=== PATIENT | female | born 1980 | race Caucasian/White ===

== ENCOUNTER 2022-11-13 20:34 | Emergency (ER) | payer MEDICARE, SELFPAY ==
[2022-11-13 20:43] VITALS: BP 110/79; PULSE 92; RESP 16; TEMP 36.8; O2SAT 96; BMI 44.8
--- NOTE | 2022-11-13 21:02 | ED.EAR1 ---
HPI - Ear Problem General Chief complaint: Ear Stated complaint: earache Time Seen by Provider: 11/13/22 20:54 Source: patient Mode of arrival: walk-in Limitations: no limitations History of Present Illness HPI Narrative: patient is a 42-year-old female presents to the emergency department for a five day history of decreased hearing to the right ear. She states she has been using [id number] drops and trying to flush her without improvement. She has no pain. No significant upper respiratory symptoms. She has no other focal medical complaints. There has been no drainage or bleeding from the right ear. Related Data Home Medications Medication Instructions Recorded Confirmed acyclovir 400 mg tablet 400 mg PO Q12H 11/13/22 11/13/22 bupropion HCl 150 mg tablet,12 hr 150 mg PO Q12H 11/13/22 11/13/22 sustained-release cabergoline 0.5 mg tablet 1 mg PO DAILY 11/13/22 11/13/22 esomeprazole magnesium 40 mg 40 mg PO Q24H 11/13/22 11/13/22 capsule,delayed release levothyroxine 50 mcg tablet 50 mcg PO DAILY 11/13/22 11/13/22 Allergies Allergy/AdvReac Type Severity Reaction Status Date / Time No Known Drug Allergies Allergy Verified 11/13/22 20:47 Review of Systems ROS Constitutional Denies: fever or chills Ears, nose, mouth, and throat Reports: change in hearing; Denies: throat pain, neck pain or nasal congestion Cardiovascular Denies: chest pain Respiratory Denies: cough Gastrointestinal Denies: nausea or vomiting Musculoskeletal Denies: back pain Integumentary/Breast Denies: rash Allergic/Immunologic Denies: hives PFSH PFS Social History Smoking status: Current some day smoker Exam Narrative Exam Narrative: Gen.: Awake, alert, in no distress Head: Normocephalic, atraumatic ENT: Moist mucous membranes; left tympanic membrane is clear, bulging and right tympanic membrane is obscured by light brown wax with no drainage in the canal Respiratory: No respiratory distress Extremities: Moves extremities equally Psych: Normal mood and affect Neuro: No focal neuro deficit Skin: Warm, dry, intact Constitutional Vital Signs, click to edit/add: Last Vital Signs Temp 98.2 F 11/13/22 20:43 Pulse 92 H 11/13/22 20:43 Resp 16 11/13/22 20:43 BP 110/79 11/13/22 20:43 Pulse Ox 96 11/13/22 20:43 O2 Del Method Room Air 11/13/22 20:43 Course Vital Signs Vital signs: Vital Signs Temperature 98.2 F 11/13/22 20:43 Pulse Rate 92 H 11/13/22 20:43 Respiratory Rate 16 11/13/22 20:43 Blood Pressure 110/79 11/13/22 20:43 Pulse Oximetry 96 11/13/22 20:43 Oxygen Delivery Method Room Air 11/13/22 20:43 Temperature 98.2 F 11/13/22 20:43 Pulse Rate 92 H 11/13/22 20:43 Respiratory Rate 16 11/13/22 20:43 Blood Pressure 110/79 11/13/22 20:43 Pulse Oximetry 96 11/13/22 20:43 Oxygen Delivery Method Room Air 11/13/22 20:43 Medical Decision Making MDM Narrative Medical decision making narrative: nursing staff flush the patient's right ear with a significant amount of wax removed, the tympanic membrane is clear at time of discharge. Ciprodex drops given for home to prevent otitis externa due to flushing. Follow-up with PCP and return to the Emergency Room if symptoms change or worsen Medical Records Medical records reviewed: Yes I reviewed the patient's medical records Discharge Plan Discharge Chief Complaint: Ear Clinical Impression: Impacted cerumen of right ear Patient Disposition: Home, Self-Care Time of Disposition Decision: 21:21 Condition: Good Prescriptions / Home Meds: No Action acyclovir 400 mg tablet 400 mg PO Q12H bupropion HCl 150 mg tablet sustained-release 12 hr 150 mg PO Q12H cabergoline 0.5 mg tablet 1 mg PO DAILY esomeprazole magnesium 40 mg capsule,delayed release(DR/EC) 40 mg PO Q24H levothyroxine 50 mcg tablet 50 mcg PO DAILY Additional Instructions: Use 2 drops of Ciprodex in the right ear, 3 times a day for 5 days Stand Alone Forms: Portal Instructions Referrals: Physician,Non-Staff, MD [Primary Care Provider] - 1 week Discharge Date/Time: 11/13/22 21:32
[2022-11-13] MEDS: CIPROFLOXACIN HCL/DEXAMETH 0.3%/0.1% OTIC SUSP 150 DROP/7.5 ML BOTTLE OT (21:17)
== END 2022-11-13 21:32 | disposition home or self-care (01) ==
PROVIDERS: Emergency Provider Internal Medicine
DX: H61.21 Impacted cerumen, right ear (principal); Z79.899 Other long term (current) drug therapy; Z79.890 Hormone replacement therapy; F17.210 Nicotine dependence, cigarettes, uncomplicated
CPT/HCPCS: 69209; 99281

== ENCOUNTER 2024-05-17 13:55 | Emergency (ER) | payer OTHER, MEDICAID, SELFPAY ==
[2024-05-17 13:58] VITALS: BP 118/80; PULSE 99; TEMP 36.6; O2SAT 97; BMI 45.7
[2024-05-17 14:13] LABS: Bilirubin Urine NEGATIVE (NEGATIVE); Blood Urine TRACE-I (NEGATIVE); Clarity Urine CLEAR (CLEAR); Color Urine LT. YELLOW (YELLOW); Glucose Urine UA NEGATIVE (NEGATIVE); Ketones Urine NEGATIVE (NEGATIVE); Leukocyte Esterase Urine TRACE (NEGATIVE); Nitrite Urine NEGATIVE (NEGATIVE); Protein Urine NEGATIVE (NEG/TRACE); Specific Gravity Urine 1.015 (1.005-1.025); Urobilinogen Urine 0.2 EU/dL (0.2-1.0)
[2024-05-17 14:16] LABS: HCG Qualitative Urine* NEGATIVE (NEGATIVE); Internal Control Within Normal Limits
[2024-05-17 14:17] LABS: Urine Microscopic Indicated YES
[2024-05-17 14:23] LABS: Bacteria Urine MODERATE #/HPF (NONE SEEN); Cast Seen? NONE SEEN #/LPF (NONE SEEN); Crystals Seen? None Seen #/HPF (None Seen); Mucus Urine SMALL (NONE SEEN); Squamous Epithelial Cell Urine FEW #/LPF (NONE/RARE); Urine Culture Indicated YES-FRMC; WBC Urine 0-2 #/HPF (NONE SEEN)
[2024-05-17] MEDS: ONDANSETRON 4 MG RAPDIS TABLET SL (14:58)
--- NOTE | 2024-05-17 16:02 | ED_ITS ---
HPI - Abdominal Pain General Chief Complaint: Abdominal Pain Stated Complaint: NAUSEA BACK PAIN Time Seen by Provider: 05/17/24 14:05 Source: patient Mode of arrival: walk-in Limitations: no limitations History of Present Illness HPI narrative: The patient is a 43-year-old female who was just drinking last night woke up this morning with nausea and vomiting, although she mentioned that she had this nausea and vomiting before she was drinking and she did not drink that much, the patient is giving me history was she drinking the Pepsi, the patient apparently refused any blood workup she mentioned that she would just follow-up with her primary care as outpatient she is just here because she think she have a UTI Somehow the patient thought that she had passed gallstone through her stool and she was thinking maybe this is UTI Related Data Home Medications ?Medication ?Instructions ?Recorded ?Confirmed acyclovir 400 mg tablet 400 mg PO Q12H 11/13/22 11/13/22 bupropion HCl 150 mg tablet,12 hr 150 mg PO Q12H 11/13/22 11/13/22 sustained-release cabergoline 0.5 mg tablet 1 mg PO DAILY 11/13/22 11/13/22 esomeprazole magnesium 40 mg 40 mg PO Q24H 11/13/22 11/13/22 capsule,delayed release levothyroxine 50 mcg tablet 50 mcg PO DAILY 11/13/22 11/13/22 Previous Rx's ?Medication ?Instructions ?Recorded ondansetron 4 mg disintegrating 4 mg PO Q8H PRN nausea and 05/17/24 tablet vomiting 24 hours #3 tabs Allergies Allergy/AdvReac Type Severity Reaction Status Date / Time No Known Drug Allergies Allergy Verified 05/17/24 14:02 Review of Systems ROS Status of ROS 10 or more systems reviewed and unremark able except as noted in history and below PFSH PFSH Social History Smoking status: Current some day smoker Little interest or pleasure in doing things: not at all Feeling down, depressed, or hopeless: not at all Exam Narrative Exam Narrative: Nurses notes and vital signs reviewed and patient is not hypoxic. General: Well-appearing and in no apparent distress. Skin: Warm, dry, no pallor noted. Respiratory: No accessory muscle use or respiratory distress. Back: No midline thoracic or lumbar vertebral tenderness. No CVA tenderness Musculoskeletal: normal ROM, no calf or popliteal tenderness, no lower extremity edema/swelling GI: Abdomen is soft, non-distended. Normal bowel sounds. No masses appreciated. No tenderness to palpation. No rebound, guarding, or rigidity noted. Neurological: A&O x4. No cranial nerve dysfunction observed. No truncal ataxia. Moves all extremities. Sensation intact. Psychiatric: Cooperative and interactive. . Constitutional Vital Signs, click to edit/add: Last Vital Signs Temp 97.9 F 05/17/24 13:58 Pulse 99 H 05/17/24 13:58 Resp 20 05/17/24 13:58 BP 118/80 05/17/24 13:58 Pulse Ox 97 05/17/24 13:58 Course Vital Signs Vital signs: Vital Signs Temperature 97.9 F 05/17/24 13:58 Pulse Rate 99 H 05/17/24 13:58 Respiratory Rate 20 05/17/24 13:58 Blood Pressure 118/80 05/17/24 13:58 Pulse Oximetry 97 05/17/24 13:58 Temperature 97.9 F 05/17/24 13:58 Pulse Rate 99 H 05/17/24 13:58 Respiratory Rate 20 05/17/24 13:58 Blood Pressure 118/80 05/17/24 13:58 Pulse Oximetry 97 05/17/24 13:58 MDM - Abdominal Pain MDM Narrative Medical decision making narrative: The patient urinalysis showed that she did not have UTI and test is negative I did explain to the patient that her epigastric discomfort that associated with nausea and vomiting could be from the vomiting and I explained to her that this could be secondary to drinking alcohol or any acidic drinks that she is having right now, but I did offer her some blood workup but she did not want any workup done here she was just here primary care as outpatient Patient provided with Zofran in the ER The patient is to follow up with primary care physician in next 2-3 days or to return to the emergency department should any of the signs or symptoms worsen or new symptoms develop. The patient agrees with the following Diagnosis and Treatment plan and the patient will be discharged home. Lab Data Labs: Lab Results 05/17/24 Range/Units 14:08 Urine Color Lt. yellow (YELLOW) Urine Clarity Clear (CLEAR) Urine pH 6.0 (5.0-9.0) Ur Specific [place] 1.015 (1.005-1.025) Urine Protein Negative (NEG/TRACE) mg/dL Urine Glucose (UA) Negative (NEGATIVE) mg/dL Urine Ketones Negative (NEGATIVE) mg/dL Urine Occult Blood Trace-i (NEGATIVE) Urine Nitrite Negative (NEGATIVE) Urine Bilirubin Negative (NEGATIVE) Urine Urobilinogen 0.2 (0.2-1.0) EU/dL Ur Leukocyte Esterase Trace A (NEGATIVE) Urine RBC 2-5 A (0-2) #/HPF Urine WBC 0-2 A (NONE SEEN) #/HPF Ur Squamous Epith Cells Few A (NONE/RARE) #/LPF Urine Crystals None seen (None Seen) #/HPF Urine Bacteria Moderate A (NONE SEEN) #/HPF Urine Casts None seen (NONE SEEN) #/LPF Urine Mucus Small A (NONE SEEN) Ur Culture Indicated? [facility] [place] Urine HCG, Qual Negative (NEGATIVE) Discharge Plan Discharge Chief Complaint: Abdominal Pain Clinical Impression: Nausea Patient Disposition: Home, Self-Care Time of Disposition Decision: 14:54 Condition: Good Prescriptions / Home Meds: New ondansetron 4 mg tablet,disintegrating 4 mg PO Q8H PRN (Reason: nausea and vomiting) 1 Days Qty: 3 0RF No Action acyclovir 400 mg tablet 400 mg PO Q12H bupropion HCl 150 mg tablet sustained-release 12 hr 150 mg PO Q12H cabergoline 0.5 mg tablet 1 mg PO DAILY esomeprazole magnesium 40 mg capsule,delayed release(DR/EC) 40 mg PO Q24H levothyroxine 50 mcg tablet 50 mcg PO DAILY Print Language: Hungarian Instructions: Acute Nausea and Vomiting (DC) Referrals: Physician,Non-Staff, MD [Primary Care Provider] - 1 week Discharge Date/Time: 05/17/24 15:01
== END 2024-05-17 15:01 | disposition home or self-care (01) ==
PROVIDERS: Emergency Provider Emergency Medicine
DX: R11.0 Nausea (principal); F17.200 Nicotine dependence, unspecified, uncomplicated; R82.998 Other abnormal findings in urine
CPT/HCPCS: 81001; 84703; 87086; 87150; 87186; 99283; Q0162

== ENCOUNTER 2024-07-26 12:59 | Emergency (ER) | payer OTHER, MEDICAID, SELFPAY ==
--- OUTSIDE RECORDS SUMMARY | 2012-10-02 12:00 | XMS_ITS | Continuity of Care Document ---
Author Organization [facility] Address [address] [place] [address] Phone Care Team Providers Care Corporate Job Titles Name Role Phone Deidre Jones Unavailable Unavailable Allergies, Adverse Reactions, Alerts Substance Reaction Status Criticality No Known allergies Medications Medication Instructions Dosage Effective Dates (start - stop) Status Comments Ortho-Cyclen (28) 0.25 mg-35 mcg Tab take 1 tablet by oral route every day - Active acyclovir 200 mg Cap take 1 capsule (200 MG) by oral route every 4 hours 5 times per day 200 MG - Active Flagyl 500 mg Tab take 1 tablet (500MG ) by oral route every 8 hours - Active Zyprexa 5 mg Tab take 1 tablet (5MG) by oral route every day - Active Procedures Procedure Date OFFICE/OUTPATIENT VISIT, EST OFFICE/OUTPATIENT VISIT, EST URINE TEST Orthocyclen Clotrimazole 1% URINE TEST SMEAR, WET MOUNT, SALINE/INK OFFICE/OUTPATIENT VISIT, EST SMEAR, WET MOUNT, SALINE/INK URINE TEST PREV VISIT, EST, AGE 18-39 URINE TEST PREV VISIT, NEW, AGE 18-39 SPECIMEN HANDLING (GC/CHLAMYDIA) July SMEAR, WET MOUNT, SALINE/INK ROUTINE VENIPUNCTURE URINE TEST HIV-1 RPR (Dx) W/TITER & FTA OFFICE/OUTPATIENT VISIT, EST O[facility] SPECIMEN HANDLING (GC/CHLAMYDIA) Jan SMEAR, WET MOUNT, SALINE/INK HIV-1 URINE TEST [facility] METRONIDAZOL 500 MG (14 TABLETS) Jan OFFICE/OUTPATIENT VISIT, EST ROUTINE VENIPUNCTURE METRONIDAZOL 500 MG (14 TABLETS) 2010 RPR (Dx) W/TITER & FTA HIV-1 URINE TEST PER PM REEVAL EST PAT 65+ YR METRONIDAZOL 500 MG (14 TABLETS) 2009 TERAZOL 3 CREAM 20 GM W/RICARDA .8% 010 No Charge OFFICE/OUTPATIENT VISIT, EST SPECIMEN HANDLING OFFICE/OUTPATIENT VISIT, EST URINALYSIS, NONAUTO W/SCOPE SMEAR, WET MOUNT, SALINE/INK SPECIMEN HANDLING METRONIDAZOL 500 MG (14 TABLETS) 2008 URINE TEST OFFICE/OUTPATIENT VISIT, EST URINALYSIS, NONAUTO W/SCOPE THIN PREP PAP W/REFLEX TO ASCUS 009 NITROFURANTON 100 MG ($1.00 PER TABLET) SPECIMEN HANDLING URINE TEST OFFICE/OUTPATIENT VISIT, EST OFFICE/OUTPATIENT VISIT, EST OFFICE/OUTPATIENT VISIT, EST ACYCLOVIR PREV VISIT, NEW, AGE 18-39 URINALYSIS, NONAUTO W/SCOPE URINE TEST SPECIMEN HANDLING Condoms THIN PREP PAP W/REFLEX TO ASCUS 009 Advance Directives Directive Yes / No Effective Date File Name Resuscitation Not Answered N/A N/A Life Support Not Answered N/A N/A Intubation Not Answered N/A N/A Antibiotics Not Answered N/A N/A IV Fluid Support Not Answered N/A N/A Tube Feed Not Answered N/A N/A Other Directive N/A N/A WARNING:The information contained in this section is historical and is provided for information only and does not constitute a legal document or any assurance that the information is still accurate. Please verify the information with the brewer of the legal document before using it for clinical purposes. Encounters Encounter Description Practice Location Reason(s) For Visit Diagnoses Date Provider Providers Copied on Encounter OFFICE/OUTPA TIENT VISIT, [facility], [address] [place] [address], [id number] , tel: [phone] [facility] missed periods (chief complaint) Absence of menstruationGenera l counseling on prescription of oral contraceptivesCand idiasis of vulva and vaginaGenital herpes, unspecified 3 Robert Jiang. [address] [place] [address], [id number], [place]. [phone] OFFICE/OUTPA TIENT VISIT, [facility], [address] [place] [address], [id number] , [place] tel: [phone] [facility] (chief complaint) Vaginitis 3 Robert Jiang. [address] [place] [address], [id number], [place]. tel:[phone] PREV VISIT, EST, AGE 18-39 [facility], [address] [place] [address], [id number] , [place] tel: [phone] [facility] No Information 2 Robert Deidre. [address] [place] [address], [id number], [place]. [phone] PREV VISIT, NEW, AGE 18-39 [facility], [address] [place] [address], [id number] , [place] tel: [phone] [facility] STI female (chief complaint) Screening examination for venereal disease 2 Shamika Hernandez. [address], [place], [id number], [place]. tel:[phone] OFFICE/OUTPA TIENT VISIT, [facility], [address], [place], [id number] , [place] tel: [phone] [facility] STI female (chief complaint) VaginitisScreening examination for venereal disease 1 Shamika Hernandez. [address], [place], [id number], [place]. [phone] OFFICE/OUTPA TIENT VISIT, [facility], [address], [place], [id number] , [place] tel: [phone] [facility] No Information 1 Shamika Hernandez. [address], [place], [id number], [place]. tel:[phone] PER PM REEVAL EST PAT 65+ YR [facility], [address], [place], [id number] , [place] tel: [phone] [facility] No Information 9-201 0 Simran Horton. [address], [place], [id number]. tel:[phone] [facility], [address], [place], [id number] , [place] tel: [phone] [facility] No Information 4200 9 Shamika Hernandez. [address], [place], [id number], [place]. tel:[phone] OFFICE/OUTPA TIENT VISIT, [facility], [address], [place], [id number] , [place] tel: [phone] [facility] No Information 7200 9 Isaac Sen. [address], [place], [id number]. tel:[phone] OFFICE/OUTPA TIENT VISIT, [facility], [address], [place], [id number] , [place] tel: [phone] [facility] No Information 9 [facility]. [address] [facility] [place], [place], [id number]. tel:[phone] OFFICE/OUTPA TIENT VISIT, [facility], [address], [place], [id number] , [place] tel: [phone] [facility] No Information 9 [facility]. [address], [place], [id number]. tel:[phone] OFFICE/OUTPA TIENT VISIT, [facility], [address], [place], [id number] , [place] tel: [phone] [facility] No Information 9 Shamika Hernandez. [address], [place], [id number], [place]. tel:[phone] OFFICE/OUTPA TIENT VISIT, [facility], [address], [place], [id number] , [place] tel: [phone] [facility] No Information 9 No Information OFFICE/OUTPA TIENT VISIT, [facility], [address], [place], [id number] , [place] tel: [phone] [facility] No Information 9 [facility]. [address], [place], [id number]. tel:[phone] PREV VISIT, NEW, AGE 18-39 [facility], [address], [place], [id number] , [place] tel: [phone] [facility] No Information 9 No Information Family History Family Member Type Diagnosis Age At Onset Problem (finding) Family history of Menta l illness Payers Payer name Insurance type Covered democrat ID Authordebora marin(s) No Information Social History Type Description Quantity Date Captured Comments Alcohol Use Details 2 drinks monthly 3 Caffeine Use Details soda Tobacco Use Status Smoking Status No Information Sex Female Sexual Orientation Straight or heterosexual Vital Signs Date / Time: Height Weight BMI Pulse Rate Blood Pressure Temperature Respiratory Rate Body Surface Area Head Circumference Head Circ. Percentile Wt./Salvador. Percentile BMI percentile Pulse Ox Inhaled Ox 4:17 PM 62.00 in 204.00 lbs 37.3 1 kg/m eter (2) 118/78 mm[Hg] Chief Complaint And Reason For Visit From encounter dated '10/02/2012 16:00'. missed periods (chief complaint) Reason For Referral Reason For Referral No Information Plan Of Treatment Date Type Action Status Goal TD Vaccine. Due on 13 due Goal PAP. Due on due Goal H&P. Due on due Goal CHARGE ENTRY CLERK exam. Due on due Goal Tobacco cessation counseling completed Goal Tobacco cessation counseling completed History Of Present Illness Encounter Date Complaint History Of Prese nt Illness No Information Functional Status Date Functional Assessmen t No Information Instructions Date Instruction Additional Infor mation No Information Assessments Type Assessment Date No Information Patient Care Teams Name Effective Dates (start - stop) Status Members No Information
--- OUTSIDE RECORDS SUMMARY | 2024-07-21 11:45 | XMS_ITS | Encounter Summary ---
Author Organization [facility] Address [facility] [place] [address] Care Team Providers Care Hopper Feeder Name Role Phone Johnny Reardon DO Primary Care Provider Marie Mancuso PA-C Unavailable [phone] Gail Escudero MD Unavailable [phone] Source Comments In the event this information is protected by the Federal Confidentiality of Alcohol and Drug AbusePatient Records regulations: The Federal rules restrict any use of the information to criminally investigate or prosecute any alcohol or drug abuse patient.[facility] Reason for Visit * Reason Comments New Patient Pre-Op Visit Encounter Details Date Type Department Care Team (Late st Contact Info) Description 07/21/2024 11:45 AM EDT Office Visit Otolaryngology [address] [facility] [address] [address] Koko Gorman MD [address] [place] [address] Prolactinoma (HCC) (Primary Dx); Pituitary tumor Social History Tobacco Use Types Packs/Day Years Used Date Smoking Tobacco: Some Days Cigarettes Smokeless Tobacco: Never Tobacco Cessation:Ready to Q uit: Not Asked; Counseling Given: Not Answered Comments:A few cigs every few days Alcohol Use Standard Drinks/Week Comments Yes 0 (1 standard drink = 0.6 oz pur e alcohol) occasional/rare Social Connection and Isolation Panel [NHANES] A nswer Date Recorded In a typical week, how many times do you talk on the phone with family, friends, or neighbors? Once a week 06/07/2022 How often do you get together with friends or re latives? Never 06/07/2022 How often do you attend denominational or scientology serv ices? Never 06/07/2022 Do you belong to any clubs o r organizations such as denominational groups, unions, fraternal or athletic groups, or school groups? No 06/07/2022 How often do you attend meet ings of the clubs or organizations you belong to? Never 06/07/2022 Are you , , di vorced, , never , or living with a partner? Never 06/07/2022 AUDIT-C Answer Date Recorded Q1: How often do you have a drink containing alcohol? Never 06/07/2022 Q2: How many drinks containi ng alcohol do you have on a typical day when you are drinking? Patient does not drink Q3: How often do you have si x or more drinks on one occasion? Never 06/07/2022 Overall Financial Resource Strain (CARDIA) Answe r Date Recorded How hard is it for you to pa y for the very basics like food, housing, medical care, and heating? Very hard 06/07/2022 PHQ-2 Answer Date Recorded PHQ-2 score 3 03/10/2024 [facility] - Occupational Stress Questionnaire Answer Date Recorded Do you feel stress - tense, restless, nervous, or anxious, or unable to sleep at night because your mind is troubled all the time - these days? Very much 06/07/2022 Exercise Vital Sign Answer Date Recorde d On average, how many days pe r week do you engage in moderate to strenuous exercise (like a brisk walk)? 4 days 06/07/2022 On average, how many minutes do you engage in exercise at this level? 60 min 06/07/2022 Hunger Vital Sign Answer Date Recorded Within the past 12 months, y ou worried that your food would run out before you got the money to buy more. Sometimes true Within the past 12 months, t he food you bought just didn't last and you didn't have money to get more. Sometimes true 08/2022 PRAPARE - Transportation Answer Date Re corded In the past 12 months, has l ack of transportation kept you from medical appointments or from getting medications? Yes 08/2022 In the past 12 months, has l ack of transportation kept you from meetings, work, or from getting things needed for daily living? Yes 06/07/2022 Housing Stability Vital Sign Answer Raz e Recorded In the last 12 months, was t here a time when you were not able to pay the mortgage or rent on time? Yes 06/07/2022 In the last 12 months, how many places have you lived? 1 06/07/2022 In the last 12 months, was t here a time when you did not have a steady place to sleep or slept in a alf (including now)? No 06/07/2022 Area Deprivation Index Answer Date Kana rded National Score (1-100), lower number is lower ri sk 79 07/26/2022 State Score (1-10), lower number is lower risk 7 07/26/2022 Data from: https://www.neighborhoodatlas.medicine.[facility].edu/. Last address used for calculation [address] [place] [address] 07/26/2022 Comments No Sex and Gender Information Value Date Recorded Sex Assigned at Female 09/09/2019 3:52 PM EDT Legal Sex Female 8:28 AM EST Gender Identity Female 09/09/2019 3:52 PM EDT Sexual Orientation Straight 09/09/2019 3: 52 PM EDT documented as of this encounter Progress Notes * Koko Gorman MD - 07/21/2024 11:28 AM EDT Images from the original note were not included. SECTION OF RHINOLOGY, SINUS AND SKULL BASE SURGERY Head and Neck [place], [facility] MINIMALLY INVASIVE CRANIAL BASE & PITUITARY SURGERY PROGRAM [facility] CONSULTATION NOTE This patient is a new patient. Consultation requested by Chito Sellers for an opinion regarding a sellar mass. My final recommendations will be communicated back to the requesting physician by way of shared Medical record or letter to requesting physician via US mail. 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 PLAN: 1) Nasal Endoscopy today - LEFT DNS. 2) Recommended procedure: Endoscopic transphenoidal resection of pituitary mass with possible septoplasty, possible septectomy, possible naso-septal flap for reconstruction, possible abdominal fat graft, possible fascia jose david harvest, and possible lumbar drain placement. Chito Sellers previously obtained written informed consent form this patient. Today, I also obtained informed consent for the recommended procedure, and personnaly discussed the risks, benefits, alternatives, expectations, and personnel with the patient and answered questions. HPI: Danii Ernst is a 44 year old female on disability seen with mother referred by Chito Sellers for consideration of a combined endoscopic approach to pituitary tumor resection. The neurosurgery team has recommended surgery for this patient. The patient denies any sinus issues or infections. No prior sinus surgery. Some AR type symptoms. She has a hx of anxiety, depression, PTSD, schizoaffective disorder, hypothyroidism, recent;y diagnosed with prolactinoma (having PARRISH and galactorrhea). Following with endocrinology and has tried cabergoline. Dr Sellers Assessment: In summary, Ms. Ernst is a 43 yo F w/ hx of anxiety, depression, PTSD, schizoaffective disorder, hypothyroidism, presents to neurosurgery for evaluation of prolactinoma. She has been on cabergoline initially with partial response both clinically and biochemically but has required increasing doses and is now on high-dose cabergoline of 2 tablets daily and has valvular abnormalities on her echo. Because of this she is seeing us for consideration of surgical resection. We discussed the endoscopic endonasal approach in detail. The surgery would be done through an endoscopic transnasal approach in conjunction with one of my ENT partners. The procedure would be done under general anesthesia. We would use neuronavigation in order to guide us intraoperatively and will obtain a specialized MRI andCT scan prior to the procedure if it is not already available. The risks and benefits of this proced ure were discussed in detail which include but are not limited to bleeding, infection/meningitis, cerebrospinal fluid leak, nasal stuffiness and/or crusting, sensations that air does not pass throughthe nose, pituitary gland dysfunction including need for permanent hormone replacement, diabetes ins ipidus, chronic headache, incomplete tumor resection, vision loss, limitation of eye movements, paralysis, vascular injury, stroke, medical complications, and . In addition, it was explained that this may be one of several procedures required in managing this problem. Plan: ---surgery scheduling ---can stop cabergoline PAST MEDICAL HISTORY: PAST MEDICAL HISTORY Diagnosis Date Bacterial vaginosis Fibroid Herpes simplex virus (HSV) infection HPV (human papilloma virus) infection LEE 2002 Pituitary mass (HCC) benign prolactin secreting pituitary adenoma Thyroid disease Urogenital trichomoniasis PAST SURGICAL HISTORY: PAST SURGICAL HISTORY Procedure Laterality Date CERVIX UTERI CONIZA LP ELCTRO EXCI 2002 CYSTO.PANENDO 10/09/2022 History reviewed. No pertinent family history. Social History Tobacco Use Smoking status: Every Day Current packs/day: 0.50 Types: Cigarettes Smokeless tobacco: Never Vaping Use Vaping status: Never Used Substance Use Topics Alcohol use: Yes Comment: occasional/rare Drug use: Never MEDICATIONS: Current Outpatient Medications Medication Sig MULTIVITAMIN ORAL Take 1 tablet by mouth once daily. diphenhydramine HCl (BENADRYL ALLERGY ORAL) Take by mouth as needed. acetaminophen (TYLENOL) 325 mg tablet Take 650 mg by mouth every 6 hours as needed. esomeprazole (NEXIUM) 40 mg capsule Take 1 capsule by mouth once daily. acyclovir (ZOVIRAX) 400 mg tablet TAKE 1 TABLET EVERY 12 HOURS. LAST REFILL UNTIL OFFICE VISIT buPROPion SR (WELLBUTRIN SR) 150 mg 12 hr tablet Take 1 tablet by mouth daily at bedtime. (Patient not taking: Reported on 07/21/2024) cabergoline (DOSTINEX) 0.5 mg tablet TAKE 2 TABLETS SIX DAYS OF THE WEEK AND 1 TABLET ONE DAY OF THE WEEK. (Patient not taking: Reported on 07/21/2024) levothyroxine (SYNTHROID) 50 mcg tablet take 1 tablet every day (Patient not taking: Reported on 07/21/2024) No current facility-administered medications for this visit. ALLERGIES: ALLERGIES No Known Allergies ROS: ?? Constitutional: Denies having night sweats, constant fatigue, loss of appetite, or recent substantial weight loss. ?? Eyes: The patient denies having blurred vision or double vision. ?? Respiratory: Denies symptoms of shortness of breath, noisy breathing, hoarseness, or a chronic cough. ?? GI: Denies symptoms of heartburn, acid regurgitation, or the known presence of a hiatal hernia. 14 point review of systems was otherwise normal. REVIEW OF RADIOLOGICAL FILMS AND RECORDS: Previous operative, pathology, and radiological reports were reviewed and filed in the permanent chart. PHYSICAL EXAM: Constitutional: ?? General appearance: well developed, well nourished, without obvious deformities ?? Communication: the patient speaks with a normal voice without hoarseness Head and Face: ?? Overall appearance: no obvious scars, lesions or masses ?? Parotid and submandibular glands: no masses or tenderness ?? Facial strength: normal and equal bilaterally . No tenderness to palpation Eyes: PERRLA EOMI Ears, Nose, Mouth, Throat: ?? External ears and nose: normal in appearance, without scars, lesions, or masses ?? Ears: both left and right external auditory canals and tympanic membranes are normal ?? Nasal exam: the mucosa is pink, the septum is midline, and the visible turbinates are normal on anterior rhinoscopy ?? Oral cavity and oropharynx: The lips, the oral mucosa, hard and soft palates, tongue, tonsil area, and posterior pharyngeal mucosa are without lesions ?? Neck: the neck appears symmetric without scars, and on palpation is without masses or lymphadenopathy Respiratory: . Normal respirations on inspection Neurological . Normal mental status . Normal orientation . Cranial Nerves 3-12 intact PROCEDURE NOTE: Procedure: Nasal endoscopy Indication: Pituitary Lesion Findings: After topical decongestion with afrin spary, rigid endoscopy was performed using a 0degree endoscope. The septum was deviated to the LEFT. Inferior turbinates were hypertrophic bilaterally.Both MT were in good position and the middle meatii were clear. No mucus, pus or polyps were seen. WICKER WORKER was clear. There were no complications and the patient tolerated the procedure well. Koko Gorman MD Recommended Procedure: Endoscopic transphenoidal resection of pituitary mass with possible septoplasty, possible septectomy, possible nasal septal flap for reconstruction, possible abdominal fat graft, possible fascia jose david harvest, and possible lumbar drain placement. The role of surgery was discussed. All risks, benefits, alternatives, personnel and consent were discussed at length with the patient. Risks including, but not limited to: general anesthesia (including heart attack, stroke, vegetative state, and ), orbital or optic nerve injury (including temporary or permanent double vision or blindness), intracranial penetration (with brain injury, meningitis, CSF leak, or injury to the internal carotid artery causing massive hemmorhage stroke or ),septal perforation, persistent deviation of the septum, scarring in the nose, bleeding, infection, issues with nasal drainage, blockage or crusting, persistence or worsening of current symptoms, persistent or new onset disturbance of smell, and the possible need for revision or further surgery/treatment were discussed. Patient was made aware that in addition to the endoscopic approach an alotomy or cut at the side of the nostril (leaving a permanent scar) may be necessary, and that fat may be harvested from the abdomen leaving a permanent scar there as well. All of the the patient's questions were answered and the patient voiced an excellent understanding of our discussion. The patient was interested in proceeding with surgery, which will be arranged at the patient's earliest convenience. MD Koko Vilchis MD, FACS, [facility] Section Head Rhinology, Sinus and Skull Base Surgery This visit lasted more than 40 min and over 50% of the time was spent counselling the patient. Findings of recent CT scan, the role of surgery, future management options and expected disease course were discussed. The patient's questions were answered. Koko Gorman MD * Karla Franco MA - 07/21/2024 11:27 AM EDT Tobacco Use: Types: Cigarettes Was smoking cessation packet given? Patient Declined Was a referral initiated?Patient declined. documented in this encounter Plan of Treatment Upcoming Encounters Date Type Department Care Team (Latest Contact Info) Description 08/05/2024 1:00 PM EDT Office Visit Otolaryngology [address] [place] [address] Rojelio Courtney MD [address] [place] [address] post op 09/09/2024 11:20 AM EDT [facility] [address] [place] [address] Chito Sellers MD [address] [place] [address] Post-Op Scheduling Request 09/16/2024 2:30 PM EDT [facility] Endocrinology [address] [place] [address] Gail Escudero MD [address] [place], [place] [id number] Post-Op Scheduling Request documented as of this encounter Visit Diagnoses Diagnosis Prolactinoma (HCC)- Primary Benign neoplasm of pituitary gland and craniopharyngeal duct (pouch) Pituitary tumor Neoplasm of unspecified nature of endocrine glands and other parts of nervous system documented in this encounter Care Teams Hopper Feeder Relationship Specialty Start Date End Date Johnny Reardon DO [address] [place] [address] PCP - General Internal Medicine 07/27/22 Marie Mancuso PA-C [address] [place] [address] Slitter Scorer Internal Medicine 02/09/24 Gail Escudero MD [address] [place], [place] [id number] NI Referring Team Endocrinology 05/12/24 documented as of this encounter
--- OUTSIDE RECORDS SUMMARY | 2024-07-21 13:00 | XMS_ITS | Encounter Summary ---
Author Organization [facility] Address [address] [place] [id number] Care Team Providers Care Process Design Engineer Name Role Phone Johnny Reardon DO Primary Care Provider Marie Mancuso PA-C Unavailable [phone] aGil Escudero MD Unavailable [phone] Source Comments In the event this information is protected by the Federal Confidentiality of Alcohol and Drug AbusePatient Records regulations: The Federal rules restrict any use of the information to criminally investigate or prosecute any alcohol or drug abuse patient.[facility] Encounter Details Date Type Department Care Team (Late st Contact Info) Description 07/21/2024 1:00 PM EDT Nurse Visit [facility] [address] [place] [address] [place] [address] [place] [address] Pituitary adenoma (HCC) (Primary Dx) Social History Tobacco Use Types Packs/Day Years Used Date Smoking Tobacco: Some Days Cigarettes Smokeless Tobacco: Never Comments:A few cigs every fe w days Alcohol Use Standard Drinks/Week Comments Yes [...] Never 06/07/2022 How often do you attend anglican or methodist serv ices? Never 06/07/2022 Do you belong to any clubs o r organizations such as anglican groups, unions, fraternal or athletic groups, or [...] Answer Date Recorded PHQ-2 score 3 03/10/2024 [facility] - [...] place to sleep or slept in a snf (including now)? No 06/07/2022 Area Deprivation Index Answer Date Kana rded National Score (1-100), lower number is lower ri sk 79 07/26/2022 State Score (1-10), lower number is lower risk 7 07/26/2022 Data from: https://www.neighborhoodatlas.medicine.[facility].edu/. Last address used for calculation [address] [place] [address] 07/26/2022 Comments No Sex and Gender Information Value Date Recorded Sex Assigned at Female 09/09/2019 3:52 PM EDT Legal Sex Female 8:28 AM EST Gender Identity Female 09/09/2019 3:52 PM EDT Sexual Orientation Straight 09/09/2019 3: 52 PM EDT documented as of this encounter Progress Notes * Dominique De La O, RN - 07/21/2024 2:40 PM EDT DISCIPLINE: NURSING DIAGNOSIS Prolactinoma PROCEDURE/SURGERY:Endoscopic Endonasal Resection with Dr. Sellers and Dr. Gorman on 07/22/24 PATIENT READINESS TO LEARN MOTIVATION TO LEARN: Eager *SUPPORT High *COGNITIVE ABILITYAlert and oriented *INFLUENCING FACTORS* None *PHYSICAL LIMITATIONS* None *LEARNING PREFERENCES* : PT. LEARNS BEST BY: Individual Instruction INSTRUCTIONS PROVIDED TO: Patient and Mother CONTENT The following supplemental materials were given in written form to the patient in a folder at a previous visit and reviewed with the patient at this visit : - Your Surgical Guide Booklet -[facility] Teaching sheet for Deep Vein Thrombosis (DVT) -FAQ's about Surgical Site Infections -Medication Stoppage (Medications/Vitamins/OTC) prior to surgery -Patient information: Reducing surgical site infections -Dr. Sellers - Postoperative instructions [id number] Genetic and Molecular Analysis of Tumors of the Central Nervous System and their Coverings. A copy of the consent form was given to patient on 07/21/24. Discussed with patient all risks, benefits, and alternatives with good understanding. Questions concerning enrollment were answered. Patient has read the informed consent. Patient states understanding and has agreed to participate on 07/21/24 at ~1300. Informed consent obtained and copy given to the patient. *PATIENT EVALUATION* Verbalizes Understanding *FOLLOW UP PLAN* COMPLETE No Need for Follow Up Dominique De La O Pager [phone] documented in this encounter Plan of Treatment Upcoming Encounters Date Type Department Care Team (Latest Contact Info) Description 08/05/2024 1:00 PM EDT Office Visit Otolaryngology [address] [address] Rojelio Courtney MD [address] [place] [address] post op 09/09/2024 11:20 AM EDT [facility] [address] [place] [address] Chito Sellers MD [address] [place] [address] Post-Op Scheduling Request 09/16/2024 2:30 PM EDT [facility] Endocrinology [address] [place] [address] Gail Escudero MD [address] [place] [address] Post-Op Scheduling Request documented as of this encounter Visit Diagnoses Diagnosis Pituitary adenoma (HCC)- Primary Benign neoplasm of pituitary gland and craniopharyngeal duct (pouch) documented in this encounter Care Teams Process Design Engineer Relationship Specialty Start Date End Date Johnny Reardon DO [address] [place] [id number] PCP - General Internal Medicine 07/27/22 Marie Mancuso PA-C [address] [place], [place] [phone] House Officer Internal Medicine 02/09/24 Gail Escudero MD [address] [place] [address] NI Referring Team Endocrinology 05/12/24 documented as of this encounter
--- OUTSIDE RECORDS SUMMARY | 2024-07-21 14:20 | XMS_ITS | Encounter Summary ---
Author Organization [facility] Address [address] [place], [place] [id number] Care Team Providers Care Process Control Supervisor Name Role Phone Johnny Reardon DO Primary Care Provider Marie Mancuso PA-C Unavailable [phone] Gail Escudero MD Unavailable [phone] Source Comments In the event this information is protected by the Federal Confidentiality of Alcohol and Drug AbusePatient Records regulations: The Federal rules restrict any use of the information to criminally investigate or prosecute any alcohol or drug abuse patient.[facility] Reason for Referral * Outpatient Procedure (Routine) - Closed Specialty Diagnoses / Procedures Referred By Contac t Referred To [facility] Diagnoses Pre-op evaluation Procedures ECG COMPLETE ECG ROUTINE ECG W/LEAST 12 LDS W/I&R Seema Rojo PA-C [address] [address] Phone: tel: fax: [facility] [address] [place] [address] Referral ID Status Reason Start Date Expiration Date V isits Requested Visits Authorized [id number] Closed Auto-Generate d Referral 07/21/2024 07/21/2025 1 1 Encounter Details Date Type Department Care Team (Late st Contact Info) Description 07/21/2024 2:20 PM EDT PAT Pre Anesthesia [address] [place] [id number] 6, [facility] [address] [place] [id number] Pre-op evaluation (Primary Dx); Hypothyroidism (acquired); Class 3 severe obesity due to excess calories with serious comorbidity and body mass index (BMI) of 45.0 to 49.9 in adult; Paranoid schizophrenia, chronic condition with acute exacerbation (HCC) Social History Tobacco Use Types Packs/Day Years [...] Never 06/07/2022 How often do you attend roman catholic or catholic serv ices? Never 06/07/2022 Do you belong to any clubs o r organizations such as roman catholic groups, unions, fraternal or athletic groups, or [...] you are drinking? Patient does not drink 04/06/202 3 Q3: How often do you have si x or more drinks on one occasion? Never 06/07/2022 Overall Financial Resource Strain (CARDIA) Answe r Date Recorded How hard is it for you to pa y for the very basics like food, housing, medical care, and heating? Very hard 06/07/2022 PHQ-2 Answer Date Recorded PHQ-2 score 3 03/10/2024 [facility] - Occupational Stress [...] place to sleep or slept in a intermediate (including now)? No 06/07/2022 Area Deprivation Index Answer Date Kana rded National Score (1-100), lower number is lower ri sk 79 07/26/2022 State Score (1-10), lower number is lower risk 7 07/26/2022 Data from: https://www.neighborhoodatlas.[facility]/. Last address used for calculation [address]ancarl[address] 07/26/2022 Comments No Sex and Gender Information Value Date Recorded Sex Assigned at Female 09/09/2019 3:52 PM EDT Legal Sex Female 8:28 AM EST Gender Identity Female 09/09/2019 3:52 PM EDT Sexual Orientation Straight 09/09/2019 3: 52 PM EDT documented as of this encounter Last Filed Vital Signs Vital Sign Reading Time Taken Comments Blood Pressure 114/68 07/21/2024 2:01 PM EDT Pulse 88 07/21/2024 2:01 PM EDT Temperature 36.2 C (97.1 F) 07/21/2024 2:01 PM EDT Respiratory Rate - - Oxygen Saturation 96% 07/21/2024 2:01 PM EDT Inhaled Oxygen Concentration - - Weight 117.6 kg (259 lb 4.2 oz) 07/21/2024 2:01 PM EDT Height 157.5 cm (5' 2 ) 07/21/2024 2:01 PM EDT Body Mass Index 47.42 07/21/2024 2:01 PM EDT documented in this encounter Patient Instructions * Patient Instructions* Seema Rojo PA-C - 07/21/2024 2:32 PM EDT Images from the original note were not included. [facility] PATIENT PREOPERATIVE INSTRUCTIONS Chito Sellers MD has scheduled you for your procedure at this surgery center: [facility] [place] [facility] Scheduling Office: [phone] --[address] [place] [address]. Please read below carefully for your personalized instructions. Dietary Restrictions: - No solid food after midnight. - You may have 12 ounces of clear liquids (water, clear juices such as apple juice or gatorade, carbonated beverages, clear tea, black coffee, jello) until 2 hours before scheduled arrival at facility. Medications: Unless instructed differently below, stay on all of your medications until your surgery. If you start any new medications after today's visit, please contact your surgeon. Pre-Surgery Med Instructions Medication Instructions MULTIVITAMIN ORAL Do not take the day of surgery diphenhydramine HCl (BENADRYL ALLERGY ORAL) Do not take the day of surgery esomeprazole (NEXIUM) 40 mg capsule If you normally take this medication in the morning, take the morning of surgery. acyclovir (ZOVIRAX) 400 mg tablet If you normally take this medication in the morning, take the morning of surgery. If you start any new medications after today's visit, please contact the surgeon's office. If you are currently using a iegn-qmm-revi injectable or oral medication for diabetes or weight loss such as Dulaglutide (Trulicity), Exenatide (Byetta, Bydureon), Liraglutide (Victoza, Saxenda), Semaglutide (Ozempic, Wegovy, Rybelsus), or Tirzepatide (Mounjaro), the medicine should be stopped at least 7 days before surgery. These medicines can cause food to remain in your stomach for a very longtime and increase the risks from surgery and anesthesia. Not stopping the medication for a long enough time may result in your surgery being rescheduled. Blood Thinning Medications: - Stop NSAIDS (Ibuprofen, Advil, Aleve, Motrin, Celebrex, Mobic, etc.) 7 days before surgery, as directed by your surgeon. - Stop Aspirin 7 days before surgery, as directed by your surgeon. - Stop ALL herbal and dietary supplements 7 days before surgery. - You may take Tylenol (Acetaminophen) or any of your pain medications that do not contain aspirin or NSAIDS as needed. Important Reminders: - Candy, mints, and tobacco products are NOT permitted the morning of surgery. - Hearing aids, dentures and glasses may be worn the morning of surgery. - NO jewelry, body piercings, makeup, hairpins or contacts are to be worn the day of surgery. If you develop symptoms such as a fever, cold, or flu, or have other changes to your health within TWO DAYS of scheduled surgery or the morning of surgery, please contact the surgery center above. Personal Belongings: -Please have photo ID and insurance cards. -If you do not have a copy of advance directives on file with us, please bring a copy with you on the day of surgery. - Leave ALL valuables and money at home or with family members. - Please bring high-quality footwear, such as sneakers, to the hospital for ambulating post-surgery. Arrival Time for Surgery: Please be aware that emergency situations arise, which may delay or change your surgical time. If this happens, we will notify you as soon as possible and regret any inconvenience. If you already have an Advance Directive, please fax a copy to [phone] or email to for it to be added to your chart. If you do not have an Advance Directive, you can find the appropriate form and more information at [email or web address]. We recommend that youcomplete the Advance Directive form found on the website and bring it with you the day of your surgery. It can be witnessed and scanned into your chart that day. Seema Rojo PA-C documented in this encounter H&P Notes * Seema Rojo PA-C - 07/21/2024 2:20 PM EDT Images from the original note were not included. [facility] HISTORY AND PHYSICAL EXAMINATION SERVICE DATE: 07/21/2024 SERVICE TIME: 2:33 PM PRIMARY CARE PHYSICIAN: Johnny Reardon, Assessment Patient has the following medical conditions which may affect keegan-operative course: Hypothyroidism (acquired) Not currently taking Synthroid Class 3 severe obesity due to excess calories with serious comorbidity and body mass index (BMI) of45.0 to 49.9 in adult (HCC) Body mass index is 47.42 kg/m??. Paranoid schizophrenia, chronic condition with acute exacerbation (HCC) Managed with Wellbutrin ANESTHESIA FINDINGS: Intubation History: No abnormal airway history Significant Anesthesia Considerations: small veins, usually use a butterfly with labs potential difficult IV/vein access Airway History: No abnormal airway history Cast Activity Status Index: METS: Walk indoors, such as around the house (1.75 METs) Do light work around the house, such as dusting or washing dishes (2.70 METs) Take care of self; that is eating, dressing, bathing, using the toilet (2.75 METs) Walk a block or two on level ground (2.75 METs) Do moderate work around the house, such as vacuuming, sweeping floors, or carrying in groceries (3.50 METs) Do yardwork, such as raking leaves, weeding, or pushing a power mower (4.50 METs) Climb a flight of stairs or walk up a hill (5.50 METs) DASI Score: 23.45 Patient denies any chest pain or undue shortness of breath with the above physical activity. STOP-Bang Score: BMI greater than 35 kg/m^2 Denies snoring loudly Denies feeling tired, fatigued, or sleepy during the daytime Has not been observed to stop breathing or choking/gasping during sleep Denies having high blood pressure Patient 50 years old or younger Does not have a large neck Non-male patient STOP-Bang Score: 1 I - PHYSICAL EVALUATION AIRWAY Patient intubated: No. Tracheostomy tube not present TM distance: >3 FB. Neck ROM: full ROM without neurological symptoms. Mouth opening: adequate. Short neck: no. Thick neck: no Microretrognathia/Micronagthia/Recessed Chin: No DENTAL Dental findings: teeth intact. Additional comments: +braces +missing molars . II - ANESTHESIA PLAN Beta Louie Monitoring Plan Post Procedure Analgesic Plan Prepared for surgery: Pt optimally prepared for surgery, pending day of surgery review of labs and EKG. Patient was evaluated in [facility] the day before surgery. CONSULTS: Patient does not require consults for optimization at this time. The Following Tests/Procedures Have Been Initiated: Orders Placed This Encounter ECG (FUTURE) Standing Status: Future Number of Occurrences: 1 Expiration Date: 07/21/2025 , Labs per surgical service Planned Anesthetic: Per anesthesia choice REASON FOR VISIT: Danii Ernst is a 44 year old female who is scheduled for Pending - NEUROENDOSCOPY INTRACRANIAL W/ EXCISION OF PITUITARY TUMOR TRANS-NASAL APPROACH STEREOTACTIC COMPUTER-ASSISTED NAVIGATIONAL PROCEDURE CRANIAL Pending - NEUROENDOSCOPY INTRACRANIAL W/ EXCISION OF PITUITARY TUMOR TRANS-NASAL APPROACH Pending - FASCIA ADAN SHEET GRAFT VIA INCISION & AREA EXPOSURE - (Possible) at the request of Dr. Chito Sellers for consultation. My final recommendation will be communicated back to the requesting physician by way of shared medical record or letter. Subjective CHIEF COMPLAINT: Pre-op exam HPI: Danii Ernst is a 44 year old female who presents to [facility] for the above procedure. Patient reports history of Pituitary adenoma. Denies any CP, SOB, fever, chills, n/v/d, or dizziness. Recommended above procedure and elects to proceed. Patient is scheduled for procedure on 07/22/2024 at [facility]. REVIEW OF SYSTEMS: General: No weight loss, malaise or fevers. Neurological: No history of TIA's, stroke, SCHOOL LIBRARIAN tumor, impaired sensorium, hemiplegia, paraplegia orquadraplegia. No neurological symptoms or problems. Respiratory: Positive for: tobacco use. Negative for: asthma, current cough, orthopnea, pneumonia within 6 weeks, URI < 2 weeks and obstructive sleep apnea. Cardiovascular: No history of HTN requiring medication, no history of angina, CHF, ND, cardiac surgery or stents. Denies rest pain, gangrene or revascularization/amputation for PVD. No history of cardiovascular symptoms or problems. GI: No history of GI symptoms or problems. No history of esophageal varices, recent ascites, or ETOH greater than 2 drinks per day. : No history of dysuria, frequency or incontinence, stones or chronic kidney disease. No difficulty urinating, nocturia > 1 time per night or hematuria. Endocrine: See HPI. Hematology: No history of bleeding or clotting disorder. Patient is not taking anti-coagulation or platelet medications. No history of hematological symptoms or problems. Oncology: No history of CA metastasis, chemo within 30 days, or radiotherapy within 90 days. No history of oncological symptoms or problems. Psych: +paranoid schizophrenia Musculoskeletal: Negative for joint pain or swelling, back pain or muscle pain. Skin: Negative for lesions, rash and itching. 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 Thyroid disease Urogenital trichomoniasis PAST SURGICAL HISTORY Procedure Laterality Date CERVIX UTERI CONIZA LP ELCTRO EXCI 2003 CYSTO.PANENDO 10/09/2022 FAMILY HISTORY Problem Relation Age of Onset Anesthesia Problems No Family History SOCIAL HISTORY: Social History Tobacco Use Smoking status: Some Days Types: Cigarettes Smokeless tobacco: Never Tobacco comments: A few cigs every few days Vaping Use Vaping status: Never Used Substance Use Topics Alcohol use: Yes Comment: occasional/rare Drug use: Never Prior to Admission medications as of 07/21/24 1537 Medication Sig Last Dose Taking MULTIVITAMIN ORAL Take 1 tablet by mouth once daily. Yes diphenhydramine HCl (BENADRYL ALLERGY ORAL) Take by mouth as needed. Yes esomeprazole (NEXIUM) 40 mg capsule Take 1 capsule by mouth once daily. Yes acyclovir (ZOVIRAX) 400 mg tablet TAKE 1 TABLET EVERY 12 HOURS. LAST REFILL UNTIL OFFICE VISIT Yes acetaminophen (TYLENOL) 325 mg tablet Take 650 mg by mouth every 6 hours as needed. buPROPion SR (WELLBUTRIN SR) 150 mg 12 hr tablet Take 1 tablet by mouth daily at bedtime. Patient not taking: Reported on 07/21/2024 cabergoline (DOSTINEX) 0.5 mg tablet TAKE 2 TABLETS SIX DAYS OF THE WEEK AND 1 TABLET ONE DAY OF THE WEEK. Patient not taking: Reported on 07/21/2024 levothyroxine (SYNTHROID) 50 mcg tablet take 1 tablet every day Patient not taking: Reported on 07/21/2024 No medication comments found. ALLERGIES No Known Allergies Covid Immunization Dates Current Care Gaps Covid-19 Vaccine ( season) Never done No completion, postpone, frequency change, or communication history exists for this topic. Objective PAIN ASSESSMENT: VITALS: BP 114/68 Pulse 88 Temp (Src) 97.1 (Temporal) Ht 5' 2 (1.58m) Wt 259 lb 4.2 oz (117.6kg) SpO2 96% LMP 07/17/2024 BMI 47.41 kg/(m^2). PHYSICAL EXAM: General: alert and oriented, healthy appearance and morbidly obese. Pertinent negatives noted - notdistressed. Skin: normal color, no rash or lesions. HEENT: EOM intact and pupils equal round. Cardiovascular: regular rate and rhythm, normal S1 and S2, no rub, murmurs, or gallop. Respiratory: normal breath sounds, no wheezes or crackles. No chest wall deformity or tenderness. Abdomen: bowel sounds present. Extremities: no deformity, no edema or tenderness, no joint swelling or clubbing. Neurological: normal cognition and motor skills. Diagnostic tests reviewed for today's visit: Lab Value Units Date High Low HB No results within date range. HCT No results within date range. WBC No results within date range. PLT No results within date range. NA No results within date range. K No results within date range. GLUC No results within date range. BUN No results within date range. CREAT No results within date range. PTSEC No results within date range. INR No results within date range. APTT No results within date range. ALT No results within date range. AST No results within date range. TBILI No results within date range. TSH 1.840 mIU/L 04/01/2024 4.200 0.270 Lab Value Units Date High Low HCGQT No results within date range. UHCG No results within date range. HCG, BODY* No results within date range. Lab Value Units Date High Low ABORHD No results within date range. ABSCREEN No results within date range. No results found for: HBA1C Recent Results (from the past 8760 hours) ECG COMPLETE Collection Time: 07/21/24 3:08 PM Result Value Ventricular Rate 83 Atrial Rate 83 P-R Interval 162 QRS Duration 88 QT Interval 368 QTC Calculation (Bazett) 432 Calculated P Thorofare 63 Calculated R Thorofare 54 Calculated T Thorofare 19 Impression NORMAL SINUS RHYTHM NORMAL ECG Recent Results (from the past 38588 hours) ECHO Collection Time: 03/11/23 2:41 PM Impression CONCLUSIONS: - Technically difficult exam due to body habitus. - Exam indication: Baseline and serial evaluation in a patient undergoing therapy with cardiotoxic agents - The left ventricle is normal in size. Left ventricular systolic function is normal. EF = 56 ?? 5% (2D biplane) Normal left ventricular diastolic function. -Global Strain -20.0% - The right ventricle is dilated. Right ventricular systolic function is normal. - No significant valvular abnormalities. - The patient has not had a prior [facility] echocardiographic exam for comparison. * * * Final * * * Spirometry Data No data to display Instructions Given to Patient: Instructions located in the after visit summary. Patient given verbal and written preop instructions and voices comprehension and compliance. SIGNATURE: Seema Rojo PA-C PATIENT NAME: Danii Ernst DATE: 07/21/2024 TIME: 2:33 PM documented in this encounter Plan of Treatment Upcoming Encounters Date Type Department Care Team (Latest Contact Info) Description 08/05/2024 1:00 PM EDT Office Visit Otolaryngology [address] [place] [address] Rojelio Courtney MD [address] [place] [address] post op 09/09/2024 11:[address] [facility] [address] [place] [address] Chito Sellers MD [address] [place] [address] Post-Op Scheduling Request 09/16/2024 2:30 PM EDT [facility] Endocrinology [address] [place] [address] Gail Escudero MD [address] [place] [address] Post-Op Scheduling Request Pending Results Name Type Priority Associated Diagnoses Date /Time ECG COMPLETE ECG Routine Pre-op evaluation 07/21/2024 3:08 PM EDT documented as of this encounter Visit Diagnoses Diagnosis Pre-op evaluation- Primary Preoperative examination, unspecified Hypothyroidism (acquired) Unspecified hypothyroidism Class 3 severe obesity due to excess calories with serious comorbidity and body mass index (BMI) of 45.0 to 49.9 in adult Paranoid schizophrenia, chronic condition with acute exacerbation (HCC) Paranoid schizophrenia, chronic condition with acute exacerbation * Assessment & Plan Note - Seema Rojo PA-C - 07/21/2024 3:29 PM EDT Associated Problem(s): Paranoid schizophrenia, chronic condition with acute exacerbation (HCC) Managed with Wellbutrin * Assessment & Plan Note - Seema Rojo PA-C - 07/21/2024 3:29 PM EDT Associated Problem(s): Class 3 severe obesity due to excess calories with serious comorbidity and body mass index (BMI) of 45.0 to 49.9 in adult Body mass index is 47.42 kg/m??. * Assessment & Plan Note - Seema Rojo PA-C - 07/21/2024 3:29 PM EDT Associated Problem(s): Hypothyroidism (acquired) Not currently taking Synthroid documented in this encounter Care Teams Process Control Supervisor Relationship Specialty Start Date End Date Johnny Reardon DO [address] [place] [address] PCP - General Internal Medicine 07/27/22 Marie Mancuso PA-C [address] [place] [address] Program Management Specialist Internal Medicine 02/09/24 Gail Escudero MD [address] [place] [address] NI Referring Team Endocrinology 05/12/24 documented as of this encounter
--- OUTSIDE RECORDS SUMMARY | 2024-07-21 15:10 | XMS_ITS | Encounter Summary ---
Author Organization [facility] Address [address] [place], [place] [id number] Care Team Providers Care Bar Roller Name Role Phone Johnny Reardon DO Primary Care Provider Marie Mancuso PA-C Unavailable [phone] Gail Escudero MD Unavailable [phone] Source Comments In the event this information is protected by the Federal Confidentiality of Alcohol and Drug AbusePatient Records regulations: The Federal rules restrict any use of the information to criminally investigate or prosecute any alcohol or drug abuse patient.[facility] Reason for Visit * Outpatient Procedure (Routine) - Closed Specialty Diagnoses / Procedures Referred By Contac t Referred To [facility] Diagnoses Pre-op evaluation Procedures ECG COMPLETE ECG ROUTINE ECG W/LEAST 12 LDS W/I&R Seema Rojo PA-C [address] [address] Phone: tel: fax: [facility] [place] [address] [place] [address] Referral ID Status Reason Start Date Expiration Date V isits Requested Visits Authorized [id number] Closed Auto-Generate d Referral 07/21/2024 07/21/2025 1 1 Encounter Details Date Type Department Care Team (Ellyn vargas Contact Info) Description 07/21/2024 3:10 PM EDT Procedure Cardiology [address] [address] Social History Tobacco Use Types Packs/Day Years [...] Never 06/07/2022 How often do you attend gnosticism or rastafari serv ices? Never 06/07/2022 Do you belong to any clubs o r organizations such as gnosticism groups, unions, fraternal or athletic groups, or [...] Answer Date Recorded PHQ-2 score 3 03/10/2024 [facility] - Occupational Stress Questionnaire Answer Date Recorded [...] place to sleep or slept in a fci (including now)? No 06/07/2022 Area Deprivation Index Answer Date Kana rded National Score (1-100), lower number is lower ri sk 79 07/26/2022 State Score (1-10), lower number is lower risk 7 07/26/2022 Data from: https://www.neighborhoodatlas.medicine.[facility].edu/. Last address used for calculation [address] [place], [place] [address] 07/26/2022 Comments No Sex and Gender Information Value Date Recorded Sex Assigned at Female 09/09/2019 3:52 PM EDT Legal Sex Female 8:28 AM EST Gender Identity Female 09/09/2019 3:52 PM EDT Sexual Orientation Straight 09/09/2019 3: 52 PM EDT documented as of this encounter Plan of Treatment Upcoming Encounters Date Type Department Care Team (Latest Contact Info) Description 08/05/2024 1:00 PM EDT Office Visit Otolaryngology [address] [place] [address] Rojelio Courtney MD [address] [place] [address] post op 09/09/2024 11:20 AM EDT [facility] [place] [id number] [place] [address] Chito Sellers MD [address] [place] [address] Post-Op Scheduling Request 09/16/2024 2:30 PM EDT [facility] Endocrinology [address] [place] [address] Gail Escudero MD [address] [place] [address] Post-Op Scheduling Request Pending Results Name Type Priority Associated Diagnoses Date /Time ECG COMPLETE ECG Routine Pre-op evaluation 07/21/2024 3:08 PM EDT documented as of this encounter Procedures Procedure Name Priority Date/Time Associated Diagnosis Comments ECG COMPLETE Routine 07/21/2024 3:08 PM EDT Pre-op evaluation documented in this encounter Visit Diagnoses Diagnosis Pre-op evaluation Preoperative examination, unspecified documented in this encounter Care Teams Bar Roller Relationship Specialty Start Date End Date Johnny Reardon DO [address] [place] [id number] PCP - General Internal Medicine 07/27/22 Marie Mancuso PA-C [address] [place] [address] Wagon Winder Internal Medicine 02/09/24 Gail Escudero MD [address] [place] [address] NI Referring Team Endocrinology 05/12/24 documented as of this encounter
--- OUTSIDE RECORDS SUMMARY | 2024-07-21 16:00 | XMS_ITS | Encounter Summary ---
Author Organization [facility] Address [facility] [place] [address] Care Team Providers Care Photoengraving Helper Name Role Phone Johnny Reardon DO Primary Care Provider Marie Mancuso PA-C Unavailable [phone] Gail Escudero MD Unavailable [phone] Source Comments In the event this information is protected by the Federal Confidentiality of Alcohol and Drug AbusePatient Records regulations: The Federal rules restrict any use of the information to criminally investigate or prosecute any alcohol or drug abuse patient.[facility] Reason for Visit * Diagnostic Procedure Only (Routine) - Closed Specialty Diagnoses / Procedures Referred By Contac t Referred To Contact Radiology / RADIO CT SCAN MAIN QB1 Diagnoses Benign neoplasm of pituitary gland PRE-OP CLEARANCE CT Procedures CT MAXILLOFACIAL W/O CONTRAST MATERIAL CT WO SINUS STEREO 400 Chito Sellers MD [address] [place] [address] Phone: tel: fax: Radiology [address] [address] Phone: tel: Referral ID Status Reason Start Date Expiration Date Visits Re quested Visits Authorized [id number] Closed 06/25/2024 07/25/2024 1 1 Encounter Details Date Type Department Care Team (Latest Contact Info) Description 07/21/2024 4:00 PM EDT - 07/21/2024 5:07 PM EDT Hospital Encounter Radiology [address] [id number] Pituitary adenoma (HCC) [D35.2] Discharge Disposition: Home Social History Tobacco Use Types Packs/Day Years [...] How often do you attend gnosticism or latter day serv ices? Never 06/07/2022 Do you belong [...] Answer Date Recorded PHQ-2 score 3 03/10/2024 [facility] [place] [facility] Occupat [facility] - Occupational Stress [...] place to sleep or slept in a custodial (including now)? No 06/07/2022 Area Deprivation Index Answer Date Kana rded National Score (1-100), lower number is lower ri sk 79 07/26/2022 State Score (1-10), lower number is lower risk 7 07/26/2022 Data from: https://www.neighborhoodatlas.medicine.[facility].edu/. Last address used for calculation [address] [place] [address] 07/26/2022 Comments No Sex and Gender Information Value Date Recorded Sex Assigned at Female 09/09/2019 3:52 PM EDT Legal Sex Female 8:28 AM EST Gender Identity Female 09/09/2019 3:52 PM EDT Sexual Orientation Straight 09/09/2019 3: 52 PM EDT documented as of this encounter Medications at Time of Discharge ibuprofen (MOTRIN) 600 mg tablet Take 1 tablet by mouth every 6 hours as needed for pain (take with food). 20 tablet 07/23/2024 3:48 PM EDT 07/23/2024 senna-docusate (SENNA-S) 8.6-50 mg per tablet 1 tablet by ORAL/FEEDING TUBE route two times a day. 60 tablet 07/23/2024 sodium chloride 0.65 % nasal spray Use 2 sprays in each nostril five times a day. 176 mL 1 07/23/2024 MULTIVITAMIN ORAL Take 1 tablet by mouth once daily. diphenhydramine HCl (BENADRYL ALLERGY ORAL) Take by mouth as needed. acetaminophen (TYLENOL) 325 mg tablet Take 650 mg by mouth every 6 hours as needed. buPROPion SR (WELLBUTRIN SR) 150 mg 12 hr tablet Take 1 tablet by mouth daily at bedtime. 90 tablet 04/28/2024 esomeprazole (NEXIUM) 40 mg capsule Take 1 capsule by mouth once daily. 90 capsule 1 01/20/2024 levothyroxine (SYNTHROID) 50 mcg tabletIndications:Hypot hyroidism (acquired) take 1 tablet every day 90 tablet 3 12/12/2023 acyclovir (ZOVIRAX) 400 mg tablet TAKE 1 TABLET EVERY 12 HOURS. LAST REFILL UNTIL OFFICE VISIT 60 tablet 11 07/18/2023 cabergoline (DOSTINEX) 0.5 mg tabletIndications:Pitui tary microadenoma with hyperprolactinemia (HCC),Pituitary macroadenoma with extrasellar extension (HCC),Hyperprolactinemi a (HCC) TAKE 2 TABLETS SIX DAYS OF THE WEEK AND 1 TABLET ONE DAY OF THE WEEK. 128 tablet 10 12/23/2023 07/24/19 25 documented as of this encounter Progress Notes * Verito Valiente Tech - 07/21/2024 4:00 PM EDT Radiology Service Progress Note PATIENT NAME: Danii Ernst DATE OF SERVICE: July 21, 2024 TIME: 5:01 PM PATIENT IDENTITY VERIFICATION COMPLETED USING TWO (2) IDENTIFIERS: Name and Date of confirmedby patient verbally and Name and Date of confirmed by identification band. FALL SCREENING: Has the patient had 2 falls in the last year or 1 fall with injury or currently using an Ambulatory Assistive Device (Walker, Cane, Wheelchair, Crutches, etc.)? No PATIENT GENDER DATA: Assigned female at . status: : No status:NO. PATIENT RELEVANT IMPLANT DATA REVIEWED: Yes PATIENT PRESENTS WITH AN IMPLANTABLE OR ATTACHED SKID ROAD MAN: No RADIOLOGY DEPARTMENT: CT; Exam(s) Completed: Sinus PERIPHERAL IV DATA: Not applicable SIGNED BY: Miladys Duke July 21, 2024 5:01 PM documented in this encounter Plan of Treatment Upcoming Encounters Date Type Department Care Team (Latest Contact Info) Description 08/05/2024 1:00 PM EDT Office Visit Otolaryngology [address] [phone] Rojelio Courtney MD [address] [id number] post op 09/09/2024 11:20 AM EDT [facility] [address] [place] [address] Chito Sellers MD [address] [id number] Post-Op Scheduling Request 09/16/2024 2:30 PM EDT [facility] Endocrinology [address] [place] [address] Gail Escudero MD [address] [place] [address] Post-Op Scheduling Request documented as of this encounter Procedures Procedure Name Priority Date/Time Associated Diagnosis Comments CT SINUS STEREO WO IVCON Routine 07/21/2024 5:04 PM EDT Pituitary adenoma (HCC) documented in this encounter Results * CT SINUS STEREO WO IVCON (07/21/2024 5:04 PM EDT) Anatomical Region Laterality Modality Head Computed Tomogra phy 07/21/2024 5:04 PM EDT Impressions 07/21/2024 7:58 PM EDT IMPRESSION: No significant inflammatory sinus disease at this time. Erosive changes along the dorsum sellae and medial aspect of the distal left carotid canal from known pituitary adenoma as described. Senior Director Finance: PSCB Transcribe Date/Time: Jul 21 2024 7:46P Dictated by : ANTHONY MUSA MD This examination was interpreted and the report reviewed and electronically signed by: ANTHONY MUSA MD on Jul 21 2024 7:56PM EST Narrative 07/21/2024 7:58 PM EDT * * *Final Report* * * DATE OF EXAM: Jul 21 2024 5:04PM [facility] [place] - CT SINUS STEREO WO IVCON / PROCEDURE REASON: Pituitary adenoma (HCC) * * * * Physician Interpretation * * * * EXAMINATION: CT SINUS STEREO WO IVCON CLINICAL HISTORY: Pituitary adenoma. TECHNIQUE: Spiral high resolution axial unenhanced CT images were obtained through the paranasal sinuses with sagittal, coronal reconstructions. MQ: CTSI_1 CT Radiation dose: Integrated Dose-Length Product (DLP) for this visit = 133 mGy*cm. CT Dose Reduction Employed: No dose reduction techniques were required COMPARISON: MRI pituitary 03/06/2023 RESULT: Post-Surgical Findings: None Sinus Chambers: Sinuses are clear. LEFT Reading Juliano Score: 0 RIGHT Max [place] Score: 0 TOTAL Reading [place] Score: 0 Nasal Cavities: Visualized nasal cavities are patent. Developmental Anomalies: Small bilateral junior bullosae Other: The history is of the left dorsum sella, posterior wall of the left sphenoid sinus, and medial aspect of the adjacent bony left carotid canal secondary to known pituitary adenoma. The visualized mastoid air cells and middle ear cavities are clear. The soft tissues of the face and orbits are within normal limits within the limitations of the study. Localizer images: No significant findings. Procedure Note Provider, [facility] [place] - 07/21/2024 * * *Final Report* * * DATE OF EXAM: Jul 21 2024 5:04PM [facility] [place]75 - CT SINUS STEREO WO IVCON / PROCEDURE REASON: Pituitary adenoma (HCC) * * * * Physician Interpretation * * * * EXAMINATION: CT SINUS STEREO WO IVCON CLINICAL HISTORY: Pituitary adenoma. TECHNIQUE: Spiral high resolution axial unenhanced CT images were obtained through the paranasal sinuses with sagittal, coronal reconstructions. MQ: CTSI_1 CT Radiation dose: Integrated Dose-Length Product (DLP) for this visit = 133 mGy*cm. CT Dose Reduction Employed: No dose reduction techniques were required COMPARISON: MRI pituitary 03/06/2023 RESULT: Post-Surgical Findings: None Sinus Chambers: Sinuses are clear. LEFT Max [place] Score: 0 RIGHT Max [place] Score: 0 TOTAL Max [place] Score: 0 Nasal Cavities: Visualized nasal cavities are patent. Developmental Anomalies: Small bilateral junior bullosae Other: The history is of the left dorsum sella, posterior wall of the left sphenoid sinus, and medial aspect of the adjacent bony left carotid canal secondary to known pituitary adenoma. The visualized mastoid air cells and middle ear cavities are clear. The soft tissues of the face and orbits are within normal limits within the limitations of the study. Localizer images: No significant findings. IMPRESSION IMPRESSION: No significant inflammatory sinus disease at this time. Erosive changes along the dorsum sellae and medial aspect of the distal left carotid canal from known pituitary adenoma as described. Senior Director Finance: SASHA Transcribe Date/Time: Jul 21 2024 7:46P Dictated by : ANTHONY MUSA MD This examination was interpreted and the report reviewed and electronically signed by: ANTHONY MUSA MD on Jul 21 2024 7:56PM EST Chito Sellers MD CT-[facility] Final Result documented in this encounter Visit Diagnoses Diagnosis Pituitary adenoma (HCC) Benign neoplasm of pituitary gland and craniopharyngeal duct (pouch) documented in this encounter Care Teams Photoengraving Helper Relationship Specialty Start Date End Date Johnny Reardon DO [address] [place] [address] PCP - General Internal Medicine 07/27/22 Marie Mancuso PA-C [address] [place] [address] Air Compressor Mechanic Internal Medicine 02/09/24 Gail Escudero MD [address] [place] [address] NI Referring Team Endocrinology 05/12/24 documented as of this encounter
--- OUTSIDE RECORDS SUMMARY | 2024-07-21 17:08 | XMS_ITS | Encounter Summary ---
Author Organization [facility] Address [facility] [place] [address] Care Team Providers Care Heavy Machinery Operator Name Role Phone Johnny Reardon DO Primary Care Provider Marie Mancuso PA-C Unavailable [phone] Gail Escudero MD Unavailable [phone] Source Comments In the event this information is protected by the Federal Confidentiality of Alcohol and Drug AbusePatient Records regulations: The Federal rules restrict any use of the information to criminally investigate or prosecute any alcohol or drug abuse patient.[facility] Reason for Visit * Reason Comments Radiology MRI * MRI/CT (Routine) - Closed Specialty Diagnoses / Procedures Referred By Contac t Referred To Contact MR IMAGING Diagnoses Pituitary adenoma (HCC) Procedures MRI SKULL BASE WO/W IVCON MRI BRAIN BRAIN STEM W/O W/CONTRAST MATERIAL Chito Sellers MD [address] [place] [address] Phone: tel: fax: [place] [phone] Referral ID Status Reason Start Date Expiration Date V isits Requested Visits Authorized [id number] Closed Auto-Generat ed Referral Patient Cleared - Admin/Chairm an/Director advise to proceed or did not respond 07/17/2024 08/16/2024 1 1 Encounter Details Date Type Department Care Team (Latest Contact Info) Description 07/21/2024 5:08 PM EDT - 07/21/2024 11:59 PM EDT Hospital Encounter MRI Q [address] [id number] Pituitary adenoma (HCC) [D35.2] Discharge Disposition: Home [...] Never 06/07/2022 How often do you attend mormonism or adventist serv ices? Never 06/07/2022 Do you belong to any clubs o r organizations such as mormonism groups, unions, fraternal or athletic groups, or [...] Answer Date Recorded PHQ-2 score 3 03/10/2024 [facility] [place] of Occupat ional Health - Occupational Stress [...] is lower risk 7 07/26/2022 Data from: https://www.neighborhoodatlas.medicine.[facility].edu/. Last address used for calculation [address] [place] [address] 07/26/2022 Comments No Sex and Gender Information [...] as of this encounter Progress Notes * Heaven Julio RN - 07/21/2024 5:10 PM EDT Radiology Service Progress Note DATE OF SERVICE: July 21, 2024 TIME: 5:39 PM PATIENT WEIGHT: 250 LBS PATIENT IDENTITY VERIFICATION COMPLETED USING TWO (2) STANDARD IDENTIFIERS: Name and Date of confirmed by patient verbally and Name and Date of confirmed by identification band. FALL SCREENING: Has the patient had 2 falls in the last year or 1 fall with injury or currently using an Ambulatory Assistive Device (Walker, Cane, Wheelchair, Crutches, etc.)? No PATIENT GENDER DATA: Assigned female at . status: : No status:NO. ALLERGIES: Reviewed and unchanged CONTRAST ALLERGY: No EXAM: MRI - CONTRAST TYPE: GROUP II IV SITE: Ambulatory: A peripheral IV was started in the Left hand with a Angio cath: 22 gauge. IV SITE APPEARANCE: Clean,Dry and Intact SIGNATURE: Heaven Julio RN PATIENT NAME: Danii Ernst DATE: July 21, 2024 TIME: 5:39 PM * José Luis Razo Tech - 07/21/2024 5:10 PM EDT Radiology Service Progress Note PATIENT NAME: Danii Ernst DATE OF SERVICE: July 21, 2024 TIME: 6:19 PM PATIENT IDENTITY VERIFICATION COMPLETED USING TWO [...] PATIENT PRESENTS WITH AN IMPLANTABLE OR ATTACHED CONTAINER WASHER MACHINE: No RADIOLOGY DEPARTMENT: MR; Exam(s) Completed: Head: Bowser. Lavender Administered: No PERIPHERAL IV DATA: Site assessment: Clean,Dry and Intact, Site disposition Discontinued SIGNED BY: José Luis NEGRON MR July 21, 2024 6:19 PM documented in this encounter Plan of Treatment Upcoming Encounters Date Type Department Care Team (Latest Contact Info) Description 08/05/2024 1:00 PM EDT Office Visit Otolaryngology [address] [address] Maren Courtney MD [address] [place] [address] post op 09/09/2024 11:20 AM EDT [facility] [address] [id number] Chito Sellers MD [address] [phone] Post-Op Scheduling Request 09/16/2024 2:30 PM EDT [facility] Endocrinology [address] [place] [address] Gail Escudero MD [address] [phone] Post-Op Scheduling Request documented as of this encounter Procedures Procedure Name Priority Date/Time Associated Diagnosis Comments MRI SKULL BASE WO/W IVCON Routine 07/21/2024 6:31 PM EDT Pituitary adenoma (HCC) documented in this encounter Results * MRI SKULL BASE WO/W IVCON (07/21/2024 6:31 PM EDT) Anatomical Region Laterality Modality Skull Magnetic Resonan ce 07/21/2024 6:31 PM EDT Impressions 07/22/2024 8:15 AM EDT IMPRESSION: Preoperative examination. Stable likely adenoma protruding into the left sphenoid sinus. Watcher Lookout Tower: PSCB Transcribe Date/Time: Jul 22 2024 8:07A Dictated by : MAREN BASHIR MD This examination was interpreted and the report reviewed and electronically signed by: MAREN BASHIR MD on Jul 22 2024 8:13AM EST Narrative 07/22/2024 8:15 AM EDT * * *Final Report* * * DATE OF EXAM: Jul 21 2024 6:31PM [facility] [id number] - MRI SKULL BASE WO/W IVCON / PROCEDURE REASON: Pituitary adenoma (HCC) * * * * Physician Interpretation * * * * EXAMINATION: MRI SKULL BASE WO/W IVCON HISTORY: Pituitary adenoma - Prep localization - Pituitary/sellar mass, post resection, monitor TECHNIQUE: MRI skull base protocol without and with contrast. M: [id number] MR Contrast: Elucirem Contrast Dose: 10 cc Route of Administration: IV COMPARISON: MRI pituitary 03/06/2023 RESULT: Again seen is somewhat ill-defined relatively hypoenhancing focus along the inferior margin of the adenohypophysis on the left protruding slightly into the overlying dominant left sphenoid sinus, suspect similar in overall size since MRI 03/06/2023, measuring approximately 11 x 7 x 9 mm (CC, AP, transverse). Approximation/abutment of the traversing left carotid siphon which appears patent. The infundibulum is normal in caliber and midline in position. The overlying suprasellar region, optic apparatus, hypothalamus and adjacent cavernous sinuses and Meckel's caves are unremarkable. Age-appropriate unremarkable remaining brain without evidence of abnormal enhancement in the imaged portions. No evidence of abnormal marrow replacement in the skull base. Unremarkable extracranial structures. Procedure Note Provider, [facility] [place] - 07/22/2024 * * *Final Report* * * DATE OF EXAM: Jul 21 2024 6:31PM [facility] [id number] - MRI SKULL BASE WO/W IVCON / PROCEDURE REASON: Pituitary adenoma (HCC) * * * * Physician Interpretation * * * * EXAMINATION: MRI SKULL BASE WO/W IVCON HISTORY: Pituitary adenoma - Prep localization - Pituitary/sellar mass, post resection, monitor TECHNIQUE: MRI skull base protocol without and with contrast. M: [id number] MR Contrast: Elucirem Contrast Dose: 10 cc Route of Administration: IV COMPARISON: MRI pituitary 03/06/2023 RESULT: Again seen is somewhat ill-defined relatively hypoenhancing focus along the inferior margin of the adenohypophysis on the left protruding slightly into the overlying dominant left sphenoid sinus, suspect similar in overall size since MRI 03/06/2023, measuring approximately 11 x 7 x 9 mm (CC, AP, transverse). Approximation/abutment of the traversing left carotid siphon which appears patent. The infundibulum is normal in caliber and midline in position. The overlying suprasellar region, optic apparatus, hypothalamus and adjacent cavernous sinuses and Meckel's caves are unremarkable. Age-appropriate unremarkable remaining brain without evidence of abnormal enhancement in the imaged portions. No evidence of abnormal marrow replacement in the skull base. Unremarkable extracranial structures. IMPRESSION IMPRESSION: Preoperative examination. Stable likely adenoma protruding into the left sphenoid sinus. Watcher Lookout Tower: PSCB Transcribe Date/Time: Jul 22 2024 8:07A Dictated by : MAREN BASHIR MD This examination was interpreted and the report reviewed and electronically signed by: MAREN BASHIR MD on Jul 22 2024 8:13AM EST us Chito Sellers MD MRI-PAMA Final Result documented in this encounter Visit Diagnoses Diagnosis Pituitary adenoma (HCC) Benign neoplasm of pituitary gland and craniopharyngeal duct (pouch) documented in this encounter Care Teams Heavy Machinery Operator Relationship Specialty Start Date End Date Johnny Reardon DO [address] [place] [address] PCP - General Internal Medicine 07/27/22 Marie Mancuso PA-C [address] [place] [address] Worsted Winder Internal Medicine 02/09/24 Gail Escudero MD [address] [place] [address] NI Referring Team Endocrinology 05/12/24 documented as of this encounter
--- OUTSIDE RECORDS SUMMARY | 2024-07-22 11:14 | XMS_ITS | Encounter Summary ---
Author Organization [facility] Address [address] [place] [id number] Care Team Providers Care Mainspring Former Name Role Phone Johnny Reardon DO Primary Care Provider Marie Mancuso PA-C Unavailable [phone] Gail Escudero MD Unavailable [phone] Source Comments In the event this information is protected by the Federal Confidentiality of Alcohol and Drug AbusePatient Records regulations: The Federal rules restrict any use of the information to criminally investigate or prosecute any alcohol or drug abuse patient.[facility] Reason for Visit * Auth/Cert (Routine) Specialty Diagnoses / Procedures Referred By Contac t Referred To Contact ADMITTING Diagnoses Pituitary adenoma (HCC) Pituitary adenoma (HCC) [D35.2] Procedures NUNDSC ICRA EXC PITUITRY VEE TRNSNSL/SPHENOID STRTCTC CPTR ASSTD PX CRANIAL INTRADURAL NUNDSC ICRA EXC PITUITRY VEE TRNSNSL/SPHENOID FASCIA ADAN GRAFT INCISION & AREA EXPOSURE NEUROENDOSCOPY INTRACRANIAL W/ EXCISION OF PITUITARY TUMOR TRANS-NASAL APPROACH STEREOTACTIC COMPUTER-ASSISTED NAVIGATIONAL PROCEDURE CRANIAL NEUROENDOSCOPY INTRACRANIAL W/ EXCISION OF PITUITARY TUMOR TRANS-NASAL APPROACH FASCIA ADAN SHEET GRAFT VIA INCISION & AREA EXPOSURE Admitting [address] [place] [address] Referral ID Status Reason Start Date Expiration Date Visits Re quested Visits Authorized [id number] 1 1 Encounter Details Date Type Department Care Team (Latest Contact Info) Description 07/22/2024 11:14 AM EDT - 07/23/2024 4:06 PM EDT Hospital Encounter HOSP MAIN [id number] [id number] Chito Sellers MD [address] [id number] Pituitary adenoma (HCC) [D35.2] Discharge Disposition: Home [...] Never 06/07/2022 How often do you attend christian or alevism serv ices? Never 06/07/2022 Do you belong to any clubs o r organizations such as christian groups, unions, fraternal or athletic groups, or [...] Answer Date Recorded PHQ-2 score 3 03/10/2024 [facility] Stress Questionnaire Answer Date [...] is lower risk 7 07/26/2022 Data from: https://www.neighborhoodatlas.medicine.[facility]/. Last address used for calculation [address] 07/26/2022 Comments No Sex and Gender Information Value Date Recorded Sex Assigned at Female 09/09/2019 3:52 PM EDT Legal Sex Female 8:28 AM EST Gender Identity Female 09/09/2019 3:52 PM EDT Sexual Orientation Straight 09/09/2019 3: 52 PM EDT documented as of this encounter Last Filed Vital Signs Vital Sign Reading Time Taken Comments Blood Pressure 101/65 07/23/2024 1:11 PM EDT Pulse 78 07/23/2024 1:11 PM EDT Temperature 36.5 C (97.7 F) 07/23/2024 1:11 PM EDT Respiratory Rate 18 07/23/2024 1:11 PM EDT Oxygen Saturation 95% 07/23/2024 1:11 PM EDT Inhaled Oxygen Concentration - - Weight - - Height - - Body Mass Index - - documented in this encounter Functional Status * Are you deaf or do you have serious difficulty hearing? Answer Date of Assessment Author No 07/23/2024 1:48 PM EDT Courtney Maradiaga RN * Are you blind or do you have serious difficulty seeing, even when wearing glasses? Answer Date of Assessment Author No 07/23/2024 1:48 PM EDT Courtney Maradiaga RN * Do you have serious difficulty walking or climbing stairs? Answer Date of Assessment Author No 07/23/2024 1:48 PM EDT Courtney Maradiaga RN * Do you have difficulty dressing or bathing? Answer Date of Assessment Author No 07/23/2024 1:48 PM EDT Courtney Maradiaga RN * Because of a physical, mental, or emotional condition, do you have difficulty doing errands alone such as visiting a doctor's office or shopping? Answer Date of Assessment Author No 07/23/2024 1:48 PM EDT Courtney Maradiaga RN documented as of this encounter Mental Status * Because of a physical, mental, or emotional condition, do you have serious difficulty concentrating, remembering, or making decisions? Answer Entry Date Author No 07/23/2024 1:48 PM EDT Courtney Maradiaga RN documented in this encounter Discharge Summaries * Keerthi Grider PA-C - 07/23/2024 1:37 PM EDT Images from the original note were not included. NEURO SURGERY SKULL BASE TSA DISCHARGE SUMMARY PATIENT NAME: Danii Ernst ADMISSION DATE: 07/22/2024 DISCHARGE DATE: 07/23/2024 ATTENDING PHYSICIAN: Chito Sellers MD Code Status: Not on file Highest Readmission Risk Score: 4 The 30 day readmissions risk score is derived from an internally validated risk model which evaluates patient level characteristics, utilization history, medication orders and lab results up until the day of discharge. Patients with a score of 39 or above are considered highest risk for readmission. Specific patient level drivers will be listed at the bottom of the summary. Discharged Against Medical Advice? No Attending Physician: Chito Sellers M.D., - Office PCP: Johnny Reardon, Treatment Team: Attending Provider: Chito Sellers MD Primary Service: Keerthi Grider PA-C Reason for Hospitalization: Prolactinoma Operative Indications: Ms. Ernst is a 43 yo F [...] seeing us for consideration of surgical resection. 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 Operations During Hospitalization: 07/22/2024: 1) Endoscopic endonasal approach for resection of prolactinoma 2) Use of neuronavigation for intradural procedure 3) Procedure requiring co-surgeons from ENT and Neurosurgery given ENT expertise with endoscopic endonasal approaches Procedures During Hospitalization: No procedures performed Hospital Course: The patient was electively admitted to the [facility]. After being optimized for surgery by the PAT teams, Danii Ernst was identified and brought into the Operating Roomby the anesthesia and nursing teams.The patient was treated with perioperative antibiotics per ENT.The patient underwent a endoscopic transphenoidal resection of pituitary tumor with Dr. Chito Sellers ,Dr. Koko Gorman done under General. There was no CSF leak noted with surgery. The patient tolerated the procedure and was taken to PACU, and then to the hospital surgical floor when PACU criteria was made. The patient was then transferred up to [address] [id number] hospital room for postoperative m anagement. There was no evidence of post-op CSF leak. There was no evidence of DI. Patient was fitted with fitted with sequential compression devices for DVT prophylaxis. The absorbable nares packingwas managed by ENT. Postoperatively, the prolactin was checked and downtrended (eboni values PRL 5.3) as desired. The patient reported that their vision was stable after surgery. The patient was discharged on POD # 1 in stable condition. Complete and comprehensive discharge instructions were provided to the patient as well as necessary prescriptions. The patient had no further questions and was advised to call with any questions, concerns, or problems. Patient's pain was well controlled with Oral Pain Medications. Based upon the appropriate milestones the patient met during the hospital course, patient was discharged to Rapid Recovery- discharged home. Patient was hemodynamically stable postoperatively. Relevant labs included: Pituitary Labs: ACTH (pg/mL) Date Value 04/01/2024 14.6 07/27/2022 15.1 05/18/2020 45.6 Cortisol (ug/dL) Date Value 07/23/2024 20.9 (H) 04/01/2024 7.3 07/27/2022 7.4 05/18/2020 12.5 (A) Insulin-like Growth Factor I (ng/mL) Date Value 04/01/2024 95 07/27/2022 122 05/18/2020 132 03/12/2016 149 Growth Hormone (ng/mL) Date Value 04/01/2024 <0.05 07/27/2022 <0.05 Sodium (mmol/L) Date Value 07/23/2024 141 07/22/2024 139 07/21/2024 137 09/18/2023 134 (L) 07/27/2022 137 12/29/2019 139 03/12/2016 143 2009 139 Pending results: Pathology Results (surgical pathology) Patient had no signs/symptoms of DVT, so no ultrasound was done during hospital course. ENT was consulted during hospital course for operative assistance Emergency Contact While in the Hospital: Extended Emergency Contact Information Primary Emergency Contact: Cony Ernst Mobile Relation: Sister Secondary Emergency Contact: Ayana Rawls Mobile Relation: Mother ALLERGIES: ALLERGIES No Known Allergies HOME MEDICATIONS: Medication List START taking these medications ibuprofen 600 mg tablet Commonly known as: MOTRIN Take 1 tablet by mouth every 6 hours as needed for pain (take with food). senna-docusate 8.6-50 mg per tablet Commonly known as: SENNA-S 1 tablet by ORAL/FEEDING TUBE route two times a day. sodium chloride 0.65 % nasal spray Use 2 sprays in each nostril five times a day. CONTINUE taking these medications acyclovir 400 mg tablet Commonly known as: ZOVIRAX TAKE 1 TABLET EVERY 12 HOURS. LAST REFILL UNTIL OFFICE VISIT BENADRYL ALLERGY ORAL esomeprazole 40 mg capsule Commonly known as: NexIUM Take 1 capsule by mouth once daily. MULTIVITAMIN ORAL TylenoL 325 mg tablet Generic drug: acetaminophen STOP taking these medications cabergoline 0.5 mg tablet Commonly known as: DOSTINEX ASK your doctor about these medications buPROPion SR 150 mg 12 hr tablet Commonly known as: WELLBUTRIN SR Take 1 tablet by mouth daily at bedtime. levothyroxine 50 mcg tablet Commonly known as: SYNTHROID take 1 tablet every day Where to Get Your Medications These medications were sent to [facility] [address] [place] [id number] Hours: Saturday-Saturday, 8am-6pm ibuprofen 600 mg tablet senna-docusate 8.6-50 mg per tablet sodium chloride 0.65 % nasal spray Discharge Objective Exam: 07/23/24 0044 07/23/24 0441 07/23/24 0901 07/23/24 1311 BP: 118/65 114/72 133/78 101/65 Pulse: 89 104 113 78 Resp: 16 16 18 18 Temp: 37 ??C (98.6 ??F) 36.9 ??C (98.4 ??F) 36.8 ??C (98.2 ??F) 36.5 ??C (97.7 ??F) TempSrc: Oral Oral Oral Oral SpO2: 93% 91% 92% 95% GENERAL: A & O x 3, sleeping but awakens easily. Speech is Normal, full, fluent. Appears statedage, well built, in no apparent distress. PSYCHIATRIC: Mood and affect: Appropriate. SKIN: Inspection: No evidence of eythema, warmth No evidence of surgical incisions. RESPIRATORY: unlabored breathing ABDOMEN: Soft and Non-tender NEUROLOGY: Motor: UE BICEPS TRICEPS DELTS [employer] HI R 5/5 5/5 5/5 5/5 5/5 L 5/5 5/5 5/5 5/5 5/5 LE Hip Flex Knee Flex Knee Extend Plantarflex Dorsiflex EHL R 5/5 5/5 5/5 5/5 5/5 5/5 L 5/5 5/5 5/5 5/5 5/5 5/5 Sensory: intact.Gait: not assessed. There was no drift bilaterally on pronator drift testing. CRANIAL NERVES: Pupils: OD Right: 3 mm Reactive OS Left: 3 mm Reactive II Visual june: are full to confrontation III, IV, EOM full V Facial sensation normal VII Normal strength VIII Normal bilaterally IX, X Normal, midline palatal rise XI Symmetric shrug, and head rotation XII Tongue midline, mobile Patient Condition at Discharge: Improved Discharge Disposition: Home with Self Care Receiving Provider: NA Information Provided to the Patient: Patient given copy of Discharge Instructions Follow-Up: Future Appointments Date Time Provider Department Center 08/05/2024 1:00 PM Rojelio Courtney MD [facility] Main - A Bld 09/09/2024 11:20 AM Chito Sellers MD [facility] Main -CA Bld 09/16/2024 2:30 PM Gail Escudero MD [facility] Call or during normal business hours for your follow up appointments. For urgent concerns after hours and on weekends please call [phone] (locally) or (toll free) and ask for the Neurosurgery Resident online producer for Chito Kate MD Follow up with Dr. Sellers as scheduled. Call to schedule this appointment if no one has called within one week of discharge. SIGNATURE: Keerthi Grider PA-C DATE: July 23, 2024 TIME: 1:37 PM CC: Johnny Reardon [facility] [place] [address] Cosigned by Chito Sellers MD at 07/23/2024 2:22 PM EDT Associated attestation - Chito Sellers MD - 07/23/2024 2:22 PM EDT Chito Sellers MD Staff, Skull Base & Cerebrovascular Surgery Department of Neurological Surgery [facility] documented in this encounter Discharge Instructions * Discharge Instr - Other Orders* Keerthi Grider PA-C - 07/23/2024 1:31 PM EDT Images from the original note were not included. [facility] [address] [address] or [phone] [facility] C O N F I D E N T I A L I N F O R M A T I O N Danii Ernst [id number] The following is a brief overview of your hospitalization. Some of the information contained on this summary may be confidential. This information should be kept in your records and should be shared with your regular doctor. Admission Date: 07/22/2024 Discharge Date: 07/23/2024 Where I Will be Going after Discharge: Home PRINCIPAL DIAGNOSIS (reason after study for this admission): Prolactinoma Other Diagnosis: Patient Active Hospital Problem List: Patient Active Hospital Problem List: Pituitary macroadenoma with extrasellar extension (HCC) Date Noted: 03/12/2016 Hyperprolactinemia (HCC) Date Noted: 01/01/2020 Class 3 severe obesity due to excess calories with serious comorbidity and body mass index (BMI) of45.0 to 49.9 in adult Date Noted: 07/26/2022 Paranoid schizophrenia, chronic condition with acute exacerbation (HCC) Date Noted: 07/27/2022 Physicians: [facility] Doctor: Chito Sellers M.D., - Office My Primary Care Provider: Johnny Reardon DO [phone] Other Medical Team Members: Koko Gorman M.D.- Office Procedures performed while hospitalized: No procedures performed Operations performed while hospitalized: 07/22/2024: 1) Endoscopic endonasal approach for resection of prolactinoma 2) Use of neuronavigation for intradural procedure 3) Procedure requiring co-surgeons from ENT and Neurosurgery given ENT expertise with endoscopic endonasal approaches Recent Labs 07/23/24 0503 07/22/24 1927 07/21/24 1538 WBC -- -- 7.91 HB -- -- 13.1 HCT -- -- 38.5 PLT -- -- 404* NA 141 139 137 K 3.7 3.6* 3.9 CHLOR 108* 107 103 CO2 21* 21* 24 BUN 8 8 7 CREAT 0.85 0.73 0.78 GLUC 153* 125* 97 CA 8.3* 7.4* 9.0 Pending results: Pathology Results (surgical pathology) Pain Control: Adequate management. Diet: Resume pre-hospital diet Sodium after surgery: Sodium is a mineral that is present in your body and has a variety of functions including keeping body fluids in balance. Sodium can be too high or too low after pituitary surgery because of hormone imbalances. Signs of abnormal sodium can include: - severe headache - nausea/vomiting - weakness/muscle cramps - lethargy/tiredness -confusion and irritability - seizures in very severe cases It is important that you notify your developer prover upholstering if you develop any of the above symptoms, new excessive thirst, or changes in your urination (significant increase or decreased in amount). Regarding Fluid intake after surgery. If you are thirsty, drink to satisfy your thirst. If you are not thirsty, but your mouth is dry (and it likely will be dry since your nose will be swollen and you will typically breathe through your mouth), then use gum, mints, or hard candy or similar item(s), to make saliva to moisten your mouth. Mouth dryness is not thirst. Do not drink unless thirsty, it is important to recognize the difference between a dry mouth and being very thirsty. If you are not discharged on desmopressin (DDAVP) medication, between postoperative days 5-10 (07/27-08/01), pleaselimit your fluid intake to 1.5 liters (3 [facility] cups) to avoid low sodium. Drinking cold water or iced water may help you stick to the 1.5 L of fluid per day recommendation. Please contact your developer pro[employer] upholstering if you have questions. Heart failure present during admission: No Acute [place] Present at or During Admission? No Immunization History: There is no immunization history on file for this patient. Activity: -No heavy lifting greater than 8-10 pounds. -No vigorous activity. -Do not try to do too much too early. Use your common sense. Again, walking is the best activity, and we encourage you to walk. -No driving or operating heavy machinery while taking narcotic (pain) medications. This is for yourown safety, and the safety of others. If you drive while taking pain medicine, you can be charged with driving under the influence or DUI. If you are charged with DUI while taking pain medicine, the [facility], and its providers are not to blame. When can I resume driving? You may resume driving when you are feeling well after surgery and are no longer taking narcotic pain medications. You may be a passenger in a car. If you take long drives (more than 1 hour) during the first 4 weeks, stop every hour and walk around for 5 to 10 minutes. You may climb steps. Be careful when you are coming down the stairs because you may be off-balance.You may need to rest part of the way if you become tired. Try to arrange your activities so that you do not have to climb up and down stairs several times during the day, especially when you first arrive home. Walk every day. The first few times you walk, take someone with you for safety. Gradually increase your distance. Focus on increasing your distance or the amount of time you walk, but don???t focus on speed. Things to avoid after surgery: --NO bending, blowing your nose, lifting or pushing heavy objects greater than 10 pounds. If you must sneeze, please open your mouth and sneeze gently into forearm for 6 to 8 weeks after surgery (gently sniff rather than blow). Avoid coughing. --No drinking from straws for 6 to 8 weeks after surgery. --No bending over (for example: to tie your shoes or greens picker dropped items) for 6 to 8 weeks after surgery. --No bearing down for 6 to 8 weeks after surgery (for example: when having a bowel movement).If youare having difficulty having a bowel movement or are constipated, please call our office. -NO flying until cleared by ENT - Do not place anything in nose and you should not have any transnasal procedure done without direct visualization (i.e. Feeding tubes or breathing tubes). The ENT surgeon will reassess your ability to resume normal activities at your follow up visit and give clearance as appropriate, both for the items listed above, and return to work, without restrictions. Symptoms or health problems to watch for after I leave the hospital: - Vomiting (Please remember not to swallow the blood or nasal secretions, as this can make you nauseous and may lead to vomiting). - Clear drainage dripping from your nose like a leaky faucet (note that this may happen and is normal up to 30 minutes following saline sprays) - Salty or metallic taste (note that you may experience a salty taste which is normal up to 30 minutes following saline sprays) - Have a fever greater than 101 degrees Fahrenheit, or 38 degrees Centigrade. - Have new or unfamiliar pain, weakness, or numbness in the arms or legs. - Sleeping more than just napping during the day, confusion, slurred speech, change in vision from your usual. - Headache that is not relieved with medication with any nausea or vomiting. - New or increased swelling of the legs and feet. - Shortness of breath or dizziness at rest - Signs of activity intolerance that last longer than 20 minutes or that return on a regular basis,including chest discomfort, excessive shortness of breath, dizziness or irregular heartbeats. Low cortisol levels: The most common symptoms include: irritability lightheadedness or dizziness when standing up nausea vomiting worsening fatigue (extreme tiredness) Drainage You can expect to have bloody nasal drainage after nasal or sinus surgery. To catch this drainage and to help avoid continuous nose wiping, we usually put a gauze ???mustache?? dressing under the nose and tape it to the cheeks for as long as the drainage continues. BLEEDING: Some blood in the nasal drainage after surgery is to be expected. This may be dark red orbrown. If the nose is bleeding freely or you think the amount is too much, call the office immediately. Avoid nose blowing and try to sneeze with you mouth open if needed. Sleeping with your head elevated will also help prevent bleeding and reduce congestion. If you have a nosebleed, you can try spr aying oxymetazoline spray (Afrin??) in the nose. Care of the Nose Follow the nasal care instructions from your ENT provider: use nasal saline spray 2-3 squirts in each nostril 4-5 x daily, once approved by ENT. How can I prevent constipation? Eat a well-balanced diet with plenty of fiber. Good sources of fiber are fruits, vegetables, legumes, and whole-grain breads and cereals. Fiber and water help the colon pass stool. Most of the fiber in fruits is found in the skins, such as in apples. Fruits with seeds you can eat, like strawberries, have the most fiber. Bran is a great source of fiber: eat bran cereal or add bran cereal to other foods, like soup and yogurt. Drink eight 8-ounce glasses of water a day. (Note: Milk can cause constipation in some people.) Liquids that contain caffeine, such as coffee and soft drinks, have a dehydrating effect and may need to be avoided until your bowel habits return to normal. Exercise regularly. Move your bowels when you feel the urge. How is constipation treated? Drink two to four extra glasses of water a day. Try warm liquids, especially in the morning. Add fruits and vegetables to your diet. Eat prunes and/or bran cereal. Add supplemental fiber to your diet (there are several types, such as Metamucil, Citrucel, and Benefiber). If needed, use a very mild stool softener or laxative (such as Colace [docusate], Miralax, or Milk of Magnesia). Dulcolax suppositories, and enemas may be used following the package directions. Do not use laxatives for more than two weeks without calling your health care provider, as laxative overuse can aggravate your symptoms. When should I call my health care provider? Call your health care provider if: Constipation is a new problem for you. You have blood in your stool. You are losing weight unintentionally. You have severe pain with bowel movements. Your constipation has lasted more than 7 days. Follow-Up: Call or during normal business hours for your follow up appointments. For urgent concerns after hours and on weekends please call [phone] (locally) or (toll free) and ask for the Neurosurgery Resident online producer for Chito Kate MD For concerns about nasal packing or issues with nasal drainage please call Dr. Gorman (ENT surgeon) office. Follow up with Chito Kate MD as scheduled: Future Appointments Date Time Provider Department Center 08/05/2024 1:00 PM Rojelio Courtney MD [facility] Main - A Bld 09/09/2024 11:20 AM Chito Sellers MD [facility] Main -CA Bld 09/16/2024 2:30 PM Gail Escudero MD [facility] Main -CA Bld Other Follow-Up Appointments: None Additional Instructions: We Recommend: You may wish to sleep with head of bed elevated for a week or in a recliner so secretions are easier to handle. You may wish to use a humidifier at home. Avoid people who are ill. Smoking Cessation Education Provided: As per hospital protocol -If you are having an emergency, call 911 or present to the [facility] Emergency Department (or the closest emergency department to you). I have received a copy of the above instructions and understand them. I have received my personal belongings and/or valuables slip. SIGNED: Patient/Significant Other SIGNED: Registered Nurse Electronically SIGNED by Licensed Practitioner: Keerthi Grider PA-C We value your opinion! If you receive a customer satisfaction survey about your hospital stay, please complete and return. We will use this information to improve our services. Please remember to discard old medication lists and to update your records with all healthcare providers and retail pharmacies. Final list of take home medications: Your medical reconciliation is as noted below. However do not start any aspirin, plavix, or NSAID medications unless noted below. Take tylenol or physician ordered pain medications for pain. GENERAL INFORMATION ABOUT TAKING MEDICATIONS: -Take all medications as directed. -Do not skip a dose of medication. If you forget to take your medication, do so as soon as you remember, but do not take a double dose. -Do not take any zpzk-zjz-rzqrfsu medications or herbal therapies without consulting your health care provider, or pharmacist. -Have a routine for taking your medication: take at the same time each day. -Use a pill box to help you remember to take your medication. -Keep an updated copy of your medication list with you at all times. Please remember to discard old medication lists and to update your records with all of your healthcare providers and retail pharmacies. documented in this encounter Medications at Time of Discharge [...] capsule 1 01/20/2024 levothyroxine (SYNTHROID) 50 mcg tabletIndications :Hypothyroidism (acquired) take 1 tablet every day 90 tablet 3 12/12/2023 acyclovir (ZOVIRAX) 400 mg tablet TAKE 1 TABLET EVERY 12 HOURS. LAST REFILL UNTIL OFFICE VISIT 60 tablet 11 07/18/2023 documented as of this encounter Progress Notes * Chito Sellers MD - 07/23/2024 2:04 PM EDT NEUROSURGERY Intact, looks and feels well. PRL dropped to 5. AMC fine. DC home today with routine fluid restriction protocol. Chito Sellers MD Staff, Skull Base & Cerebrovascular Surgery Department of Neurological Surgery [facility] * Keerthi Grider PA-C - 07/23/2024 9:40 AM EDT SERVICE DATE: 07/23/2024 SERVICE TIME: 7:40 AM NEUROSURGERY SKULL BASE INPATIENT PROGRESS NOTE [place] NSGY [place] [phone] for questions/concerns about this patient from 3PM [id number] and on weekends. 07/22/2024 1 Day Post-Op: 1) Endoscopic endonasal approach for resection of prolactinoma 2) Use of neuronavigation for intradural procedure 3) Procedure requiring co-surgeons from ENT and Neurosurgery given ENT expertise with endoscopic endonasal approaches INTERVAL HPI: is a 44 year old female who reports mild tolerable headaches, reports she normally drinks soda- encouraged caffeine trial. She denies nausea, reports she is hungry for breakfast this AM- atea turkey sandwich without issues overnight. She reports some throat irritation/mucus, denies watery nasal/postnasal drainage, denies change in vision. Patient reports dry mouth, no significant excessthrist/urination. We discussed hormone lab results (PRL 5.3, AMC 20.9) and plans for home when paincontrolled and mobilizing more if UOP WNL. She is in agreement and is neurologically stable with nonew deficits. Overnight events noted were none. Objective PHYSICAL EXAM: GENERAL: A & O x 3, sleeping but awakens easily. Speech is Normal, full, fluent. Appears statedage, well built, in no apparent distress. PSYCHIATRIC: Mood and affect: Appropriate. SKIN: Inspection: No evidence of eythema, warmth No evidence of surgical incisions. RESPIRATORY: unlabored breathing ABDOMEN: Soft and Non-tender NEUROLOGY: Motor: UE BICEPS TRICEPS DELTS [employer] HI R 5/5 5/5 5/5 5/5 5/5 L 5/5 5/5 5/5 5/5 5/5 LE Hip Flex Knee Flex Knee Extend Plantarflex Dorsiflex EHL R 5/5 5/5 5/5 5/5 5/5 5/5 L 5/5 5/5 5/5 5/5 5/5 5/5 Sensory: intact.Gait: not assessed. There was no drift bilaterally on pronator drift testing. CRANIAL NERVES: Pupils: OD Right: 3 mm Reactive OS Left: 3 mm Reactive II Visual june: are full to confrontation III, IV, EOM full V Facial sensation normal VII Normal strength VIII Normal bilaterally IX, X Normal, midline palatal rise XI Symmetric shrug, and head rotation XII Tongue midline, mobile Vitals: 07/22/24 2107 07/23/24 0044 07/23/24 0441 07/23/24 0901 BP: 106/55 118/65 114/72 133/78 Pulse: 80 89 104 113 Resp: 16 16 16 18 Temp: 37.4 ??C (99.3 ??F) 37 ??C (98.6 ??F) 36.9 ??C (98.4 ??F) 36.8 ??C (98.2 ??F) TempSrc: Oral Oral Oral Oral SpO2: 95% 93% 91% 92% Intake & Output Intake/Output Summary (Last 24 hours) at 07/23/2024 0919 Last data filed at 07/23/2024 0504 Gross per 24 hour Intake 2723.01 ml Output 3060 ml Net -336.99 ml Drains: Lines, Drains, and Airways Line Duration Peripheral 07/22/24 1448 Right Forearm 16 Gauge <1 day Peripheral 07/23/24 0504 [facility] Right Forearm 22 Gauge <1 day Drain Duration External Collection Device 07/22/249 <1 day LABS: Na: Recent Labs 07/23/24 0503 07/22/24 1927 07/21/24 1538 NA 141 139 137 Pituitary Labs: ACTH (pg/mL) Date Value 04/01/2024 14.6 07/27/2022 15.1 05/18/2020 45.6 Cortisol (ug/dL) Date Value 07/23/2024 20.9 (H) 04/01/2024 7.3 07/27/2022 7.4 05/18/2020 12.5 (A) Insulin-like Growth Factor I (ng/mL) Date Value 04/01/2024 95 07/27/2022 122 05/18/2020 132 03/12/2016 149 Growth Hormone (ng/mL) Date Value 04/01/2024 <0.05 07/27/2022 <0.05 1. Out of bed and ambulating: Yes Needs PT or OT Evaluation: No 2. Central line present? No 3. Continued need for urinary catheter? Not Applicable 4. Nutrition: PO- Yes. 5. Restraints No. 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 - Present Yes Current Assessment & Plan Treated with EEA for resection Appreciate ENT recs and assistance: TSA precautions, ocean spray MRI skull base outpatient [facility] [place] 20.9 DI watch: strict I&O, Na PRN UOP Mobilize, OOB for meals Pain control: tylenol, transition toradol to PO ibuprofen (no IV access) Paranoid schizophrenia, chronic condition with acute exacerbation (HCC) 07/27/2022 - Present Yes Current Assessment & Plan Follows with psych and PCP On wellbutrin Hyperprolactinemia (HCC) 01/01/2020 - Present Yes Current Assessment & Plan PRL 5.3 postop Follow up with Dr. Gabbi Trent as scheduled Class 3 severe obesity due to excess calories with serious comorbidity and body mass index (BMI) of45.0 to 49.9 in adult 07/26/2022 - Present Yes Current Assessment & Plan [facility] weight education Paranoid schizophrenia, chronic condition with acute exacerbation (HCC)- (present on admission) Follows with psych and PCP On wellbutrin Class 3 severe obesity due to excess calories with serious comorbidity and body mass index (BMI) of45.0 to 49.9 in adult- (present on admission) [facility] weight education Hyperprolactinemia (HCC)- (present on admission) PRL 5.3 postop Follow up with Dr. Gabbi Trent as scheduled Pituitary macroadenoma with extrasellar extension (HCC)- (present on admission) Treated with EEA for resection Appreciate ENT recs and assistance: TSA precautions, ocean spray MRI skull base outpatient [facility] – [place] 20.9 DI watch: strict I&O, Na PRN UOP Mobilize, OOB for meals Pain control: tylenol, transition toradol to PO ibuprofen (no IV access) Morbid Obesity Class 3 Medication and Non-Pharmacologic VTE Prophylaxis/Anticoagulants Anticoagulant & Antiplatelet Medications (From admission, onward) Start Dose Route Frequency Last Action Ordered Stop 07/22/242199 heparin 5,000 Units injection (Surgical Risk Categories) 5,000 Units SUBCUTANEOUS EVERY 8 HOURS Given, 07/24 52307/22/242108 -- 07/22/242114 pneumatic compression sleeve(s) (vt,wv) 07/22/242114 activity - mobilize patient (vt,wv) VTE Prophylaxis: VTE prophylaxis appropriate Plan of care discussed with: Provider, RN, Patient SIGNATURE: Keerthi Grider PA-C PATIENT NAME: Danii Ernst DATE: July 23, 2024 TIME: 9:40 AM documented in this encounter Consult Notes * Earnest Richard MD - 07/23/2024 7:10 AM EDT Images from the original note were not included. Otolaryngology - Head and Neck Surgery Rhinology and Skull Base Surgery Inpatient Progress Note S: No acute events overnight. No salty or metallic taste No clear rhinorrhea O: BP 114/72 Pulse 104 Temp 36.9 ??C (98.4 ??F) (Oral) Resp 16 LMP 08/20/2023 (Exact Date) SpO2 91% Intake/Output Summary (Last 24 hours) at 07/23/2024 0710 Last data filed at 07/23/2024 0504 Gross per 24 hour Intake 2723.01 ml Output 3060 ml Net -336.99 ml Labs: @DTWLABS@ Physical Exam: General: No acute distress Neuro: following commands, AAOxPPTE,CN I-XII grossly intact Cardiopulm: Well perfused Nose: No rhinorrhea, no bloody drainage ASSESSMENT/PLAN Danii Ernst is a 44 year old female who is POD 1 from: Endoscopic endonasal transsellar approach for resection of sellar mass. Repair of dural defect using DuraMatrix Onlay Conform. Bilateral inferior turbinate out-fracture. Surgical image navigation for intradural procedure. Procedure requiring co-surgeons from rhinology and skull base neurosurgery teams. - F/u labs - F/u POD1 MRI - [place] spray to start POD 1 - CSF Leak precautions: - Avoid any and all objects in the nose which cause negative pressure - No suctioning, corpaks, NG tubes, or any other objects in nose - No nasal cannula; please use humidified face tent if needed - No positive airway pressure (e.g. CPAP, BiPAP, bag mask ventilation) - No blowing nose; sneeze with mouth open if needed - No straws - Dispo: Per NSGY Plan of care discussed with: Provider, RN, Patient. Earnest Richard MD Otolaryngology Head and Neck Surgery, PGY-3 Service Pager [phone] - please page after 5pm and on weekends documented in this encounter OR Notes * Operative Report - Chito Sellers MD - 07/22/2024 2:28 PM EDT OPERATIVE/PROCEDURE REPORT NEUROSURGERY LOG ID: [id number] Surgery/Procedure Date: 07/22/2024 Incision/Procedure Start Time: 3:23 PM Incision Close/Procedure End Time: 6:58 PM Surgeon(s)/Proceduralist(s) and Surg Rn(s): Surgeons and Role: Panel 1: * Chito Sellers MD - Primary * Kraig Jennings MD - Resident - Assisting * Logan Meyer MD - Resident - Assisting Panel 2: * Koko Gorman MD - Primary * Rojelio Courtney MD - Fellow Procedure(s): 1) Endoscopic endonasal expanded trans-sellar and transclival approach to skull base tumor, posterior cranial fossa 2) Resection of skull base tumor, posterior cranial fossa 3) Use of neuronavigation for intradural procedure 4) Procedure requiring co-surgeons from ENT and Neurosurgery given ENT expertise with endoscopic endonasal approaches Preoperative Diagnosis: Skull base tumor, posterior cranial fossa Postoperative Diagnosis: same as pre-op Operative Indications: Ms. Ernst is a 43 yo F [...] seeing us for consideration of surgical resection. Anesthesia: General Findings: 1) Tumor had invaded and eroded through sellar floor dura and bone, invading bone of upper clivus, but prepontine clival dura and dura behind left paraclival ICA appeared normal. Gross total resection - no cavernous sinus invasion - confirmed with 0 and 30 degree scopes.Clival dura coagulated generously. 2) Normal gland identified displaced superiorly 3) No CSF leak 4) Complete repair with duramatrix onlay conform and adherus Procedure Details: The patient was brought to the operating area, and an operative huddle (including the patient and team members from neurosurgery, anesthesiology, and nursing) was performed to confirm the patient's identity and procedure to be performed. The patient was then induced with general anesthesia and intubated. The appropriate lines were placed by the anesthesiology team. The patient was identified in the operative area and a preoperative huddle was performed to confirmthe patient's identity, proposed procedure, and site of surgery. The patient was then placed under general endotracheal anesthesia by anesthesia team. Lines were then placed as appropriate by the anesthesia team and a mejia catheter was inserted. All the dependent portions of the patient were padded and double checked to minimize injury. The stereotactic neuronavigation system was then applied and registered for this intradural procedure, and accuracy was confirmed using external anatomical landmarks and previous imaging in the PACS system. The navigation was used periodically throughout the case for confirmation of anatomical landmarks for this intradural procedure. IV antibiotics were administered. The patient was then prepped and draped in standard fashion for endoscopic skull base surgery. A timeout was then performed in accordance with [facility] operative protocols. An endoscopic transnasal, transsphenoidal approach and posterior septectomy were performed by the ENT team which they will dictate separately. The endoscope was used for the entire surgical procedure. After adequate exposure of the sphenoid sinus had been obtained by the ENT surgeons, localization was confirmed with the stereotactic system. The sphenoid sinus was opened out further to expose the sellar floor as well as the bone overlying the cavernous sinuses bilaterally, the inferior aspect ofthe planum sphenoidale, and superior aspect of the clivus. The central portion of the sella, as localized using navigation was drilled down to the level of the dura. Caudal to the sella, there was visible tumor involvement of the bone, with purple tinged andsoft appearance. Bony opening was widened using a kerrison rongeur. Bone above the cavernous sinus was removed using Kerrison punch and the ICA was localized using intraoperative microdoppler. We further skeletonized the left paraclival ICA given there was tumor tucked behind it. The upper clivus was drilled and bone removed with kerrison rongeurs. Dura was then incised in an linear fashion with retractable sickle blade, which was extended with the [employer] as anterior dura was resected. Using a combination of ringed curettes, suction, pituitary, and microforceps, the tumor was slowly and carefully removed from the sella. Tumor was sent for permanent pathology. All visible tumor was removed and the cavity was visualized using 0- and 30-degree endoscopes to be free of tumor from medial wall of cavernous sinus to medial wall, indicative of gross total resection of all visible tumor. NoCSF leak was visible. The cavity was copiously irrigated and Floseal was utilized to attain excellent hemostasis. Repair of the skull base defect then ensued. A Duragen matrix onlay conform graft was placed as an epidural inlay. Adherus sealant was used to seal the defect. No further graft or flap were utilized.The preceding portion was performed jointly by the ENT and neurosurgery teams. Final closure was performed by the ENT team, as dictated in their note. At the end of the case, all counts were correct. The patient was gently emerged from anesthesia andextubated. The patient was then transferred to the recovery room in stable condition. This pituitary operation required surgeons of different specialties (neurosurgery and rhinology) inorder to optimize sinonasal, neurological, and endocrinological outcomes. A Sign Out was performed and included in this was that all counts were correct at the end of the case. PARTICIPATION IN SURGERY/PROCEDURE: Dr. Sellers performed the critical portion of the procedure with assistance from Dr. Jennings and Dr. Meyer. The ENT team was responsible for endoscopic endonasal access and final closure. Estimated Blood Loss: 50 mLs Specimens: ID Type Source Tests Collected by Time Destination A : sellar mass Tissue Soft Tissue, Mass, Resection SURGICAL PATHOLOGY Chito Sellers MD 07/22/2024 5:55 PM Implantable Devices: Implant Name Type Inv. Item Serial No. Circle Saw Operator Lot No. LRB No. Used Action PATCH DURAMATRIX-ONLAY PLUS COLLAGEN 1X1IN DURAL REGENERATION MEMBRANE - [id number] Patch PATCH DURAMATRIX-ONLAY PLUS COLLAGEN 1X1IN DURAL REGENERATION MEMBRANE CARMENZA NEUR [id number] N/A 1 Implanted Drains: None Complications: None SIGNATURE: Kraig Jennings MD PATIENT NAME: Danii Ernst DATE: July 22, 2024 TIME: 7:01 PM PAGER/CONTACT #: [id number] * Operative Report - Koko Gorman MD - 07/22/2024 2:28 PM EDT OPERATIVE REPORT LOG ID: [id number] Patient Name: Danii Ernst Patient Incision/Procedure Start Time: 3:23 PM Incision Close/Procedure End Time: 6:58 PM Date of Surgery: 07/22/2024 Surgeon(s)/Proceduralist(s) and Surg Rn(s): Surgeons and Role: Panel 1: * Chito Sellers MD - Primary * Kraig Jennings MD - Resident - Assisting * Logan Meyer MD - Resident - Assisting Panel 2: * Koko Gorman MD - Primary * Rojelio Courtney MD - Fellow Anesthesia: General endotracheal. ? Procedure(s): Endoscopic endonasal transsellar approach for resection of sellar mass. Repair of dural defect using DuraMatrix Onlay Conform. Bilateral inferior turbinate out-fracture. Surgical image navigation for intradural procedure. Procedure requiring co-surgeons from rhinology and skull base neurosurgery teams. Note: This procedure required co-surgeons from two different specialties (rhinology and neurosurgery) in order to optimize sinonasal, neurologic, and endocrinologic outcomes. Preoperative Diagnosis: Sellar mass consistent with prolactinoma. Postoperative Diagnoses: Same as preoperative diagnosis. Operative Indications: Danii Ernst is a 44 year old female who was found to have a sellar mass suspicious for prolactinoma. An endoscopic endonasal approach for resection of the mass was planned with the rhinology and skull base neurosurgical teams. The risks, benefits, and alternatives of the above procedures were discussed and the patient agreed to proceed. Operative Findings: Gross total resection of mass. Normal pituitary gland left intact. No CSF leak detected; dural defect repaired with DuraMatrix Onlay Conform. Estimated Blood Loss: 25 mL. Description of Procedure: The patient was brought to the operating room. A preoperative huddle was performed with the patientand all surgical and operating room staff, confirming the patient's identity and the proposed procedure. General endotracheal anesthesia was then induced. Afrin was sprayed into the bilateral nasal cavities and image navigation was set up using the [employer] system. Image navigation was used throughout the case. The patient was then prepped and draped in the standard fashion for endonasal endoscopic skull base surgery. The bilateral nasal cavities were examined with a 0 degree endoscope. The inferior turbinates were out-fractured, and the middle turbinates were lateralized with a Cut Off elevator. The bilateral middle turbinates, sphenoid faces, and septum were then injected with 1% lidocaine with 1:100,000 epinephr ine followed by placement of Afrin-soaked pledgets into each sphenoethmoidal recess for decongestion. The right superior turbinate was then identified, and a microdebrider was used to judiciously remove the inferior aspect of the superior turbinate as well as posterior ethmoid cells lateral to the superior turbinate. The right sphenoid ostium was identified and cannulated to dilate the ostium. Bilateral rescue pedicles were then designed, starting on the right. Using needle tip monopolar electrocautery, a horizontal superior cut was made starting at the level of the sphenoid os and carriedabout 1 cm anteriorly, and then from this point the superior incision was carried further anteriorly and superiorly at a 45 degree angle. Mucoperiosteum containing the posterior septal artery pediclewas then elevated off of the face of the sphenoid and toward the choana using a Grand elevator andpushed inferiorly for protection. A posterior septectomy was performed by removing septal bone and mucosa superior to the rescue pedicle on the right, thus creating the appropriate incisions for a res cue pedicle on the left; the mucoperiosteum and vascular pedicle were elevated off of the sphenoid face and toward the choana on this side as well. Attention was then turned to creating wide sphenoidotomies for our approach. Having performed the posterior septectomy, bilateral wide sphenoidotomies were performed using Kerrison rongeurs. With both posterior septal artery pedicles protected, an endoscopic drill was then used to lower the sphenoid face down to the floor of the sphenoid and remove the intersinus septum of the sphenoid. Remainingbone of the bilateral sphenoid faces was then removed laterally and superiorly until we could clearly visualize the bilateral optic nerves, internal carotid arteries, opticocarotid recesses, and clival recess, as well as the tuberculum and planum. Mucosa was stripped from the sphenoid sinus in preparation for our eventual repair. At this point the rhinology team assisted our neurosurgical colleagues as they drilled away the bone of the sella and proceeded to resect the tumor. Please see their operative report for details on this portion of the procedure. The cavity was thoroughly irrigated and inspected which revealed gross total resectionof tumor. There was no CSF leak noted after the resection. We then proceeded with repair of the skull base defect. This was performed by placement of DuraMatrix Onlay Conform in an epidural fashion followed byapplication of Adherus dural sealant. Good hemostasis was noted. A piece of NasoPore was placed into each middle meatus for skull base protection and to promote medialization of the middle turbinates. The nasopharynx was suctioned, as well as the stomach using an orogastric tube. This concluded the surgical procedure. Having tolerated the procedure well, the patient was awoken and extubated by the anesthesia team, and transported to the recovery area in stable condition. Specimens: ID Type Source Tests Collected by Time Destination A : sellar mass Tissue Soft Tissue, Mass, Resection SURGICAL PATHOLOGY Chito Sellers MD 07/22/2024 5:55 PM Drains: None Complications: None Attestation: Koko Gorman MD was present during the entirety of the case and completed the procedure with resident/fellow assistance. Rojelio Courtney MD dictating operative report for Koko Gorman MD I, Koko Gorman, was the primary surgeon for the above-mentioned procedures. No qualified resident or other doctor's assistant was available, so a second surgeon (as listed above) was required to safely and adequately perform the above-mentioned procedures. The second surgeon assisted in the following ways:retraction, suctioning, drilling using the four-handed surgery approach. documented in this encounter Miscellaneous Notes * Plan of Care - Gail House - 07/23/2024 3:44 PM EDT Images from the original note were not included. PHARMACY BEDSIDE DELIVERY SERVICE Patient Name: Danii Ernst The marked outpatient medications were Filled at: [facility] and delivered to the patient's bedside to patient Medication List START taking these medications ibuprofen 600 mg tablet Commonly known as: MOTRIN Take 1 tablet by mouth every 6 hours as needed for pain (take with food). MEDICATION: DELIVERED senna-docusate 8.6-50 mg per tablet Commonly known as: SENNA-S 1 tablet by ORAL/FEEDING TUBE route two times a day. MEDICATION: DELIVERED sodium chloride 0.65 % nasal spray Use 2 sprays in each nostril five times a day. MEDICATION: DELIVERED CONTINUE taking these medications acyclovir 400 mg tablet Commonly known as: ZOVIRAX TAKE 1 TABLET EVERY 12 HOURS. LAST REFILL UNTIL OFFICE VISIT BENADRYL ALLERGY ORAL esomeprazole 40 mg capsule Commonly known as: NexIUM Take 1 capsule by mouth once daily. MULTIVITAMIN ORAL TylenoL 325 mg tablet Generic drug: acetaminophen You might also be taking other medications not listed above. If you have questions about any of your other medications, talk to the person who prescribed them or your Primary Care Provider. STOP taking these medications cabergoline 0.5 mg tablet Commonly known as: DOSTINEX ASK your doctor about these medications buPROPion SR 150 mg 12 hr tablet Commonly known as: WELLBUTRIN SR Take 1 tablet by mouth daily at bedtime. levothyroxine 50 mcg tablet Commonly known as: SYNTHROID take 1 tablet every day Gail House PAGER: July 23, 2024 3:44 PM * Plan of Care - Gail House - 07/23/2024 12:35 PM EDT Insurance investigation completed Patient has active prescription insurance: Yes - Patient's insurance is in- network with [facility] Insurance loaded into [place]: Yes Test claim was completed to verify insurance is active: Successful Any questions, please reach out to your medication preparation center coordinator. * Subjective & Objective - Keerthi Grider PA-C - 07/23/2024 9:19 AM EDT NEUROSURGERY SKULL BASE INPATIENT PROGRESS NOTE Please [place] [phone] for questions/concerns about this patient from 3PM [email or web address] and on weekends. 07/22/2024 1 Day Post-Op: 1) Endoscopic endonasal approach for resection of prolactinoma 2) Use of neuronavigation for intradural procedure 3) Procedure requiring co-surgeons from ENT and Neurosurgery given ENT expertise with endoscopic endonasal approaches INTERVAL HPI: is a 44 year old female who reports mild tolerable headaches, reports she normally drinks soda- encouraged caffeine trial. She denies nausea, reports she is hungry for breakfast this AM- atea turkey sandwich without issues overnight. She reports some throat irritation/mucus, denies watery nasal/postnasal drainage, denies change in vision. Patient reports dry mouth, no significant excessthrist/urination. We discussed hormone lab results (PRL 5.3, AMC 20.9) and plans for home when paincontrolled and mobilizing more if UOP WNL. She is in agreement and is neurologically stable with nonew deficits. Overnight events noted were none. Objective PHYSICAL EXAM: GENERAL: A & O x 3, sleeping but awakens easily. Speech is Normal, full, fluent. Appears statedage, well built, in no apparent distress. PSYCHIATRIC: Mood and affect: Appropriate. SKIN: Inspection: No evidence of eythema, warmth No evidence of surgical incisions. RESPIRATORY: unlabored breathing ABDOMEN: Soft and Non-tender NEUROLOGY: Motor: UE BICEPS TRICEPS DELTS [employer] Warden HI R 5/5 5/5 5/5 5/5 5/5 L 5/5 5/5 5/5 5/5 5/5 LE Hip Flex Knee Flex Knee Extend Plantarflex Dorsiflex EHL R 5/ 5/5 5/5 5/5 5/5 5/5 L 5/5 5/5 5/5 5/5 5/5 5/5 Sensory: intact.Gait: not assessed. There was no drift bilaterally on pronator drift testing. CRANIAL NERVES: Pupils: OD Right: 3 mm Reactive OS Left: 3 mm Reactive II Visual june: are full to confrontation III, IV, EOM full V Facial sensation normal VII Normal strength VIII Normal bilaterally IX, X Normal, midline palatal rise XI Symmetric shrug, and head rotation XII Tongue midline, mobile Vitals: 07/22/24 2107 07/23/24 0044 07/23/24 0441 07/23/24 0901 BP: 106/55 118/65 114/72 133/78 Pulse: 80 89 104 113 Resp: 16 16 16 18 Temp: 37.4 ??C (99.3 ??F) 37 ??C (98.6 ??F) 36.9 ??C (98.4 ??F) 36.8 ??C (98.2 ??F) TempSrc: Oral Oral Oral Oral SpO2: 95% 93% 91% 92% Intake & Output Intake/Output Summary (Last 24 hours) at 07/23/2024 0919 Last data filed at 07/23/2024 0504 Gross per 24 hour Intake 2723.01 ml Output 3060 ml Net -336.99 ml Drains: Lines, Drains, and Airways Line Duration Peripheral 07/22/24 1448 Right Forearm 16 Gauge <1 day Peripheral 07/23/24 0504 [facility] Right Forearm 22 Gauge <1 day Drain Duration External Collection Device 07/22/242038 <1 day LABS: Na: Recent Labs 07/23/24 0503 07/22/24 1927 07/21/24 1538 NA 141 139 137 Pituitary Labs: ACTH (pg/mL) Date Value 04/01/2024 14.6 07/27/2022 15.1 05/18/2020 45.6 Cortisol (ug/dL) Date Value 07/23/2024 20.9 (H) 04/01/2024 7.3 07/27/2022 7.4 05/18/2020 12.5 (A) Insulin-like Growth Factor I (ng/mL) Date Value 04/01/2024 95 07/27/2022 122 05/18/2020 132 03/12/2016 149 Growth Hormone (ng/mL) Date Value 04/01/2024 <0.05 07/27/2022 <0.05 1. Out of bed and ambulating: Yes Needs PT or OT Evaluation: No 2. Central line present? No 3. Continued need for urinary catheter? Not Applicable 4. Nutrition: PO- Yes. 5. Restraints No. 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 07/22/2024: EEA for prolactinoma rsxn -PACU -pain control -MRI w/wo skull base protocol POD 1 -CSF leak watch -Endonasal precautions (no straws, nose blowing, nasal canual/positive pressure ventilation) -ADAT -DI watch (strict I/Os - mejia in place, PRN sodiums for elevated urine outputs - 250 cc/hr x 2 hours, or > 300 cc/hr x 1 hour) -cortisol + prolactin in AM -BMP in PACU -SCDs, SQH POD 0 PM -appreciate ENT recs Kraig Jennings MD PGY-4, Neurological Surgery Pager: [phone] Neurosurgery online producer: [phone] 7:10 PM 07/22/24 Please page [phone] on weekends and after 6pm documented in this encounter Plan of Treatment Upcoming Encounters Date Type Department Care Team (Latest Contact Info) Description 08/05/2024 1:00 PM EDT Office Visit Otolaryngology [address] [address] Rojelio Courtney MD [address] [place] [address] post op 09/09/2024 11:20 AM EDT [facility] [address] [place] [id number] Chito Sellers MD [address] [place] [address] Post-Op Scheduling Request 09/16/2024 2:30 PM EDT [facility] Endocrinology [id number] [place] [phone] Gail Escudero MD [address] [place] [address] Post-Op Scheduling Request documented as of this encounter Procedures Procedure Name Priority Date/Time Associated Diagnosis Comments PROLACTIN BLD Routine 07/23/2024 5:03 AM EDT CORTISOL BLD Routine 07/23/2024 5:03 AM EDT BASIC METABOLIC PANEL Routine 07/23/2024 5:03 AM EDT XR SHOULDER LIMITED 2V AP/TRUE AP LEFT STAT 07/22/2024 8:17 PM EDT BASIC METABOLIC PANEL STAT 07/22/2024 7:27 PM EDT GASA + ALL + MG STAT 07/22/2024 6:41 PM EDT SURGICAL PATHOLOGY Routine 07/22/2024 5: 55 PM EDT Pituitary adenoma (HCC) ARTERIAL BLOOD GASES STAT 07/22/2024 4:33 PM EDT GASA + ALL + MG STAT 07/22/2024 3:33 PM EDT FASCIA ADAN GRAFT INCISION & AREA EXPOSURE 07/22/2024 2:13 PM EDT Pituitary adenoma (HCC) NUNDSC ICRA EXC PITUITRY VEE TRNSNSL/SPHENOID 07/22/2024 2:13 PM EDT Pituitary adenoma (HCC) STRTCTC CPTR ASSTD PX CRANIAL INTRADURAL 07/22/2024 2:13 PM EDT Pituitary adenoma (HCC) NUNDSC ICRA EXC PITUITRY VEE TRNSNSL/SPHENOID 07/22/2024 2:13 PM EDT Pituitary adenoma (HCC) documented in this encounter Results * (ABNORMAL) BASIC METABOLIC PANEL (07/23/2024 5:03 AM EDT) [facility] Glucose 153(H) 74 - 99 mg/dL 07/23/2024 6:35 AM EDT [facility] Comment: The [place] Diabetes Association (ADA) provides guidance for cutoff values for fasting glucose and random glucose. The ADA defines fasting as no caloric intake for at least 8 hours. Fasting plasma glucose results between 100 to 125 mg/dL indicate increased risk for diabetes (prediabetes). Fasting plasma glucose results greater than or equal to 126 mg/dL meet the criteria for diagnosis of diabetes. In the absence of unequivocal hyperglycemia, results should be confirmed by repeat testing. In a patient with classic symptoms of hyperglycemia or hyperglycemic crisis, random plasma glucose results greater than or equal to 200 mg/dL meet the criteria for diagnosis of diabetes. Reference: Standards of Medical Care in Diabetes 2016, [place] Diabetes Association. Diabetes Care. 2016.39(Suppl 1). BUN 8 7 - 21 mg/dL 07/23/2024 6:35 AM EDT [facility] Creatinine 0.85 0.58 - 0.96 mg/dL 07/23/2024 6:35 AM EDT [facility] Sodium 141 136 - 144 mmol/L 07/23/2024 6:35 AM EDT [facility] Potassium 3.7 3.7 - 5.1 mmol/L 07/23/2024 6:35 AM EDT [facility] Chloride 108(H) 98 - 107 mmol/L 07/23/2024 6:35 AM EDT [facility] CO2 21(L) 22 - 30 mmol/L 07/23/2024 6:35 AM EDT [facility] Anion Gap 12 8 - 15 mmol/L 07/23/2024 6:35 AM EDT [facility] Calcium, Total 8.3(L) 8.5 - 10.2 mg/dL 07/23/2024 6:35 AM EDT [facility] Estimated Glomerular Filtration Rate 88 >=60 mL/min/1.7 3m 07/23/2024 6:35 AM EDT [facility] Comment:Estimated Glomerular Filtration Rate (eGFR) is calculated using the 2020 CKD-EPI creatinine equation. This equation utilizes serum creatinine, sex, and age as parameters. The creatinine assay has traceable calibration to isotope dilution- mass spectrometry. Refer to KDIGO guidelines for clinical interpretation. In patients with unstable renal function, e.g. those with acute kidney injury, the eGFR may not accurately reflect actual GFR. Blood BLOOD SPECIMEN / Unknown Venipuncture / Unknown 07/23/2024 5:03 AM EDT 07/23/2024 5:13 AM EDT us Chito Sellers MD LABORATORY Final Result [facility] [address] [place] [address], * PROLACTIN (07/23/2024 5:03 AM EDT) Prolactin 5.3 4.4 - 33.8 ng/mL 07/23/2024 6:49 AM EDT [facility] Comment:Prolactin test is pe rformed using the [employer] Electrochemiluminescence Immunoassay method. Results obtained with different methods or kits cannot be used interchangeably. Blood BLOOD SPECIMEN / Unknown Venipuncture / Unknown 07/23/2024 5:03 AM EDT 07/23/2024 5:13 AM EDT us Chito Sellers MD LABORATORY Final Result Performing Organization Address [facility] Co de Phone Number [facility] [address] [place] [id number], * (ABNORMAL) CORTISOL, SERUM (07/23/2024 5:03 AM EDT) Cortisol 20.9(H) 4.8 - 19.5 ug/dL 07/23/2024 6:49 AM EDT [facility] Comment: Provided reference range is from 6-10 AM sample collection time. Cortisol Reference Range: 6-10 AM = 4.8-19.5 ug/dL, 4-8 PM = 2.5-11.9 ug/dL Blood BLOOD SPECIMEN / Unknown Venipuncture / Unknown 07/23/2024 5:03 AM EDT 07/23/2024 5:13 AM EDT us Chito Sellers MD LABORATORY Final Result Performing Organization Address [facility] Co de Phone Number [facility] [address] [place] [address], * XR SHOULDER LIMITED 2V AP/TRUE AP LEFT (07/22/2024 8:17 PM EDT) Anatomical Region Laterality Modality Shoulder Radiographic Guera ging 07/22/2024 8:17 PM EDT Impressions 07/22/2024 8:33 PM EDT IMPRESSION: No acute fracture or dislocation. Subscription Agent: PSCB Transcribe Date/Time: Jul 22 2024 8:19P Dictated by : LAMBERTO ELLIOTT MD This examination was interpreted and the report reviewed and electronically signed by: LAMBERTO ELLIOTT MD on Jul 22 2024 8:31PM EST Narrative 07/22/2024 8:33 PM EDT * * *Final Report* * * DATE OF EXAM: Jul 22 2024 8:17PM [id number] - XR SHOULDER 2V AP/TRUE AP LT / PROCEDURE REASON: Other * * * * Physician Interpretation * * * * HISTORY: Other . TECHNIQUE: XR SHOULDER 2V AP/TRUE AP LT Laterality: Number of different views (projections): COMPARISON: None available. RESULT: Suboptimal study due to positioning. There is no acute fracture or dislocation. Acromioclavicular and glenohumeral joints are unremarkable. Acromiohumeral interval is preserved. Diffuse soft tissue swelling. No evidence of acute process in the included chest. No other significant abnormality. Procedure Note Provider, [facility] [place] - 07/22/2024 * * *Final Report* * * DATE OF EXAM: Jul 22 2024 8:17PM ESX [id number] - XR SHOULDER 2V AP/TRUE AP LT / PROCEDURE REASON: Other * * * * Physician Interpretation * * * * HISTORY: Other . TECHNIQUE: XR SHOULDER 2V AP/TRUE AP LT Laterality: Number of different views (projections): COMPARISON: None available. RESULT: Suboptimal study due to positioning. There is no acute fracture or dislocation. Acromioclavicular and glenohumeral joints are unremarkable. Acromiohumeral interval is preserved. Diffuse soft tissue swelling. No evidence of acute process in the included chest. No other significant abnormality. IMPRESSION IMPRESSION: No acute fracture or dislocation. Subscription Agent: PSCB Transcribe Date/Time: Jul 22 2024 8:19P Dictated by : LAMBERTO ELLIOTT MD This examination was interpreted and the report reviewed and electronically signed by: LAMBERTO ELLIOTT MD on Jul 22 2024 8:31PM EST Chito CASE-PAMA Final Result * (ABNORMAL) BASIC METABOLIC PANEL (07/22/2024 7:27 PM EDT) Glucose 125(H) 74 - 99 mg/dL 07/22/2024 7:49 PM [facility] Comment: The [place] Diabetes Association (ADA) provides guidance for cutoff values for fasting glucose and random glucose. The ADA defines fasting as no caloric intake for at least 8 hours. Fasting plasma glucose results between 100 to 125 mg/dL indicate increased risk for diabetes (prediabetes). Fasting plasma glucose results greater than or equal to 126 mg/dL meet the criteria for diagnosis of diabetes. In the absence of unequivocal hyperglycemia, results should be confirmed by repeat testing. In a patient with classic symptoms of hyperglycemia or hyperglycemic crisis, random plasma glucose results greater than or equal to 200 mg/dL meet the criteria for diagnosis of diabetes. Reference: Standards of Medical Care in Diabetes 2016, [place] Diabetes [employer]. Diabetes Care. 2016.39(Suppl 1). BUN 8 7 - 21 mg/dL 07/22/2024 7:49 PM [facility] Creatinine 0.73 0.58 - 0.96 mg/dL 07/22/2024 7:49 PM [facility] Sodium 139 136 - 144 mmol/L 07/22/2024 7:49 PM [facility] Potassium 3.6(L) 3.7 - 5.1 mmol/L 07/22/2024 7:49 PM [facility] Chloride 107 98 - 107 mmol/L 07/22/2024 7:49 PM [facility] CO2 21(L) 22 - 30 mmol/L 07/22/2024 7:49 PM [facility] Anion Gap 11 8 - 15 mmol/L 07/22/2024 7:49 PM [facility] Calcium, Total 7.4(L) 8.5 - 10.2 mg/dL 07/22/2024 7:49 PM [facility] Estimated Glomerular Filtration Rate 105 >=60 mL/min/1.7 3m 07/22/2024 7:49 PM [facility] Comment:Estimated Glomerular Filtration Rate (eGFR) is calculated using the 2020 CKD-EPI creatinine equation. This equation utilizes serum creatinine, sex, and age as parameters. The creatinine assay has traceable calibration to isotope dilution- mass spectrometry. Refer to KDIGO guidelines for clinical interpretation. In patients with unstable renal function, e.g. those with acute kidney injury, the eGFR may not accurately reflect actual GFR. Blood BLOOD SPECIMEN / Unknown Arterial Line / Unknown 07/22/2024 7:27 PM EDT 07/22/2024 7:30 PM EDT us Chito Sellers MD LABORATORY Final Result [facility] [address] [address], * (ABNORMAL) ARTERIAL BLOOD GASES WITH IONIZED MAGNESIUM (07/22/2024 6:41 PM EDT) pH, Arterial 7.35 7.35 - 7.45 07/22/2024 6:52 PM EDT [facility] pH, Temp Corrected, Arterial 7.35 7.35 - 7.45 07/22/2024 6:52 PM EDT [facility] pCO2, Arterial 43 36 - 46 mm Hg 07/22/2024 6:52 PM EDT [facility] pCO2, Temp Corrected, Arterial 43 36 - 46 mmHg 07/22/2024 6:52 PM EDT [facility] pO2, Arterial 191(H) 85 - 95 mm Hg 07/22/2024 6:52 PM EDT [facility] pO2, Temp Corrected, Arterial 191(H) 85 - 95 mmHg 07/22/2024 6:52 PM EDT [facility] Bicarbonate, Arterial 23 22 - 26 mmol/L 07/22/2024 6:52 PM EDT [facility] O2 Saturation, Arterial 99(H) 95 - 98 % 07/22/2024 6:52 PM EDT [facility] Base Deficit, Arterial -2 -2 - 0 mmol/L 07/22/2024 6:52 PM EDT [facility] Oxyhemoglobin, Arterial 97 95 - 98 % 07/22/2024 6:52 PM EDT [facility] Carboxyhemoglo bin, Arterial 1.8 0.0 - 2.0 % 07/22/2024 6:52 PM EDT [facility] Comment:Carboxyhemoglobin Re ference Range for Smokers: 2.0-8.0% Methemoglobin, Arterial 0.9 0.0 - 1.5 % 07/22/2024 6:52 PM EDT [facility] Sodium, Whole Blood 139 136 - 144 mmol/L 07/22/2024 6:52 PM EDT [facility] Potassium, Whole Blood 3.7 3.5 - 5.0 mmol/L 07/22/2024 6:52 PM EDT [facility] Calcium Ionized, Whole Blood 1.05(L) 1.08 - 1.30 mmol/L 07/22/2024 6:52 PM EDT [facility] Calcium Ionized, pH corrected 1.02(L) 1.08 - 1.30 mmol/L 07/22/2024 6:52 PM EDT [facility] Glucose, Whole Blood 110(H) 60 - 105 mg/dL 07/22/2024 6:52 PM EDT [facility] Lactate 1.0 0.5 - 2.2 mmol/L 07/22/2024 6:52 PM EDT [facility] Ionized Magnesium 0.66(H) 0.45 - 0.60 mmol/L 07/22/2024 6:52 PM EDT [facility] Hemoglobin, Whole Blood 11.4(L) 11.5 - 15.5 g/dL 07/22/2024 6:52 PM EDT [facility] Hematocrit, Whole Blood 35.2(L) 36.0 - 46.0 % 07/22/2024 6:52 PM EDT [facility] Blood, Arterial BLOOD SPECIMEN / Unknown 07/22/2024 6:41 PM EDT 07/22/2024 6:47 PM EDT us Gabriela Petersen [employer].PORTER MARINA BLOOD GASES Fin al Result [facility] [address] [place] [address], * SURGICAL PATHOLOGY (07/22/2024 5:55 PM EDT) Case Report Surgical Pathology Report Case: [id number] Authorizing Provider: Chito Sellers MD Collected: 07/22/2024 05:55 PM Ordering Location: Admitting Received: 07/22/2024 06:09 PM Pathologist: Carlos Kennedy MD Specimen: Soft Tissue, Mass, Resection, sellar mass 07/24/2024 3:58 PM EDT [facility] FINAL DIAGNOSIS A. Sellar region, biopsy: - Pituitary neuroendocrine tumor (pituitary adenoma). RAP/bs 07/24/2024 07/24/2024 3:58 PM EDT [facility] at 1558 EDT Diagnosis Comment An addendum will be issued following immunostaining of the tumor with antibodies to pituitary hormones and Ki-67. 07/24/2024 3:58 PM EDT [facility] Gross Description A. Soft Tissue, Mass, Resection Received in formalin labeled sellar mass are multiple hodges-pink, irregularly-shaped soft tissue fragments aggregating to 1.2 x 0.3 x 0.3 cm. Entirely submitted in one cassette. HMZ 07/23/24 10:01 AM Gross examination performed at [facility], [address] [place] [address] 07/24/2024 3:58 PM EDT [facility] Clinical History Pre-op diagnosis: Pituitary adenoma (HCC) [D35.2] 07/24/2024 3:58 PM EDT [facility] Performing Lab Diagnostic interpretation performed at: [facility], [address] [place] [address], [place] [address] CLIA# [id number] [employer] Operator: Adrian Treadwell MD 07/24/2024 3:58 PM EDT [facility] Disclaimer Laboratory Developed Test (LDT) Disclaimer: Performance characteristics of immunohistochemica l, immunofluorescent, and chromogenic in-situ hybridization tests have been determined by the performing laboratory within [facility]'s [facility] Pathology and Laboratory Medicine Department ([facility], [facility], [facility], [facility], [facility], [facility], or [facility]) in a manner consistent with CLIA requirements. One or more of these tests may not have been cleared or approved by the FDA. [facility] is regulated under CLIA as qualified to perform high-complexity testing. These tests are used for clinical purposes. These should not be regarded as investigational or for research. Positive and negative controls stain appropriately. 07/24/2024 3:58 PM EDT [facility] Tissue RADICAL RESECTION OF SOFT TISSUE / Unknown 07/22/2024 5:55 PM EDT 07/22/2024 6:09 PM EDT Comment:Pre-op diagnosis: Pituitary adenoma (HCC) [D35.2] us Chito Sellers MD SURGICAL PATHOLOGY Final Res ult [facility] [address] [facility] [place] [address], * (ABNORMAL) ARTERIAL BLOOD GASES (07/22/2024 4:33 PM EDT) pH, Arterial 7.35 7.35 - 7.45 07/22/2024 4:51 PM EDT [facility] pH, Temp Corrected, Arterial 7.35 7.35 - 7.45 07/22/2024 4:51 PM EDT [facility] pCO2, Arterial 44 36 - 46 mm Hg 07/22/2024 4:51 PM EDT [facility] pCO2, Temp Corrected, Arterial 44 36 - 46 mmHg 07/22/2024 4:51 PM EDT [facility] pO2, Arterial 202(H) 85 - 95 mm Hg 07/22/2024 4:51 PM EDT [facility] pO2, Temp Corrected, Arterial 202(H) 85 - 95 mmHg 07/22/2024 4:51 PM EDT [facility] Bicarbonate, Arterial 24 22 - 26 mmol/L 07/22/2024 4:51 PM EDT [facility] O2 Saturation, Arterial 99(H) 95 - 98 % 07/22/2024 4:51 PM EDT [facility] Base Deficit, Arterial -1 -2 - 0 mmol/L 07/22/2024 4:51 PM EDT [facility] Oxyhemoglobin, Arterial 96 95 - 98 % 07/22/2024 4:51 PM EDT [facility] Carboxyhemoglo bin, Arterial 2.0 0.0 - 2.0 % 07/22/2024 4:51 PM EDT [facility] Comment:Carboxyhemoglobin Re ference Range for Smokers: 2.0-8.0% Methemoglobin, Arterial 1.1 0.0 - 1.5 % 07/22/2024 4:51 PM EDT [facility] Sodium, Whole Blood 139 136 - 144 mmol/L 07/22/2024 4:51 PM EDT [facility] Potassium, Whole Blood 3.4(L) 3.5 - 5.0 mmol/L 07/22/2024 4:51 PM EDT [facility] Calcium Ionized, Whole Blood 1.07(L) 1.08 - 1.30 mmol/L 07/22/2024 4:51 PM EDT [facility] Calcium Ionized, pH corrected 1.05(L) 1.08 - 1.30 mmol/L 07/22/2024 4:51 PM EDT [facility] Glucose, Whole Blood 119(H) 60 - 105 mg/dL 07/22/2024 4:51 PM EDT [facility] Lactate 1.1 0.5 - 2.2 mmol/L 07/22/2024 4:51 PM EDT [facility] Hemoglobin, Whole Blood 11.8 11.5 - 15.5 g/dL 07/22/2024 4:51 PM EDT [facility] Hematocrit, Whole Blood 36.3 36.0 - 46.0 % 07/22/2024 4:51 PM EDT [facility] Blood, Arterial BLOOD SPECIMEN / Unknown 07/22/2024 4:33 PM EDT 07/22/2024 4:44 PM EDT us Jesse Camejo MD BLOOD GASES Final Result [facility] [address] [facility] [address] [place] [address], * (ABNORMAL) ARTERIAL BLOOD GASES WITH IONIZED MAGNESIUM (07/22/2024 3:33 PM EDT) pH, Arterial 7.36 7.35 - 7.45 07/22/2024 3:44 PM EDT [facility] pH, Temp Corrected, Arterial 7.36 7.35 - 7.45 07/22/2024 3:44 PM EDT [facility] pCO2, Arterial 42 36 - 46 mm Hg 07/22/2024 3:44 PM EDT [facility] pCO2, Temp Corrected, Arterial 42 36 - 46 mmHg 07/22/2024 3:44 PM EDT [facility] pO2, Arterial 198(H) 85 - 95 mm Hg 07/22/2024 3:44 PM EDT [facility] pO2, Temp Corrected, Arterial 198(H) 85 - 95 mmHg 07/22/2024 3:44 PM EDT [facility] Bicarbonate, Arterial 23 22 - 26 mmol/L 07/22/2024 3:44 PM EDT [facility] O2 Saturation, Arterial 99(H) 95 - 98 % 07/22/2024 3:44 PM EDT [facility] Base Deficit, Arterial -2 -2 - 0 mmol/L 07/22/2024 3:44 PM EDT [facility] Oxyhemoglobin, Arterial 96 95 - 98 % 07/22/2024 3:44 PM EDT [facility] Carboxyhemoglo bin, Arterial 2.2(H) 0.0 - 2.0 % 07/22/2024 3:44 PM EDT [facility] Comment:Carboxyhemoglobin Re ference Range for Smokers: 2.0-8.0% Methemoglobin, Arterial 1.3 0.0 - 1.5 % 07/22/2024 3:44 PM EDT [facility] Sodium, Whole Blood 139 136 - 144 mmol/L 07/22/2024 3:44 PM EDT [facility] Potassium, Whole Blood 3.2(L) 3.5 - 5.0 mmol/L 07/22/2024 3:44 PM EDT [facility] Calcium Ionized, Whole Blood 1.10 1.08 - 1.30 mmol/L 07/22/2024 3:44 PM EDT [facility] Calcium Ionized, pH corrected 1.08 1.08 - 1.30 mmol/L 07/22/2024 3:44 PM EDT [facility] Glucose, Whole Blood 125(H) 60 - 105 mg/dL 07/22/2024 3:44 PM EDT [facility] Lactate 0.7 0.5 - 2.2 mmol/L 07/22/2024 3:44 PM EDT [facility] Ionized Magnesium 0.75(H) 0.45 - 0.60 mmol/L 07/22/2024 3:44 PM EDT [facility] Hemoglobin, Whole Blood 12.4 11.5 - 15.5 g/dL 07/22/2024 3:44 PM EDT [facility] Hematocrit, Whole Blood 38.3 36.0 - 46.0 % 07/22/2024 3:44 PM EDT [facility] Blood, Arterial BLOOD SPECIMEN / Unknown 07/22/2024 3:33 PM EDT 07/22/2024 3:40 PM EDT us Jesse Camejo MD BLOOD GASES Final Result Performing Organization Address City/State/[facility] Co de Phone Number [facility] [address] [place] [address], documented in this encounter Visit Diagnoses Diagnosis Pituitary adenoma (HCC) Benign neoplasm of pituitary gland and craniopharyngeal duct (pouch) Pituitary macroadenoma with extrasellar extension (HCC) Benign neoplasm of pituitary gland and craniopharyngeal duct (pouch) Hyperprolactinemia (HCC) Other and unspecified anterior pituitary hyperfunction Paranoid schizophrenia, chronic condition with acute exacerbation (HCC) Paranoid schizophrenia, chronic condition with acute exacerbation Class 3 severe obesity due to excess calories with serious comorbidity and body mass index (BMI) of 45.0 to 49.9 in adult * Assessment & Plan Note - Keerthi Grider PA-C - 07/23/2024 9:39 AM EDT Associated Problem(s): Class 3 severe obesity due to excess calories with serious comorbidity and body mass index (BMI) of 45.0 to 49.9 in adult [facility] weight education * Assessment & Plan Note - Keerthi Grider PA-C - 07/23/2024 9:39 AM EDT Associated Problem(s): Paranoid schizophrenia, chronic condition with acute exacerbation (HCC) Follows with psych and PCP On wellbutrin * Assessment & Plan Note - Keerthi Grider PA-C - 07/23/2024 9:37 AM EDT Associated Problem(s): Hyperprolactinemia (HCC) PRL 5.3 postop Follow up with Dr. Gabbi Tretn as scheduled * Assessment & Plan Note - Keerthi Grider PA-C - 07/23/2024 9:37 AM EDT Associated Problem(s): Pituitary macroadenoma with extrasellar extension (HCC) Treated with EEA for resection Appreciate ENT recs and assistance: TSA precautions, ocean spray MRI skull base outpatient [facility] [place] 20.9 DI watch: strict I&O, Na PRN UOP Mobilize, OOB for meals Pain control: tylenol, transition toradol to PO ibuprofen (no IV access) documented in this encounter Admitting Diagnoses Diagnosis Prolactinoma (HCC) Benign neoplasm of pituitary gland and craniopharyngeal duct (pouch) documented in this encounter Administered Medications Inactive Administered Medications - up to 3 most recent administrations Medication Order MAR Action Action Date Dose Rate Site acetaminophen 1,000 mg tab(s) (TYLENOL) 1,000 mg, ORAL/FEEDING TUBE, 3 TIMES DAILY, 15 doses, First dose on Sat07/22/24 at 2130, Last dose on Sat07/27/24 at 1300 Given 07/23/2024 8:51 AM EDT 1,000 mg Oral Given 07/22/2024 9:44 PM EDT 1,000 mg Or al acetaminophen 1,000 mg tab(s) (TYLENOL) 1,000 mg, ORAL/FEEDING TUBE, EVERY 6 HOURS, 16 doses, First dose (after last modification) on Sat07/23/24 at 1200, Last dose on Sat07/27/24 at 0600 Given 07/23/2024 1:00 PM EDT 1,000 mg Oral acyclovir 400 mg tab(s) (ZOVIRAX) 400 mg, ORAL, 2 TIMES DAILY, First dose on Sat07/22/24 at 2130, Until Discontinued, Antimicrobial indication: Empiric, Infectious source(s): Source unknown, Pharmacist may modify dose per [facility] dose optimization consult agreement: Yes Given 07/23/2024 8:51 AM EDT 400 mg Given 07/22/2024 9:45 PM EDT 400 mg ceFAZolin 2 g in dextrose (iso-osmotic) 50 mL (ANCEF,KEFZOL) 2 g, INTRAVENOUS, at 100 mL/hr, Administer over 30 Minutes, EVERY 8 HOURS, 2 doses, First dose on Sat07/23/24 at 0400, Last dose on Sat07/23/24 at 1400, HATHAWAY product = Refrigerate. B. Juarez DUPLEX product = Room Temp., Antimicrobial indication: Prophylaxis, Pharmacist may modify dose per [facility] dose optimization consult agreement: Yes New Bag/Syringe/Bot tle 07/23/2024 5:24 AM EDT 2 g 100 mL/hr fentaNYL 50 mcg/mL 25-50 mcg injection (SUBLIMAZE) 25-50 mcg, INTRAVENOUS, EVERY 10 MINUTES NEEDED, Starting on Sat07/22/24 at 1931, Until Sat07/22/24 at 2045, Mild Pain (1-3) - Parenteral, Moderate Pain (4-6) - Parenteral, Severe Pain (>/=7) - Parenteral, May repeat every 10 minutes (MAX: 250 mcg) If pain score remains greater than 4 after maximal dose achieved, contact PACU information services vice president/LIP/staff for reassessment. Give 25 mcg for mild pain (1-3) Give 50 mcg for moderate pain (4-6) and severe pain (>/=7), Recovery or Phase I (only) Given 07/22/2024 8:04 PM EDT 50 mcg heparin 5,000 Units injection 5,000 Units, SUBCUTANEOUS, EVERY 8 HOURS, First dose on Sat07/22/24 at 2200, Until Discontinued Given 07/23/2024 5:24 AM EDT 5,000 Units Arm, Right Given 07/22/2024 9:45 PM EDT 5,000 Units A rm, Right ibuprofen 600 mg tab(s) (MOTRIN) 600 mg, ORAL/FEEDING TUBE, EVERY 6 HOURS NEEDED, Starting on Vtia 07/23/24 at 0923, Until Vita 07/23/24 at 1806, Moderate Pain (4-6) - Enteral, Severe Pain (>/=7) - Enteral, If ordered PRN for pain, patient/guardian may elect to receive this medication for higher pain levels INSTEAD of the opioid, if preferred: Yes keTORolac 15 mg injection (Toradol) 15 mg, INTRAVENOUS, 3 TIMES DAILY, 6 doses, First dose on Sat07/22/24 at 2130, Last dose on Sat07/24/24 at 1300, Ketorolac (Toradol) is indicated for the short-term (up to 5 days) management of moderately severe acute pain. Continuation of ketorolac (Toradol) beyond 5 days increases the risk of developing serious adverse events. Please verify the duration of therapy for ketorolac (Toradol)., Pharmacist may modify dose per [facility] dose optimization consult agreement: Yes Given 07/23/2024 8:50 AM EDT 15 mg Given 07/22/2024 9:45 PM EDT 15 mg lactated ringers iv infusion 100 mL/hr, INTRAVENOUS, CONTINUOUS, Starting on Sat07/22/24 at 2000, Until Sat07/22/24 at 2045, Recovery or Phase I (only) Rate Verify 07/22/2024 7:25 PM EDT 100 mL/hr 100 mL/hr methocarbamol 500 mg tab(s) (ROBAXIN) 500 mg, ORAL/FEEDING TUBE, 3 TIMES DAILY NEEDED, Starting on Vita 07/23/24 at 0645, Until Vita /22/25 at 1806, Muscle Spasm - First Line - Enteral, If ordered PRN for pain, patient/guardian may elect to receive this medication for higher pain levels INSTEAD of the opioid, if preferred: Yes NaCl 0.9% iv flush bag 20 mL, INTRAVENOUS, NEEDED, Starting on Sat07/23/24 at 0852, Until Sat07/23/24 at 1806, See admin instructions, If no compatible primary is already running, infuse NaCl 0.9% as primary to flush tubing after non-chemotherapy, non-immunotherapy intermittent infusions. Administer at the same rate as intermittent infusion. Select the Flush Bag file on smart pump. pantoprazole DR 40 mg tab(s) (PROTONIX) 40 mg, ORAL, DAILY AT 6 AM, First dose on Vita 07/23/24 at 0600, Until Discontinued, Swallow whole; DO NOT crush or chew. Given 07/23/2024 5:24 AM EDT 40 mg senna-docusate 8.6-50 mg 1 tablet (SENNA-S) 1 tablet, ORAL/FEEDING TUBE, 2 TIMES DAILY, First dose on Sat07/22/24 at 2130, Until Discontinued Given 07/23/2024 8:50 AM EDT 1 tablet Oral Given 07/22/2024 9:45 PM EDT 1 tablet Or al sodium chloride 0.65 % 2 spray 2 spray, EACH NOSTRIL, 5 TIMES DAILY, First dose on Sat07/23/24 at 0900, Until Discontinued Given 07/23/2024 3:40 PM EDT 2 sprays Given 07/23/2024 1:00 PM EDT 2 sprays Given 07/23/2024 8:50 AM EDT 2 sprays documented in this encounter Active and Recently Administered Medications Times are shown in EDT. Scheduled Medication Order 07/21/2024 07/22/2024 07/23/2024 acetaminophen 1,000 mg tab(s) (TYLENOL) (CANCELED) 1,000 mg, ORAL/FEEDING TUBE, 3 TIMES DAILY, 15 doses, First dose on Sat07/22/24 at 2130, Last dose on Sat07/27/24 at 1300 2144 (Given - Provider: Berna Justin RN) 0851 (Given - Provider: Courtney Maradiaga RN) acetaminophen 1,000 mg tab(s) (TYLENOL) 1,000 mg, ORAL/FEEDING TUBE, EVERY 6 HOURS, 16 doses, First dose (after last modification) on Sat07/23/24 at 1200, Last dose on Sat07/27/24 at 0600 1300 (Given - Provid er: Courtney Maradiaga RN) acyclovir 400 mg tab(s) (ZOVIRAX) 400 mg, ORAL, 2 TIMES DAILY, First dose on Sat07/22/24 at 2130, Until Discontinued, Antimicrobial indication: Empiric, Infectious source(s): Source unknown, Pharmacist may modify dose per [facility] dose optimization consult agreement: Yes 2144 (Given - Provider: Berna Justin RN) 6550 (Given - Provider: Courtney Maradiaga RN) caffeine-sodium benzoate 500 mg in NaCl 0.9% 1,000 mL 500 mg, INTRAVENOUS, at 500-1,000 mL/hr, Administer over 1-2 Hours, ONCE, 1 dose, On Sat07/23/24 at 0900, ADMINISTER OVER 1 HOUR IF 1ST DOSE, OVER 2 HOURS IF REPEAT DOSE Administer with 0.2 micron filter. EXP: (24HR) 0900 (Not Given - Provider: Courtney Maradiaga RN - Reason: Patient Declined. LIP Notified - Comment: refusing another IV) ceFAZolin 2 g in dextrose (iso-osmotic) 50 mL (ANCEF,KEFZOL) (COMPLETED) 2 g, INTRAVENOUS, at 100 mL/hr, Administer over 30 Minutes, PRE-OP ONCE, 1 dose, On Sat07/22/24 at 1200, Neurosurgical Cases PRE-OP ANTIBIOTIC ADMINISTER ONLY IN SURGICAL AREA DO NOT ADMINSTER ON THE FLOOR HATHAWAY product = Refrigerate. B. Juarez DUPLEX product = Room Temp., Antimicrobial indication: Prophylaxis, Preprocedure 1201 (Sent with Patient - Provider: Erinn Dick, SOC[place])1448 (Given - Provider: Dimitry Morgan MD)1926 (Anesthesia Volume Adjustment - Provider: Tasha Moser APRN.PORTER MARINA) ceFAZolin 2 g in dextrose (iso-osmotic) 50 mL (ANCEF,KEFZOL) 2 g, INTRAVENOUS, at 100 mL/hr, Administer over 30 Minutes, EVERY 8 HOURS, 2 doses, First dose on Vita 07/23/24 at 0400, Last dose on Vita 07/23/24 at 1400, HATHAWAY product = Refrigerate. B. Juarez DUPLEX product = Room Temp., Antimicrobial indication: Prophylaxis, Pharmacist may modify dose per [facility] dose optimization consult agreement: Yes 523 (New Bag/Syringe/Bottle - Provider: Berna Justin RN)0554 (Infusion Complete - Provider: Berna Justin RN)1400 (Not Given - Provider: Courtney Maradiaga RN - Reason: Patient Declined. LIP Notified) heparin 5,000 Units injection 5,000 Units, SUBCUTANEOUS, EVERY 8 HOURS, First dose on Sat07/22/24 at 2200, Until Discontinued 2144 (Given - Provider: Berna Justin RN) 523 (Given - Provider: Berna Justin RN)1400 (Not Given - Provider: Courtney Maradiaga RN - Reason: Patient Declined. LIP Notified) keTORolac 15 mg injection (Toradol) (CANCELED) 15 mg, INTRAVENOUS, 3 TIMES DAILY, 6 doses, First dose on Sat07/22/24 at 2130, Last dose on Sat07/24/24 at 1300, Ketorolac (Toradol) is indicated for the short-term (up to 5 days) management of moderately severe acute pain. Continuation of ketorolac (Toradol) beyond 5 days increases the risk of developing serious adverse events. Please verify the duration of therapy for ketorolac (Toradol)., Pharmacist may modify dose per [facility] dose optimization consult agreement: Yes 2144 (Given - Provider: Berna Justin RN) 0850 (Given - Provider: Courtney Maradiaga, SOC[place]) magnesium sulfate iv piggyback in sterile water 2 g 50 mL 2 g, INTRAVENOUS, at 25-50 mL/hr, Administer over 1-2 Hours, ONCE, 1 dose, On Vita 07/23/24 at 0900, Magnesium sulfate iv bolus will be infused at a rate of 1 gram/hr The following nursing units may administer 2 g dose over 1 hour if necessary: ICUs/PACU/ED, Adult Hematology/Oncology, Labor and Delivery, Cardiac Stepdown, Headache Clinic If necessary, a magnesium sulfate bolus may be administered greater than 2 g/hr for the following indications: Adult and Pediatric Asthma Exacerbations, [place] Pointes, Pediatric BMT and Hematology/Oncology, Eclampsia or Preeclampsia 0900 (Not Given - Provider: Courtney Maradiaga RN - Reason: Patient Declined. LIP Notified) pantoprazole DR 40 mg tab(s) (PROTONIX) 40 mg, ORAL, DAILY AT 6 AM, First dose on Vita 07/23/24 at 0600, Until Discontinued, Swallow whole; DO NOT crush or chew. 0524 (Given - Provid er: Berna Justin RN) senna-docusate 8.6-50 mg 1 tablet (SENNA-S) 1 tablet, ORAL/FEEDING TUBE, 2 TIMES DAILY, First dose on Sat07/22/24 at 2130, Until Discontinued 2144 (Given - Provider: Berna Justin RN) 0850 (Given - Provider: Courtney Maradiaga RN) sodium chloride 0.65 % 2 spray 2 spray, EACH NOSTRIL, 5 TIMES DAILY, First dose on Sat07/23/24 at 0900, Until Discontinued 0850 (Given - Provid er: Courtney Maradiaga RN)1300 (Given - Provider: Courtney Maradiaga RN)1540 (Given - Provider: Courtney Maradiaga RN) Continuous Medication Order 07/21/2024 07/22/2024 07/23/2024 lactated ringers iv infusion (CANCELED) 100 mL/hr, INTRAVENOUS, CONTINUOUS, Starting on Sat07/22/24 at 2000, Until Sat07/22/24 at 2045, Recovery or Phase I (only) 1924 (Rate Verify - Provider : Betty Jones RN - Comment: running from OR)2045 (Infusion Complete - Provider: Berna Justin RN - Comment: [Order ends at this time. Document the following action when infusion is complete: Infusion Complete]) PRN Medication Order 07/21/2024 07/22/2024 07/23/2024 fentaNYL 50 mcg/mL 25-50 mcg injection (SUBLIMAZE) (CANCELED) 25-50 mcg, INTRAVENOUS, EVERY 10 MINUTES NEEDED, Starting on Sat07/22/24 at 1931, Until Sat07/22/24 at 2045, Mild Pain (1-3) - Parenteral, Moderate Pain (4-6) - Parenteral, Severe Pain (>/=7) - Parenteral, May repeat every 10 minutes (MAX: 250 mcg) If pain score remains greater than 4 after maximal dose achieved, contact PACU information services vice president/LIP/staff for reassessment. Give 25 mcg for mild pain (1-3) Give 50 mcg for moderate pain (4-6) and severe pain (>/=7), Recovery or Phase I (only) 2003 (Given - Provider: Betty Jones RN) ibuprofen 600 mg tab(s) (MOTRIN) 600 mg, ORAL/FEEDING TUBE, EVERY 6 HOURS NEEDED, Starting on Viat 07/23/24 at 0923, Until Vita 07/23/24 at 1806, Moderate Pain (4-6) - Enteral, Severe Pain (>/=7) - Enteral, If ordered PRN for pain, patient/guardian may elect to receive this medication for higher pain levels INSTEAD of the opioid, if preferred: Yes labetalol 5-10 mg injection syringe (NORMODYNE) 5-10 mg, INTRAVENOUS, EVERY 30 MINUTES NEEDED, Starting on Sat07/22/24 at 2109, Until Vita 07/23/24 at 1806, Give for blood pressure of:, see admin instructions, 5 mg every 30 min PRN SBP greater than 160 mmHg. Hold for HR less than 60 bpm 10 mg every 30 min PRN SBP greater than 180 mmHg. Hold for HR less than 60 bpm First line therapy unless HR < 60bpm. Protect From Light lidocaine 1%-EPINEPHrine 1:100,000 injection (CANCELED) X (OR/PROCEDURE) PRN, Starting on Sat07/22/24 at 1538, Until Sat07/22/24 at 1918, Intraprocedure 1538 (Given - Provider: Rojelio Courtney MD - Comment: nasal) methocarbamol 500 mg tab(s) (ROBAXIN) 500 mg, ORAL/FEEDING TUBE, 3 TIMES DAILY NEEDED, Starting on Vita 07/23/24 at 0645, Until Vita 07/23/24 at 1806, Muscle Spasm - First Line - Enteral, If ordered PRN for pain, patient/guardian may elect to receive this medication for higher pain levels INSTEAD of the opioid, if preferred: Yes NaCl 0.9% iv flush bag 20 mL, INTRAVENOUS, NEEDED, Starting on Vita 07/23/24 at 0852, Until Vita 07/23/24 at 1806, See admin instructions, If no compatible primary is already running, infuse NaCl 0.9% as primary to flush tubing after non-chemotherapy, non-immunotherapy intermittent infusions. Administer at the same rate as intermittent infusion. Select the Flush Bag file on smart pump. ondansetron (PF) 4 mg injection (ZOFRAN) 4 mg, INTRAVENOUS, EVERY 6 HOURS NEEDED, Starting on Sat07/22/24 at 2109, Until Vita 07/23/24 at 1806, Nausea/Vomiting - First Line - Parenteral, Give IV push over 2 minutes oxymetazoline 0.05 % (GENASAL) (CANCELED) X (OR/PROCEDURE) PRN, Starting on Sat07/22/24 at 1505, Until Sat07/22/24 at 1918, Intraprocedure 1505 (Given - Provider: Casa Sellers MD) prochlorperazine 10 mg injection (COMPAZINE) 10 mg, INTRAVENOUS, EVERY 6 HOURS NEEDED, Starting on Sat07/22/24 at 2109, Until Vita 07/23/24 at 1806, Nausea/Vomiting - Second Line - Parenteral, Protect From Light trimethobenzamide 200 mg injection (TIGAN) 200 mg, INTRAMUSCULAR, EVERY 6 HOURS NEEDED, Starting on Sat07/22/24 at 2109, Until Vita 07/23/24 at 1806, Nausea/Vomiting - Third Line - Parenteral documented in this encounter Care Teams [employer] Former Relationship Specialty Start Date End Date Johnny Reardon DO [address] [place] [address] PCP - General Internal Medicine 07/27/22 Marie Mancuso PA-C [address] [place] [address] Financial Systems Manager Internal Medicine 02/09/24 Gail Escudero MD [address] [place] [address] NI Referring Team Endocrinology 05/12/24 documented as of this encounter
--- OUTSIDE RECORDS SUMMARY | 2024-07-22 11:14 | XMS_ITS ---
Author Name [employer] Organization OHIP Care Team Providers Care Boat Deckhand Name Role Phone JOHNNY REARDON [facility] Unavaila JESSIE Flores Referring Unavailable SWATHI POSADA Attending Unavailable MELINDA LEÓN Attending Unavailable JOHNNY REARDON [facility] Unavaila ble JOHNNY REARDON [facility] Unavaila ble GAIL RODRIGUEZ Attending Unavailable JOHNNY REARDON [facility] Unavaila JOHNNY Spears Attending Unavaila JOHNNY Spears [facility] Unavaila ble JOHNNY REARDON Referring Unavaila ble JOHNNY REARDON [facility] Unavaila ble DARYN HOSKINS Attending Unavailable MELINDA LEÓN Referring Unavailable JOHNNY REARDON [facility] Unavaila ble KOKO GORMAN Attending Unavailable ROMELIA, MELINDA R Referring Unavailable JOHNNY REARDON [facility] Unavaila ble JOHNNY REARDON [facility] Unavaila ble KSHDANICA, MELINDA R Referring Unavailable JOHNNY REARDON [facility] Unavaila ble ROMELIA, MELINDA R Referring Unavailable JOHNNY REARDON [facility] Unavaila ble SEEMA DAI Referring Unavailable JOHNNY REARDON [facility] Unavaila ble KSHETTRY, MELINDA R Referring Unavailable ROMELIA, MELINDA R Referring Unavailable JOHNNY REARDON [facility] Unavaila ble TORIETTMAGGI, MELINDA R Referring Unavailable JOHNNY REARDON [facility] ARTURO Jurado Attending Unavailable JOHNNY REARDON [facility] JOHNNY Spears [facility] ble GAIL RODRIGUEZ Referring Unavailable TORIETTRY, MELINDA R Admitting Unavailable TREVORRY MELINDA R Attending Unavailable JOHNNY REARDON [facility] Un[facility] ble NON STAFF Admitting Unavailable NON STAFF Attending Unavailable PROBLEMS DATE TYPE CONDITION / CODE ATTENDING STATUS [facility] 07/23/2024 Active Class 3 severe o besity due to excess calories with serious comorbidity and body mass index (BMI) of 45.0 to 49.9 in adult / E66.813(ICD-10) NA Active [facility] 07/23/2024 Active Class 3 severe o besity due to excess calories with serious comorbidity and body mass index (BMI) of 45.0 to 49.9 in adult / Z68.42(ICD-10) NA Active [facility] 07/23/2024 Active Paranoid schizop hrenia, chronic condition with acute exacerbation (HCC) / F20.0(ICD-10) NA Active [facility] 07/21/2024 Active Pre-op evaluatio n / Z01.818(ICD-10) NA Active [facility] 07/21/2024 Active Pituitary adenom a (HCC) / D35.2(ICD-10) NA Active [facility] 07/21/2024 Active Prolactinoma (HC C) / D35.2(ICD-10) KOKO GORMAN Active [facility] 07/21/2024 Active Pituitary tumor / D49.7(ICD-10) KOKO GORMAN Active [facility] 01/01/2020 Active Hyperprolactinem ia (HCC) / E22.1(ICD-10) ROMELIA, MELINDA R Active [facility] 01/01/2020 Active 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) / D35.2(ICD-10) ROMELIA, MELINDA R Active [facility] 06/10/2024 Active Class 3 severe o besity due to excess calories without serious comorbidity with body mass index (BMI) of 45.0 to 49.9 in adult (HCC) / E66.813(ICD-10) MELINDA LEÓN Active [facility] 06/10/2024 Active Class 3 severe o besity due to excess calories without serious comorbidity with body mass index (BMI) of 45.0 to 49.9 in adult (HCC) / Z68.42(ICD-10) MELINDA LEÓN Active [facility] 06/10/2024 Active Class 3 severe o besity due to excess calories without serious comorbidity with body mass index (BMI) of 45.0 to 49.9 in adult (HCC) / E66.01(ICD-10) MELINDA LEÓN Active [facility] 03/12/2016 Active Hypothyroidism ( acquired) / E03.9(ICD-10) NA Active [facility] 09/18/2023 Active Wellness examina tion / Z00.00(ICD-10) NA Active [facility] 08/07/2023 Active Abnormal mammogr am / R92.8(ICD-10) NA Active [facility] PROCEDURES No Procedure Records Found RESULTS PLAN OF CARE Observed: 07/23/2024 3:44 PM Status: COMPLETED Source: [facility] ID: [id number] Author: CHUCK DINERO ? Service: Pharmacy Author Type: Cogeneration Technician Type: Plan of Care Filed: 07/23/2024 15:53 Note Text: PHARMACY BEDSIDE DELIVERY SERVICE Patient Name: Christy Ernst The marked outpatient medications were Filled at: [facility] and delivered to the patient's [...] as: SYNTHROID take 1 tablet every day Chuck Dinero PAGER: July 23, 2024 3:44 PM PROGRESS Observed: 07/23/2024 2:04 PM Status: COMPLETED Source: [facility] ID: [id number] Author: MELINDA LEÓN MD Service: Neurosurgery Author Type: Physician Type: Progress Notes Filed: 07/23/2024 14:05 Note Text: NEUROSURGERY Intact, looks and feels well. PRL dropped to 5. AMC fine. DC home today with routine fluid restriction protocol. Melinda León MD Staff, Skull Base AND Cerebrovascular Surgery Department of Neurological Surgery [facility] CNDS Observed: 07/23/2024 1:37 PM Status: COMPLETED Source: [facility] ID: [id number] Author: MELINDA LEÓN MD Service: Neurosurgery Author Type: Physician Biological Sciences Professor Type: Discharge Summary Filed: 07/23/2024 14:22 Note Text: Attestation signed by Melinda León MD at 07/23/2024 2:22 PM Melinda León MD Staff, Skull Base AND Cerebrovascular Surgery Department of Neurological Surgery [facility] NEURO SURGERY SKULL BASE TSA DISCHARGE SUMMARY PATIENT NAME: Christy Ernst ADMISSION DATE: 07/22/2024 DISCHARGE DATE: 07/23/2024 ATTENDING PHYSICIAN: Melinda León MD Code Status: Not on file Highest [...] Discharged Against Medical Advice? No Attending Physician: Melinda León M.D., - Office PCP: Johnny Reardon, Treatment Team: Attending Provider: Melinda León MD Primary Service: Keerthi Liu PA-C Reason for Hospitalization: Prolactinoma Operative Indications: [...] (BMI) of 45.0 to 49.9 in adult Yes Hyperprolactinemia (HCC) [...] The patient was electively admitted to the [facility]. After being optimized for surgery by the PAT teams, Christy Ernst was identified and brought into the Operating Room by the anesthesia and nursing teams.The patient was treated with perioperative antibiotics per ENT. The patient underwent a endoscopic transphenoidal resection of pituitary tumor with Dr. Melinda León ,Dr. Koko Gorman done under General. There was no CSF leak noted with surgery. The patient tolerated the procedure and was taken to PACU, and then to the hospital surgical floor when PACU criteria was made. The patient was then transferred up to [place] [address] hospital room for postoperative management. There was no evidence of post-op CSF leak. There was no evidence of DI. Patient was fitted with fitted with sequential compression devices for DVT prophylaxis. The absorbable nares packing was managed by ENT. Postoperatively, the prolactin was [...] Your Medications These medications were sent to [facility] [address] [place] [address] Hours: Saturday-Saturday, 8am-6pm ibuprofen 600 mg tablet senna-docusate 8.6-50 mg per tablet sodium chloride 0.65 % nasal spray Discharge Objective Exam: 07/23/24 0044 07/23/24 0441 07/23/24 0901 07/23/24 1311 BP: 118/65 114/72 133/78 101/65 Pulse: 89 104 113 78 Resp: 16 16 18 18 Temp: 37 ?C (98.6 ?F) 36.9 ?C (98.4 ?F) 36.8 ?C (98.2 ?F) 36.5 ?C (97.7 ?F) TempSrc: Oral Oral Oral Oral SpO2: 93% 91% 92% 95% GENERAL: A AND O x 3, sleeping but awakens easily. Speech is Normal, full, fluent. Appears stated age, well built, in no apparent distress. PSYCHIATRIC: Mood and affect: Appropriate. SKIN: Inspection: No evidence of eythema, warmth No evidence of surgical incisions. RESPIRATORY: unlabored breathing ABDOMEN: Soft and Non-tender NEUROLOGY: Motor: UE BICEPS TRICEPS DELTS Chargeback Specialist HI R 5/5 5/5 5/5 5/5 5/5 [...] Disposition: Home with Self Care Receiving Provider: DHRUV Information Provided to the Patient: Patient given copy of Discharge Instructions Follow-Up: Future Appointments Date Time Provider Department Center 08/05/2024 1:00 PM [facility] Main - A Bld 09/09/2024 11:20 AM Melinda León MD [facility] Main -CA Bld 09/16/2024 2:[address] [facility] Main -CA Bld Call or during normal business hours for your follow up appointments. For urgent concerns after hours and on weekends please call [phone] (locally) or (toll free) and ask for the Neurosurgery Resident best second jobs for Melinda Kate MD Follow up with Dr. León as scheduled. Call to schedule this appointment if no one has called within one week of discharge. SIGNATURE: Keerthi Liu PA-C DATE: July 23, 2024 TIME: 1:37 PM CC: Johnny Reardon [id number] [place] [address] PLAN OF CARE Observed: 07/23/2024 12:35 PM Status: COMPLETED Source: [facility] ID: [id number] Author: CHUCK DINERO ? Service: Pharmacy Author Type: Cogeneration Technician Type: Plan of Care Filed: 07/23/2024 12:35 Note Text: Insurance investigation completed Patient has active prescription insurance: Yes - Patient's insurance is in-network with [facility] Insurance loaded into [place]: Yes Test claim was completed to verify insurance is active: Successful Any questions, please reach out to your medication community services coordinator. PROGRESS Observed: 07/23/2024 9:40 AM Status: COMPLETED Source: [facility] ID: [id number] Author: KEERTHI LIU PA-C Service: Neurosurgery Author Type: Physician Biological Sciences Professor Type: Progress Notes Filed: 07/23/2024 09:40 Note Text: SERVICE DATE: 07/23/2024 SERVICE TIME: 7:40 AM NEUROSURGERY SKULL BASE INPATIENT PROGRESS NOTE Please contact NS best second jobs [place] [phone] for questions/concerns about this patient from 3PM through 6AM and on weekends. 07/22/2024 1 Day Post-Op: [...] she is hungry for breakfast this AM- ate a turkey sandwich without issues overnight. She reports some throat irritation/mucus, denies watery nasal/postnasal drainage, denies change in vision. Patient reports dry mouth, no significant excess thrist/urination. We discussed hormone lab results (PRL 5.3, AMC 20.9) and plans for home when pain controlled and mobilizing more if UOP WNL. She is in agreement and is neurologically stable with no new deficits. Overnight events noted were none. Objective PHYSICAL EXAM: GENERAL: A AND O x 3, sleeping but awakens easily. Speech is Normal, full, fluent. Appears stated age, well built, in no apparent distress. PSYCHIATRIC: Mood and affect: Appropriate. SKIN: Inspection: No evidence of eythema, warmth No evidence of surgical incisions. RESPIRATORY: unlabored breathing ABDOMEN: Soft and Non-tender NEUROLOGY: Motor: UE BICEPS TRICEPS DELTS Chargeback Specialist HI R 5/5 5/5 5/5 5/5 5/5 [...] Resp: 16 16 16 18 Temp: 37.4 ?C (99.3 ?F) 37 ?C (98.6 ?F) 36.9 ?C (98.4 ?F) 36.8 ?C (98.2 ?F) TempSrc: Oral Oral Oral Oral SpO2: 95% 93% 91% 92% Intake AND Output Intake/Output Summary (Last 24 hours) at 07/23/2024 0919 Last data filed at 07/23/2024 0504 Gross per 24 hour Intake 2723.01 ml Output 3060 ml Net -336.99 ml Drains: Lines, Drains, and Airways Line Duration Peripheral 07/22/24 1448 Right Forearm 16 Gauge <1 day Peripheral 07/23/24 0504 [facility] Right Forearm 22 Gauge <1 day [...] Yes. 5. Restraints No. 6. 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 - Present Yes Current Assessment AND Plan Treated with EEA for resection Appreciate ENT recs and assistance: TSA precautions, ocean spray MRI skull base outpatient [facility] 20.9 DI watch: strict IANDO, Na PRN UOP Mobilize, OOB for meals Pain control: tylenol, transition toradol to PO ibuprofen (no IV access) Paranoid schizophrenia, chronic condition with acute exacerbation (HCC) 07/27/2022 - Present Yes Current Assessment AND Plan Follows with psych and PCP On wellbutrin Hyperprolactinemia (HCC) 01/01/2020 - Present Yes Current Assessment AND Plan PRL 5.3 postop Follow up with Dr. Gabbi Trent as scheduled Class 3 severe obesity due to excess calories with serious comorbidity and body mass index (BMI) of 45.0 to 49.9 in adult 07/26/2022 - Present Yes Current Assessment AND Plan [facility] weight education Paranoid schizophrenia, chronic condition with acute exacerbation (HCC)- (present on admission) Follows with psych and PCP On wellbutrin Class 3 severe obesity due to excess calories with serious comorbidity and body mass index (BMI) of 45.0 to 49.9 in adult- (present on admission) [facility] weight education Hyperprolactinemia (HCC)- (present on admission) PRL 5.3 postop Follow up with Dr. Gabbi Trent as scheduled Pituitary macroadenoma with extrasellar extension (HCC)- (present on admission) Treated with EEA for resection Appreciate ENT recs and assistance: TSA precautions, ocean spray MRI skull base outpatient [facility] 20.9 DI watch: strict IANDO, Na PRN UOP Mobilize, OOB for meals Pain control: tylenol, transition toradol to PO ibuprofen (no IV access) Morbid Obesity Class 3 Medication and Non-Pharmacologic VTE Prophylaxis/Anticoagulants Anticoagulant AND Antiplatelet Medications (From admission, onward) Start Dose Route Frequency Last Action Ordered Stop 07/22/242199 heparin 5,000 Units injection (Surgical Risk Categories) 5,000 Units SUBCUTANEOUS EVERY 8 HOURS Given, 07/24 52307/22/242108 -- 07/22/242114 pneumatic compression sleeve(s) ([place]) 07/22/242114 activity - mobilize patient ([place]) VTE Prophylaxis: VTE prophylaxis appropriate Plan of care discussed with: Provider, RN, Patient SIGNATURE: Keerthi Liu PA-C PATIENT NAME: Christy Ernst DATE: July 23, 2024 TIME: 9:40 AM CONSULT PROG Observed: 07/23/2024 7:10 AM Status: COMPLETED Source: [facility] ID: [id number] Author: MARIAH RICHARD MD Service: Otolaryngology Author Type: Resident Type: Consult Progress Note Filed: 07/23/2024 07:11 Note Text: Otolaryngology - Head and Neck Surgery Rhinology and Skull Base Surgery Inpatient Progress Note S: No acute events overnight. No salty or metallic taste No clear rhinorrhea O: BP 114/72 Pulse 104 Temp 36.9 ?C (98.4 ?F) (Oral) Resp 16 LMP 08/20/2023 (Exact Date) SpO2 91% Intake/Output Summary (Last 24 hours) at 07/23/2024 0710 Last data filed at 07/23/2024 0504 Gross per 24 hour Intake 2723.01 ml Output 3060 ml Net -336.99 ml Labs: @DTWLABS@ Physical Exam: General: No acute distress Neuro: following commands, AAOxPPTE,CN I-XII grossly intact Cardiopulm: Well perfused Nose: No rhinorrhea, no bloody drainage ASSESSMENT/PLAN Christy Ernst is a 44 year old female who is POD 1 from: Endoscopic endonasal transsellar approach for resection of sellar mass. Repair of dural defect using DuraMatrix Onlay Conform. Bilateral inferior turbinate out-fracture. Surgical image navigation for intradural procedure. Procedure requiring co-surgeons from rhinology and skull base neurosurgery teams. - F/u labs - F/u POD1 MRI - [place] spray to start POD 1 - CSF [...] of care discussed with: Provider, RN, Patient. Mariah Richard MD Otolaryngology Head and Neck Surgery, PGY-3 Service Pager [phone] - please page after 5pm and on weekends BAS METAB 2000 PNL SERPL Collected: 5:03 AM Status: F Source: [facility] Order Comment: Specimen Type : BLOOD SPECIMEN Ordering Facility: [facility] Address: [address] [place] [address] TYPE CODE TESTS RESULT OUT OF RANGE REFERENCE UNITS LAB 2345-7(LOINC) Glucose SerPl-nc 153 High 74-99 mg/dL Result Comment: The [place] Diabetes Association (ADA) provides guidance for cutoff [...] Standards of Medical Care in Diabetes 2016, [place] Diabetes Association. Diabetes Care. 2016.39(Suppl 1). LAB 3094-0(LOINC) BUN SerPl-mCnc 8 7-21 mg/ dL LAB 2160-0(LOINC) Creat SerPl-mCnc 0.85 0.58-0.96 mg/dL LAB 2951-2(LOINC) Sodium SerPl-sCnc 141 136-144 mmol/L LAB 2823-3(LOINC) Potassium SerPl-sCnc 3.7 3.7-5.1 mmol/L LAB 2075-0(LOINC) Chloride SerPl-sCnc 108 High 98-107 mmol/L LAB 2028-9(LOINC) CO2 SerPl-sCnc 21 Low 22-30 mmo l/L LAB 48989-0(LOINC) Anion Gap SerPl-sCnc 12 8-15 mmol/L LAB 91151-0(LOINC) Calcium SerPl-mCnc 8.3 Low 8.5-10.2 mg/dL LAB 46285-7(LOINC) Creatinine + eGFR Pnl SerPlBld 88 >=60 mL/min/1 .73m??? Result Comment: Estimated Gl omerular Filtration Rate (eGFR) is calculated using the 2020 CKD-EPI creatinine equation. This equation utilizes serum creatinine, sex, and age as parameters. The creatinine assay has traceable calibration to isotope dilution-mass spectrometry. Refer to KDIGO guidelines for clinical interpretation. In patients with unstable renal function, e.g. those with acute kidney injury, the eGFR may not accurately reflect actual GFR. Performed By: #### 86520-4, 2842-3, 2143-6 #### [facility] CLIA [id number] [address] [place] [address] [place] PROLACTIN SERPL-MCNC Collected: 025 5:03 AM Status: F Source: [facility] Order Comment: Specimen Type : BLOOD SPECIMEN Ordering Facility: [facility] Address: [address] [place] [address] TYPE CODE TESTS RESULT OUT OF RANGE REFERENCE UNITS LAB 2842-3(LOINC) Prolactin SerPl-mCnc 5.3 4.4-33.8 ng/mL Result Comment: Prolactin te st is performed using the [employer] Electrochemiluminescence Immunoassay method. Results obtained with different methods or kits cannot be used interchangeably. Performed By: #### 27947-3, 2842-3, 6 #### [facility] CLIA [id number] [address] [place] [address] [place] CORTIS SERPL-MCNC Collected: 07/23/2024 5:03 AM Stat us: F Source: [facility] Order Comment: Specimen Type : BLOOD SPECIMEN Ordering Facility: [facility] Address: [address] [place] [address] TYPE CODE TESTS RESULT OUT OF RANGE REFERENCE UNITS LAB 2143-6(LOINC) Cortis SerPl-mCnc 20.9 High 4.8-19.5 ug/dL Result Comment: Provided ref erence range is from 6-10 AM sample collection time. Cortisol Reference Range: 6-10 AM = 4.8-19.5 ug/dL, 4-8 PM = 2.5-11.9 ug/dL Performed By: #### 23383-3, 2842-3, 6 #### [facility] CLIA [id number] [address] [place] [address] [place] XR SHOULDER 2V AP/TRUE AP LT Observed: 0 07/22/2024 8:17 PM Status: F Source: [facility] * * *Final Report* * * DATE [...] the included chest. No other significant abnormality. IMPRESSION: No acute fracture or dislocation. Railcar Brake Operator: PSCB Transcribe Date/Time: Jul 22 2024 8:19P Dictated by : LAMBERTO ELLIOTT MD This examination was interpreted and the report reviewed and electronically signed by: LAMBERTO ELLIOTT MD on Jul 22 2024 8:31PM EST [id number] POSTPROC EVAL Observed: 07/22/2024 7:41 PM Status: COMPLETED Source: [facility] ID: [id number] Author: ANNE-MARIE GRANT MD Service: ? Author Type: Anesthesiologist Type: Anesthesia Postprocedure Evaluation Filed: 07/22/2024 19:41 Note Text: POST ANESTHESIA EVALUATION NOTE : 1980 Procedure Summary Date: 07/22/24 Room / Location: [address] [facility] Anesthesia Start: 1429 Anesthesia Stop: 1925 Procedures: NEUROENDOSCOPY INTRACRANIAL W/ EXCISION OF PITUITARY TUMOR TRANS-NASAL APPROACH (Pending: Brain) STEREOTACTIC COMPUTER-ASSISTED NAVIGATIONAL PROCEDURE CRANIAL (Brain) NEUROENDOSCOPY INTRACRANIAL W/ EXCISION OF PITUITARY TUMOR TRANS-NASAL APPROACH (Pending: Brain) FASCIA JOSE DAVID SHEET GRAFT VIA INCISION AND AREA EXPOSURE (Pending: Brain) Diagnosis: Pituitary adenoma (HCC) (Pituitary adenoma (HCC) [D35.2]) Surgeons: Melinda León MD; Koko Gorman MD Responsible Provider: Anne-Marie Grant MD Anesthesia Type: general ASA Status: 3 Anesthesia Type: general Airway Type: ETT Last Vitals Vitals Value Taken Time BP 124/57 07/22/241930 Temp 36 ?C (96.8 ?F) 07/22/241924 Pulse 85 07/22/241939 Resp 21 07/22/241939 SpO2 93 % 05/21/25 1940 Vitals shown include unfiled device data. Post Anesthesia Patient Status Patient Evaluation: PACU. PACU/ICU Patient Condition: stable. Neurological Status: aware and responsive. Pulmonary Status: breathing comfortably on supplemental oxygen Airway Control: returned to baseline unsupported. Cardiovascular Status: stable. Pain Management: clinically adequate Postoperative Hydration: acceptable. Intraoperative Events: no significant anesthesia events Post Operative Nausea/Vomiting Status: no significant post operative nausea or vomiting Recommendation: continue current plan of care. Anesthesia Observations No Documentation SIGNATURE: Anne-Marie Grant MD PATIENT NAME: Christy Ernst DATE: July 22, 2024 TIME: 7:41 PM CSN: [id number] BAS METAB 1999 PNL SERPL Collected: 7:27 PM Status: F Source: [facility] Order Comment: Specimen Type : BLOOD SPECIMEN Ordering Facility: [facility] Address: [address] [place] [address] TYPE CODE TESTS RESULT OUT OF RANGE REFERENCE UNITS LAB 2345-7(LOINC) Glucose SerPl-mCnc 125 High 74-99 mg/dL Result Comment: The [place] Diabetes Association (ADA) provides guidance for cutoff [...] Standards of Medical Care in Diabetes 2016, [place] Diabetes Association. Diabetes Care. 2016.39(Suppl 1). LAB 3094-0(LOINC) BUN SerPl-mCnc 8 7-21 mg/ dL LAB 2160-0(LOINC) Creat SerPl-mCnc 0.73 0.58-0.96 mg/dL LAB 2951-2(LOINC) Sodium SerPl-sCnc 139 136-144 mmol/L LAB 2823-3(LOINC) Potassium SerPl-sCnc 3.6 Low 3.7-5.1 mmol/L LAB 2075-0(LOINC) Chloride SerPl-sCnc 107 98-107 mmol/L LAB 2028-9(LOINC) CO2 SerPl-sCnc 21 Low 22-30 mmo l/L LAB 05515-0(LOINC) Anion Gap SerPl-sCnc 11 8-15 mmol/L LAB 79739-8(LOINC) Calcium SerPl-mCnc 7.4 Low 8.5-10.2 mg/dL LAB 22572-3(LOINC) Creatinine + eGFR Pnl SerPlBld 105 >=60 mL/min/1 .73m??? Result Comment: Estimated Gl omerular Filtration Rate (eGFR) is calculated using the 2020 CKD-EPI creatinine equation. This equation utilizes serum creatinine, sex, and age as parameters. The creatinine assay has traceable calibration to isotope dilution-mass spectrometry. Refer to KDIGO guidelines for clinical interpretation. In patients with unstable renal function, e.g. those with acute kidney injury, the eGFR may not accurately reflect actual GFR. Performed By: #### 60996-8 # ### [facility] CLIA [id number] [address] [place] [address] PLAN OF CARE Observed: 07/22/2024 7:10 PM Status: COMPLETED Source: [facility] ID: [id number] Author: NGA BALLESTEROS MD Service: Neurosurgery Author Type: Resident Type: Plan of Care Filed: 07/22/2024 19:10 Note Text: Neurosurgery Postop Note Patient: Christy Ernst Interval HPI Postop check Objective Vitals 07/22/24 1151 BP: 121/61 Pulse: 79 Resp: 14 Temp: 36.5 ?C (97.7 ?F) TempSrc: Temporal SpO2: 94% Exam Waking up from anesthesia PERRL, EOMI FS, TM BUE 07/06 BLE 07/06 SILT globally Assessment/Plan 43 yo F w/ [...] SQH POD 0 PM -appreciate ENT recs Nga Ballesteros MD PGY-4, Neurological Surgery Pager: [phone] Neurosurgery best second jobs: 7:10 PM 07/22/24 Please page [phone] on weekends and after 6pm ARTERIAL BLOOD GASES WITH IO NIZED MAGNESIUM Collected: 07/22/2024 6:41 PM Status: F Source: [facility] Comment: Specimen Type : ARTERIAL BLOOD SPECIMEN Ordering Facility: [facility] Address: [address] [place] [address] TYPE CODE TESTS RESULT OUT OF RANGE REFERENCE UNITS LAB 40115-1(LOINC) pH Bld 7.35 7.35-7.45 LAB 87652-7(LOINC) pH temp adj Bld 7.35 7.35-7.45 LAB 65343-3(LOINC) pCO2 Bld 43 36-46 mm Hg LAB 88603-9(LOINC) pCO2 temp adj Bld 43 36-46 mmHg LAB 12084-0(LOINC) pO2 Bld 191 High 85-95 mm Hg LAB 14314-3(LOINC) pO2 temp adj Bld 191 High 85-95 mmHg LAB 1959-6(LOINC) HCO3 Bld-sCnc 23 22-26 mmol /L LAB 2708-6(LOINC) SaO2 % BldA 99 High 95-98 % LAB 1922-4(LOINC) Base deficit BldA-sCnc -2 -2-0 mmol/L LAB 2714-4(LOINC) OxyHgb MFr BldA 97 95-98 % LAB 2030-5(LOINC) COHgb MFr BldA 1.8 0.0-2.0 % Result Comment: Carboxyhemog lobin Reference Range for Smokers: 2.0-8.0% LAB 2614-6(LOINC) MetHgb MFr Bld 0.9 0.0-1.5 % LAB 2947-0(LOINC) Sodium Bld-sCnc 139 136-144 mmol/L LAB 6298-4(INC) Potassium Bld-sCnc 3.7 3.5-5.0 mmol/L LAB 14997-9([facility]) Ca-I Bld-mCnc 1.05 Low 1.08-1.30 m mol/L LAB 21739-8([facility]) Ca-I adj pH7.4 BldA-sCnc 1.02 Low 1.08-1.30 mmol/L LAB 2339-0([facility]) Glucose Bld-mCnc 110 High 60-105 mg/dL LAB 05846-6([facility]) Lactate Bld-sCnc 1.0 0.5-2.2 mmol/L LAB IONMAGBG IONIZED MAGNESIUM 0.66 High 0.45-0.60 mmol/L LAB 718-7([facility]) Hgb Bld-mCnc 11.4 Low 11.5-15.5 g/dL LAB 4544-3([facility]) Hct VFr Bld Auto 35.2 Low 36.0-46.0 % Performed By: #### ALLMG ### # [facility] CLIA [id number] [address] [place] [address] STATES OF [facility] TISS PATH BX REPORT Collected: 07/23/19 5:55 PM Status: F Source: [facility] Order Comment: Specimen Type : TISSUE SPECIMEN Ordering Facility: [facility] Address: [address] [place] [address] TYPE CODE TESTS RESULT OUT OF RANGE REFERENCE UNITS PATHOLOGY [id number] CASE REPORT Result Comment: Surgical Pat hology Report Case: [id number] Authorizing Provider: Melinda León MD Collected: 07/22/2024 05:55 PM Ordering Location: Admitting Received: 07/22/2024 06:09 PM Pathologist: Carlos Kennedy MD Specimen: Soft Tissue, Mass, Resection, sellar mass PATHOLOGY [id number] FINAL DIAGNOSIS Result Comment: ACasper Sellandrés romero, biopsy: - Pituitary neuroendocrine tumor (pituitary adenoma). RAP/bs 07/24/2024 at 1558 T PATHOLOGY [id number] DIAGNOSIS COMMENT An addendum will be issued following immunostaining of the tumor with antibodies to pituitary hormones and Ki-67. PATHOLOGY [id number] GROSS DESCRIPTION Result Comment: A. Soft Tiss ue, Mass, Resection Received in formalin labeled sellar mass are multiple hodges-pink, irregularly- shaped soft tissue fragments aggregating to 1.2 x 0.3 x 0.3 cm. Entirely submitted in one cassette. HMZ 07/23/24 10:01 AM Gross examination performed at [facility], [address] [place] [address] PATHOLOGY CDX2 CLINICAL HISTORY Result Comment: Pre-op diagn osis: Pituitary adenoma (HCC) [D35.2] PATHOLOGY [facility] FINAL PERFORMING LAB Result Comment: Diagnostic i nterpretation performed at: [facility], [address] [place] [address], [place] [address] CLIA# [id number] Polishing Machine Operator Helper: Adrian Treadwell MD PATHOLOGY [id number] AP DISCLAIMER Result Comment: Laboratory D eveloped Test (LDT) Disclaimer: Performance characteristics of immunohistochemical, immunofluorescent, and chromogenic in-situ hybridization tests have been determined by the performing laboratory within [facility]'s [facility] Pathology and Laboratory Medicine Department ([facility], [facility], [facility], [facility], [facility], [facility], or [facility]) in a manner consistent with CLIA requirements. One or more of these tests may not have been cleared or approved by the FDA. [facility] is regulated under CLIA as qualified to perform high-complexity testing. These tests are used for clinical purposes. These should not be regarded as investigational or for research. Positive and negative controls stain appropriately. Performed By: #### 21319-1 # ### [facility] CLIA [id number] [address] [place], [place] [address] [address] [place] ARTERIAL BLOOD GASES Collected: 025 4:33 PM Status: F Source: [facility] Order Comment: Specimen Type : ARTERIAL BLOOD SPECIMEN Ordering Facility: [facility] Address: [address] [place] [address] TYPE CODE TESTS RESULT OUT OF RANGE REFERENCE UNITS LAB 10245-9(LOINC) pH Bld 7.35 7.35-7.45 LAB 91679-5([facility]) pH temp adj Bld 7.35 7.35-7.45 LAB 85740-5([facility]) pCO2 Bld 44 36-46 mm Hg LAB 83483-2([facility]) pCO2 temp adj Bld 44 36-46 mmHg LAB 66873-3([facility]) pO2 Bld 202 High 85-95 mm Hg LAB 25568-3([facility]) pO2 temp adj Bld 202 High 85-95 mmHg LAB 1959-6([facility]) HCO3 Bld-sCnc 24 22-26 mmol /L LAB 2708-6([facility]) SaO2 % BldA 99 High 95-98 % LAB 1922-4([facility]) Base deficit BldA-sCnc -1 -2-0 mmol/L LAB 2714-4([facility]) OxyHgb MFr BldA 96 95-98 % LAB 2030-5([facility]) COHgb MFr BldA 2.0 0.0-2.0 % Result Comment: Carboxyhemog lobin Reference Range for Smokers: 2.0-8.0% LAB 2614-6([facility]) MetHgb MFr Bld 1.1 0.0-1.5 % LAB 2947-0([facility]) Sodium Bld-sCnc 139 136-144 mmol/L LAB 6298-4([facility]) Potassium Bld-sCnc 3.4 Low 3.5-5.0 mmol/L LAB 82535-1([facility]) Ca-I Bld-mCnc 1.07 Low 1.08-1.30 m mol/L LAB 16062-6([facility]) Ca-I adj pH7.4 BldA-sCnc 1.05 Low 1.08-1.30 mmol/L LAB 2339-0([facility]) Glucose Bld-mCnc 119 High 60-105 mg/dL LAB 57024-0([facility]) Lactate Bld-sCnc 1.1 0.5-2.2 mmol/L LAB 718-7([facility]) Hgb Bld-mCnc 11.8 11.5-15.5 g/dL LAB 4544-3([facility]) Hct VFr Bld Auto 36.3 36.0-46.0 % Performed By: #### ALLBG ### # [facility] CLIA [id number] [address] [place] [address] ANES PROCEDURE NOTE Observed: 07/22/2024 3:48 PM Status: COMPLETED Source: [facility] HNO ID: [id number] Author: JESSE CAMEJO MD Service: ? Author Type: Anesthesiologist Type: Anesthesia Procedure Notes Filed: 07/22/2024 17:20 Note Text: ANESTHESIOLOGY PROCEDURE NOTE A-Line General Information Procedure Start Time/Medication Administration: 07/22/2024 2:59 PM Procedure End Time: 07/22/2024 2:59 PM Patient location during procedure: OR Timeout Performed Pre-procedure: timeout performed Consent Obtained: Yes Indications: continuous blood pressure monitoring Staffing Anesthesiologist: Gale Li MD Resident: Kirit Morgan MD Performed by: resident Preparation Sterility Preparation: hand hygiene performed prior to procedure, sterile gloves, drapes, and procedure tray, surgical cap used, mask used, sterile drape used during line insertion, skin prep agent completely dried prior to procedure Site Prep: Chlorhexidine Procedure Details Catheter Type: arterial line Catheter Size: 20 G Catheter Length: 2 in Guidewire Used: Yes Guidewire Removed Intact: Yes Laterality: left Site: radial artery Ultrasound Guided: Yes Image in Chart: No Sites: potential access sites evaluated, selected vessel patent, concurrent real time ultrasound visualization of vascular needle entry Vessel: target vessel identified Line Secured: tape and occlusive biodressing Events Events: patient tolerated procedure well with no complications Comments For the arterial line placement procedure, I was physically present for the entire procedure.. Jesse Camejo MD SIGNATURE: Kirit Morgan MD PATIENT NAME: Christy Ernst DATE: July 22, 2024 TIME: 3:48 PM CSN: [id number] ANES PROCEDURE NOTE Observed: 07/22/2024 3:48 PM Status: COMPLETED Source: [facility] HNO ID: [id number] Author: KIRIT MORGAN MD Service: ? Author Type: Resident Type: Anesthesia Procedure Notes Filed: 07/22/2024 15:48 Note Text: ANESTHESIOLOGY PROCEDURE NOTE PIV General Information Procedure Start Time/Medication Administration: 07/22/2024 2:48 PM Procedure End Time: 07/22/2024 2:48 PM Patient Location: OR Staffing Anesthesiologist: Gale Li MD Resident: Kirit Morgan MD Performed by: anesthesiologist Preparation Sterility Preparation: hand hygiene performed prior to procedure, surgical cap used, mask used, skin prep agent completely dried prior to procedure Site Prep: alcohol Procedure Details Indication: need for IV access Needle Size/Type: 16 gauge angiocath Orientation: Right Location: Forearm Imaging Guidance Used: No SIGNATURE: Kirit Morgan MD PATIENT NAME: Christy Ernst DATE: July 22, 2024 TIME: 3:48 PM CSN: [id number] ANES PROCEDURE NOTE Observed: 07/22/2024 3:47 PM Status: COMPLETED Source: [facility] ID: [id number] Author: KIRIT MORGAN MD Service: ? Author Type: Resident Type: Anesthesia Procedure Notes Filed: 07/22/2024 15:48 Note Text: ANESTHESIOLOGY PROCEDURE NOTE Airway General Information Procedure Start Time/Medication Administration: 07/22/2024 2:45 PM Procedure End Time: 07/22/2024 2:46 PM Patient location during procedure: OR Timeout Performed Pre-procedure: timeout performed Consent Obtained: Yes Patient identity confirmed: arm band Staffing Anesthesiologist: Gale Li MD Resident: Kirit Morgan MD Performed by: resident and other anesthesia staff Indications and Patient Condition Indications for airway management: anesthesia Preoxygenated: yes anesthesia circuit Method: sleep Cricoid Pressure: No Manual In-Line Stabilization: No Difficult Mask: No Final Airway Details Final airway type: endotracheal airway Final Endotracheal Airway: ETT Cuffed: yes Successful intubation technique: video laryngoscopy Devices used: [employer] Endotracheal tube insertion site: oral Blade: Isidro Blade size: #3 ETT size (mm): 7.0 Measured from: lips Measurement (cm): 21 Placement verified by: capnometry Cormack-Lehane Classification: grade I - full view of glottis Number of attempts at approach: 1 Failed airway: no Unrecognized esophageal intubation: no Airway not difficult Comments Performed by fourth year med student under attending and resident supervision. Grade 1 view, no trauma to lips or oral structures SIGNATURE: Kirit Morgan MD PATIENT NAME: Christy Ernst DATE: July 22, 2024 TIME: 3:47 PM CSN: [id number] ARTERIAL BLOOD GASES WITH IO NIZED MAGNESIUM Collected: 07/22/2024 3:33 PM Status: F Source: [facility] Order Comment: Specimen Type : ARTERIAL BLOOD SPECIMEN Ordering Facility: [facility] Address: [address] [place] [address] TYPE CODE TESTS RESULT OUT OF RANGE REFERENCE UNITS LAB 29185-2(LOINC) pH Bld 7.36 7.35-7.45 LAB 96929-9(LOINC) pH temp adj Bld 7.36 7.35-7.45 LAB 70000-1(LOINC) pCO2 Bld 42 36-46 mm Hg LAB 82793-2(LOINC) pCO2 temp adj Bld 42 36-46 mmHg LAB 29422-6(LOINC) pO2 Bld 198 High 85-95 mm Hg LAB 67496-8(LOINC) pO2 temp adj Bld 198 High 85-95 mmHg LAB 1959-6(LOINC) HCO3 Bld-sCnc 23 22-26 mmol /L LAB 2708-6(LOINC) SaO2 % BldA 99 High 95-98 % LAB 1922-4(LOINC) Base deficit BldA-sCnc -2 -2-0 mmol/L LAB 2714-4(LOINC) OxyHgb MFr BldA 96 95-98 % LAB 2030-5(LOINC) COHgb MFr BldA 2.2 High 0.0-2.0 % Result Comment: Carboxyhemog lobin Reference Range for Smokers: 2.0-8.0% LAB 2614-6(LOINC) MetHgb MFr Bld 1.3 0.0-1.5 % LAB 2947-0(LOINC) Sodium Bld-sCnc 139 136-144 mmol/L LAB 6298-4(LOINC) Potassium Bld-sCnc 3.2 Low 3.5-5.0 mmol/L LAB 43125-5(LOINC) Ca-I Bld-mCnc 1.10 1.08-1.30 m mol/L LAB 73482-0(LOINC) Ca-I adj pH7.4 BldA-sCnc 1.08 1.08-1.30 mmol/L LAB 2339-0(LOINC) Glucose Bld-mCnc 125 High 60-105 mg/dL LAB 83182-6([facility]) Lactate Bld-sCnc 0.7 0.5-2.2 mmol/L LAB IONMAGBG IONIZED MAGNESIUM 0.75 High 0.45-0.60 mmol/L LAB 718-7(LOINC) Hgb Bld-mCnc 12.4 11.5-15.5 g/dL LAB 4544-3([facility]) Hct VFr Bld Auto 38.3 36.0-46.0 % Performed By: #### [facility] ### # [facility] CLIA [id number] [address] [place] [address] [place] OPERATIVE NO Observed: 07/22/2024 2:28 PM Status: COMPLETED Source: [facility] HNO ID: [id number] Author: MELINDA LEÓN MD Service: Neurosurgery Author Type: Physician Type: Operative Report Filed: 07/23/2024 14:32 Note Text: OPERATIVE/PROCEDURE REPORT NEUROSURGERY LOG ID: [id number] Surgery/Procedure Date: 07/22/2024 Incision/Procedure Start Time: 3:23 PM Incision Close/Procedure End Time: 6:58 PM Surgeon(s)/Proceduralist(s) and Biological Sciences Professor(s): Surgeons and Role: Panel 1: * Melinda León MD - Primary * Nga Ballesteros MD - Resident - Assisting * Logan Meyer MD - Resident - Assisting Panel 2: * Koko Gorman MD - Primary * Maren Courtney MD - Fellow Procedure(s): 1) Endoscopic [...] and a preoperative huddle was performed to confirm the patient's identity, proposed procedure, and site of [...] timeout was then performed in accordance with [facility] operative protocols. An endoscopic transnasal, transsphenoidal [...] the cavernous sinuses bilaterally, the inferior aspect of the planum sphenoidale, and superior aspect of the clivus. The central portion of the sella, as localized using navigation was drilled down to the level of the dura. Caudal to the sella, there was visible tumor involvement of the bone, with purple tinged and soft appearance. Bony opening was widened using a [...] gross total resection of all visible tumor. No CSF leak was visible. The cavity was copiously irrigated and Floseal was utilized to attain excellent hemostasis. Repair of the skull base defect then ensued. A Duragen matrix onlay conform graft was placed as an epidural inlay. Adherus sealant was used to seal the defect. No further graft or flap were utilized. The preceding portion was performed jointly by the ENT and neurosurgery teams. Final closure was performed by the ENT team, as dictated in their note. At the end of the case, all counts were correct. The patient was gently emerged from anesthesia and extubated. The patient was then transferred to the recovery room in stable condition. This pituitary operation required surgeons of different specialties (neurosurgery and rhinology) in order to optimize sinonasal, neurological, and endocrinological outcomes. A Sign Out was performed and included in this was that all counts were correct at the end of the case. PARTICIPATION IN SURGERY/PROCEDURE: Dr. León performed the critical portion of the procedure with assistance from Dr. Ballesteros and Dr. Meyer. The ENT team was responsible for endoscopic endonasal access and final closure. Estimated Blood Loss: 50 mLs Specimens: ID Type Source Tests Collected by Time Destination A : sellar mass Tissue Soft Tissue, Mass, Resection SURGICAL PATHOLOGY Melinda León MD 07/22/2024 5:55 PM Implantable Devices: Implant Name Type Inv. Item Serial No. Carpenters Lot No. LRB No. Used Action PATCH DURAMATRIX-ONLAY PLUS COLLAGEN 1X1IN DURAL REGENERATION MEMBRANE - [id number] Patch PATCH DURAMATRIX-ONLAY PLUS COLLAGEN 1X1IN DURAL REGENERATION MEMBRANE CARMENZA NEUR [id number] N/A 1 Implanted Drains: None Complications: None SIGNATURE: Nga Ballesteros MD PATIENT NAME: Christy Ersnt DATE: July 22, 2024 TIME: 7:01 PM PAGER/CONTACT #: [phone] OPERATIVE NO Observed: 07/22/2024 2:28 PM Status: COMPLETED Source: [facility] HNO ID: [id number] Author: KOKO GORMAN MD Service: Otolaryngology Author Type: Physician Type: Operative Report Filed: 07/23/2024 21:20 Note Text: OPERATIVE REPORT LOG ID: [id number] Patient Name: Christy Ernst Patient Incision/Procedure Start Time: 3:23 PM Incision Close/Procedure End Time: 6:58 PM Date of Surgery: 07/22/2024 Surgeon(s)/Proceduralist(s) and Biological Sciences Professor(s): Surgeons and Role: Panel 1: * Melinda León MD - Primary * Nga Ballesteros MD - Resident - Assisting * Logan Meyer MD - Resident - Assisting Panel 2: * Koko Gorman MD - Primary * Maren Courtney MD - Fellow Anesthesia: General endotracheal. [...] Diagnoses: Same as preoperative diagnosis. Operative Indications: Christy Ernst is a 44 year old female [...] A preoperative huddle was performed with the patient and all surgical and operating room staff, confirming the patient's identity and the proposed procedure. General endotracheal anesthesia was then induced. Afrin was sprayed into the bilateral nasal cavities and image navigation was set up using the Enmotus system. Image navigation was used throughout the case. The patient was then prepped and draped in the standard fashion for endonasal endoscopic skull base surgery. The bilateral nasal cavities were examined with a 0 degree endoscope. The inferior turbinates were out-fractured, and the middle turbinates were lateralized with a [place] elevator. The bilateral middle turbinates, sphenoid faces, and septum were then injected with 1% lidocaine with 1:100,000 epinephrine followed by placement of Afrin-soaked pledgets into [...] the level of the sphenoid os and carried about 1 cm anteriorly, and then from this point the superior incision was carried further anteriorly and superiorly at a 45 degree angle. Mucoperiosteum containing the posterior septal artery pedicle was then elevated off of the face of the sphenoid and toward the choana using a [place] elevator and pushed inferiorly for protection. A posterior septectomy was performed by removing septal bone and mucosa superior to the rescue pedicle on the right, thus creating the appropriate incisions for a rescue pedicle on the left; the mucoperiosteum and [...] remove the intersinus septum of the sphenoid. Remaining bone of the bilateral sphenoid faces was then [...] irrigated and inspected which revealed gross total resection of tumor. There was no CSF leak noted after the resection. We then proceeded with repair of the skull base defect. This was performed by placement of DuraMatrix Onlay Conform in an epidural fashion followed by application of Adherus dural sealant. Good hemostasis was [...] Tissue Soft Tissue, Mass, Resection SURGICAL PATHOLOGY Melinda León MD 07/22/2024 5:55 PM Drains: None Complications: None Attestation: Koko Gorman MD was present during the entirety of the case and completed the procedure with resident/fellow assistance. Maren Courtney MD dictating operative report for Koko Gorman MD I, Koko Gorman, was the primary surgeon for the above-mentioned procedures. No qualified resident or other social service assistant was available, so a second surgeon (as listed above) was required to safely and adequately perform the above-mentioned procedures. The second surgeon assisted in the following ways: retraction, suctioning, drilling using the four-handed surgery approach. ANES PRE-OP Observed: 07/22/2024 1:55 PM Status: COMPLETED Source: [facility] HNO ID: [id number] Author: GALE LI MD Service: ? Author Type: Anesthesiologist Type: Anesthesia Preprocedure Evaluation Filed: 07/22/2024 13:56 Note Text: ANESTHESIOLOGY DAY OF SURGERY NOTE : 1980 Procedure Information Date/Time: 07/22/24 1315 Procedures: NEUROENDOSCOPY INTRACRANIAL W/ EXCISION OF PITUITARY TUMOR TRANS-NASAL APPROACH (Pending: Brain) STEREOTACTIC COMPUTER-ASSISTED NAVIGATIONAL PROCEDURE CRANIAL (Brain) NEUROENDOSCOPY INTRACRANIAL W/ EXCISION OF PITUITARY TUMOR TRANS-NASAL APPROACH (Pending: Brain) FASCIA JOSE DAVID SHEET GRAFT VIA INCISION AND AREA EXPOSURE (Pending: Brain) Location: [facility] Surgeons: Melinda León MD; Koko Gorman MD Estimated body mass index is 47.42 kg/m? as calculated from the following: Height as of 07/21/24: 157.5 cm (5' 2 ). Weight as of 07/21/24: 117.6 kg (259 lb 4.2 oz). Most recent hematocrit and potassium results: Hematocrit 38.5 07/21/2024 Potassium 3.9 07/21/2024 CBC with diff: WBC 7.91 07/21/2024 RBC 4.31 07/21/2024 Hemoglobin 13.1 07/21/2024 Hematocrit 38.5 07/21/2024 MCV 89.3 07/21/2024 MCH 30.4 07/21/2024 MCHC 34.0 07/21/2024 RDW-CV 12.7 07/21/2024 Platelet Count 404 07/21/2024 MPV 9.2 07/21/2024 Neut% 68.8 07/21/2024 Lymph% 21.1 07/21/2024 Morrison% 6.7 07/21/2024 Eosin% 2.9 07/21/2024 Baso% 0.4 07/21/2024 Abs Neut (ANC) 5.44 07/21/2024 Abs Morrison 0.53 07/21/2024 Abs Eosin 0.23 07/21/2024 Abs Baso 0.03 07/21/2024 PAST MEDICAL HISTORY Diagnosis Date Bacterial vaginosis Fibroid Herpes simplex virus (HSV) infection HPV (human papilloma virus) infection LEEP 2002 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 Tracheostomy tube not present Mallampati: II. TM distance: >3 FB. Neck ROM: full ROM without neurological symptoms. Mouth opening: adequate. Short neck: no. Thick neck: no DENTAL Dental findings: teeth intact. Additional exam findings: no II - ANESTHESIA PLAN ASA Score: 3 Anesthetic Plan: general Airway type: ETT NPO Status: adequate Beta Louie Monitoring Plan Monitoring plan: Standard ASA. Post Procedure Analgesic Plan Postoperative analgesic plan: parenteral or oral opioids and multimodal analgesia. Informed Consent Anesthetic risks, benefits, alternatives, personnel and consent discussed: yes. Patient / Responsible Constitution Party agrees to proceed: yes Patient / Surrogate agrees to blood products: yes DNR status not reviewed with patient and/or family prior to surgery. Significant changes in the patient condition since the History and Physical, not otherwise documented in primary service progress note: no. Potential Anesthesia issues that may suggest increased risk of complications or contraindication to planned procedure: none. Vitals Value Taken Time BP 121/61 07/22/24 1151 Pulse 79 07/22/24 1151 Resp 14 07/22/24 1151 Temp 36.5 ?C (97.7 ?F) 07/22/24 1151 SpO2 94 % 07/22/24 1151 Facility-Administered Medications as of 07/22/2024 Medication Dose Route Frequency lidocaine (PF) 10 mg/mL (1 %) 1-2 mg injection (XYLOCAINE) 0.1-0.2 mL INTRADERMAL PRN Or lidocaine 1% 0.25 mL subcutaneous j-tip syringe (XYLOCAINE) 0.25 mL SUBCUTANEOUS PRN NaCl 0.9% iv flush bag 20 mL INTRAVENOUS PRN ceFAZolin 2 g in dextrose (iso-osmotic) 50 mL (ANCEF,KEFZOL) 2 g INTRAVENOUS Pre-Op Once Outpatient Medications as of 07/22/2024 Medication Sig esomeprazole (NEXIUM) 40 mg capsule Take 1 [...] day (Patient not taking: Reported on 07/21/2024) I have interviewed and examined the patient. I have reviewed the medical record and/or the pre-anesthesia evaluation, pertinent labs, and test results. This contains updated information obtained within 48 hours of Surgery/Procedure. SIGNATURE: GALE PHIPPS MD PATIENT NAME: Christy Ernst DATE: July 22, 2024 TIME: 1:55 PM CSN: [id number] MRI SKULL BASE WO/W IVCON Observed: 07/03 6:31 PM Status: F Source: [facility] * * *Final Report* * * DATE OF EXAM: Jul 21 2024 6:31PM [facility] 0319 - MRI SKULL BASE WO/W IVCON [...] in the skull base. Unremarkable extracranial structures. IMPRESSION: Preoperative examination. Stable likely adenoma protruding into the left sphenoid sinus. Railcar Brake Operator: PSCB Transcribe Date/Time: Jul 22 2024 8:07A Dictated by : MAREN BASHIR MD This examination was interpreted and the report reviewed and electronically signed by: MAREN BASHIR MD on Jul 22 2024 8:13AM EST [id number] Observed: 07/21/2024 5:10 PM Status: COMPLETED [facility]: [id number] Author: BEATRICE RAZO Tech Service: ? Author Type: Supervisor Corduroy Cutting Type: Progress Notes Filed: 07/21/2024 18:20 Note Text: Radiology Service Progress Note PATIENT NAME: Christy Ernst DATE OF SERVICE: July 21, 2024 TIME: 6:19 PM PATIENT IDENTITY VERIFICATION COMPLETED USING TWO (2) IDENTIFIERS: Name and Date of confirmed by patient verbally and Name and Date of confirmed by identification band. FALL SCREENING: Has the patient had 2 falls in the last year or 1 fall with injury or currently using an Ambulatory Assistive Device (Walker, Cane, Wheelchair, Crutches, etc.)? No PATIENT GENDER DATA: Assigned female at . status: : No status: NO. PATIENT RELEVANT IMPLANT DATA REVIEWED: Yes PATIENT PRESENTS WITH AN IMPLANTABLE OR ATTACHED DORR OPERATOR: No RADIOLOGY DEPARTMENT: MR; Exam(s) Completed: Head: Bowser. Lavender Administered: No PERIPHERAL IV DATA: Site assessment: Clean,Dry and Intact, Site disposition Discontinued SIGNED BY: Beatrice Razo RT MR July 21, 2024 6:19 PM PROGRESS Observed: 07/21/2024 5:10 PM Status: COMPLETED Source: [facility] HNO ID: [id number] Author: LAILA HUERTA RN Service: Nursing Author Type: Registered Nurse Type: Progress Notes Filed: 07/21/2024 17:51 Note Text: Radiology Service Progress Note DATE OF SERVICE: [...] Assigned female at . status: : No status: NO. ALLERGIES: Reviewed and unchanged CONTRAST ALLERGY: No EXAM: MRI - CONTRAST TYPE: GROUP II IV SITE: Ambulatory: A peripheral IV was started in the Left hand with a Angio cath: 22 gauge. IV SITE APPEARANCE: Clean,Dry and Intact SIGNATURE: Laila Huerta RN PATIENT NAME: Christy Ernst DATE: July 21, 2024 TIME: 5:[address] SINUS STEREO WO IVCON Observed: 07/21 5:04 PM Status: F Source: [facility] * * *Final Report* * * DATE OF EXAM: Jul 21 2024 5:04PM [facility] [place] - CT SINUS STEREO WO IVCON [...] Sinus Chambers: Sinuses are clear. LEFT Max Juliano Score: 0 RIGHT Bosworth Juliano Score: 0 TOTAL Max Pompeys Pillar Score: 0 Nasal Cavities: Visualized nasal cavities [...] the study. Localizer images: No significant findings. IMPRESSION: No significant inflammatory sinus disease at this time. Erosive changes along the dorsum sellae and medial aspect of the distal left carotid canal from known pituitary adenoma as described. Railcar Brake Operator: PSCB Transcribe Date/Time: Jul 21 2024 7:46P Dictated by : ANTHONY MUSA MD This examination was interpreted and the report reviewed and electronically signed by: ANTHONY MUSA MD on Jul 21 2024 7:56PM EST [id number] PROGRESS Observed: 07/21/2024 4:00 PM Status: COMPLETED Source: [facility] HNO ID: [id number] Author: RUSTY LINARES Tech Service: Radiology Author Type: Technologist Type: Progress Notes Filed: 07/21/2024 17:02 Note Text: Radiology Service Progress Note PATIENT NAME: Christy Ernst DATE OF SERVICE: July 21, 2024 TIME: 5:01 PM PATIENT IDENTITY VERIFICATION COMPLETED USING TWO (2) IDENTIFIERS: Name and Date of confirmed by patient verbally and Name and Date of confirmed by identification band. FALL SCREENING: Has the patient had 2 falls in the last year or 1 fall with injury or currently using an Ambulatory Assistive Device (Walker, Cane, Wheelchair, Crutches, etc.)? No PATIENT GENDER DATA: Assigned female at . status: : No status: NO. PATIENT RELEVANT IMPLANT DATA REVIEWED: Yes PATIENT PRESENTS WITH AN IMPLANTABLE OR ATTACHED DORR OPERATOR: No RADIOLOGY DEPARTMENT: CT; Exam(s) Completed: Sinus PERIPHERAL IV DATA: Not applicable SIGNED BY: Miladys Duke July 21, 2024 5:01 PM CONFIRM BLOOD TYPE Collected: 3:45 PM Status: F Source: [facility] Order Comment: Specimen Type : BLOOD SPECIMEN Ordering Facility: [facility] Address: [address] [place] [address] TYPE CODE TESTS RESULT OUT OF RANGE REFERENCE UNITS LAB [id number] ABO A LAB [id number] RH Positive Performed By: #### CONABO ## ## [facility] CLIA [id number] [facility] [place] [address] [place] BAS METAB 2000 PNL SERPL Collected: 3:38 PM Status: F Source: [facility] Order Comment: Specimen Type : BLOOD SPECIMEN Ordering Facility: [facility] Address: [address] [place] [address] TYPE CODE TESTS RESULT OUT OF RANGE REFERENCE UNITS LAB 2345-7(LOINC) Glucose SerPl-mCnc 97 74-99 mg/dL Result Comment: The [place] Diabetes Association (ADA) provides guidance for cutoff [...] Standards of Medical Care in Diabetes 2016, [place] [employer]. Diabetes Care. 2016.39(Suppl 1). LAB 3094-0(LOINC) BUN SerPl-mCnc 7 7-21 mg/ dL LAB 2160-0(LOINC) Creat SerPl-mCnc 0.78 0.58-0.96 mg/dL LAB 2951-2(LOINC) Sodium SerPl-sCnc 137 136-144 mmol/L LAB 2823-3(LOINC) Potassium SerPl-sCnc 3.9 3.7-5.1 mmol/L LAB 2075-0(LOINC) Chloride SerPl-sCnc 103 98-107 mmol/L LAB 2028-9(LOINC) CO2 SerPl-sCnc 24 22-30 mmo l/L LAB 22990-3(LOINC) Anion Gap SerPl-sCnc 10 8-15 mmol/L LAB 01684-2(LOINC) Calcium SerPl-mCnc 9.0 8.5-10.2 mg/dL LAB 17314-9(LOINC) Creatinine + eGFR Pnl SerPlBld 97 >=60 mL/min/1 .73m??? Result Comment: Estimated Gl omerular Filtration Rate (eGFR) is calculated using the 2020 CKD-EPI creatinine equation. This equation utilizes serum creatinine, sex, and age as parameters. The creatinine assay has traceable calibration to isotope dilution-mass spectrometry. Refer to KDIGO guidelines for clinical interpretation. In patients with unstable renal function, e.g. those with acute kidney injury, the eGFR may not accurately reflect actual GFR. Performed By: #### 58772-7 # ### [facility] CLIA [id number] [address] [place] [address] [place] STAPHYLOCOCCUS AUREUS AND MR SA SCREEN, PCR, NASAL Collected: 07/21/2024 3:38 PM Status: F Source: [facility] Order Comment: Specimen Type : SWAB Ordering Facility: [facility] Address: [address] [place] [address] TYPE CODE TESTS RESULT OUT OF RANGE REFERENCE UNITS LAB 78256-9([facility]) SA+MRSA Pnl Nose IGLESIA+probe Not Detected Not Detected Performed By: #### SAPCR ### # [facility] CLIA [id number] [address] [place] [address] [place] CBC W AUTO DIFF BLD Collected: 07/21/2024 3:[address] atus: F Source: [facility] Comment: Specimen Type : BLOOD SPECIMEN Ordering Facility: [facility] Address: [address] [place] [address] TYPE CODE TESTS RESULT OUT OF RANGE REFERENCE UNITS LAB 6690-2(LOINC) WBC # Bld Auto 7.91 3.70-11.00 k/uL LAB 789-8(LOINC) RBC # Bld Auto 4.31 3.90-5.20 m/ uL LAB 718-7(LOINC) Hgb Bld-mCnc 13.1 11.5-15.5 g/dL LAB 4544-3(LOINC) Hct VFr Bld Auto 38.5 36.0-46.0 % LAB 787-2(LOINC) MCV RBC Auto 89.3 80.0-100.0 fL LAB 785-6([facility]) MCH RBC Qn Auto 30.4 26.0-34.0 p g LAB 786-4([facility]) MCHC RBC Auto-mCnc 34.0 30.5-36.0 g/dL LAB 26949-4([facility]) RDW RBC-Rto 12.7 11.5-15.0 % LAB 777-3([facility]) Platelet # Bld Auto 404 High 150-400 k/uL LAB 90842-0([facility]) PMV Bld Auto 9.2 9.0-12.7 fL LAB 770-8([facility]) Neutrophils/leuk NFr Bld Auto 68.8 % LAB 751-8([facility]) Neutrophils # Bld Auto 5.44 1.45-7.50 k/uL LAB 736-9([facility]) Lymphocytes/leuk NFr Bld Auto 21.1 % LAB 731-0([facility]) Lymphocytes # Bld Auto 1.67 1.00-4.00 k/uL LAB 5905-5([facility]) Monocytes/leuk NFr Bld Auto 6.7 % LAB 742-7([facility]) Monocytes # Bld Auto 0.53 <0.87 k/uL LAB 713-8([facility]) Eosinophil/leuk NFr Bld Auto 2.9 % LAB 711-2([facility]) Eosinophil # Bld Auto 0.23 <0.46 k/uL LAB 706-2([facility]) Basophils/leuk NFr Bld Auto 0.4 % LAB 704-7([facility]) Basophils # Bld Auto 0.03 <0.11 k/uL LAB 90596-6([facility]) Imm Granulocytes/sunny k NFr Bld Auto 0.1 % LAB 80785-5([facility]) Imm Granulocytes # Bld Auto <0.03 <0.10 k/uL LAB 44508-2([facility]) nRBC/100 WBC Bld-Rto 0.0 /100 WBC LAB 771-6([facility]) nRBC # Bld Auto <0.01 <0.01 k/u L LAB 36992-3([facility]) Differential method Bld Auto Performed By: #### 94279-6 # ### [facility] CLIA [id number] [address] [place], [place] [address] TYPE AND SCREEN,30 DAY Collected: 07/21/2024 3:38 PM Status: F Source: [facility] Order Comment: Specimen Type : BLOOD SPECIMEN Ordering Facility: [facility] Address: [address] [place] [address] TYPE CODE TESTS RESULT OUT OF RANGE REFERENCE UNITS LAB [id number] ABO A LAB [id number] RH Positive LAB [id number] ANTIBODY SCREEN Negative Performed By: #### [email or web address] ## ## [facility] BLOOD B[facility] CLIA [id number] [address] [place] [address] PROGRESS Observed: 07/21/2024 2:40 PM Status: COMPLETED Source: [facility] HNO ID: [id number] Author: DOMINIQUE DE LA O RN Service: ? Author Type: Registered Nurse Type: Progress Notes Filed: 07/21/2024 14:43 Note Text: DISCIPLINE: NURSING DIAGNOSIS Prolactinoma PROCEDURE/SURGERY:Endoscopic Endonasal Resection with Dr. León and Dr. Gorman on 07/22/24 PATIENT READINESS [...] -Patient information: Reducing surgical site infections -Dr. León - Postoperative instructions IRB#[id number] Genetic and Molecular [...] Follow Up Dominique De La O Pager [phone] HISTORY PHYSICAL Observed: 07/21/2024 2:20 PM Status: COMPLETED Source: [facility] HNO ID: [id number] Author: SEEMA DAI PA-C Service: ? Author Type: Physician Biological Sciences Professor Type: H&P Filed: 07/21/2024 15:38 Note Text: [facility] HISTORY AND PHYSICAL EXAMINATION SERVICE DATE: 07/21/2024 SERVICE TIME: 2:33 PM PRIMARY CARE PHYSICIAN: Johnny Reardon, Assessment Patient has the following medical conditions which may affect keegan-operative course: Hypothyroidism (acquired) Not currently taking Synthroid Class 3 severe obesity due to excess calories with serious comorbidity and body mass index (BMI) of 45.0 to 49.9 in adult (HCC) Body mass index is 47.42 kg/m?. Paranoid schizophrenia, chronic condition with acute exacerbation [...] activity. STOP-Bang Score: BMI greater than 35 kg/m2 Denies snoring loudly Denies feeling tired, fatigued, [...] Anesthetic: Per anesthesia choice REASON FOR VISIT: Christy Ernst is a 44 year old female who is scheduled for Pending - NEUROENDOSCOPY INTRACRANIAL W/ EXCISION OF PITUITARY TUMOR TRANS-NASAL APPROACH STEREOTACTIC COMPUTER-ASSISTED NAVIGATIONAL PROCEDURE CRANIAL Pending - NEUROENDOSCOPY INTRACRANIAL W/ EXCISION OF PITUITARY TUMOR TRANS-NASAL APPROACH Pending - FASCIA JOSE DAVID SHEET GRAFT VIA INCISION AND AREA EXPOSURE - (Possible) at the request of Dr. Melinda León for consultation. My final recommendation will be communicated back to the requesting physician by way of shared medical record or letter. Subjective CHIEF COMPLAINT: Pre-op exam HPI: Christy Ernst is a 44 year old female who presents to [facility] for the above procedure. Patient reports history of Pituitary adenoma. Denies any CP, SOB, fever, chills, n/v/d, or dizziness. Recommended above procedure and elects to proceed. Patient is scheduled for procedure on 07/22/2024 at [facility]. REVIEW OF SYSTEMS: General: No weight loss, malaise or fevers. 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 No neurological symptoms or problems. Respiratory: Positive for: tobacco use. Negative for: asthma, current cough, orthopnea, pneumonia within 6 weeks, URI < 2 weeks and obstructive sleep apnea. Cardiovascular: No history of HTN requiring medication, no history of angina, CHF, IA, cardiac surgery or stents. Denies rest pain, [...] infection HPV (human papilloma virus) infection LEEP 2002 Pituitary mass (HCC) benign prolactin secreting [...] Prior to Admission medications as of 07/21/24 5367 Medication Sig Last Dose Taking MULTIVITAMIN ORAL [...] Immunization Dates Current Care Gaps Covid-19 Vaccine (2023- season) Never done No completion, postpone, frequency change, or communication history exists for this topic. Objective PAIN ASSESSMENT: VITALS: BP 114/68 Pulse 88 Temp (Src) 97.1 (Temporal) Ht 5' 2 (1.58m) Wt 259 lb 4.2 oz (117.6kg) SpO2 96% LMP 07/17/2024 BMI 47.41 kg/(m2). PHYSICAL EXAM: General: alert and oriented, healthy appearance and morbidly obese. Pertinent negatives noted - not distressed. Skin: normal color, no rash or lesions. [...] 368 QTC Calculation (Bazett) 432 Calculated P Beatty 63 Calculated R Beatty 54 Calculated T Beatty 19 Impression NORMAL SINUS RHYTHM NORMAL ECG Recent Results (from the past 20846 hours) ECHO Collection Time: 03/11/23 2:41 PM Impression CONCLUSIONS: - Technically difficult exam due to body habitus. - Exam indication: Baseline and serial evaluation in a patient undergoing therapy with cardiotoxic agents - The left ventricle is normal in size. Left ventricular systolic function is normal. EF = 56 ? 5% (2D biplane) Normal left ventricular diastolic [...] and voices comprehension and compliance. SIGNATURE: Seema Dai PA-C PATIENT NAME: Christy Ernst DATE: 07/21/2024 TIME: 2:33 PM CNNURSE Observed: 07/21/2024 1:00 PM Status: COMPLETED Source: [facility] Nurse Visit (NSCAMN) CHRISTY ERNST ([id number]) 1980 F Date Time Provider Department 07/21/24 1:00 PM [facility] your visit today, we recorded the following information about you: Dominique De La O, RN 07/21/2024 2:43 PM Signed DISCIPLINE: NURSING DIAGNOSIS Prolactinoma PROCEDURE/SURGERY:Endoscopic Endonasal Resection with Dr. León and Dr. Gorman on 07/22/24 PATIENT READINESS [...] -Patient information: Reducing surgical site infections -Dr. León - Postoperative instructions IRB#[id number] Genetic and Molecular [...] Follow Up Dominique De La O Pager [phone] Referring Provider: MELINDA LEÓN [[id number]] Allergies As of Date: 07/21/2024 (No Known Allergies) Date Reviewed: 07/21/2024 Reviewed by: Seema Dai PA-C - Fully Assessed Primary Visit Diagnosis:Pituitary adenoma (HCC) [D35.2] Prescriptions as of 07/21/2024 - MULTIVITAMIN ORAL Take 1 tablet by mouth once daily. - diphenhydramine HCl (BENADRYL ALLERGY ORAL) Take by mouth as needed. - acetaminophen (TYLENOL) 325 mg tablet Take 650 mg by mouth every 6 hours as needed. - buPROPion SR (WELLBUTRIN SR) 150 mg 12 hr tablet Take 1 tablet by mouth daily at bedtime. - esomeprazole (NEXIUM) 40 mg capsule Take 1 capsule by mouth once daily. - cabergoline (DOSTINEX) 0.5 mg tablet TAKE 2 TABLETS SIX DAYS OF THE WEEK AND 1 TABLET ONE DAY OF THE WEEK. - levothyroxine (SYNTHROID) 50 mcg tablet take 1 tablet every day - acyclovir (ZOVIRAX) 400 mg tablet TAKE 1 TABLET EVERY 12 HOURS. 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 Hypothyroidism (acquired) [E03.9] 03/12/2016 Nipple discharge in female [N64.52] 03/12/2016 09/25/2016 Secondary amenorrhea [N91.1] 03/12/2016 Microadenoma [D36.9] 09/15/2019 Hyperprolactinemia (HCC) [E22.1] 01/01/2020 Class 3 severe obesity due to excess calories w*07/26/2022 Paranoid schizophrenia, chronic condition with *07/27/2022 Encounter Status:Closed by DOMINIQUE DE LA O on 07/21/24 CNOV Observed: 07/21/2024 11:45 AM Status: COMPLETED Source: [facility] Office Visit (OTOLMN) CHRISTY ERNST ([id number]) 1980 F Date Time Provider Department 07/21/24 11:45 AM KOKO GORMAN OTOLMN During your visit today, we recorded the following information about you: Henrry Goyal MA 07/22/2024 9:32 AM Signed Tobacco Use: Types: Cigarettes Was smoking cessation packet given? Patient Declined Was a referral initiated?Patient declined. Koko Gorman MD 07/22/2024 9:32 AM Signed SECTION OF RHINOLOGY, SINUS AND SKULL BASE SURGERY Head and Neck Sentinel, [facility] MINIMALLY INVASIVE CRANIAL BASE AND PITUITARY SURGERY PROGRAM [facility] CONSULTATION NOTE This patient is a new patient. Consultation requested by Melinda León for an opinion regarding a sellar mass. My final recommendations will be communicated back to the requesting physician by way of shared Medical record or letter to requesting physician via US mail. CC: Pituitary Tumor, for consideration of combined endoscopic resection ASSESSMENT: Christy Ernst is a 44 year old female with suspected prolactinoma 1) Sellar lesion consistent with a pituitary tumor, referred by Melinda León from Neurosurgery for combined endoscopic resection. PLAN: 1) Nasal Endoscopy today - LEFT DNS. 2) Recommended procedure: Endoscopic transphenoidal resection of pituitary mass with possible septoplasty, possible septectomy, possible naso-septal flap for reconstruction, possible abdominal fat graft, possible fascia jose david harvest, and possible lumbar drain placement. Melinda León previously obtained written informed consent form this patient. Today, I also obtained informed consent for the recommended procedure, and personnaly discussed the risks, benefits, alternatives, expectations, and personnel with the patient and answered questions. HPI: Christy Ernst is a 44 year old female on disability seen with mother referred by Melinda León for consideration of a combined endoscopic approach to pituitary tumor resection. The neurosurgery team has recommended surgery for this patient. The patient denies any sinus issues or infections. No prior sinus surgery. Some AR type symptoms. She has a hx of anxiety, depression, PTSD, schizoaffective disorder, hypothyroidism, recent;y diagnosed with prolactinoma (having PARRISH and galactorrhea). Following with endocrinology and has tried cabergoline. Dr León Assessment: In summary, Ms. Ernst is a [...] intraoperatively and will obtain a specialized MRI and CT scan prior to the procedure if it is not already available. The risks and benefits of this procedure were discussed in detail which include but are not limited to bleeding, infection/meningitis, cerebrospinal fluid leak, nasal stuffiness and/or crusting, sensations that air does not pass through the nose, pituitary gland dysfunction including need for permanent hormone replacement, diabetes insipidus, chronic headache, incomplete tumor resection, vision loss, [...] visit. ALLERGIES: ALLERGIES No Known Allergies ROS: ? Constitutional: Denies having night sweats, constant fatigue, loss of appetite, or recent substantial weight loss. ? Eyes: The patient denies having blurred vision or double vision. ? Respiratory: Denies symptoms of shortness of breath, noisy breathing, hoarseness, or a chronic cough. ? GI: Denies symptoms of heartburn, acid regurgitation, or the known presence of a hiatal hernia. 14 point review of systems was otherwise normal. REVIEW OF RADIOLOGICAL FILMS AND RECORDS: Previous operative, pathology, and radiological reports were reviewed and filed in the permanent chart. PHYSICAL EXAM: Constitutional: ? General appearance: well developed, well nourished, without obvious deformities ? Communication: the patient speaks with a normal voice without hoarseness Head and Face: ? Overall appearance: no obvious scars, lesions or masses ? Parotid and submandibular glands: no masses or tenderness ? Facial strength: normal and equal bilaterally . No tenderness to palpation Eyes: PERRLA EOMI Ears, Nose, Mouth, Throat: ? External ears and nose: normal in appearance, without scars, lesions, or masses ? Ears: both left and right external auditory canals and tympanic membranes are normal ? Nasal exam: the mucosa is pink, the septum is midline, and the visible turbinates are normal on anterior rhinoscopy ? Oral cavity and oropharynx: The lips, the oral mucosa, hard and soft palates, tongue, tonsil area, and posterior pharyngeal mucosa are without lesions ? Neck: the neck appears symmetric without scars, [...] to the LEFT. Inferior turbinates were hypertrophic bilaterally. Both MT were in good position and the middle meatii were clear. No mucus, pus or polyps were seen. ENGINE MANAGER was clear. There were no complications and [...] carotid artery causing massive hemmorhage stroke or ), septal perforation, persistent deviation of the septum, scarring [...] earliest convenience. MD Koko Vilchis MD, FACS, FRCS Section Head Rhinology, Sinus and Skull Base Surgery This visit lasted more than 40 min and over 50% of the time was spent counselling the patient. Findings of recent CT scan, the role of surgery, future management options and expected disease course were discussed. The patient's questions were answered. Koko Gorman MD Referring Provider: MELINDA LEÓN [[id number]] Allergies As of Date: 07/21/2024 (No Known Allergies) Date Reviewed: 07/21/2024 Reviewed by: Laila Huerta RN - Fully Assessed Reason for Visit: New Patient [172] Pre-Op Visit [1235] Primary Visit Diagnosis:Prolactinoma (HCC) [D35.2] Other Visit Diagnosis:Pituitary tumor [D49.7] Prescriptions as of 07/22/2024 - MULTIVITAMIN ORAL Take 1 tablet by mouth once daily. - diphenhydramine HCl (BENADRYL ALLERGY ORAL) Take by mouth as needed. - acetaminophen (TYLENOL) 325 mg tablet Take 650 mg by mouth every 6 hours as needed. - buPROPion SR (WELLBUTRIN SR) 150 mg 12 hr tablet Take 1 tablet by mouth daily at bedtime. - esomeprazole (NEXIUM) 40 mg capsule Take 1 capsule by mouth once daily. - cabergoline (DOSTINEX) 0.5 mg tablet TAKE 2 TABLETS SIX DAYS OF THE WEEK AND 1 TABLET ONE DAY OF THE WEEK. - levothyroxine (SYNTHROID) 50 mcg tablet take 1 tablet every day - acyclovir (ZOVIRAX) 400 mg tablet TAKE 1 TABLET EVERY 12 HOURS. 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 Author Type: Physician Type: Progress Notes Filed: 07/22/2024 09:32 Note Text: SECTION OF RHINOLOGY, SINUS AND SKULL BASE SURGERY Head and Neck Sentinel, [facility] MINIMALLY INVASIVE CRANIAL BASE AND PITUITARY SURGERY PROGRAM [facility] CONSULTATION NOTE This patient is a new patient. Consultation requested by Melinda León for an opinion regarding a sellar mass. My final recommendations will be communicated back to the requesting physician by way of shared Medical record or letter to requesting physician via US mail. CC: Pituitary Tumor, for consideration of combined endoscopic resection ASSESSMENT: Christy Ernst is a 44 year old female with suspected prolactinoma 1) Sellar lesion consistent with a pituitary tumor, referred by Melinda León from Neurosurgery for combined endoscopic resection. PLAN: 1) Nasal Endoscopy today - LEFT DNS. 2) Recommended procedure: Endoscopic transphenoidal resection of pituitary mass with possible septoplasty, possible septectomy, possible naso-septal flap for reconstruction, possible abdominal fat graft, possible fascia jose david harvest, and possible lumbar drain placement. Melinda León previously obtained written informed consent form this patient. Today, I also obtained informed consent for the recommended procedure, and personnaly discussed the risks, benefits, alternatives, expectations, and personnel with the patient and answered questions. HPI: Christy Ernst is a 44 year old female on disability seen with mother referred by Melinda León for consideration of a combined endoscopic approach to pituitary tumor resection. The neurosurgery team has recommended surgery for this patient. The patient denies any sinus issues or infections. No prior sinus surgery. Some AR type symptoms. She has a hx of anxiety, depression, PTSD, schizoaffective disorder, hypothyroidism, recent;y diagnosed with prolactinoma (having PARRISH and galactorrhea). Following with endocrinology and has tried cabergoline. Dr eLón Assessment: In summary, Ms. Ernst is a [...] intraoperatively and will obtain a specialized MRI and CT scan prior to the procedure if it is not already available. The risks and benefits of this procedure were discussed in detail which include but are not limited to bleeding, infection/meningitis, cerebrospinal fluid leak, nasal stuffiness and/or crusting, sensations that air does not pass through the nose, pituitary gland dysfunction including need for permanent hormone replacement, diabetes insipidus, chronic headache, incomplete tumor resection, vision loss, [...] infection HPV (human papilloma virus) infection LEEP 2002 Pituitary mass (HCC) benign prolactin secreting [...] visit. ALLERGIES: ALLERGIES No Known Allergies ROS: ? Constitutional: Denies having night sweats, constant fatigue, loss of appetite, or recent substantial weight loss. ? Eyes: The patient denies having blurred vision or double vision. ? Respiratory: Denies symptoms of shortness of breath, noisy breathing, hoarseness, or a chronic cough. ? GI: Denies symptoms of heartburn, acid regurgitation, or the known presence of a hiatal hernia. 14 point review of systems was otherwise normal. REVIEW OF RADIOLOGICAL FILMS AND RECORDS: Previous operative, pathology, and radiological reports were reviewed and filed in the permanent chart. PHYSICAL EXAM: Constitutional: ? General appearance: well developed, well nourished, without obvious deformities ? Communication: the patient speaks with a normal voice without hoarseness Head and Face: ? Overall appearance: no obvious scars, lesions or masses ? Parotid and submandibular glands: no masses or tenderness ? Facial strength: normal and equal bilaterally . No tenderness to palpation Eyes: PERRLA EOMI Ears, Nose, Mouth, Throat: ? External ears and nose: normal in appearance, without scars, lesions, or masses ? Ears: both left and right external auditory canals and tympanic membranes are normal ? Nasal exam: the mucosa is pink, the septum is midline, and the visible turbinates are normal on anterior rhinoscopy ? Oral cavity and oropharynx: The lips, the oral mucosa, hard and soft palates, tongue, tonsil area, and posterior pharyngeal mucosa are without lesions ? Neck: the neck appears symmetric without scars, [...] to the LEFT. Inferior turbinates were hypertrophic bilaterally. Both MT were in good position and the middle meatii were clear. No mucus, pus or polyps were seen. ENGINE MANAGER was clear. There were no complications and the patient tolerated the procedure well. RENATO Vilchisecomerasmo Procedure: Endoscopic transphenoidal resection of pituitary mass [...] carotid artery causing massive hemmorhage stroke or ), septal perforation, persistent deviation of the septum, scarring in the nose, bleeding, infection, issues with nasal drainage, blockage or crusting, persistence or worsening of current symptoms, persistent or new onset disturbance of smell, and the possible need for revision or further surgery/treatment were discussed. Patient was made aware that in addition to the endoscopic approach an alotomy or cut at the side of the nostril(leaving a permanent scar) may be necessary, and that fat may be harvested from the abdomen leaving a permanent scar there as well. All of the the patient's questions were answered and the patient voiced an excellent understanding of our discussion. The patient was interested in proceeding with surgery, which will be arranged at the patient's earliest convenience. Celia Vilchis MD, FACS, CS Section Head Rhinology, Sinus and Skull Base Surgery This visit lasted more than 40 min and over 50% of the time was spent counselling the patient. Findings of recent CT scan, the role of surgery, future management options and expected disease course were discussed. The patient's questions were answered. Koko Gorman MD PROGRESS Observed: 07/21/2024 11:27 AM Status: COMPLETED Source: [facility] HNO ID: [id number] Author: HENRRY GOYAL MA Service: ? Author Type: Senior Fund Accountant Type: Progress Notes Filed: 07/22/2024 09:32 Note Text: Tobacco Use: Types: Cigarettes Was smoking cessation packet given? Patient Declined Was a referral initiated?Patient declined. NITO Observed: 06/23/2024 12:00 AM Status: COMPLETED Source: [facility] Telephone (NSCAMN) CHRISTY ERNST ([id number]) 1980 F Date Time Provider Department 06/23/24 MELINDA LEÓN NSCAMN During your visit today, we recorded the following information about you: Dominique De La O RN 06/23/2024 10:43 AM Signed Post-Op Scheduling Request Time Frame: 6-8 weeks post surgery Orders: N/A Provider: Abigail Trent Visit type: Virtual Visit Surgery/GK Date: 07/22/24 Diagnosis: Prolactinoma Allergies As of Date: 06/23/2024 (No Known Allergies) Date Reviewed: 09/09/2023 Reviewed by: Flora Kelley MA - Fully Assessed Reason for Visit: Post Op [Other] Prescriptions as of 06/23/2024 - buPROPion SR (WELLBUTRIN SR) 150 mg 12 hr tablet Take 1 tablet by mouth daily at bedtime. - esomeprazole (NEXIUM) 40 mg capsule Take 1 capsule by mouth once daily. - cabergoline (DOSTINEX) 0.5 mg tablet TAKE 2 TABLETS SIX DAYS OF THE WEEK AND 1 TABLET ONE DAY OF THE WEEK. - levothyroxine (SYNTHROID) 50 mcg tablet take 1 tablet every day - acyclovir (ZOVIRAX) 400 mg tablet TAKE 1 TABLET EVERY 12 HOURS. LAST REFILL UNTIL OFFICE VISIT Problem List As Of Date 06/23/2024 Noted Resolved Usha Duct, Cyst [Q52.4] 07/21/2009 Pituitary macroadenoma with extrasellar extensi*03/12/2016 Hypothyroidism (acquired) [E03.9] 03/12/2016 Nipple discharge in female [N64.52] 03/12/2016 09/25/2016 Secondary amenorrhea [N91.1] 03/12/2016 Microadenoma [D36.9] 09/15/2019 Hyperprolactinemia (HCC) [E22.1] 01/01/2020 Class 3 severe obesity due to excess calories w*07/26/2022 Paranoid schizophrenia, chronic condition with *07/27/2022 Encounter Status:Closed by DOMINIQUE DE LA O on 06/23/24 PROGRESS Observed: 06/10/2024 9:20 AM Status: COMPLETED Source: [facility] ID: [id number] Author: MELINDA LEÓN MD Service: ? Author Type: Physician Type: Progress Notes Filed: 06/18/2024 09:38 Note Text: SECTION OF SKULL BASE SURGERY MINIMALLY INVASIVE CRANIAL BASE AND PITUITARY SURGERY PROGRAM [facility] TELEMEDICINE NEW VISIT This is a virtual visit. It required patient-provider interaction for the medical decision making as documented below. I have communicated my name and active licensure. The patient's identity and physical location were verified at the time of this visit. Either the patient or their legal national sales representative has been informed of the risks and benefits of -- and alternatives to -- treatment through a remote evaluation and consents to proceed with the evaluation remotely. Christy Ernst has consented for this telemedicine encounter. CC: Patient Care Team: Johnny Reardon DO as PCP - General (Internal Medicine) Marie Mancuso PA-C as Web Content Producer (Internal Medicine) Gail Rodriguez MD as NI Referring Team (Endocrinology) Assessment: In summary, Ms. Ernst is a [...] intraoperatively and will obtain a specialized MRI and CT scan prior to the procedure if it is not already available. The risks and benefits of this procedure were discussed in detail which include but are not limited to bleeding, infection/meningitis, cerebrospinal fluid leak, nasal stuffiness and/or crusting, sensations that air does not pass through the nose, pituitary gland dysfunction including need for permanent hormone replacement, diabetes insipidus, chronic headache, incomplete tumor resection, vision loss, limitation of eye movements, paralysis, vascular injury, stroke, medical complications, and . In addition, it was explained that this may be one of several procedures required in managing this problem. We discussed that we would need to get additional high resolution MRI and CT imaging. We did discuss 1 particular risk related to the tumor or contact of compressed posterior pituitary gland. Specifically she may have higher risk of permanent DI if we are aggressive in this area trying to obtain remission. Overall we did discuss a relative increased risk of 5 to 10% chance of permanent DI because of her term tumor location. Overall she feels she would rather take slightly increased risk of DI with increased chance of surgical remission rather than to leave small remnant of tumor and require continued cabergoline dosing. Plan: ---surgery scheduling ---can stop cabergoline I spent approximately 60 minutes of total time for evaluation and management services provided on the date of the encounter which included preparing to see the patient, [id number] patient care, completing clinical documentation, performing a medically appropriate examination, counseling and educating the patient/family/caregiver, communicating with other HCPs, independently interpreting results and care coordination. Melinda León MD Staff, Skull Base AND Cerebrovascular Surgery Department of Neurological Surgery [facility] Chief Complaint: prolactinoma HPI: Ms. Ernst is a 43 yo F w/ hx of anxiety, depression, PTSD, schizoaffective disorder, hypothyroidism, presents to neurosurgery for evaluation of prolactinoma. This was first discovered in 2013 when having headaches and galactorrhea. Has been following with endocrinology and is on cabergoline. Currently taking 2 pills daily. She had been taking seroquel, but was causing side effects including excessive somnolence. Stopped one month ago and feels much better. Not having headaches as often anymore. Happens once every few months. Ice pack to head does help. Having regular menses. Not having galactorrhea. Patient wears glasses, and every year her prescription has been getting stronger. She has not had a formal eye exam recently. No prior hx of sinus surgery. Patient has been having intermittent chest pain, for which she underwent extensive workup. Attributed to anxiety. No evidence of IA or other acute cardiac pathology. ECHO (03/11/23) did not show any overt valvular defects, but did show slightly dilated RV and trace mitral/tricuspid regurgitation. Given risk of valvular disease with prolonged cabergoline use, patient was referred to neurosurgery for evaluation of surgical resection. Currently taking 2 pills cabergoline daily. Has been on this does for a few years. On synthroid and wellbutrin also. Depression Fatigue +Galactorrhea +Headache Impaired memory Infertility Insomnia Irritability +Menstrual abnormalities Weight gain Other Females: premenopausal Occupation: on disability ASA score: Knosp Grade: 0 PMHx: PAST MEDICAL HISTORY Diagnosis Date Bacterial vaginosis Fibroid Herpes simplex virus (HSV) infection HPV (human papilloma virus) infection [facility] 2002 Pituitary mass (HCC) benign prolactin secreting pituitary adenoma Thyroid disease Urogenital trichomoniasis PSHx: PAST SURGICAL HISTORY Procedure Laterality Date CERVIX UTERI CONIZA LP ELCTRO EXCI 2003 CYSTO.PANENDO 10/09/2022 SH: Social History Tobacco Use Smoking status: Every Day Current packs/day: 0.50 Types: Cigarettes Smokeless tobacco: Never Medications: Current Outpatient Medications Medication Sig buPROPion SR (WELLBUTRIN SR) 150 mg 12 hr tablet Take 1 tablet by mouth daily at bedtime. esomeprazole (NEXIUM) 40 mg capsule Take 1 capsule by mouth once daily. cabergoline (DOSTINEX) 0.5 mg tablet TAKE 2 TABLETS SIX DAYS OF THE WEEK AND 1 TABLET ONE DAY OF THE WEEK. levothyroxine (SYNTHROID) 50 mcg tablet take 1 tablet every day Lactobacillus acidophilus (ACIDOPHILUS) cap Take 1-2 capsules by mouth once daily. acyclovir (ZOVIRAX) 400 mg tablet TAKE 1 TABLET EVERY 12 HOURS. LAST REFILL UNTIL OFFICE VISIT No current facility-administered medications for this visit. Allergies: ALLERGIES No Known Allergies Exam: Awake, alert, conversant Oriented to person, place, and time Speech: Normal fluency and comprehension EOMI grossly intact Face symmetric No gross motor deficits Data: MRI from 03/06/23 - posterior sellar tumor, left eccentric, goes upward toward compressed posterior pituitary, invades into clivus Prolactin Latest Ref Rng 4.4 - 33.8 ng/mL 03/12/2016 381.1 (H) 09/25/2016 172.7 (H) 09/11/2019 210.4 (H) 12/29/2019 230.2 (H) 01/15/2020 203.1 (H) 05/18/2020 173.5 (H) 01/17/2021 158.6 (H) 05/29/2021 193.3 (H) 07/10/2021 151.0 (H) 02/06/2022 166.7 (H) 07/27/2022 152.2 (H) 09/18/2023 159.3 (H) 04/01/2024 98.9 (H) Latest Ref Rng 07/27/2022 09/18/2023 04/01/2024 Prolactin 4.4 - 33.8 ng/mL 152.2 (H) 159.3 (H) 98.9 (H) TSH 0.270 - 4.200 mIU/L 1.880 1.870 1.840 Free T4 0.9 - 1.7 ng/dL 0.9 0.9 0.9 Insulin-like Growth Factor I 76 - 271 ng/mL 122 Growth Hormone <3.61 ng/mL <0.05 Cortisol 4.8 - 19.5 ug/dL 7.4 7.3 ACTH 7.2 - 63.3 pg/mL 15.1 14.6 DHEA-S 60.9 - 337.0 ug/dL 433.4 (H) LH See comment mIU/mL 0.4 0.7 FSH See comment mIU/mL 3.9 3.8 Estradiol 17B pg/mL 31 <25 Testosterone <40 ng/dL 47 (H) Surgery Check List Preoperative: MRI skull base stereo with, CT sinus stereo wo; RAPID Intraoperative: 1/2 block; rescue flaps; std pit tray; mizuho rotatable URINE CULTURE Observed: 05/17/2024 2:24 PM Status: F Source: [facility] ORGANISM: Escherichia coli ( O:ESCCOL) [place] Count >100,000 Aerobic ABEL Charge (NMIC56) SUSCEPTIBILITY ORGANISM: O:ESCCOL ANTIBIOTIC INTERPRETATION ABEL Amikacin S <16 Amoxacillin/K Clavulanate S <8 Ampicillin S <8 Ampicillin/Sulbactam S <4 Aztreonam S <4 Cefazolin S <2 Cefepime S <2 Ceftazidime S <1 Ceftazidime/Avibactam S <4 Ceftolozane/Tazobactam S <2 Ceftriaxone S <1 Cefuroxime S <4 Ciprofloxacin S <0.25 Ertapenem S <0.5 Gentamicin S <2 Levofloxacin S <0.5 Meropenem S <1 Meropenem/Vaborbactam S <2 Nitrofurantoin S <32 Piperacillin/Tazobactam S <8 Tetracycline S <4 Tigecycline S <2 Tobramycin S <2 Trimethoprim/Sulfamethoxazole S <0.5 S = SUSCEPTIBLE I = INTERMEDIATE R = RESISTANT BLANK = DATA NOT AVAILABLE, OR DRUG NOT ADVISABLE OR TESTED R* = RESISTANCE DUE TO EXTENDED SPECTRUM BETA-LACTAMASES ESBL = EXTENDED SPECTRUM BETA-LACTAMASE TFG = THYMIDINE-DEPENDENT STRAIN CAITY = BETA-LACTAMASE POSITIVE IB = INDUCIBLE BETA-LACTAMASE. APPEARS IN PLACE OF 'S' WITH SPECIES KNOWN TO POSSESS INDUCIBLE BETA-LACTAMASES. POTENTIALLY THEY MAY BECOME RESISTANT TO ALL B-LACTAM DRUGS. PERFORMED BY: [place] [address] PATHOLOGIST JAVASCRIPT ENGINEER FRED BELTRAN M.D. Performed By: #### CUU #### [address] PROGRESS Observed: 05/01/2024 12:34 PM Status: COMPLETED Source: [facility] HNO ID: [id number] Author: HOMERO DENIS MA Service: ? Author Type: Senior Fund Accountant Type: Progress Notes Filed: 05/01/2024 12:52 Note Text: POPULATION HEALTH NAVIGATION OUTREACH Action/FYI Topic Due (Y or N) Comments Medicare Wellness Yes PCP Follow up No Mammogram Yes Colorectal Cancer Screening No A1C No Controlling BP No Dilated Retinal Exam (MIGUEL A) No KED (UACR and eGFR) No HCC Yes Flu Vaccine Yes Care Everywhere Reviewed Reviewed STEERadshart Activation Active Updated Appointment Note N/A Reason for Outreach Care Gap/HCC or Scheduling Wellness Visits Care Gaps due: Medicare Annual Wellness Visit Breast Cancer Screening Flu Vaccine Patient Contacted: Unable or unnecessary to reach patient: Unable to leave message [employer] message sent HCC related Navigation Signature: Homero Denis MA May 01, 2024 12:35 PM CNPTOUTREACH Observed: 05/01/2024 12:00 AM Status: COMPLETED Source: [facility] Patient Outreach (NETNAV) CHRISTY ERNST ([id number]) 1980 F Date Time Provider Department 05/01/24 HOMERO DENIS During your visit today, we recorded the following information about you: Homero Denis MA 05/01/2024 12:52 PM Signed POPULATION HEALTH NAVIGATION OUTREACH Action/FYI Topic Due (Y or N) Comments Medicare Wellness Yes PCP Follow up No Mammogram Yes Colorectal Cancer Screening No A1C No Controlling BP No Dilated Retinal Exam (MIGUEL A) No KED (UACR and eGFR) No HCC Yes Flu Vaccine Yes Care Everywhere Reviewed Reviewed STEERadshart Activation Active Updated Appointment Note N/A Reason for Outreach Care Gap/HCC or Scheduling Wellness Visits Care Gaps due: Medicare Annual Wellness Visit Breast Cancer Screening Flu Vaccine Patient Contacted: Unable or unnecessary to reach patient: Unable to leave message STEERadshart message sent HCC related Navigation Signature: Homero Denis MA May 01, 2024 12:35 PM Allergies As of Date: 05/01/2024 (No Known Allergies) Date Reviewed: 09/09/2023 Reviewed by: Flora Kelley MA - Fully Assessed Reason for Visit: Population Health Navigation Outreach [3910] Cmt: Mona Pace Prescriptions as of 05/01/2024 - buPROPion SR (WELLBUTRIN SR) 150 mg 12 hr tablet Take 1 tablet by mouth daily at bedtime. - esomeprazole (NEXIUM) 40 mg capsule Take 1 capsule by mouth once daily. - cabergoline (DOSTINEX) 0.5 mg tablet TAKE 2 TABLETS SIX DAYS OF THE WEEK AND 1 TABLET ONE DAY OF THE WEEK. - levothyroxine (SYNTHROID) 50 mcg tablet take 1 tablet every day - Lactobacillus acidophilus (ACIDOPHILUS) cap Take 1-2 capsules by mouth once daily. - acyclovir (ZOVIRAX) 400 mg tablet TAKE 1 TABLET EVERY 12 HOURS. LAST REFILL UNTIL OFFICE VISIT Problem List As Of Date 05/01/2024 Noted Resolved Usha Duct, Cyst [Q52.4] 07/21/2009 Pituitary macroadenoma with extrasellar extensi*03/12/2016 Hypothyroidism (acquired) [E03.9] 03/12/2016 Nipple discharge in female [N64.52] 03/12/2016 09/25/2016 Secondary amenorrhea [N91.1] 03/12/2016 Microadenoma [D36.9] 09/15/2019 Hyperprolactinemia (HCC) [E22.1] 01/01/2020 Class 3 severe obesity due to excess calories w*07/26/2022 Paranoid schizophrenia, chronic condition with *07/27/2022 Encounter Status:Closed by CIRA HOMERO on 05/01/24 PROGRESS Observed: 04/02/2024 11:05 AM Status: COMPLETED Source: [facility] ID: [id number] Author: GAIL RODRIGUEZ MD Service: ? Author Type: Physician Type: Progress Notes Filed: 04/02/2024 11:43 Note Text: [facility] Endocrinology/Follow Up Pituitary Assessment Note: VIRTUAL VISIT Patient is being evaluated today via a Virtual Visit using a HIPPA compliant platform, zoom via Swyzzle. It required patient-provider interaction for the medical decision making as documented below. Patient consented to treatment I have communicated my name and active licensure. The patient's identity and physical location were verified at the time of this visit. Either the patient or their legal national sales representative has been informed of the risks and benefits of -- and alternatives to -- treatment through a remote evaluation and consents to proceed with the evaluation remotely. ASSESSMENT/PLAN: 43 year old female with a history of prolactinoma. MRI in 07/25/2013 showed asymmetrical enlargement of the pituitary gland on the left suggestive of a microadenoma. A distinct lesion was not seen. Her most recent MRI Mar 2023 showed Findings suggesting stable pituitary adenoma extending into the underlying left sphenoid sinus since 10/20/2019. She is now taking cabergoline 2 tablets daily and most recent prolactin is 98.8 ng/ml. Although she does not have clinically significant cardiovascular symptoms her echo last year did show Trace mitral and tricuspid regurgitation and I am reluctant to further increase her cabergoline as cumulative doses can affect the heart valves. PLAN: Continue cabergoline 2 tablets daily for now Repeat prolactin in 6 months Referral to neurosurgery to discharge surgical options. Patient is okay with continuing medical treatment but I am concerned about the cumulative effects of cabergoline on her heart valves Follow up in 1 year. Call in 6 months to make your follow up visit. Call [facility] [phone] to make follow up Endocrinology visit in 6 month. Once you have your visit scheduled, please either call OR send me a Swyzzle message and I will place the orders that you will need to have done PRIOR to your appointment in 1 year. All the patient`s questions were answered. The patient expressed understanding of all the information relayed and has agreed to this plan. I spent a total of 40 minutes on the date of the service which included preparing to see the patient, [id number] patient care, completing clinical documentation, obtaining and/or reviewing separately obtained history, performing a medically appropriate examination, counseling and educating the patient/family/caregiver, ordering medications, tests, or procedures, communicating with other HCPs (not separately reported), independently interpreting results (not separately reported), communicating results to the patient/family/caregiver and care coordination (not separately reported). SIGNATURE: Gail Rodriguez MD CC: Prolactinoma. History of Present Illness: Ms. Christy Ernst is a 43 year old female coming today for Evaluation of prolactinoma. All documentation from previous visit of 08/23/2022 All documentation from previous visit of the 08/23/2022 Was copied and pasted, documentation has been reviewed and edited as necessary for today's visit. Summary of past history She has a History of this since 2013 when an MRI showed a Microadenoma and she had symptoms of Galactorrhea and headache. MRI of the pituitary gland 07/25/2013 showed asymmetrical enlargement of the pituitary gland on the left suggestive of a microadenoma. A distinct lesion was not seen. Her MRI On 10/2019 showed a 1.1 pituitary mass that seems to be eroding through the sella floor. Interval History: She said that in winter she got depressed , gained 40 lbs and now her focus this past year has been on losing weight. Her doctor is considering switching her seroquel to latuda. She does not have galactorrhea. She has been having periods every month. She did skip one month last ear. She is taking cabergoline 2 pills every day Her prolactin is down into the 90`s She denies any vision changes, or rhinorrhea. She still has intermittent headaches which resolves spontaneously or with OTC headache meds. She is on Levothyroxine 50 mcg daily as well Answers submitted by the patient for this visit: Core Review of Systems (Submitted on 03/31/2024) Fever : No Night sweats: No Recent unintentional weight change: Yes Nasal Congestion: Yes Hearing Loss: No Vision Disturbance: Yes A cough: No Difficulty Breathing?: No Chest pain: No Irregular heartbeat: No Leg Swelling: No Nausea: No Diarrhea: No Black tarry stools: No Difficulty Urinating?: Yes Awaken at Night More Than Once to Urinate?: No Joint pain or stiffness: Yes Muscle aches: Yes Leg or Foot Discomfort at Night?: No A rash: No Dizziness: No Headaches: Yes Memory Loss: Yes Seizures: No Social History: Social History Tobacco Use Smoking status: Every Day Current packs/day: 0.50 Types: Cigarettes Smokeless tobacco: Never Allergies: ALLERGIES No Known Allergies Current medications: Current Outpatient Medications Medication Sig esomeprazole (NEXIUM) 40 mg capsule Take 1 capsule by mouth once daily. cabergoline (DOSTINEX) 0.5 mg tablet TAKE 2 TABLETS SIX DAYS OF THE WEEK AND 1 TABLET ONE DAY OF THE WEEK. levothyroxine (SYNTHROID) 50 mcg tablet take 1 tablet every day Lactobacillus acidophilus (ACIDOPHILUS) cap Take 1-2 capsules by mouth once daily. acyclovir (ZOVIRAX) 400 mg tablet TAKE 1 TABLET EVERY 12 HOURS. LAST REFILL UNTIL OFFICE VISIT QUEtiapine (SEROQUEL) 200 mg tablet buPROPion SR (ZYBAN SR; WELLBUTRIN SR) 150 mg 12 hr tablet Take 150 mg by mouth twice daily. No current facility-administered medications for this visit. Previous laboratory results: Latest Ref Rng 07/27/2022 09/18/2023 04/01/2024 Prolactin 4.4 - 33.8 ng/mL 152.2 (H) 159.3 (H) 98.9 (H) TSH 0.270 - 4.200 mIU/L 1.880 1.870 1.840 Free T4 0.9 - 1.7 ng/dL 0.9 0.9 0.9 Insulin-like Growth Factor I 76 - 271 ng/mL 122 Growth Hormone <3.61 ng/mL <0.05 Cortisol 4.8 - 19.5 ug/dL 7.4 7.3 ACTH 7.2 - 63.3 pg/mL 15.1 14.6 DHEA-S 60.9 - 337.0 ug/dL 433.4 (H) LH See comment mIU/mL 0.4 0.7 FSH See comment mIU/mL 3.9 3.8 Estradiol 17B pg/mL 31 <25 Testosterone <40 ng/dL 47 (H) Legend: (H) High Imagin03/06/2023 4:12 PM - Radiology, Oru In Impression IMPRESSION: Findings suggesting stable pituitary adenoma extending into the underlying left sphenoid sinus since 10/20/2019. PAIGE SNELL MD on Mar 06 2023 4:10PM EST Results-Findings DATE OF EXAM: Mar 06 2023 3:21PM [facility] [employer] [facility] [employer] 0314 - MRI PITUITARY WO/W IVCON / PROCEDURE REASON: Prolactinoma (HCC) COMPARISON: 10/20/2019 RESULT: Postop Changes: None Adenohypophysis: Again noted is asymmetric soft tissue prominence along the floor of the sella dorsally and to the left of midline which is hypointense on T1 and T2 and enhances to a lesser degree than the remainder of the adenohypophysis suggesting a pituitary adenoma causing bony remodeling of the sellar floor. Overall, this tissue measures approximately 8 x 10 x 11 mm in greatest AP, transverse, and CC dimensions, respectively. No significant change in size or configuration. The adenohypophysis is otherwise uniformly hypointense on T1 and T2 and uniformly enhances with gadolinium. Neurohypophysis: The posterior pituitary gland is present and normal in size and location. The infundibulum is intact and normal in appearance. Suprasellar Region: No evidence of a suprasellar mass. The optic apparatus is normal in appearance. Cavernous Sinuses: The cavernous sinuses are normal in appearance. A normal flow void is noted in the carotid siphons suggesting patency by spin echo criteria. Brain Parenchyma: The overlying hypothalamus is normal in appearance. The visualized parenchyma is otherwise normal in signal intensity and morphology. Skull Base: No evidence of a marrow replacement process in the underlying skull base. Impression Echocardiography Report: Transthoracic Echo [facility] Date of service: 03/11/2023 2:41:24 PM Ordering physician: GAIL RODRIGUEZ Indication: Baseline and serial evaluation in a patient undergoing therapy with cardiotoxic agents Symptom(s): Chest Pain Technologist: Shellie Hobson RVT Interpreting physician: Preet Gambino DO PATIENT: Name: MS. CHRISTY ERNST : 1980 Age: 42 years Gender: F Primary rhythm: sinus. Height: 157.50 cm BSA: 2.22 m? Weight: 112.95 kg BMI: 45.5 kg/m? Heart rate 76 bpm Blood pressure 86/71 mmHg Technically difficult exam due to body habitus. Color Doppler was utilized to interrogate the cardiac valves assessed and spectral Doppler was utilized to determine the flow velocities and pressure gradients reported in this exam. Myocardial strain analysis was performed in this exam to aid in the assessment of cardiac function. MEASUREMENTS: Value Indexed Normal Max aortic dimension 2.8 cm Ao < 3.8 Left atrial volume 51 ml (biplane A-L) 23 ml/m? Rashawn <= 34 LV ID (diastole) 4.7 cm (2D) 2.11 cm/m? LV ID (systole) 3.3 cm (2D) 1.48 cm/m? IVS, leaflet tips 0.9 cm (2D) Posterior wall thickness 0.8 cm (2D) Left ventricular mass 131 g (2D) 59 g/m? Global peak long strain -20.0 % LV stroke volume 53 ml (2D biplane) LV end diastolic volume 93 ml (2D biplane) 42.0 ml/m? 29<=EDVi<62 LV end systolic volume 41 ml (2D biplane) 18.3 ml/m? Ejection Fraction 56 % (2D biplane) EF > 54 FINDINGS: LEFT VENTRICLE The left ventricle is normal in size. Left ventricular systolic function is normal. Global LV myocardial strain is normal. Normal left ventricular diastolic function. Mitral annular lateral E/e': 7.9. Mitral annular septal E/e': 10.2. Wall Motion: All scored segments are normal. RIGHT VENTRICLE The right ventricle is dilated. Right ventricular systolic function is normal. RV systolic tissue Doppler velocity is 11.4 cm/s. Tricuspid annular displacement is 2.0 cm. Estimated right ventricular systolic pressure is likely underestimated due to a weak or incomplete tricuspid regurgitation signal and is, at least, 27 mmHg consistent with normal pulmonary artery pressures. Estimated right atrial pressure is 3 mmHg based on IVC assessment. LEFT ATRIUM The left atrial cavity is normal in size. RIGHT ATRIUM The right atrial cavity is normal in size. Inferior Vena Cava: The inferior vena cava appears normal measuring 2.0 cm. The vessel decreases greater than 50 percent with inspiration. MITRAL VALVE The mitral valve leaflets are structurally normal. There is trace (trace - 1+) mitral valve regurgitation. The pressure half time is 44 msec. The peak mitral E/A ratio is 1.93. The average mitral E/e' ratio is 9.0. The mitral flow deceleration time is 151 msec. TRICUSPID VALVE The tricuspid valve leaflets are structurally normal. There is mild (1+ - 2+) tricuspid valve regurgitation. The hepatic venous pattern showed normal systolic flow. AORTIC VALVE The aortic valve cusps are structurally normal. There is no aortic valve regurgitation. Tricuspid aortic valve. PULMONIC VALVE The pulmonic valve was not seen or not interrogated. There is trace pulmonic valve regurgitation. AORTA The visualized aorta is normal in size. Measurements - Mid ascending aorta 2.8 cm. INTERATRIAL SEPTUM There is no evidence of intracardiac shunting as detected by Doppler. INTERVENTRICULAR SEPTUM There is no flow through the interventricular septum as detected by Doppler. PERICARDIUM There is no pericardial effusion. Impression CONCLUSIONS: - Technically difficult exam due to body habitus. - Exam indication: Baseline and serial evaluation in a patient undergoing therapy with cardiotoxic agents - The left ventricle is normal in size. Left ventricular systolic function is normal. EF = 56 ? 5% (2D biplane) Normal left ventricular diastolic function. -Global Strain -20.0% - The right ventricle is dilated. Right ventricular systolic function is normal. - No significant valvular abnormalities. - The patient has not had a prior CC echocardiographic exam for comparison. * * * Final * * * Specimen Collected: 03/11/23 2:41 PM LUCIANO BEAUCHAMP Observed: 04/02/2024 12:00 AM Status: COMPLETED Source: [facility] Telephone (ENDPMN) CHRISTY ERNST ([id number]) 1980 F Date Time Provider Department 04/02/24 GAIL RODRIGUEZ During your visit today, we recorded the following information about you: Elizabeth Castellano RN 04/02/2024 1:38 PM Signed Scheduling Request - New Patient Time Frame: <2 months Orders: Consult to Dr. León Visit type: Virtual Visit Diagnosis: pituitiary lesion Allergies As of Date: 04/02/2024 (No Known Allergies) Date Reviewed: 09/09/2023 Reviewed by: Flora Kelley MA - Fully Assessed Prescriptions as of 04/03/2024 - esomeprazole (NEXIUM) 40 mg capsule Take 1 capsule by mouth once daily. - cabergoline (DOSTINEX) 0.5 mg tablet TAKE 2 TABLETS SIX DAYS OF THE WEEK AND 1 TABLET ONE DAY OF THE WEEK. - levothyroxine (SYNTHROID) 50 mcg tablet take 1 tablet every day - Lactobacillus acidophilus (ACIDOPHILUS) cap Take 1-2 capsules by mouth once daily. - acyclovir (ZOVIRAX) 400 mg tablet TAKE 1 TABLET EVERY 12 HOURS. LAST REFILL UNTIL OFFICE VISIT - QUEtiapine (SEROQUEL) 200 mg tablet - buPROPion SR (ZYBAN SR; WELLBUTRIN SR) 150 mg 12 hr tablet Take 150 mg by mouth twice daily. 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 Hypothyroidism (acquired) [E03.9] 03/12/2016 Nipple discharge in female [N64.52] 03/12/2016 09/25/2016 Secondary amenorrhea [N91.1] 03/12/2016 Microadenoma [D36.9] 09/15/2019 Hyperprolactinemia (HCC) [E22.1] 01/01/2020 Class 3 severe obesity due to excess calories w*07/26/2022 Paranoid schizophrenia, chronic condition with *07/27/2022 Encounter Status:Closed by ELIZABETH CASTELLANO on 04/03/24 ACTH PLAS-MCNC Collected: 11:01 AM Status: F Source: [facility] Order Comment: Specimen Type : BLOOD SPECIMEN Ordering Facility: [facility] Address: [address] [place] [address] TYPE CODE TESTS RESULT OUT OF RANGE REFERENCE UNITS LAB 2141-0(LOINC) ACTH Plas-mCnc 14.6 7.2-63.3 pg/mL Result Comment: ACTH Referen ce Range: 7-10 am: 7.2 - 63.3 pg/mL Performed By: #### 2141-0 ## ## [facility] CLIA [id number] [address] [place] [address] [place] INSULIN LIK GR FAC I Collected: 025 11:01 AM Status: F Source: [facility] Order Comment: Specimen Type : BLOOD SPECIMEN Ordering Facility: [facility] Address: [address] [place] [address] TYPE CODE TESTS RESULT OUT OF RANGE REFERENCE UNITS LAB ILGF1 INSULIN LIK GR FAC 1 95 75-267 ng/mL LAB 19232-9(LOINC) IGF-I Z-score SerPl -1.6 -2.0-2.0 Performed By: #### ILGF1 ### # [facility] CLIA [id number] [address] [place] [address] [place] ESTRADIOL SERPL-MCNC Collected: 025 11:01 AM Status: F Source: [facility] Order Comment: Specimen Type : BLOOD SPECIMEN Ordering Facility: [facility] Address: [address] [place] [address] TYPE CODE TESTS RESULT OUT OF RANGE REFERENCE UNITS LAB 2243-4(LOINC) Estradiol SerPl-mCnc <25 pg/mL Result Comment: This test is not suitable for patients receiving treatment with the drug Fulvestrant (Faslodex). The drug causes an interference leading to falsely elevated estradiol results. Menstrual cycle Estradiol reference ranges: Follicular : < 234 pg/mL Ovulation : 41 to 398 pg/mL Luteal : < 342 pg/mL Estradiol reference ranges vary by gestational period: First trimester : 154 to 3243 pg/mL Second trimester : 1561 to 34932 pg/mL Third trimester : 8285 to >01427 pg/mL Post-menopausal Estradiol reference range: < 41 pg/mL Reference: 1. Estradiol - E2 (Estradiol III) [package insert V 3.0 Khmer]. [facility], [place], [place], August 2015. Performed By: #### 2243-4, 1 0501-5, 2842-3, 46534-4 #### [facility] CLIA [id number] [address] [place] [address] FSH SERPL-ACNC Collected: 5 11:01 AM Status: F Source: [facility] Comment: Specimen Type : BLOOD SPECIMEN Ordering Facility: [facility] Address: [address] [place] [address] TYPE CODE TESTS RESULT OUT OF RANGE REFERENCE UNITS LAB 96393-9(LOINC) FSH SerPl-aCnc 3.8 See comment mIU/mL Result Comment: Reference ra nge: Follicular: 3.5-12.5 mIU/mL Ovulation: 4.7-21.5 mIU/mL Luteal: 1.7-7.7 mIU/mL Postmenopausal: 25.8-134.8 mIU/mL Performed By: #### 2243-4, 1 0501-5, 2842-3, 67582-3 #### [facility] CLIA [id number] [address] [place] [address] LH SERPL-ACNC Collected: 11:01 AM Status: F Source: [facility] Comment: Specimen Type : BLOOD SPECIMEN Ordering Facility: [facility] Address: [address] [place] [address] TYPE CODE TESTS RESULT OUT OF RANGE REFERENCE UNITS LAB 03085-5(LOINC) LH SerPl-aCnc 0.7 See comment mIU/mL Result Comment: Reference ra nge: Follicular: 2.4-12.6 mIU/mL Midcycle: 14.0-95.6 mIU/mL Luteal: 1.0-11.4 mIU/mL [place]: 7.7-58.5 mIU/mL Performed By: #### 2243-4, 1 0501-5, 2842-3, 18238-8 #### [facility] CLIA [id number] [address] [place] [address] OF [facility] PROLACTIN SERPL-MCNC Collected: 025 11:01 AM Status: F Source: [facility] Comment: Specimen Type : BLOOD SPECIMEN Ordering Facility: [facility] Address: [address] [place] [address] TYPE CODE TESTS RESULT OUT OF RANGE REFERENCE UNITS LAB 2842-3(LOINC) Prolactin SerPl-mCnc 98.9 High 4.4-33.8 ng/mL Result Comment: Prolactin te st is performed using the [facility] Electrochemiluminescence Immunoassay method. Results obtained with different methods or kits cannot be used interchangeably. Performed By: #### 2243-4, 1 0501-5, 2842-3, 70879-7 #### [facility] CLIA [id number] [address] [place] [address] [place] T4 FREE SERPL-MCNC Collected: 5 11:01 AM Status: F Source: [facility] Comment: Specimen Type : BLOOD SPECIMEN Ordering Facility: [facility] Address: [address] [place] [address] TYPE CODE TESTS RESULT OUT OF RANGE REFERENCE UNITS LAB 3024-7(LOINC) T4 Free SerPl-mCnc 0.9 0.9-1.7 ng/dL Performed By: #### 2143-6, 3 024-7, 3016-3 #### [facility] CLIA [id number] [address] [place] [address] [place] TSH SERPL-ACNC Collected: 5 11:01 AM Status: F Source: [facility] Comment: Specimen Type : BLOOD SPECIMEN Ordering Facility: [facility] Address: [address] [place] [address] TYPE CODE TESTS RESULT OUT OF RANGE REFERENCE UNITS LAB 3016-3(LOINC) TSH SerPl-aCnc 1.840 0.270-4.200 mIU/L Result Comment: If the patie nt is , TSH reference range varies by gestational period: First Trimester (weeks 9-12): 0.180-2.990 mIU/L Second Trimester: 0.110-3.980 mIU/L Third Trimester: 0.480-4.710 mIU/L Ridge Malin et al. A Practical Approach for the Verifications and Determination of Site- and Trimester-Specific Reference Intervals for Thyroid Function tests in . Thyroid, 2019:29:3:412-420. Christian E, et al. 2017 Guidelines of the [place] Thy[employer] for the Diagnosis and Management of Thyroid Disease during and the . Thyroid, 2017:27:3:315-389. Performed By: #### 2143-6, 3 024-7, 3016-3 #### [facility] CLIA [id number] [address] [place] [address] [place] CORTIS SERPL-MCNC Collected: 11:01 AM Status: F Source: [facility] Order Comment: Specimen Type : BLOOD SPECIMEN Ordering Facility: [facility] Address: [address] [place] [address] TYPE CODE TESTS RESULT OUT OF RANGE REFERENCE UNITS LAB 2143-6(LOINC) Cortis SerPl-mCnc 7.3 4.8-19.5 ug/dL Result Comment: Provided ref erence range is from 6-10 AM sample collection time. Cortisol Reference Range: 6-10 AM = 4.8-19.5 ug/dL, 4-8 PM = 2.5-11.9 ug/dL Performed By: #### 2143-6, 3 024-7, 3016-3 #### [facility] CLIA [id number] [address] [place] [address] [place] SOMATOSTAT PLAS-MCNC Collected: 04/01/2024 11:01 AM Status: F Source: [facility] Order Comment: Specimen Type : BLOOD SPECIMEN Ordering Facility: [facility] Address: [address] [place] [address] TYPE CODE TESTS RESULT OUT OF RANGE REFERENCE UNITS LAB 2961-1(LOINC) Somatostat Plas-mCnc <0.05 <3.61 ng/mL Performed By: #### 2961-1 ## ## [facility] CLIA [id number] [address] [place] [address] [place] PROGRESS Observed: 03/31/2024 1:43 PM Status: COMPLETED Source: [facility] HNO ID: [id number] Author: HOMERO DENIS MA Service: ? Author Type: Senior Fund Accountant Type: Progress Notes Filed: 03/31/2024 13:48 Note Text: POPULATION HEALTH NAVIGATION OUTREACH Action/FYI Topic Due (Y or N) Comments Medicare Wellness Y DUE 09/09/24 PCP Follow up Y Return in about 3 months (around 12/10/2023), Mammogram Y Colorectal Cancer Screening N A1C N Controlling BP N Dilated Retinal Exam (MIGUEL A) N KED (UACR and eGFR) N HCC Y Flu Vaccine N Care Everywhere Reviewed DONE MyChart Activation ACTIVE Updated Appointment Note DONE PATIENT DRIVING AND REQUESTING A CALL BACK Reason for Outreach Care Gap/HCC or Scheduling Wellness Visits Care Gaps due: Medicare Annual Wellness Visit Follow-up Appointment Breast Cancer Screening Patient Contacted: Spoke to patient/parent/or legal guardian Patient identified by name and : Yes Care Gap/HCC/Scheduling Wellness actions taken: Patient declined: Patient requested call back from navigator/ will call navigator back HCC related Navigation Signature: Homero Denis MA March 31, 2024 1:47 PM CNPTOUTREACH Observed: 03/31/2024 12:00 AM Status: COMPLETED Source: [facility] Patient Outreach (NETNAV) CHRISTY ERNST ([id number]) 1980 F Date Time Provider Department 03/31/24 HOMERO DENIS During your visit today, we recorded the following information about you: Homero Denis MA 03/31/2024 1:48 PM Signed POPULATION HEALTH NAVIGATION OUTREACH Action/FYI Topic Due (Y or N) Comments Medicare Wellness Y DUE 09/09/24 PCP Follow up Y Return in about 3 months (around 12/10/2023), Mammogram Y Colorectal Cancer Screening N A1C N Controlling BP N Dilated Retinal Exam (MIGUEL A) N KED (UACR and eGFR) N HCC Y Flu Vaccine N Care Everywhere Reviewed DONE MyChart Activation ACTIVE Updated Appointment Note DONE PATIENT DRIVING AND REQUESTING A CALL BACK Reason for Outreach Care Gap/HCC or Scheduling Wellness Visits Care Gaps due: Medicare Annual Wellness Visit Follow-up Appointment Breast Cancer Screening Patient Contacted: Spoke to patient/parent/or legal guardian Patient identified by name and : Yes Care Gap/HCC/Scheduling Wellness actions taken: Patient declined: Patient requested call back from navigator/ will call navigator back HCC related Navigation Signature: Homero Denis MA March 31, 2024 1:47 PM Allergies As of Date: 03/31/2024 (No Known Allergies) Date Reviewed: 09/09/2023 Reviewed by: Flora Kelley MA - Fully Assessed Reason for Visit: Population Health Navigation Outreach [3910] Cmt: Mona Pace Prescriptions as of 03/31/2024 - esomeprazole (NEXIUM) 40 mg capsule Take 1 capsule by mouth once daily. - cabergoline (DOSTINEX) 0.5 mg tablet TAKE 2 TABLETS SIX DAYS OF THE WEEK AND 1 TABLET ONE DAY OF THE WEEK. - levothyroxine (SYNTHROID) 50 mcg tablet take 1 tablet every day - Lactobacillus acidophilus (ACIDOPHILUS) cap Take 1-2 capsules by mouth once daily. - acyclovir (ZOVIRAX) 400 mg tablet TAKE 1 TABLET EVERY 12 HOURS. LAST REFILL UNTIL OFFICE VISIT - QUEtiapine (SEROQUEL) 200 mg tablet - buPROPion SR (ZYBAN SR; WELLBUTRIN SR) 150 mg 12 hr tablet Take 150 mg by mouth twice daily. 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 Author Type: Therapist Type: Progress Notes Filed: 03/12/2024 13:17 Note Text: BEHAVIORAL HEALTH SOCIAL WORK QUICK NOTE Provider Action/FYI No Show Patient identified for SW from: PCP Reason for referral: SW Assessment [facility] encounter type: Virtual Visit Referral made: Psychiatry - Internal, Psychiatry - External, Psychology - Internal, Psychology - External Psychiatry-Internal referral type: Medication Management Psychology-Internal referral type: Therapy Psychology-External referral type: Therapy Psychiatry-External referral type: Medication Management Reason for external referral: Wait times at [facility] too long, Patient seeking detention support Final Disposition: (No Show) Patient Discharged?: No Patient reported that caregiver was able to meet their needs today?: N/A Pt identified by name and . Pt did not sign into zoom link for scheduled Assessment on 03/12/24 at 1P. SW waited until 1:15P and then canceled the appointment as No Show. [facility] sent No Show Letter via . RYAN Madrid , 03/12/24 CNCO Observed: 03/12/2024 12:00 AM Status: COMPLETED Source: [facility] Letter Text CNPN Observed: 02/27/2024 12:00 AM Status: COMPLETED Source: [facility] Telephone (PSYLLK) CHRISTY ERNST ([id number]) 1980 F Date Time Provider Department 02/27/24 DARYN HOSKINS During your visit today, we recorded the following information about you: Daryn Hoskins, Therapist 02/27/2024 3:19 PM Signed Behavioral Health Social Work Progress Note Patient identified for [facility] from: PCP Reason for referral: [facility] Assessment [facility] encounter type: Telephone Encounter Attempts to Outreach: 1 attempt Referral made: Psychiatry - Internal, Psychology - Internal Psychiatry-Internal referral type: Medication Management Psychology-Internal referral type: Therapy Final Disposition: Care established with Patient Discharged?: No Patient reported that caregiver was able to meet their needs today?: Yes BHSW contacted Pt at the request of PCP to discuss resources for psychiatry. Pt stated that they are currently established but prefer to move to [facility] due to current facility wanting to change them [place] [facility] [place]Note 2[place] to [facility]. [facility]W and Pt discussed wait times, assessment process, external options and internal options as well as potential for virtual and also in-person at various [facility] facilities. Pt and [facility]W agreed to meet virtually on , 03/12/24 at to complete a assessment. RYAN Madrid February 27, 2024 Allergies As of Date: 02/27/2024 (No Known Allergies) Date Reviewed: 09/09/2023 Reviewed by: Flora Kelley MA - Fully Assessed Reason for Visit: Behavioral Health/Social Work [4126] Prescriptions as of 02/27/2024 - esomeprazole (NEXIUM) 40 mg capsule Take 1 capsule by mouth once daily. - cabergoline (DOSTINEX) 0.5 mg tablet TAKE 2 TABLETS SIX DAYS OF THE WEEK AND 1 TABLET ONE DAY OF THE WEEK. - levothyroxine (SYNTHROID) 50 mcg tablet take 1 tablet every day - Lactobacillus acidophilus (ACIDOPHILUS) cap Take 1-2 capsules by mouth once daily. - acyclovir (ZOVIRAX) 400 mg tablet TAKE 1 TABLET EVERY 12 HOURS. LAST REFILL UNTIL OFFICE VISIT - QUEtiapine (SEROQUEL) 200 mg tablet - buPROPion SR (ZYBAN SR; WELLBUTRIN SR) 150 mg 12 hr tablet Take 150 mg by mouth twice daily. 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 Hypothyroidism (acquired) [E03.9] 03/12/2016 Nipple discharge in female [N64.52] 03/12/2016 09/25/2016 Secondary amenorrhea [N91.1] 03/12/2016 Microadenoma [D36.9] 09/15/2019 Hyperprolactinemia (HCC) [E22.1] 01/01/2020 Class 3 severe obesity due to excess calories w*07/26/2022 Paranoid schizophrenia, chronic condition with *07/27/2022 Encounter Status:Closed by DARYN HOSKINS on 02/27/24 T4 FREE SERPL-MCNC Collected: 09/18/2023 1:34 PM Sta tus: F Source: [facility] Order Comment: Specimen Type : BLOOD SPECIMEN Ordering Facility: [facility] Address: [address] [place] [address] TYPE CODE TESTS RESULT OUT OF RANGE REFERENCE UNITS LAB 3024-7(LOINC) T4 Free SerPl-mCnc 0.9 0.9-1.7 ng/dL Performed By: #### 3016-3, 3 024-7, 2842-3 #### [facility] CLIA [id number] [address] [place] [address] [place] PROLACTIN SERPL-MCNC Collected: 024 1:34 PM Status: F Source: [facility] Order Comment: Specimen Type : BLOOD SPECIMEN Ordering Facility: [facility] Address: [address] [place] [address] TYPE CODE TESTS RESULT OUT OF RANGE REFERENCE UNITS LAB 2842-3(LOINC) Prolactin SerPl-mCnc 159.3 High 4.5-26.8 ng/mL Result Comment: Prolactin te st is performed using the [employer] Electrochemiluminescence Immunoassay method. Results obtained with different methods or kits cannot be used interchangeably. Performed By: #### 3016-3, 3 024-7, 2842-3 #### [facility] CLIA [id number] [address] [place] [address] [place] TSH SERPL-ACNC Collected: 1:34 PM Status: F Source: [facility] Order Comment: Specimen Type : BLOOD SPECIMEN Ordering Facility: [facility] Address: [address] [place] [address] TYPE CODE TESTS RESULT OUT OF RANGE REFERENCE UNITS LAB 3016-3(LOINC) TSH SerPl-aCnc 1.870 0.270-4.200 mIU/L Result Comment: If the patie nt is , TSH reference range varies by gestational period: First Trimester (weeks 9-12): 0.180-2.990 mIU/L Second Trimester: 0.110-3.980 mIU/L Third Trimester: 0.480-4.710 mIU/L Ridge Malin et al. A Practical Approach for the Verifications and Determination of Site- and Trimester-Specific Reference Intervals for Thyroid Function tests in . Thyroid, 2019:29:3:412-420. Christian Anaya, et al. 2017 Guidelines of the [place] Thy[employer] for the Diagnosis and Management of Thyroid Disease during and the . Thyroid, 2017:27:3:315-389. Performed By: #### 3016-3, 3 024-7, 2842-3 #### [facility] CLIA [id number] [address] [place] [address] [place] CBC W AUTO DIFF BLD Collected: 09/18/2023 1:[address] atus: F Source: [facility] Order Comment: Specimen Type : BLOOD SPECIMEN Ordering Facility: [facility] Address: [address] [place] [address] TYPE CODE TESTS RESULT OUT OF RANGE REFERENCE UNITS LAB 6690-2(LOINC) WBC # Bld Auto 7.38 3.70-11.00 k/uL LAB 789-8(LOINC) RBC # Bld Auto 4.36 3.90-5.20 m/ uL LAB 718-7(LOINC) Hgb Bld-mCnc 13.5 11.5-15.5 g/dL LAB 4544-3(LOINC) Hct VFr Bld Auto 39.9 36.0-46.0 % LAB 787-2(LOINC) MCV RBC Auto 91.5 80.0-100.0 fL LAB 785-6(LOINC) MCH RBC Qn Auto 31.0 26.0-34.0 p g LAB 786-4(LOINC) MCHC RBC Auto-mCnc 33.8 30.5-36.0 g/dL LAB 93905-7(INC) RDW RBC-Rto 12.6 11.5-15.0 % LAB 777-3(LOINC) Platelet # Bld Auto 333 150-400 k/uL LAB 60283-6(INC) PMV Bld Auto 8.7 Low 9.0-12.7 fL LAB 770-8(INC) Neutrophils/leuk NFr Bld Auto 65.5 % LAB 751-8(INC) Neutrophils # Bld Auto 4.83 1.45-7.50 k/uL LAB 736-9([facility]) Lymphocytes/leuk NFr Bld Auto 20.7 % LAB 731-0([facility]) Lymphocytes # Bld Auto 1.53 1.00-4.00 k/uL LAB 5905-5([facility]) Monocytes/leuk NFr Bld Auto 7.9 % LAB 742-7(INC) Monocytes # Bld Auto 0.58 <0.87 k/uL LAB 713-8(INC) Eosinophil/leuk NFr Bld Auto 5.0 % LAB 711-2([facility]) Eosinophil # Bld Auto 0.37 <0.46 k/uL LAB 706-2(INC) Basophils/leuk NFr Bld Auto 0.5 % LAB 704-7(INC) Basophils # Bld Auto 0.04 <0.11 k/uL LAB 09090-3(INC) Imm Granulocytes/sunny k NFr Bld Auto 0.4 % LAB 13777-0(INC) Imm Granulocytes # Bld Auto 0.03 <0.10 k/uL LAB 81075-6(LOINC) nRBC/100 WBC Bld-Rto 0.0 /100 WBC LAB 771-6(LOINC) nRBC # Bld Auto <0.01 <0.01 k/u L LAB 44793-1(INC) Differential method Bld Auto Performed By: #### 03885-1 # ### [facility] CLIA [id number] [address] [place] [address] [place] COMP METAB 2000 PNL SERPL Collected: 1:34 PM Status: F Source: [facility] Order Comment: Specimen Type : BLOOD SPECIMEN Ordering Facility: [facility] Address: [address] [place] [address] TYPE CODE TESTS RESULT OUT OF RANGE REFERENCE UNITS LAB 2885-2(LOINC) Prot SerPl-mCnc 7.1 6.3-8.0 g/dL LAB 1751-7(LOINC) Albumin SerPl-mCnc 4.2 3.9-4.9 g/dL LAB 40353-1(LOINC) Calcium SerPl-mCnc 9.2 8.5-10.2 mg/dL LAB 1975-2(LOINC) Bilirub SerPl-mCnc 0.7 0.2-1.3 mg/dL LAB 6768-6(LOINC) ALP SerPl-cCnc 67 34-123 U/L LAB 1920-8(LOINC) AST SerPl-cCnc 16 13-35 U/L LAB 1742-6(LOINC) ALT SerPl-cCnc 20 7-38 U/L LAB 2345-7(LOINC) Glucose SerPl-mCnc 94 74-99 mg/dL Result Comment: The [place] [employer] (ADA) provides guidance for cutoff [...] Standards of Medical Care in Diabetes 2016, [place] [employer]. Diabetes Care. 2016.39(Suppl 1). LAB 3094-0(LOINC) BUN SerPl-mCnc 11 7-21 mg/ dL LAB 2160-0(LOINC) Creat SerPl-mCnc 0.91 0.58-0.96 mg/dL LAB 2951-2(LOINC) Sodium SerPl-sCnc 134 Low 136-144 mmol/L LAB 2823-3(LOINC) Potassium SerPl-sCnc 4.2 3.7-5.1 mmol/L LAB 2075-0(LOINC) Chloride SerPl-sCnc 102 98-107 mmol/L LAB 2027-9(LOINC) CO2 SerPl-sCnc 24 22-30 mmo l/L LAB 52025-0(LOINC) Anion Gap SerPl-sCnc 8 8-15 mmol/L LAB 57471-4(LOINC) Creatinine + eGFR Pnl SerPlBld 81 >=60 mL/min/1 .73m??? Result Comment: Estimated Gl omerular Filtration Rate (eGFR) is calculated using the 2020 CKD-EPI creatinine equation. This equation utilizes serum creatinine, sex, and age as parameters. The creatinine assay has traceable calibration to isotope dilution-mass spectrometry. Refer to KDIGO guidelines for clinical interpretation. In patients with unstable renal function, e.g. those with acute kidney injury, the eGFR may not accurately reflect actual GFR. Performed By: #### LIPNF, 24 323-8 #### [facility] CLIA [id number] [address] [place] [address] [place] LIPID PANEL, NONFASTING Collected: 09/18/2023 1:34 PM Status: F Source: [facility] Comment: Specimen Type : BLOOD SPECIMEN Ordering Facility: [facility] Address: [address] [place] [address] TYPE CODE TESTS RESULT OUT OF RANGE REFERENCE UNITS LAB CHOLNF TOTAL CHOLESTEROL NF 217 High <200 mg/dL Result Comment: <200 mg/dL, Desirable 200-239 mg/dL, Borderline high >239 mg/dL, High LAB TRIGNF TRIGLYCERIDES, NF 161 High <150 mg/dL Result Comment: <150 mg/dL, Normal 150-199 mg/dL, Borderline high 200-499 mg/dL, High >499 mg/dL, Very high LAB HDLNF HDL CHOLESTEROL, NF 39 Low >39 mg/dL Result Comment: 40-59 mg/dL, Acceptable >59 mg/dL, High: Negative risk factor for coronary heart disease <40 mg/dL, Low: Positive risk factor for coronary heart disease LAB LDLNF LDL CHOLESTEROL, NF 146 High <100 mg/dL Result Comment: <100 mg/dL, Optimal 100-129 mg/dL, Near optimal/above optimal 130-159 mg/dL, Borderline high 160-189 mg/dL, High >189 mg/dL, Very high Secondary prevention optimal LDL Cholesterol levels are recommended to be < 70 mg/dL LAB NOHDLN NON HDL CHOL, NF 178 High <130 mg/dL Result Comment: <130 mg/dL, Optimal 130-159 mg/dL, Near optimal/above optimal 160-189 mg/dL, Borderline high 190-219 mg/dL, High >219 mg/dL, Very high Secondary prevention optimal non HDL Cholesterol levels are recommended to be <100 mg/dL LAB VLDLNF VLDL CHOLESTEROL, NF 32 High <30 mg/dL LAB TCHDLN T CHOL/HDL RATIO NF 5.56 High <5.10 mg/dL LAB LDLHDN LDL/HDL RATIO, NF 3.74 High <2.54 mg/dL Result Comment: Reference: 1. National Cholesterol Education Program ATP III Guideline At-A-Glance Quick Desk Reference: National Heart, Lung, and Blood Sentinel. National Institutes of Health. 2001: NIH Publication No. 01-3305. 2. An International Atherosclerosis Society position paper: global recommendations for the management of dyslipidemia: executive summary, Atherosclerosis. 2014: 232(2):410-413. Performed By: #### LIPALIVIA, 24 323-8 #### [facility] CLIA [id number] [address] [place] [address] [place] PROGRESS Observed: 09/09/2023 2:15 PM Status: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 [id number] Date:0935-76-79Mfbq Name:Sin SAEEDB: [id number], [facility]11 [facility] 07/21/2024 Primary Insurance:[facility] SNPPolicy Number: [id number] Date:2793-21-13Ykdd Name:Balbir SAEEDB: [id number], [facility]11 [facility] 07/21/2024 Secondary Insurance:[place] MEDICA[place]Policy Number: [id number] Date:4466-17-89Gzad Name:Sin SAEEDB: [id number], [facility]11 [facility] 07/21/2024 Primary Insurance:[facility] SNPPolicy Number: [id number] Date:0314-63-97Ofph Name:Balbir SAEEDB: [id number], [facility]11 [facility] 07/21/2024 Secondary Insurance:[place] MED[place] Number: [id number] Date:3068-81-02Aurp Name:Sin SAEEDB: [id number], [facility]11 [facility] 07/21/2024 Primary Insurance:[facility] SNPPolicy Number: [id number] Date:1523-98-77Jeys Name:Balbir SAEEDB: [id number], [facility]11 [facility] 07/21/2024 Secondary Insurance:[place] MEDICA[place] Number: [id number] Date:5422-21-11Fpcu Name:Sin SAEEDB: [id number], [facility]11 [facility] 07/21/2024 Primary Insurance:[facility] SNPPolicy Number: [id number] Date:5701-45-40Dxhh Name:Balbir SAEEDB: [id number], [facility]11 [facility] 07/21/2024 Secondary Insurance:[place] MEDICAIDPolicy Number: [id number] Date:8681-70-75Dswa Name:Sin SAEEDB: [id number], [place] [address] [facility] 07/21/2024 Primary Insurance:[facility] SNPPolicy Number: [id number] Date:8319-79-95Dmql Name:Balbir SAEEDB: [id number], [facility]11 [facility] 07/21/2024 Secondary Insurance:[place] MEDICAIDPolicy Number: [id number] Date:2133-54-97Yopj Name:Sin SAEEDB: [id number], [facility]11 [facility] 07/21/2024 Primary Insurance:[facility] SNPPolicy Number: [id number] Date:1250-50-42Aryt Name:Balbir SAEEDB: [id number], [address] 07/21/2024 Secondary Insurance:[place] MEDICAIDPolicy Number: [id number] Date:2103-24-38Iinl Name:Sin SAEEDB: [id number], [facility]11 [facility] 06/10/2024 Primary Insurance:[facility] SNPPolicy Number: [id number] Date:0952-41-85Apnd Name:Balbir SAEEDB: [id number], [facility]11 [facility] 06/10/2024 Secondary Insurance:[place] MEDICAIDPolicy Number: [id number] Date:7753-83-27Wesw Name:Sin SAEEDB: [id number], [facility]11 [facility] 05/17/[address], [place] [address]Znk: (HP) Primary Insurance:Self PayPolicy Number: Effective Date:2024-05-17 [facility] Primary Insurance:[employer] MEDICARE PPOPolicy Number: [id number] Date:3793-80-61Fesf Name:Balbir SAEEDB: [id number], [place] [address] [facility] 04/01/2024 Primary Insurance:[place] MEDICARE PPOPolicy Number: [id number] Date:7040-99-96Atce Name:Balbir SAEEDB: [id number], [place] [address] [facility] 03/12/2024 Primary Insurance:[place] MEDICARE PPOPolicy Number: [id number] Date:9159-85-27Cuoh Name:Balbir SAEEDB: [id number], [facility]11 [facility] 11/19/2023 CHRISTY SAEEDB: [address], [place] [address]Bev: (HP) [place] Insurance[place]: [id number] Date:2019-01-02 CHRISTY SAEEDB: [id number], [place] [address] [facility] EPIC 11/19/2023 Secondary Insurance:MEDICAREPoli cy Number: [id number] Date:5301-92-24Npap Name:Medicare BRANDI L HAMERDOB: [id number], [place] [address] [facility] EPIC 09/18/2023 Primary Insurance:[place] PPOPolicy Number: [id number] Date:3496-62-69Fmjg Name:Balbir RICARDOLORETA: [id number], [facility]11 [facility] 09/09/2023 Primary Insurance:[place] MED[place] PPOPolicy Number: [id number] Date:5565-96-37Xxur Name:Balbir Malin KOJO: [id number], [facility]11 [facility] 08/27/2023 Primary Insurance:[place] MED[place] PPOPolicy Number: [id number] Date:6462-71-66Ktjq Name:Balbir Malin KOJO: [id number], [facility]11 [facility] 08/07/2023 Primary Insurance:[place] MED[place] PPOPolicy Number: [id number] Date:9997-87-86Yxrg Name:Balbir HARRISON Kimo VARMA: [id number], [place] [address] [facility]
--- OUTSIDE RECORDS SUMMARY | 2024-07-22 13:15 | XMS_ITS | Encounter Summary ---
Author Organization [facility] Address [address] [place] [address] Care Team Providers Care Printer Helper Name Role Phone Johnny Reardon DO Primary Care Provider Marie Mancuso PA-C Unavailable [phone] Gail Escudero MD Unavailable [phone] Source Comments In the event this information is protected by the Federal Confidentiality of Alcohol and Drug AbusePatient Records regulations: The Federal rules restrict any use of the information to criminally investigate or prosecute any alcohol or drug abuse patient.[facility] Reason for Visit * Auth/Cert (Routine) Specialty [...] VIA INCISION & AREA EXPOSURE Admitting [address] [place] [address] Referral ID Status Reason Start Date Expiration Date Visits Re quested Visits Authorized [id number] 1 1 Encounter Details Date Type Department Care Team (Late st Contact Info) Description 07/22/2024 1:15 PM EDT - 07/22/2024 6:45 PM EDT Surgery Admitting [address] [place] [address] Chito Sellers MD [address] [place] [address] NEUROENDOSCOPY INTRACRANIAL W/ EXCISION OF PITUITARY TUMOR TRANS-NASAL APPROACH Surgery Details Date/Time Status Location OR Service Patient Class Case Class Case Type Trauma Case? 07/22/2024 1:15 PM Posted [facility] OR Neurosurgery To Come In Elective Panel 1 Procedure LRB Anes Op Region Wound Class Comments NEUROENDOSCOPY INTRACRANIAL W/ EXCISION OF PITUITARY TUMOR TRANS-NASAL APPROACH Pending General Brain Clean Contaminated STEREOTACTIC COMPUTER-ASSIST ED NAVIGATIONAL PROCEDURE CRANIAL N/A General Brain Clean Cont aminated Panel 2 Procedure LRB Anes Op Region Wound Class Comments NEUROENDOSCOPY INTRACRANIAL W/ EXCISION OF PITUITARY TUMOR TRANS-NASAL APPROACH Pending General Brain Clean Contaminated FASCIA ADAN SHEET GRAFT VIA INCISION & AREA EXPOSURE Pending General Brain Clean Surgeon Surgeon Role Service Panel Koko Gorman MD Primary Otolaryngology 2 Kraig Jennings MD Resident - Assisting 1 Logan Meyer MD Resident - Assisting 1 Rojelio Courtney MD Fellow Otolaryngology 2 Chito Sellers MD Primary Neurosurgery 1 documented in this encounter Social History Tobacco Use Types Packs/Day Years [...] Never 06/07/2022 How often do you attend protestant or faith serv ices? Never 06/07/2022 Do you belong to any clubs o r organizations such as protestant groups, unions, fraternal or athletic groups, or [...] Answer Date Recorded PHQ-2 score 3 03/10/2024 [facility] - Occupational Stress Questionnaire Answer Date [...] place to sleep or slept in a jail (including now)? No 06/07/2022 Area Deprivation Index Answer Date Kana rded National Score (1-100), lower number is lower ri sk 79 07/26/2022 State Score (1-10), lower number is lower risk 7 07/26/2022 Data from: https://www.neighborhoodatlas.medicine.[facility]/. Last address used for calculation [address] [place] [address] 07/26/2022 Comments No Sex and Gender Information Value Date Recorded Sex Assigned at Female 09/09/2019 3:52 PM EDT Legal Sex Female 8:28 AM EST Gender Identity Female 09/09/2019 3:52 PM EDT Sexual Orientation Straight 09/09/2019 3 :52 PM EDT documented as of this encounter Last Filed Vital Signs Vital Sign Reading Time Taken Comments Blood Pressure 121/61 07/22/2024 11:51 AM EDT Pulse 79 07/22/2024 11:51 AM EDT Temperature 36.5 C (97.7 F) 07/22/2024 11:51 AM EDT Respiratory Rate 14 07/22/2024 11:51 AM EDT Oxygen Saturation 94% 07/22/2024 11:51 AM EDT Inhaled Oxygen Concentration - - Weight [...] Chito Sellers M.D., - Office PCP: Johnny Reardon DO [phone] Treatment Team: Attending Provider: Chito Sellers MD [...] The patient was electively admitted to the [facility]. After being optimized for surgery by [...] The patient was then transferred up to [address] [facility]/H060-42 hospital room for postoperative m anagement. There [...] Extended Emergency Contact Information Primary Emergency Contact: Denton Ernsti Mobile Relation: Sister Secondary Emergency Contact: Ayana [...] Your Medications These medications were sent to [facility] [address] [place], [place] [id number] Hours: Saturday-Saturday, 8am-6pm ibuprofen 600 mg tablet [...] Non-tender NEUROLOGY: Motor: UE BICEPS TRICEPS DELTS Top Cager HI R 5/5 5/5 5/5 5/5 5/5 [...] Center 08/05/2024 1:00 PM Rojelio Courtney MD [facility] Main - A Bld 09/09/2024 11:20 AM [facility] -[facility] Bld 09/16/2024 2:30 PM Gail Escudero MD [facility] Main -[facility] d Call or during normal business hours for your follow up appointments. For urgent concerns after hours and on weekends please call [phone] (locally) or (toll free) and ask for the Neurosurgery Resident supervisor type disk quality control for Chito Kate MD Follow up with Dr. Sellers as scheduled. Call to schedule this appointment if no one has called within one week of discharge. SIGNATURE: Keerthi Grider PA-C DATE: July 23, 2024 TIME: 1:37 PM CC: Johnny Reardon [facility] [place] [place] [address] Cosigned by Chito Sellers MD at 07/23/2024 2:22 PM EDT Associated attestation - Chito Sellers MD - 07/23/2024 2:22 PM EDT Chito Sellers MD Staff, Skull Base & Cerebrovascular Surgery Department of Neurological Surgery [facility] documented in this encounter Discharge Instructions * Discharge Instr - Other Orders* Keerthi Grider PA-C - 07/23/2024 1:31 PM EDT Images from the original note were not included. [facility] [place] [phone] or ([phone]) [facility] C O N F I D E N T I A L I N F O R M A T I O N Danii Ernst [id number] The following is a brief overview of [...] My Primary Care Provider: Johnny Reardon DO [phone] Other Medical Team Members: Koko Gorman M.D.- [...] It is important that you notify your vocational services specialist if you develop any of the above [...] your fluid intake to 1.5 liters (3 [facility] cups) to avoid low sodium. Drinking cold water or iced water may help you stick to the 1.5 L of fluid per day recommendation. Please contact your vocational services specialist if you have questions. Heart failure present during admission: No Acute CO Present at or During Admission? No Immunization [...] with DUI while taking pain medicine, the [facility], and its providers are not to blame. [...] (for example: to tie your shoes or tack picker dropped items) for 6 to 8 [...] after hours and on weekends please call [phone] (locally) or (toll free) and ask for the Neurosurgery Resident supervisor type disk quality control for Chito Kate MD For concerns about nasal packing or issues with nasal drainage please call Dr. Gorman (ENT surgeon) office. Follow up with Cihto Kate MD as scheduled: Future Appointments Date Time Provider Department Center 08/05/2024 1:00 PM [facility] 09/09/2024 11:20 AM Chito Sellers MD [facility] Main [place] d 09/16/2024 2:30 PM Gail Escudero MD [facility] Other Follow-Up Appointments: None Additional Instructions: We [...] emergency, call 911 or present to the [facility] Emergency Department (or the closest emergency department [...] a double dose. -Do not take any [id number] medications or herbal therapies without consulting your [...] & Cerebrovascular Surgery Department of Neurological Surgery [facility] * Keerthi Grider PA-C - 07/23/2024 9:40 AM EDT SERVICE DATE: 07/23/2024 SERVICE TIME: 7:40 AM NEUROSURGERY SKULL BASE INPATIENT PROGRESS NOTE Please contact NSGY [place] [phone] for questions/concerns about this patient from 3PM [email or web address] and on weekends. 07/22/2024 1 Day Post-Op: [...] Non-tender NEUROLOGY: Motor: UE BICEPS TRICEPS DELTS Top Cager HI R 5/5 5/5 5/5 5/5 5/5 [...] 16 Gauge <1 day Peripheral 07/23/24 0504 [facility] Right Forearm 22 Gauge <1 day Drain [...] Yes. 5. Restraints No. 6. 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 Yes Current Assessment & Plan Treated with EEA for resection Appreciate ENT recs and assistance: TSA precautions, ocean spray MRI skull base outpatient [facility] 20.9 DI watch: strict I&O, Na PRN [...] precautions, ocean spray MRI skull base outpatient [facility] 20.9 DI watch: strict I&O, Na PRN [...] 07/24 52307/22/242108 -- 07/22/242114 pneumatic compression sleeve(s) (wy,nj) 07/22/242114 activity - mobilize patient (wy,nj) VTE Prophylaxis: VTE prophylaxis appropriate Plan of [...] F/u labs - F/u POD1 MRI - [place] spray to start POD 1 - CSF [...] Head and Neck Surgery, PGY-3 Service Pager [phone] - please page after 5pm and on weekends documented in this encounter OR Notes * Operative Report - Chito Sellers MD - 07/22/2024 2:28 PM EDT OPERATIVE/PROCEDURE REPORT NEUROSURGERY LOG ID: [id number] Surgery/Procedure Date: 07/22/2024 Incision/Procedure Start Time: 3:23 PM Incision Close/Procedure End Time: 6:58 PM Surgeon(s)/Proceduralist(s) and Septic Tank Servicer(s): Surgeons and Role: Panel 1: * Chito [...] timeout was then performed in accordance with [facility] operative protocols. An endoscopic transnasal, transsphenoidal approach [...] Implant Name Type Inv. Item Serial No. Soil Conservation Teacher Lot No. LRB No. Used Action PATCH DURAMATRIX-ONLAY PLUS COLLAGEN 1X1IN DURAL REGENERATION MEMBRANE - [id number] Patch PATCH DURAMATRIX-ONLAY PLUS COLLAGEN 1X1IN DURAL REGENERATION MEMBRANE CARMENZA NEUR [id number] N/A 1 Implanted Drains: None Complications: None SIGNATURE: Kraig Jennings MD PATIENT NAME: Danii Ernst DATE: July 22, 2024 TIME: 7:01 PM PAGER/CONTACT #: [phone] * Operative Report - Koko Gorman MD - 07/22/2024 2:28 PM EDT OPERATIVE REPORT LOG ID: [id number] Patient Name: Danii Ernst Patient Incision/Procedure Start Time: 3:23 PM Incision Close/Procedure End Time: 6:58 PM Date of Surgery: 07/22/2024 Surgeon(s)/Proceduralist(s) and Septic Tank Servicer(s): Surgeons and Role: Panel 1: * Chito [...] image navigation was set up using the [employer] system. Image navigation was used throughout the case. The patient was then prepped and draped in the standard fashion for endonasal endoscopic skull base surgery. The bilateral nasal cavities were examined with a 0 degree endoscope. The inferior turbinates were out-fractured, and the middle turbinates were lateralized with a [place] elevator. The bilateral middle turbinates, sphenoid faces, [...] sphenoid and toward the choana using a [place] elevator andpushed inferiorly for protection. A posterior [...] above-mentioned procedures. No qualified resident or other timber management assistant was available, so a second surgeon [...] The marked outpatient medications were Filled at: [facility] and delivered to the patient's [...] - Patient's insurance is in- network with [facility] Insurance loaded into [place]: Yes Test claim was completed to verify insurance is active: Successful Any questions, please reach out to your medication digital coordinator. * Subjective & Objective - Keerthi Grider PA-C - 07/23/2024 9:19 AM EDT NEUROSURGERY SKULL BASE INPATIENT PROGRESS NOTE Please contact [place] supervisor [place] [phone] for questions/concerns about this patient from 3PM [email or web address] and on weekends. 07/22/2024 1 Day Post-Op: [...] Non-tender NEUROLOGY: Motor: UE BICEPS TRICEPS DELTS Top Cager HI R 5/5 5/5 5/5 5/5 5/5 [...] 16 Gauge <1 day Peripheral 07/23/24 0504 [facility] Right Forearm 22 Gauge <1 day Drain Duration External Collection Device 07/22/24 2039 <1 day LABS: Na: Recent Labs 07/23/24 [...] Yes. 5. Restraints No. 6. Last BM MARKETING STRATEGY MANAGER * Plan of Care - Kraig Jennings [...] schizoaffective disorder, hypothyroidism, prolactinoma medically managed since 2014 now medically refractory. 07/22/2024: EEA for prolactinoma [...] Kraig Jennings MD PGY-4, Neurological Surgery Pager: [phone] Neurosurgery supervisor type disk quality control: [id number] 7:10 PM 07/22/24 Please page [phone] on weekends and after 6pm documented in this encounter Plan of Treatment Upcoming Encounters Date Type Department Care Team (Latest Contact Info) Description 08/05/2024 1:00 PM EDT Office Visit Otolaryngology [address] [place] [phone] Rojelio Courtney MD [address] [place] [phone] post op 09/09/2024 11:20 AM EDT [facility] [address] [place] [id number] Chito Sellers MD [address] [place] [address] Post-Op Scheduling Request 09/16/2024 2:30 PM EDT [facility] Endocrinology [address] [place] [address] Gail Escudero MD [address] [place] [phone] Post-Op Scheduling Request documented as of this [...] BASIC METABOLIC PANEL (07/23/2024 5:03 AM EDT) Glucose 153(H) 74 - 99 mg/dL 07/23/2024 6:[address] [facility] Comment: The [place] Diabetes Association (ADA) provides guidance for cutoff [...] Standards of Medical Care in Diabetes 2016, [place] Diabetes Association. Diabetes Care. 2016.39(Suppl 1). BUN 8 7 - 21 mg/dL 07/23/2024 6:35 AM [facility] Creatinine 0.85 0.58 - 0.96 mg/dL 07/23/2024 6:35 AM [facility] Sodium 141 136 - 144 mmol/L 07/23/2024 6:35 AM [facility] Potassium 3.7 3.7 - 5.1 mmol/L 07/23/2024 6:35 AM [facility] Chloride 108(H) 98 - 107 mmol/L 07/23/2024 6:35 AM [facility] CO2 21(L) 22 - 30 mmol/L 07/23/2024 6:35 AM [facility] Anion Gap 12 8 - 15 mmol/L 07/23/2024 6:35 AM [facility] Calcium, Total 8.3(L) 8.5 - 10.2 mg/dL 07/23/2024 6:35 AM [facility] Estimated Glomerular Filtration Rate 88 >=60 mL/min/1.7 3m 07/23/2024 6:35 AM [facility] Comment:Estimated [...] MD LABORATORY Final Result Performing Organization Address City/[facility]/ZIP Co de Phone Number [facility] [address] [facility] [place] [phone], [place] * PROLACTIN (07/23/2024 5:03 AM EDT) Prolactin 5.3 4.4 - 33.8 ng/mL 07/23/2024 6:[address] [facility] Comment:Prolactin test is pe rformed using the [employer] Electrochemiluminescence Immunoassay method. Results obtained with different methods or kits cannot be used interchangeably. Blood BLOOD SPECIMEN / Unknown Venipuncture / Unknown 07/23/2024 5:03 AM EDT 07/23/2024 5:13 AM EDT us Chito Sellers MD LABORATORY Final Result Performing Organization Address [facility] Co de Phone Number [facility] [address] [place] [id number], [place] * (ABNORMAL) CORTISOL, SERUM (07/23/2024 5:03 AM EDT) Cortisol 20.9(H) 4.8 - 19.5 ug/dL 07/23/2024 6:[address] [facility] Comment: Provided reference range is from 6-10 AM sample collection time. Cortisol Reference Range: 6-10 AM = 4.8-19.5 ug/dL, 4-8 PM = 2.5-11.9 ug/dL Blood BLOOD SPECIMEN / Unknown Venipuncture / Unknown 07/23/2024 5:03 AM EDT 07/23/2024 5:13 AM EDT us Chito Sellers MD LABORATORY Final Result Performing Organization Address City/[facility]/ZIP Co de Phone Number [facility] [address] [place] [place] [address], [place] * XR SHOULDER LIMITED 2V AP/TRUE AP LEFT (07/22/2024 8:17 PM EDT) Anatomical Region Laterality Modality Shoulder Radiographic Guera ging 07/22/2024 8:17 PM EDT Impressions 07/22/2024 8:33 PM EDT IMPRESSION: No acute fracture or dislocation. Bologna Maker: PSCB Transcribe Date/Time: Jul 22 2024 8:19P [...] No other significant abnormality. Procedure Note Provider, [facility] [place] - 07/22/2024 * * *Final Report* * [...] IMPRESSION IMPRESSION: No acute fracture or dislocation. Bologna Maker: [email or web address] Transcribe Date/Time: Jul 22 2024 8:19P Dictated by : LAMBERTO ELLIOTT MD This examination was interpreted and the report reviewed and electronically signed by: LAMBERTO ELLIOTT MD on Jul 22 2024 8:31PM EST us Chito Sellers MD RAD-PAMA Final Result * (ABNORMAL) BASIC METABOLIC PANEL (07/22/2024 7:27 PM EDT) Glucose 125(H) 74 - 99 mg/dL 07/22/2024 7:[address] [facility] Comment: The [place] Diabetes Association (ADA) provides guidance for cutoff [...] Standards of Medical Care in Diabetes 2016, [place] Diabetes Association. Diabetes Care. 2016.39(Suppl 1). BUN 8 7 - 21 mg/dL 07/22/2024 7:[address] [facility] Creatinine 0.73 0.58 - 0.96 mg/dL 07/22/2024 7:[address] [facility] Sodium 139 136 - 144 mmol/L 07/22/2024 7:[address] [facility] Potassium 3.6(L) 3.7 - 5.1 mmol/L 07/22/2024 7:[address] [facility] Chloride 107 98 - 107 mmol/L 07/22/2024 7:[address] [facility] CO2 21(L) 22 - 30 mmol/L 07/22/2024 7:[address] [facility] Anion Gap 11 8 - 15 mmol/L 07/22/2024 7:[address] [facility] Calcium, Total 7.4(L) 8.5 - 10.2 mg/dL 07/22/2024 7:[address] [facility] Estimated Glomerular Filtration Rate 105 >=60 mL/min/1.7 3m 07/22/2024 7:[address] [facility] Comment:Estimated Glomerular Filtration Rate (eGFR) is [...] us Chito Sellers MD LABORATORY Final Result [facility] [address] [place] [address], * (ABNORMAL) ARTERIAL BLOOD GASES WITH IONIZED MAGNESIUM (07/22/2024 6:41 PM EDT) pH, Arterial 7.35 7.35 - 7.45 07/22/2024 6:[address] [facility] pH, Temp Corrected, Arterial 7.35 7.35 - 7.45 07/22/2024 6:[address] [facility] pCO2, Arterial 43 36 - 46 mm Hg 07/22/2024 6:[address] [facility] pCO2, Temp Corrected, Arterial 43 36 - 46 mmHg 07/22/2024 6:[address] [facility] pO2, Arterial 191(H) 85 - 95 mm Hg 07/22/2024 6:[address] [facility] pO2, Temp Corrected, Arterial 191(H) 85 - 95 mmHg 07/22/2024 6:[address] [facility] Bicarbonate, Arterial 23 22 - 26 mmol/L 07/22/2024 6:[address] [facility] O2 Saturation, Arterial 99(H) 95 - 98 % 07/22/2024 6:[address] [facility] Base Deficit, Arterial -2 -2 - 0 mmol/L 07/22/2024 6:[address] [facility] Oxyhemoglobin, Arterial 97 95 - 98 % 07/22/2024 6:[address] [facility] Carboxyhemoglo bin, Arterial 1.8 0.0 - 2.0 % 07/22/2024 6:[address] [facility] Comment:Carboxyhemoglobin Re ference Range for Smokers: 2.0-8.0% Methemoglobin, Arterial 0.9 0.0 - 1.5 % 07/22/2024 6:[address] [facility] Sodium, Whole Blood 139 136 - 144 mmol/L 07/22/2024 6:[address] [facility] Potassium, Whole Blood 3.7 3.5 - 5.0 mmol/L 07/22/2024 6:[address] [facility] Calcium Ionized, Whole Blood 1.05(L) 1.08 - 1.30 mmol/L 07/22/2024 6:[address] [facility] Calcium Ionized, pH corrected 1.02(L) 1.08 - 1.30 mmol/L 07/22/2024 6:[address] [facility] Glucose, Whole Blood 110(H) 60 - 105 mg/dL 07/22/2024 6:[address] [facility] Lactate 1.0 0.5 - 2.2 mmol/L 07/22/2024 6:[address] [facility] Ionized Magnesium 0.66(H) 0.45 - 0.60 mmol/L 07/22/2024 6:[address] [facility] Hemoglobin, Whole Blood 11.4(L) 11.5 - 15.5 g/dL 07/22/2024 6:[address] [facility] Hematocrit, Whole Blood 35.2(L) 36.0 - 46.0 % 07/22/2024 6:[address] [facility] Blood, Arterial BLOOD SPECIMEN / Unknown 07/22/2024 6:41 PM EDT 07/22/2024 6:47 PM EDT us Gabriela Petersen BOARD SETTER.ADVISORY INTERNSHIP BLOOD GASES Fin al Result [address] [place] [address], * SURGICAL PATHOLOGY (07/22/2024 5:55 PM EDT) Case Report Surgical Pathology Report Case: [id number] Authorizing Provider: Chito Sellers MD Collected: 07/22/2024 05:55 PM Ordering Location: Admitting Received: 07/22/2024 06:09 PM Pathologist: Carlos Kennedy MD Specimen: Soft Tissue, Mass, Resection, sellar mass 07/24/2024 3:[address] [facility] FINAL DIAGNOSIS A. Sellar region, biopsy: - Pituitary neuroendocrine tumor (pituitary adenoma). RAP/bs 07/24/2024 07/24/2024 3:[address] [facility] at 1558 EDT Diagnosis Comment An addendum will be issued following immunostaining of the tumor with antibodies to pituitary hormones and Ki-67. 07/24/2024 3:[address] [facility] Gross Description A. Soft Tissue, Mass, Resection Received in formalin labeled sellar mass are multiple hodges-pink, irregularly-shaped soft tissue fragments aggregating to 1.2 x 0.3 x 0.3 cm. Entirely submitted in one cassette. HMAviva 07/23/24 10:01 AM Gross examination performed at [facility], [address] [id number] 07/24/2024 3:[address] [facility] Clinical History Pre-op diagnosis: Pituitary adenoma (HCC) [D35.2] 07/24/2024 3:[address] [facility] Performing Lab Diagnostic interpretation performed at: [facility], [address] [place] [address], [place] [address] CLIA# [id number] Master Dyer: Adrian Treadwell MD 07/24/2024 3:[address] [facility] Disclaimer Laboratory Developed Test (LDT) Disclaimer: Performance characteristics of immunohistochemica l, immunofluorescent, and chromogenic in-situ hybridization tests have been determined by the performing laboratory within [facility]'s Dariusz Dylon [facility] Pathology and Laboratory Medicine Department ([facility], [facility], [facility], [facility], [facility], [facility], or [facility]) in a manner consistent with CLIA requirements. One or more of these tests may not have been cleared or approved by the FDA. [facility] is regulated under CLIA as qualified to perform high-complexity testing. These tests are used for clinical purposes. These should not be regarded as investigational or for research. Positive and negative controls stain appropriately. 07/24/2024 3:[address] [facility] Tissue RADICAL RESECTION OF SOFT TISSUE / Unknown 07/22/2024 5:55 PM EDT 07/22/2024 6:09 PM EDT Comment:Pre-op diagnosis: Pituitary adenoma (HCC) [D35.2] us Chito Sellers MD SURGICAL PATHOLOGY Final Res ult [facility] [place] [address], [place] * (ABNORMAL) ARTERIAL BLOOD GASES (07/22/2024 4:33 PM EDT) pH, Arterial 7.35 7.35 - 7.45 07/22/2024 4:[address] [facility] pH, Temp Corrected, Arterial 7.35 7.35 - 7.45 07/22/2024 4:51 PM [facility] pCO2, Arterial 44 36 - 46 mm Hg 07/22/2024 4:51 PM [facility] pCO2, Temp Corrected, Arterial 44 36 - 46 mmHg 07/22/2024 4:51 PM [facility] pO2, Arterial 202(H) 85 - 95 mm Hg 07/22/2024 4:51 PM [facility] pO2, Temp Corrected, Arterial 202(H) 85 - 95 mmHg 07/22/2024 4:51 PM [facility] Bicarbonate, Arterial 24 22 - 26 mmol/L 07/22/2024 4:51 PM [facility] O2 Saturation, Arterial 99(H) 95 - 98 % 07/22/2024 4:51 PM [facility] [facility] Base Deficit, Arterial -1 -2 - 0 mmol/L 07/22/2024 4:51 PM [facility] Oxyhemoglobin, Arterial 96 95 - 98 % 07/22/2024 4:51 PM [facility] Carboxyhemoglo bin, Arterial 2.0 0.0 - 2.0 % 07/22/2024 4:51 PM [facility] Comment:Carboxyhemoglobin Re ference Range for Smokers: 2.0-8.0% Methemoglobin, Arterial 1.1 0.0 - 1.5 % 07/22/2024 4:51 PM [facility] Sodium, Whole Blood 139 136 - 144 mmol/L 07/22/2024 4:51 PM [facility] Potassium, Whole Blood 3.4(L) 3.5 - 5.0 mmol/L 07/22/2024 4:51 PM [facility] Calcium Ionized, Whole Blood 1.07(L) 1.08 - 1.30 mmol/L 07/22/2024 4:51 PM [facility] Calcium Ionized, pH corrected 1.05(L) 1.08 - 1.30 mmol/L 07/22/2024 4:51 PM [facility] Glucose, Whole Blood 119(H) 60 - 105 mg/dL 07/22/2024 4:[address] [facility] Lactate 1.1 0.5 - 2.2 mmol/L 07/22/2024 4:[address] [facility] Hemoglobin, Whole Blood 11.8 11.5 - 15.5 g/dL 07/22/2024 4:[address] [facility] Hematocrit, Whole Blood 36.3 36.0 - 46.0 % 07/22/2024 4:[address] [facility] Blood, Arterial BLOOD SPECIMEN / Unknown 07/22/2024 4:33 PM EDT 07/22/2024 4:44 PM EDT us Jesse Camejo MD BLOOD GASES Final Result Performing Organization Address City/State/[facility] Co de Phone Number [facility] [address] [place] [address], * (ABNORMAL) ARTERIAL BLOOD GASES WITH IONIZED MAGNESIUM (07/22/2024 3:33 PM EDT) pH, Arterial 7.36 7.35 - 7.45 07/22/2024 3:[address] [facility] pH, Temp Corrected, Arterial 7.36 7.35 - 7.45 07/22/2024 3:[address] [facility] pCO2, Arterial 42 36 - 46 mm Hg 07/22/2024 3:[address] [facility] pCO2, Temp Corrected, Arterial 42 36 - 46 mmHg 07/22/2024 3:[address] [facility] pO2, Arterial 198(H) 85 - 95 mm Hg 07/22/2024 3:[address] [facility] pO2, Temp Corrected, Arterial 198(H) 85 - 95 mmHg 07/22/2024 3:[address] [facility] Bicarbonate, Arterial 23 22 - 26 mmol/L 07/22/2024 3:[address] [facility] O2 Saturation, Arterial 99(H) 95 - 98 % 07/22/2024 3:44 PM [facility] Base Deficit, Arterial -2 -2 - 0 mmol/L 07/22/2024 3:44 PM [facility] Oxyhemoglobin, Arterial 96 95 - 98 % 07/22/2024 3:44 PM [facility] Carboxyhemoglo bin, Arterial 2.2(H) 0.0 - 2.0 % 07/22/2024 3:44 PM [facility] Comment:Carboxyhemoglobin Re ference Range for Smokers: 2.0-8.0% Methemoglobin, Arterial 1.3 0.0 - 1.5 % 07/22/2024 3:44 PM [facility] Sodium, Whole Blood 139 136 - 144 mmol/L 07/22/2024 3:44 PM [facility] Potassium, Whole Blood 3.2(L) 3.5 - 5.0 mmol/L 07/22/2024 3:44 PM [facility] Calcium Ionized, Whole Blood 1.10 1.08 - 1.30 mmol/L 07/22/2024 3:44 PM [facility] Calcium Ionized, pH corrected 1.08 1.08 - 1.30 mmol/L 07/22/2024 3:44 PM [facility] Glucose, Whole Blood 125(H) 60 - 105 mg/dL 07/22/2024 3:44 PM [facility] Lactate 0.7 0.5 - 2.2 mmol/L 07/22/2024 3:44 PM [facility] Ionized Magnesium 0.75(H) 0.45 - 0.60 mmol/L 07/22/2024 3:44 PM [facility] Hemoglobin, Whole Blood 12.4 11.5 - 15.5 g/dL 07/22/2024 3:44 PM [facility] Hematocrit, Whole Blood 38.3 36.0 - 46.0 % 07/22/2024 3:44 PM [facility] Blood, Arterial BLOOD SPECIMEN / Unknown 07/22/2024 3:33 PM EDT 07/22/2024 3:40 PM EDT us Jesse Camejo MD BLOOD GASES Final Result [facility] [address] [facility] [address] [place] [address], [place] documented in this encounter Visit Diagnoses Diagnosis Pituitary adenoma (HCC) Benign neoplasm of pituitary gland and craniopharyngeal duct (pouch) Prolactinoma (HCC) Benign neoplasm of pituitary gland and craniopharyngeal duct (pouch) Pituitary adenoma (HCC) Benign neoplasm of pituitary gland and craniopharyngeal duct (pouch) * Assessment & Plan Note - Keerthi [...] up with Dr. Gabbi Trent as scheduled * Assessment & Plan Note - Keerthi Grider PA-C - 07/23/2024 9:37 AM EDT Associated Problem(s): Pituitary macroadenoma with extrasellar extension (HCC) Treated with EEA for resection Appreciate ENT recs and assistance: TSA precautions, ocean spray MRI skull base outpatient [facility] 20.9 DI watch: strict I&O, Na PRN [...] doses, First dose (after last modification) on Vita 07/23/24 at 1200, Last dose on 07/27/24 at 0600 Given 07/23/2024 1:00 PM EDT 1,000 mg Oral acyclovir 400 mg tab(s) (ZOVIRAX) 400 mg, ORAL, 2 TIMES DAILY, First dose on Sat07/22/24 at 2130, Until Discontinued, Antimicrobial indication: Empiric, Infectious source(s): Source unknown, Pharmacist may modify dose per [facility] dose optimization consult agreement: Yes Given 07/23/2024 8:51 AM EDT 400 mg Given 07/22/2024 9:45 PM EDT 400 mg heparin 5,000 Units injection 5,000 Units, SUBCUTANEOUS, EVERY 8 HOURS, First dose on Sat07/22/24 at 2200, Until Discontinued Given 07/23/2024 5:24 AM EDT 5,000 Units Arm, Right Given 07/22/2024 9:45 PM EDT 5,000 Units A rm, Right ibuprofen 600 mg tab(s) (MOTRIN) 600 mg, ORAL/FEEDING TUBE, EVERY 6 HOURS NEEDED, Starting on Vita 07/23/24 at 0923, Until Vita 07/23/24 at 1806, Moderate Pain (4-6) - Enteral, Severe Pain (>/=7) - Enteral, If ordered PRN for pain, patient/guardian may elect to receive this medication for higher pain levels INSTEAD of the opioid, if preferred: Yes lidocaine 1%-EPINEPHrine 1:100,000 injection X (OR/PROCEDURE) PRN, Starting on Sat07/22/24 at 1538, Until Sat07/22/24 at 1918, Intraprocedure Given 07/22/2024 3:38 PM EDT 4 mL Other methocarbamol 500 mg tab(s) (ROBAXIN) 500 mg, ORAL/FEEDING TUBE, 3 TIMES DAILY NEEDED, Starting on Sat07/23/24 at 0645, Until Sat07/23/24 at 1806, Muscle Spasm - First Line [...] the Flush Bag file on smart pump. oxymetazoline 0.05 % (GENASAL) X (OR/PROCEDURE) PRN, Starting on Sat07/22/24 at 1505, Until Sat07/22/24 at 1918, Intraprocedure Given 07/22/2024 3:05 PM EDT [address] 40 mg tab(s) (PROTONIX) 40 mg, ORAL, DAILY AT 6 AM, First dose on Sat07/23/24 at 0600, Until Discontinued, Swallow whole; DO [...] 2130, Last dose on Sat07/27/24 at 1300 214 (Given - Provider: Berna Justin RN) 0851 [...] Source unknown, Pharmacist may modify dose per [facility] dose optimization consult agreement: Yes 2144 (Given - Provider: Berna Justin RN) 0851 (Given - Provider: Courtney Maradiaga RN) caffeine-sodium benzoate 500 mg in NaCl 0.9% 1,000 mL 500 mg, INTRAVENOUS, at 500-1,000 mL/hr, Administer over 1-2 Hours, ONCE, 1 dose, On Vita 07/23/24 at 0900, ADMINISTER OVER 1 HOUR IF [...] THE FLOOR HATHAWAY product = Refrigerate. B. Juarze DUPLEX product = Room Temp., Antimicrobial indication: Prophylaxis, Preprocedure 1201 (Sent with Patient - Provider: Erinn Dick RN)1448 (Given - Provider: Dimitry Morgan MD)1926 (Anesthesia Volume Adjustment - Provider: Tasha Moser APRN.[employer]) ceFAZolin 2 g in dextrose (iso-osmotic) 50 mL (ANCEF,KEFZOL) 2 g, INTRAVENOUS, at 100 mL/hr, Administer over 30 Minutes, EVERY 8 HOURS, 2 doses, First dose on Vita 07/23/24 at 0400, Last dose on Vita 07/23/24 at 1400, HATHAWAY product = Refrigerate. B. Juarez DUPLEX product = Room Temp., Antimicrobial indication: Prophylaxis, Pharmacist may modify dose per [facility] dose optimization consult agreement: Yes 0524 (New Bag/Syringe/Bottle - Provider: Berna Justin RN)0554 (Infusion Complete - Provider: Berna Justin RN)1400 (Not Given - Provider: Courtney Maradiaga RN - Reason: Patient Declined. LIP Notified) heparin 5,000 Units injection 5,000 Units, SUBCUTANEOUS, EVERY 8 HOURS, First dose on Sat07/22/24 at 2200, Until Discontinued 2144 (Given - Provider: Berna Justin RN) 0524 (Given - Provider: Berna Justin RN)1400 (Not [...] ketorolac (Toradol)., Pharmacist may modify dose per [facility] dose optimization consult agreement: [...] 0850 (Given - Provider: Courtney Maradiaga, SOC[place]) sodium chloride 0.65 % 2 spray 2 spray, EACH NOSTRIL, 5 TIMES DAILY, First dose on Vita 07/23/24 at 0900, Until Discontinued 0850 (Given - Provid er: Courtney Maradiaga RN)1300 (Given - Provider: Courtney Maradiaga RN)1540 (Given - Provider: Courtney Maradiaga, [place]) Continuous Medication Order 07/21/2024 07/22/2024 07/23/2024 lactated [...] 4 after maximal dose achieved, contact PACU vice president payment/LIP/staff for reassessment. Give 25 mcg for mild pain (1-3) Give 50 mcg for moderate pain (4-6) and severe pain (>/=7), Recovery or Phase I (only) 2003 (Given - Provider: Betty Jones RN) ibuprofen 600 mg tab(s) (MOTRIN) 600 mg, ORAL/FEEDING TUBE, EVERY 6 HOURS NEEDED, Starting on Vita 07/23/24 at 0923, Until Vita 07/23/24 at 1806, Moderate Pain (4-6) - Enteral, Severe Pain (>/=7) - Enteral, If ordered PRN for pain, patient/guardian may elect to receive this medication for higher pain levels INSTEAD of the opioid, if preferred: Yes labetalol 5-10 mg injection syringe (NORMODYNE) 5-10 mg, INTRAVENOUS, EVERY 30 MINUTES NEEDED, Starting on 07/22/24 at 2109, Until Vita 07/23/24 at 180, Give for blood pressure of:, see admin [...] TUBE, 3 TIMES DAILY NEEDED, Starting on Sat07/23/24 at 0645, Until Sat07/23/24 at 1806, Muscle Spasm - First Line - Enteral, If ordered PRN for pain, patient/guardian may elect to receive this medication for higher pain levels INSTEAD of the opioid, if preferred: Yes NaCl 0.9% iv flush bag 20 mL, INTRAVENOUS, NEEDED, Starting on Sat07/23/24 at 0852, Until Vita 07/23/24 at 1806, [...] NEEDED, Starting on Sat07/22/24 at 2109, Until Sat07/23/24 at 1806, Nausea/Vomiting - First Line - [...] NEEDED, Starting on Sat07/22/24 at 2109, Until Sat07/23/24 at 1806, Nausea/Vomiting - Third Line - Parenteral documented in this encounter Care Teams Printer Helper Relationship Specialty Start Date End Date Johnny Reardon DO [address] [place] [id number] PCP - General Internal Medicine 07/27/22 Marie Mancuso PA-C [address] [place] [address] Baggage Checker Internal Medicine 02/09/24 Gail Escudero MD [address] [place] [address] [place] Referring Team Endocrinology 05/12/24 documented as of this encounter
--- OUTSIDE RECORDS SUMMARY | 2024-07-22 14:30 | XMS_ITS | Encounter Summary ---
Author Organization [facility] Address [address] [place] [address] Care Team Providers Care Division Traffic Superintendent Name Role Phone Johnny Reardon DO Primary Care Provider Marie Mancuso PA-C Unavailable [phone] Gail Escudero MD Unavailable [phone] Source Comments In the event this information is protected by the Federal Confidentiality of Alcohol and Drug AbusePatient Records regulations: The Federal rules restrict any use of the information to criminally investigate or prosecute any alcohol or drug abuse patient.[facility] Reason for Visit * Auth/Cert (Routine) Specialty [...] GRAFT VIA INCISION & AREA EXPOSURE Admitting [facility] [place] [address] Referral ID Status Reason Start Date Expiration Date Visits Re quested Visits Authorized [id number] 1 1 Encounter Details Date Type Department Care Team (Late st Contact Info) Description 07/22/2024 2:30 PM EDT Anesthesia Event Admitting [address] [place], [place] [id number] Wojciech Rodriges MD [address] [place], [place] [id number] Dimitry Morgan MD [address] [place], [place] [id number] Anesthesia Record Procedure Summary Procedure Name Responsible Anesthesiologist Anesthesia Start Time Anesthesia Stop Time NEUROENDOSCOPY INTRACRANIAL W/ EXCISION OF PITUITARY TUMOR TRANS-NASAL APPROACH (Pending: Brain) Wojciech Rodriges MD 07/22/24 1430 07/22/246 Events Date Time Event Comment 07/22/2024 1356 1430 An Start I have re-evalu ated the patient immediately prior to induction. 1430 An Start Data 1436 An Induction I have re-evalu ated the patient immediately prior to induction. 1445 An Intubation 1456 Anesthesia Ready 1523 Incision/Procedure Start 1716 Anes Handoff Case Relief 1847 Start Closing 1854 Anes Handoff Break 1856 Emerge 1858 Procedure End 1900 An Extubation Patient : Airw ay suctioned clear; following commands with adequate responsiveness; strength and spontaneous ventilation confirmed; stable hemodynamics 1916 an stop data 1924 Handoff to RN I completed my handoff to the receiving nurse during which we: 1. Identified the patient 2. Identified the responsible provider 3. Reviewed the pertinent medical history 4. Discussed the surgical course 5. Reviewed intra-op anesthesia management and issues during anesthesia 6. Set expectations for post-procedure period 7. Allowed opportunity for questions and acknowledgement of understanding. 1925 An Stop Meds Name Total fentaNYL (PF) 100 mcg lidocaine (PF) 1% 50 mg midazolam 2 mg ondansetron (PF) 4 mg PHENYLephrine 0.1 mg/mL 100 mcg PHENYLephrine 10 mg in D5W 250 mL (VANDANA-S YNEPHRINE) 4,930 mcg propofol 200 mg rocuronium 130 mg droperidol 0.625 mg diphenhydrAMINE 25 mg ceFAZolin 2 g in dextrose (iso-osmotic) 50 mL (ANCEF,KEFZOL) 2 g remifentanil 1 mg in NaCl 0.9% 250 mL 2, 987.04 mcg dexmedeTOMIDine 4 mcg/mL 10 mcg sugammadex 200 mg NaCl 0.9% 1,700 mL * Agents Name ETO2 ETN2O Inspired N2O Set O2% MAC Case O2 Flow Rate Isoflurane Inspired Isoflurane * Blood No blood administrations on file. Lines, Drains, and Airways Type Details Placement Removal Wound 07/22/24; 1523; Surgical; Closed Surgi; Nose 07/22/24 1523 by Aniket De Jesus RN PIV 07/22/24; 1204; Shor t; Left; Hand; 18 Gauge; 07/22/24; 20407/22/24 1204 by Erinn Dick RN 07/22/24 2043 by Betty Jones RN Airway Endotracheal Tube; 07/22/24; 1445 (created via procedure documentation); 7 mm; Cuffed; No; 07/22/24; 1900 07/22/24 1445 by Dimitry Morgan MD 07/22/24 1900 by Tasha Moser APRN.MENTAL HYGIENIST PIV 07/22/24; 1448 (crea mat via procedure documentation); Right; Forearm; 16 Gauge; 07/23/24; 1906 07/22/24 1448 by Dimitry Morgan MD 07/23/24 1906 by Bharat Sears In Arterial Line/Sheath 07/22/24; 1459 (cre ated via procedure documentation); Arterial Line; 20 Gauge; Left; Radial; 07/22/24; 1942; Not Present on Assessment 07/22/24 1459 by Dimitry Morgan MD 07/22/24 1942 by Betty Jones RN Foley 07/22/24; 1500; [facility]; 16 Fr; 07/22/24; 1932; Not Present on Assessment 07/22/24 1500 by Lin Arrington RN 07/22/24 193 by Betty Jonse, SOCORRO documented in this encounter Social History Tobacco [...] Never 06/07/2022 How often do you attend buddhism or sikhism serv ices? Never 06/07/2022 Do you belong to any clubs o r organizations such as buddhism groups, unions, fraternal or athletic groups, or [...] Answer Date Recorded PHQ-2 score 3 03/10/2024 [facility] - Occupational [...] is lower risk 7 07/26/2022 Data from: https://www.neighborhoodatlas.medicine.[facility].edu/. Last address used for calculation [address] [place] [address] 07/26/2022 Comments No Sex and Gender Information Value Date Recorded Sex Assigned at Female 09/09/2019 3:52 PM EDT Legal Sex Female 8:28 AM EST Gender Identity Female 09/09/2019 3:52 PM EDT Sexual Orientation Straight 09/09/2019 3: 52 PM EDT documented as of this encounter Last Filed Vital Signs Vital Sign Reading Time Taken Comments Blood Pressure 77/46 07/22/2024 4:01 PM EDT Pulse 94 07/22/2024 7:13 PM EDT Temperature - - Respiratory Rate - - Oxygen Saturation 95% 07/22/2024 7:13 PM EDT Inhaled Oxygen Concentration - - Weight - - Height - - Body Mass Index - - documented in this encounter Procedure Notes * Wojciech Rodriges MD - 07/22/2024 7:41 PM EDT POST ANESTHESIA EVALUATION NOTE : 1980 Procedure Summary Date: 07/22/24 Room / Location: [address] Anesthesia Start: 1430 Anesthesia Stop: 1925 Procedures: NEUROENDOSCOPY INTRACRANIAL W/ EXCISION OF PITUITARY TUMOR TRANS-NASAL APPROACH (Pending: Brain) STEREOTACTIC COMPUTER-ASSISTED NAVIGATIONAL PROCEDURE CRANIAL (Brain) NEUROENDOSCOPY INTRACRANIAL W/ EXCISION OF PITUITARY TUMOR TRANS-NASAL APPROACH (Pending: Brain) FASCIA ADAN SHEET GRAFT VIA INCISION & AREA EXPOSURE (Pending: Brain) Diagnosis: Pituitary adenoma (HCC) (Pituitary adenoma (HCC) [D35.2]) Surgeons: Chito Sellers MD; Koko Gorman MD Responsible Provider: Wojciech Rodriges MD Anesthesia Type: general ASA Status: 3 Anesthesia Type: general Airway Type: ETT Last Vitals Vitals Value Taken Time BP 124/57 07/22/241930 Temp 36 ??C (96.8 ??F) 07/22/241924 Pulse 85 07/22/241939 Resp 21 07/22/241939 SpO2 93 % 07/22/241939 Vitals shown include unfiled device data. Post [...] of care. Anesthesia Observations No Documentation SIGNATURE: Wojciech Rodriges MD PATIENT NAME: Danii Ernst DATE: July 22, 2024 TIME: 7:41 PM CSN: [id number] * Jesse Camejo MD - 07/22/2024 3:48 PM EDTAssociated Order(s): A-Line ANESTHESIOLOGY PROCEDURE NOTE A-Line General Information Procedure Start Time/Medication Administration: 07/22/2024 2:59 PM Procedure End Time: 07/22/2024 2:59 PM Patient location during procedure: OR Timeout Performed Pre-procedure: timeout performed Consent Obtained: Yes Indications: continuous blood pressure monitoring Staffing Anesthesiologist: Ana Li MD Resident: Dimitry Morgan MD Performed by: resident Preparation Sterility [...] the entire procedure.. Jesse Camejo MD SIGNATURE: Dimitry Morgan MD PATIENT NAME: Danii Ernst DATE: July 22, 2024 TIME: 3:48 PM CSN: [id number] * Dimitry Morgan MD - 07/22/2024 3:48 PM EDTAssociated Order(s): PIV ANESTHESIOLOGY PROCEDURE NOTE PIV General Information Procedure Start Time/Medication Administration: 07/22/2024 2:48 PM Procedure End Time: 07/22/2024 2:48 PM Patient Location: OR Staffing Anesthesiologist: Ana Li MD Resident: Dimitry Morgan MD Performed by: anesthesiologist Preparation Sterility Preparation: hand hygiene performed prior to procedure, surgical cap used, mask used, skin prep agent completely dried prior to procedure Site Prep: alcohol Procedure Details Indication: need for IV access Needle Size/Type: 16 gauge angiocath Orientation: Right Location: Forearm Imaging Guidance Used: No SIGNATURE: Dimitry Morgan MD PATIENT NAME: Danii Ernst DATE: July 22, 2024 TIME: 3:48 PM CSN: [id number] * Dimitry Morgan MD - 07/22/2024 3:47 PM EDTAssociated Order(s): Airway ANESTHESIOLOGY PROCEDURE NOTE Airway General Information Procedure Start Time/Medication Administration: 07/22/2024 2:45 PM Procedure End Time: 07/22/2024 2:46 PM Patient location during procedure: OR Timeout Performed Pre-procedure: timeout performed Consent Obtained: Yes Patient identity confirmed: arm band Staffing Anesthesiologist: Ana Li MD Resident: Dimitry Morgan MD Performed by: resident and other anesthesia staff Indications and Patient Condition Indications for airway management: anesthesia Preoxygenated: yes anesthesia circuit Method: sleep Cricoid Pressure: No Manual In-Line Stabilization: No Difficult Mask: No Final Airway Details Final airway type: endotracheal airway Final Endotracheal Airway: ETT Cuffed: yes Successful intubation technique: video laryngoscopy Devices used: [employer] Endotracheal tube insertion site: oral Blade: Isidro [...] trauma to lips or oral structures SIGNATURE: Dimitry Morgan MD PATIENT NAME: Danii Ernst DATE: July 22, 2024 TIME: 3:47 PM CSN: [id number] * Ana Li MD - 07/22/2024 1:55 PM EDT ANESTHESIOLOGY DAY OF SURGERY NOTE : 1980 Procedure Information Date/Time: 07/22/24 1315 Procedures: NEUROENDOSCOPY INTRACRANIAL W/ EXCISION OF PITUITARY TUMOR TRANS-NASAL APPROACH (Pending: Brain) STEREOTACTIC COMPUTER-ASSISTED NAVIGATIONAL PROCEDURE CRANIAL (Brain) NEUROENDOSCOPY INTRACRANIAL W/ EXCISION OF PITUITARY TUMOR TRANS-NASAL APPROACH (Pending: Brain) FASCIA ADAN SHEET GRAFT VIA INCISION & AREA EXPOSURE (Pending: Brain) Location: MAIN [address] [facility] Surgeons: Chito Sellers MD; Koko Gorman MD Estimated body mass index is 47.42 kg/m?? as calculated from the following: Height as [...] 07/21/2024 Neut% 68.8 07/21/2024 Lymph% 21.1 07/21/2024 Upson% 6.7 07/21/2024 Eosin% 2.9 07/21/2024 Baso% 0.4 07/21/2024 Abs Neut (ANC) 5.44 07/21/2024 Abs Upson 0.53 07/21/2024 Abs Eosin 0.23 07/21/2024 Abs [...] and consent discussed: yes. Patient / Responsible Green Party agrees to proceed: yes Patient / Surrogate agrees to blood products: yes DNR status not reviewed with patient and/or family prior to surgery. Significant changes in the patient condition since the History and Physical, not otherwise documented in primary service progress note: no. Potential Anesthesia issues that may suggest increased risk of complications or contraindication toplanned procedure: none. Vitals Value Taken Time BP 121/61 07/22/24 1151 Pulse 79 07/22/24 1151 Resp 14 07/22/24 1151 Temp 36.5 ??C (97.7 ??F) 07/22/24 1151 SpO2 94 % 07/22/24 1151 [...] obtained within 48 hours of Surgery/Procedure. SIGNATURE: ANA PHIPPS MD PATIENT NAME: Danii Ernst DATE: July 22, 2024 TIME: 1:55 PM CSN: [id number] documented in this encounter Plan of Treatment Upcoming Encounters Date Type Department Care Team (Latest Contact Info) Description 08/05/2024 1:00 PM EDT Office Visit Otolaryngology [address] [phone] Rojelio Courtney MD [address] [phone] post op 09/09/2024 11:20 AM EDT [facility] [address] [place] [address] Chito Sellers MD [address] [phone] Post-Op Scheduling Request 09/16/2024 2:30 PM EDT [facility] Endocrinology [address] [place] [address] Gail Escudero MD [address] [phone] Post-Op Scheduling Request documented as of this encounter Procedures Procedure Name Priority Date/Time Associated Diagnosis Comments ARTL CATHJ/CANNULJ MNTR/TRANSFUSION SPX PRQ Routine 07/22/2024 2:59 PM EDT PERIPHERAL IV PLACEMENT Routine 07/22/2024 2:48 PM EDT INTUBATION Routine 07/22/2024 2:45 PM EDT documented in this encounter Results * ARTL CATHJ/CANNULJ MNTR/TRANSFUSION SPX PRQ (07/22/2024 2:59 PM EDT) Narrative Jesse Camejo MD - 07/22/2024 2:59 PM EDT Jesse Camejo MD 07/22/2024 5:20 PM A-Line General Information Procedure Start Time/Medication Administration: 07/22/2024 2:59 PM Procedure End Time: 07/22/2024 2:59 PM Patient location during procedure: OR Timeout Performed Pre-procedure: timeout performed Consent Obtained: Yes Indications: continuous blood pressure monitoring Staffing Anesthesiologist: Ana Li MD Resident: Dimitry Morgan MD Performed by: resident Preparation Sterility [...] for the entire procedure.. Jesse Camejo MD us Jesse Camejo MD ANESTHESIA ORDERABLES Final Res ult * PIV (07/22/2024 2:48 PM EDT) Dimitry Roman MD - 07/22/2024 2:48 PM EDT Dimitry Morgan MD 07/22/2024 3:48 PM PIV General Information Procedure Start Time/Medication Administration: 07/22/2024 2:48 PM Procedure End Time: 07/22/2024 2:48 PM Patient Location: OR Staffing Anesthesiologist: Ana Li MD Resident: Dimitry Morgan MD Performed by: anesthesiologist Preparation Sterility Preparation: hand hygiene performed prior to procedure, surgical cap used, mask used, skin prep agent completely dried prior to procedure Site Prep: alcohol Procedure Details Indication: need for IV access Needle Size/Type: 16 gauge angiocath Orientation: Right Location: Forearm Imaging Guidance Used: No Jesse Camejo MD ANESTHESIA ORDERABLES Final Res ult * Airway (07/22/2024 2:45 PM EDT) Narrative Dimitry Morgan MD - 07/22/2024 2:45 PM EDT Dimitry Morgan MD 07/22/2024 3:48 PM Airway General Information Procedure Start Time/Medication Administration: 07/22/2024 2:45 PM Procedure End Time: 07/22/2024 2:46 PM Patient location during procedure: OR Timeout Performed Pre-procedure: timeout performed Consent Obtained: Yes Patient identity confirmed: arm band Staffing Anesthesiologist: Ana Li MD Resident: Dimitry Morgan MD Performed by: resident and other anesthesia staff Indications and Patient Condition Indications for airway management: anesthesia Preoxygenated: yes anesthesia circuit Method: sleep Cricoid Pressure: No Manual In-Line Stabilization: No Difficult Mask: No Final Airway Details Final airway type: endotracheal airway Final Endotracheal Airway: ETT Cuffed: yes Successful intubation technique: video laryngoscopy Devices used: Diaz Endotracheal tube insertion site: oral Blade: Isidro [...] no trauma to lips or oral structures Jesse Camejo MD ANESTHESIA ORDERABLES Final Res ult documented in this encounter Visit Diagnoses Not on filedocumented in this encounter Administered Medications Inactive Administered Medications - up to 3 most recent administrations Medication Order MAR Action Action Date Dose Rate Site ceFAZolin 2 g in dextrose (iso-osmotic) 50 mL (ANCEF,KEFZOL) 2 g, INTRAVENOUS, at 100 mL/hr, Administer over 30 Minutes, PRE-OP ONCE, 1 dose, On Sat07/22/24 at 1200, Neurosurgical Cases PRE-OP ANTIBIOTIC ADMINISTER ONLY IN SURGICAL AREA DO NOT ADMINSTER ON THE FLOOR HATHAWAY product = Refrigerate. B. Juarez DUPLEX product = Room Temp., Antimicrobial indication: Prophylaxis, Preprocedure Given 07/22/2024 2:48 PM EDT 2 g dexmedeTOMIDine injection (PRECEDEX) INTRAVENOUS, NEEDED, Starting on Sat07/22/24 at 1833, Until Sat07/22/24 at 192, Anesthesia Intraprocedure Given 07/22/2024 6:41 PM EDT 6 mcg Given 07/22/2024 6:33 PM EDT 4 mcg diphenhydrAMINE injection (BENADRYL) INTRAVENOUS, NEEDED, Starting on Sat07/22/24 at 1522, Until Sat07/22/24 at 1926, Anesthesia Intraprocedure Given 07/22/2024 3:22 PM EDT 25 mg droperidol injection (INAPSINE) INTRAVENOUS, NEEDED, Starting on Sat07/22/24 at 1522, Until Sat07/22/24 at 1926, Anesthesia Intraprocedure Given 07/22/2024 3:22 PM EDT 0.625 mg fentaNYL 50 mcg/mL injection (SUBLIMAZE) INTRAVENOUS, NEEDED, Starting on Sat07/22/24 at 1525, Until Sat07/22/24 at 1926, Anesthesia Intraprocedure Given 07/22/2024 3:25 PM EDT 50 mcg Given 07/22/2024 2:36 PM EDT 50 mcg lidocaine (PF) 10 mg/mL (1 %) injection (XYLOCAINE) INTRAVENOUS, NEEDED, Starting on Sat07/22/24 at 1436, Until Sat07/22/24 at 1926, Anesthesia Intraprocedure Given 07/22/2024 2:36 PM EDT 50 mg midazolam injection (VERSED) INTRAVENOUS, NEEDED, Starting on Sat07/22/24 at 1436, Until Sat07/22/24 at 1926, Anesthesia Intraprocedure Given 07/22/2024 2:36 PM EDT 2 mg NaCl 0.9% iv infusion INTRAVENOUS, X (ONE-STEP ONLY) CONTINUOUS PRN, Starting on Sat07/22/24 at 1430, Until Sat07/22/24 at 1926, Anesthesia Intraprocedure New Bag/Syringe/Bottle 07/22/2024 2:30 PM EDT ondansetron (PF) injection (ZOFRAN) INTRAVENOUS, NEEDED, Starting on Sat07/22/24 at 1843, Until Sat07/22/24 at 192, Anesthesia Intraprocedure Given 07/22/2024 6:43 PM EDT 4 mg PHENYLephrine 10 mg in D5W 250 mL (VANDANA-SYNEPHRINE) INTRAVENOUS, X (ONE-STEP ONLY) CONTINUOUS PRN, Starting on Sat07/22/24 at 1526, Until Sat07/22/24 at 192, Anesthesia Intraprocedure Rate/Dose Change 07/22/2024 6:19 PM EDT 25 mcg/min 37.5 mL/hr Rate/Dose Change 07/22/2024 6:07 PM EDT 20 mcg/min 30 mL/h r Rate/Dose Change 07/22/2024 5:38 PM EDT 15 mcg/min 22.5 mL /hr PHENYLephrine injection INTRAVENOUS, NEEDED, Starting on Sat07/22/24 at 1526, Until Sat07/22/24 at 192, Anesthesia Intraprocedure Given 07/22/2024 3:26 PM EDT 100 mcg propofol injection (DIPRIVAN) INTRAVENOUS, NEEDED, Starting on Sat07/22/24 at 1436, Until Sat07/22/24 at 192, Anesthesia Intraprocedure Given 07/22/2024 2:36 PM EDT 200 mg remifentanil 1 mg in NaCl 0.9% 250 mL INTRAVENOUS, X (ONE-STEP ONLY) CONTINUOUS PRN, Starting on Sat07/22/24 at 1457, Until Sat07/22/24 at 192, Anesthesia Intraprocedure Rate/Dose Change 07/22/2024 6:41 PM EDT 0.2 mcg/kg/min 352.8 mL/hr New Bag/Syringe/Bottle 07/22/2024 2:57 PM EDT 0.1 mcg/kg/m in 176.4 mL/hr rocuronium injection INTRAVENOUS, NEEDED, Starting on Sat07/22/24 at 1436, Until Sat07/22/24 at 192, Anesthesia Intraprocedure Given 07/22/2024 5:19 PM EDT 30 mg Given 07/22/2024 3:51 PM EDT 20 mg Given 07/22/2024 3:22 PM EDT 20 mg sugammadex injection (BRIDION) INTRAVENOUS, NEEDED, Starting on Sat07/22/24 at 1900, Until Sat07/22/24 at 1926, Anesthesia Intraprocedure Given 07/22/2024 7:00 PM EDT 200 mg documented in this encounter Care Teams Division Traffic Superintendent Relationship Specialty Start Date End Date Johnny Reardon DO [address] [place] [address] PCP - General Internal Medicine 07/27/22 Marie Mancuso PA-C [address] [place] [address] Electrical Software Engineer Internal Medicine 02/09/24 Gail Escudero MD [address] [place] [address] [place] Referring Team Endocrinology 05/12/24 documented as of this encounter
[2024-07-26 13:07] VITALS: BP 161/85; PULSE 74; TEMP 36.5; O2SAT 95; BMI 45.7
--- OUTSIDE RECORDS SUMMARY | 2024-07-26 13:07 | XMS_ITS | Encounter Summary ---
Author Organization [facility] Address [address] [place] [address] Care Team Providers Care Tube Bending Machine Operator Name Role Phone Johnny Reardon DO Primary Care Provider Marie Mancuso PA-C Unavailable [phone] Gail Escudero MD Unavailable [phone] Source Comments In the event this information is protected by the Federal Confidentiality of Alcohol and Drug AbusePatient Records regulations: The Federal rules restrict any use of the information to criminally investigate or prosecute any alcohol or drug abuse patient.[facility] Encounter Details Date Type Department Care Team (Late st Contact Info) Description 07/21/2024 Patient Msg [facility] [address] [place] [address] [place] [address] [place] [address] Surgery Instructions Social History Tobacco Use Types Packs/Day Years [...] Never 06/07/2022 How often do you attend muslim or anabaptism serv ices? Never 06/07/2022 Do you belong to any clubs o r organizations such as muslim groups, unions, fraternal or athletic groups, or [...] Answer Date Recorded PHQ-2 score 3 03/10/2024 [facility]at [facility] - Occupational [...] place to sleep or slept in a usp (including now)? No 06/07/2022 Area Deprivation Index Answer Date Kana rded National Score (1-100), lower number is lower ri sk 79 07/26/2022 State Score (1-10), lower number is lower risk 7 07/26/2022 Data from: https://www.neighborhoodatlas.medicine.[facility].edu/. Last address used for calculation [address] [place] [address] 07/26/2022 Comments No Sex and Gender Information [...] 1:00 PM EDT Office Visit Otolaryngology [address] [address] Rojelio Courtney MD [address] [place] [address] post op 09/09/2024 11:20 AM EDT [facility] [address] [place] [address] Chito Sellers MD [address] [place] [address] Post-Op Scheduling Request 09/16/2024 2:30 PM EDT [facility] Endocrinology [address] [place] [address] Gail Escudeor MD [address] [place] [address] Post-Op Scheduling Request documented as of this encounter Visit Diagnoses Not on filedocumented in this encounter Care Teams Tube Bending Machine Operator Relationship Specialty Start Date End Date Johnny Reardon DO [address] [place] [address] PCP - General Internal Medicine 07/27/22 Marie Mancuso PA-C [address] [place] [address] [place] Internal Medicine 02/09/24 Gail Escudero MD [address] [place] [address] NI Referring Team Endocrinology 05/12/24 documented as of this encounter
--- OUTSIDE RECORDS SUMMARY | 2024-07-26 13:07 | XMS_ITS | Encounter Summary ---
Author Organization [facility] Address [address] [place] [address] Care Team Providers Care Dimension Mill Worker Name Role Phone Johnny Reardon DO Primary Care Provider Mayela Faust APRN.SODA FOUNTAIN MANAGER Unavailable [phone] Marie Mancuso PA-C Unavailable [phone] Mai Amador PA-C Unavailable [phone] Gail Escudero MD Unavailable [phone] Source Comments In the event this information is protected by the Federal Confidentiality of Alcohol and Drug AbusePatient Records regulations: The Federal rules restrict any use of the information to criminally investigate or prosecute any alcohol or drug abuse patient.[facility] Encounter Details Date Type Department Care Team (Late st Contact Info) Description 01/31/2021 Patient Msg Cardiology [address] [place] [address] Provider, [facility] 4 Month Endocrinology Appointment Social History Tobacco Use Types Packs/Day Years Used Date Smoking Tobacco: Every Day Cigarettes Smokeless Tobacco: Never Alcohol Use Standard Drinks/Week Comments Not Asked 0 (1 standard drink = 0.6 oz pur e alcohol) Area Deprivation Index Answer Date Kana rded National Score (1-100), lower number is lower ri sk Not on file 02/08/2020 State Score (1-10), lower number is lower risk N ot on file 02/08/2020 Data from: https://www.neighborhoodatlas.[facility].edu/. Last address used for calculation Not on file 02/08/2020 Comments No Sex and Gender Information Value Date Recorded Sex Assigned at Female 09/09/2019 3:52 PM EDT Legal Sex Female 8:28 AM EST Gender Identity Female 09/09/2019 3:52 PM EDT Sexual Orientation Straight 09/09/2019 3: 52 PM EDT COVID-19 Exposure Response Date Recorded In the last month, have you been in contact with someone who was confirmed or suspected to have Coronavirus / COVID-19? No / Unsure 01/17/2021 2:53 PM EST documented as of this encounter Plan of Treatment Upcoming Encounters Date Type Department Care Team (Latest Contact Info) Description 08/05/2024 1:00 PM EDT Office Visit Otolaryngology [address] [id number] Rojelio Courtney MD [address] [id number] post op 09/09/2024 11:20 AM EDT [facility] [address] [id number] Chito Sellers MD [address] [id number] Post-Op Scheduling Request 09/16/2024 2:30 PM EDT [facility] Endocrinology [address] [id number] Gail Escudero MD [address] [id number] Post-Op Scheduling Request documented as of this encounter Visit Diagnoses Not on filedocumented in this encounter Care Teams Dimension Mill Worker Relationship Specialty Start Date End Date Johnny Reardon DO [address] [place] [address] PCP - General Internal Medicine 07/27/22 Mayela Faust APRN.SODA FOUNTAIN MANAGER [address] [place] [address] Line Supervisor Family Medicine 02/09/24 03/05/24 Marie Mancuso PA-C [address] [place] [address] Line Supervisor Internal Medicine 02/09/24 Mai Amador PA-C [address] [place] [place] [address] [facility] Internal Medicine 02/09/24 03/05/24 Gail Escudero MD [address] [facility] [place] [address] NI Referring Team Endocrinology 05/12/24 documented as of this encounter
--- OUTSIDE RECORDS SUMMARY | 2024-07-26 13:07 | XMS_ITS | Encounter Summary ---
Author Organization [facility] Address [address] [place] [address] Care Team Providers Care Research Dairy Farm Supervisor Name Role Phone Johnny Reardon DO Primary Care Provider Mayela Faust APRN.REFUSE AND RECYCLING WORKER Unavailable Marie Mancuso PA-C Unavailable [phone] Mai Amador PA-C Unavailable [phone] Gail Escudero MD Unavailable [phone] Source Comments In the event this information is protected by the Federal Confidentiality of Alcohol and Drug AbusePatient Records regulations: The Federal rules restrict any use of the information to criminally investigate or prosecute any alcohol or drug abuse patient.[facility] Encounter Details Date Type Department Care Team (Late st Contact Info) Description 01/12/2021 Patient Msg Endocrinology [address] [place], [place] [id number] Provider, [facility] Lab Reminder Social History Tobacco Use Types Packs/Day Years [...] N ot on file 02/08/2020 Data from: https://www.neighborhoodatlas.medicine.[facility]/. Last address used for calculation Not on [...] 1:00 PM EDT Office Visit Otolaryngology [address] [phone] Rojelio Courtney MD [address] [place] [address] post op 09/09/2024 11:20 AM EDT [facility] [address] [place] [address] Chito Sellers MD [address] [place], [place] [phone] Post-Op Scheduling Request 09/16/2024 2:30 PM EDT [facility] Endocrinology [address] [place] [address] Gail Escudero MD [address] [place] [address] Post-Op Scheduling Request documented as of this encounter Visit Diagnoses Not on filedocumented in this encounter Care Teams Research Dairy Farm Supervisor Relationship Specialty Start Date End Date Johnny Reardon DO [address] [place] [address] PCP - General Internal Medicine 07/27/22 Mayela Faust APRN.REFUSE AND RECYCLING WORKER [facility] [address] [facility] [place] [address] Universal Grinder Tool Family Medicine 02/09/24 03/05/24 Marie Mancuso PA-C [address] [place] [address] [employer] Internal Medicine 02/09/24 Mai Amador PA-C [address] [place] [address] Universal Grinder [employer] Internal Medicine 02/09/24 03/05/24 Gail Escudero MD [address] [place] [address] NI Referring Team Endocrinology 05/12/24 documented as of this encounter
--- OUTSIDE RECORDS SUMMARY | 2024-07-26 13:07 | XMS_ITS | Encounter Summary ---
Author Organization [facility] Address [address] [place] [address] Care Team Providers Care Tire Retreader Name Role Phone Johnny Reardon DO Primary Care Provider Marie Mancuso PA-C Unavailable [phone] Gail Escudero MD Unavailable [phone] Source Comments In the event this information is protected by the Federal Confidentiality of Alcohol and Drug AbusePatient Records regulations: The Federal rules restrict any use of the information to criminally investigate or prosecute any alcohol or drug abuse patient.[facility] Encounter Details Date Type Department Care Team (Latest Contact Info) Description 07/20/2024 Travel Social History Tobacco Use Types Packs/Day Years Used Date Smoking Tobacco: Every Day Cigarettes Smokeless Tobacco: Never Alcohol Use Standard Drinks/Week Comments Not Asked 0 (1 standard drink = 0.6 oz pur e alcohol) Social Connection and Isolation Panel [NHANES] A nswer Date Recorded In a typical week, how many times do you talk on the phone with family, friends, or neighbors? Once a week 06/07/2022 How often do you get together with friends or re latives? Never 06/07/2022 How often do you attend druze or congregation serv ices? Never 06/07/2022 Do you belong to any clubs o r organizations such as druze groups, unions, fraternal or athletic groups, or [...] Answer Date Recorded PHQ-2 score 3 03/10/2024 [facility] [place] of Occupat ional Health - Occupational Stress [...] is lower risk 7 07/26/2022 Data from: https://www.neighborhoodatlas.medicine.[facility].edu/. Last address used for calculation [address] [place] [address] 07/26/2022 Comments No Sex and Gender Information [...] 1:00 PM EDT Office Visit Otolaryngology [address] [phone] Rojelio Courtney MD [address] [phone] post op 09/09/2024 11:20 AM EDT [facility] [address] [phone] Chito Sellers MD [address] [phone] Post-Op Scheduling Request 09/16/2024 2:[address] [facility] Endocrinology [address] [place] [address] Gail Escudero MD [address] [facility] [place] [address] Post-Op Scheduling Request documented as of this encounter Visit Diagnoses Not on filedocumented in this encounter Care Teams Tire Retreader Relationship Specialty Start Date End Date Johnny Reardon DO [address] [place] [address] PCP - General Internal Medicine 07/27/22 Marie Mancuso PA-C [address] [place] [address] Pmp Certified Project Manager Internal Medicine 02/09/24 Gail Escudero MD [address] [place] [address] NI Referring Team Endocrinology 05/12/24 documented as of this encounter
--- OUTSIDE RECORDS SUMMARY | 2024-07-26 13:07 | XMS_ITS | Clinical Summary ---
Author Organization [facility] Address [address] [place] [address] Care Team Providers Care Cuff Stitcher Name Role Phone Johnny Reardon DO Primary Care Provider Marie Mancuso PA-C Unavailable [phone] Gail Escudero MD Unavailable [phone] Allergies No known active allergies Medications acyclovir (ZOVIRAX) 400 mg tablet TAKE 1 TABLET EVERY 12 HOURS. LAST REFILL UNTIL OFFICE VISIT 60 tablet 11 024 Active levothyroxine (SYNTHROID) 50 mcg tabletIndications:Hy pothyroidism (acquired) take 1 tablet every day 90 tablet 3 024 Active Additional Information Patient not taking.Reported on 07/21/2024 esomeprazole (NEXIUM) 40 mg capsule Take 1 capsule by mouth once daily. 90 capsule 1 024 Active buPROPion SR (WELLBUTRIN SR) 150 mg 12 hr tablet Take 1 tablet by mouth daily at bedtime. 90 tablet 025 Active Additional Information Patient not taking.Reported on 07/21/2024 MULTIVITAMIN ORAL Take 1 tablet by mouth once daily. Active diphenhydramine HCl (BENADRYL ALLERGY ORAL) Take by mouth as needed. Active acetaminophen (TYLENOL) 325 mg tablet Take 650 mg by mouth every 6 hours as needed. Active ibuprofen (MOTRIN) 600 mg tablet Take 1 tablet by mouth every 6 hours as needed for pain (take with food). 20 tablet 07/24/19 25 3:48 PM EDT 025 Active senna-docusate (SENNA-S) 8.6-50 mg per tablet 1 tablet by ORAL/FEEDING TUBE route two times a day. 60 tablet 025 Active sodium chloride 0.65 % nasal spray Use 2 sprays in each nostril five times a day. 176 mL 1 025 Active cabergoline (DOSTINEX) 0.5 mg tabletIndications:Pi tuitary microadenoma with hyperprolactinemia (HCC),Pituitary macroadenoma with extrasellar extension (HCC),Hyperprolactin emia (HCC) TAKE 2 TABLETS SIX DAYS OF THE WEEK AND 1 TABLET ONE DAY OF THE WEEK. 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 Hyperprolactinemia 01/01/2020 Assessment & Plan (07/23/2024 9:37 AM EDT): PRL 5.3 postop Follow up with Dr. Gabbi Trent as scheduled Microadenoma 09/15/2019 Pituitary macroadenoma with extrasellar extensio n 03/12/2016 Assessment & Plan (07/23/2024 9:37 AM EDT): Treated with EEA for resection Appreciate ENT recs and assistance: TSA precautions, ocean spray MRI skull base outpatient [facility] 20.9 DI watch: strict I&O, Na PRN UOP Mobilize, OOB for meals Pain control: tylenol, transition toradol to PO ibuprofen (no IV access) Hypothyroidism (acquired) 03/12/2016 Assessment & Plan (07/21/2024 3:29 PM EDT): Not currently taking Synthroid Secondary amenorrhea 03/12/2016 Usha duct, cyst 07/21/2009 Resolved Problems Problem Noted Date Diagnosed Date Resolved Date Nipple discharge in female 03/12/2016 0 09/25/2016 Encounters Date Type Department Care Team Description 07/22/2024 2:30 PM EDT Anesthesia Event Admitting [address] [place] [address] Wojciech Rodriges MD Hansen, Austin, MD 07/22/2024 1:15 PM EDT - 07/22/2024 6:45 PM EDT Surgery Admitting [address] [place], [place] [id number] Chito Sellers MD NEUROENDOSCOPY INTRACRANIAL W/ EXCISION OF PITUITARY TUMOR TRANS-NASAL APPROACH 07/22/2024 11:14 AM EDT - 07/23/2024 4:06 PM EDT Hospital Encounter HOSP MAIN [address] [id number] Chito Sellers MD Pituitary adenoma (HCC) [D35.2] Discharge Disposition: Home 07/22/2024 Travel 07/21/2024 5:08 PM EDT - 07/21/2024 11:59 PM EDT Hospital Encounter MRI Q [address] [address] Pituitary adenoma (HCC) [D35.2] Discharge Disposition: Home 07/21/2024 4:00 PM EDT - 07/21/2024 5:07 PM EDT Hospital Encounter Radiology [address] [address] Pituitary adenoma (HCC) [D35.2] Discharge Disposition: Home 07/21/2024 3:10 PM EDT Procedure Cardiology [address] [id number] 07/21/2024 2:20 PM EDT PAT Pre Anesthesia [address] [place], [place] [id number] 6, Pacc Main Pre-op evaluation (Primary Dx); Hypothyroidism (acquired); Class 3 severe obesity due to excess calories with serious comorbidity and body mass index (BMI) of 45.0 to 49.9 in adult; Paranoid schizophrenia, chronic condition with acute exacerbation (HCC) 07/21/2024 1:00 [place] [address] Dominique De La O, RN Pituitary adenoma (HCC) (Primary Dx) 07/21/2024 11:45 AM EDT Office Visit Otolaryngology [address] [id number] Koko Gorman MD Prolactinoma (HCC) (Primary Dx); Pituitary tumor 07/21/2024 Patient [place] [id number] Dominique De La O, geotechnical operating engineer Instructions 07/20/2024 Travel 06/23/2024 Patient [facility] [place] [address] [phone] Provider, [facility] PRE-OP appt are scheduled and PLEASE read all instructions. 06/23/2024 [place] [address] Provider, [facility] Post op 06/23/2024 [place] [address] Chito Sellers MD Post Op 06/23/2024 Cure Form [place] [id number] Chito Sellers MD Pituitary adenoma (HCC) (Primary Dx); Other postprocedural endocrine and metabolic complications and disorders; Other specified disorders of nose and nasal sinuses 06/10/2024 9:20 AM EDT [facility] [place] [id number] [place] [address] Chito Sellers MD Pituitary macroadenoma with extrasellar extension (HCC) (Primary Dx); Hyperprolactinemia (HCC); Class 3 severe obesity due to excess calories without serious comorbidity with body mass index (BMI) of 45.0 to 49.9 in adult 06/10/2024 Patient [facility] [address] [address] Provider, [facility] Visit Follow Up 06/09/2024 Travel 05/13/2024 Patient [facility] [address] [address] Chito Sellers MD Appointment Request 05/01/2024 [facility] [address] [place] [address] Provider, [facility] Scheduling Needed 05/01/2024 Patient Outreach Navigate [facility] [address] [place] [address] Juana Jackson MA Population Health Navigation Outreach (Mona Pace) 04/28/2024 Get Medical Advice Endocrinology [address] [place] [address] Gail Escudero MD Medication update 04/28/2024 Get Medical Advice Internal Medicine [address] [place] [address] [address] [phone] Johnny Reardon, DO Medication from Last 3 Months Family History Medical History Relation Comments Anesthesia Problems No Family History Social History Tobacco Use Types Packs/Day Years [...] Never 06/07/2022 How often do you attend rastafari or tenriism serv ices? Never 06/07/2022 Do you belong to any clubs o r organizations such as rastafari groups, unions, fraternal or athletic groups, or [...] Answer Date Recorded PHQ-2 score 3 03/10/2024 [facility] - Occupational Stress Questionnaire Answer Date Recorded [...] place to sleep or slept in a penitentiary (including now)? No 06/07/2022 Area Deprivation Index Answer Date Kana rded National Score (1-100), lower number is lower ri sk 79 07/26/2022 State Score (1-10), lower number is lower risk 7 07/26/2022 Data from: https://www.neighborhoodatlas.medicine.[facility].edu/. Last address used for calculation [address] [place] [address] 07/26/2022 Comments No Sex and Gender Information Value Date Recorded Sex Assigned at Female 09/09/2019 3:52 PM EDT Legal Sex Female 8:28 AM EST Gender Identity Female 09/09/2019 3:52 PM EDT Sexual Orientation Straight 09/09/2019 3: 52 PM EDT Last Filed Vital Signs Vital Sign Reading [...] Mass Index 47.42 07/21/2024 2:01 PM EDT Plan of Treatment Upcoming Encounters Date Type Department Care Team (Latest Contact Info) Description 08/05/2024 1:00 PM EDT Office Visit Otolaryngology [address] [address] Maren Courtney MD [address] [place] [address] post op 09/09/2024 11:20 AM EDT [facility] [address] [place] [address] Chito Sellers MD [address] [place] [address] Post-Op Scheduling Request 09/16/2024 2:30 PM EDT [facility] Endocrinology [phone] [place] [address] Gail Escudero MD [address] [place] [address] Post-Op Scheduling Request Health Maintenance Due Date Last Done Comments Anxiety Screening 2000 Depression Screening 2000 DTaP,Tdap,Td Vaccine (1 - Tdap) 2001 Hepatitis B Vaccine (1 of 3 - 19+ 3-dose series) 2001 Pneumococcal Vaccine (1 of 2 - PCV) 2001 Covid-19 Vaccine ( - season) 2023 Mammogram Screening 08/06/2024 08/07/2023, Annual PCP Team Chronic Disease Visit 09/08/202410/2023 Influenza Vaccine (Season Ended) 2024 Cervical Cancer Screening 06/20/2027 06/19/2022, HIV Screening Completed 08/03/2022 Hepatitis C Screening Completed 08/03/2022 Medical Devices Implanted Type Area Test Worker Device Identifier Shelf Expiration Date Model / Serial / Lot Patch Duramatrix-Onlay Plus Collagen 1x1in Dural Regeneration Membrane - [id number] Implanted:Qty: 1 on 07/22/2024 by Chito Sellers MD at [facility] Implant N/A: Nose [employer] 04/03/2025 [id number] / / [id number] Description:DURAMATRIX-ONLAY CONFORM 1in x 1in Procedures Procedure Name Priority Date/Time Associated Diagnosis [...] + MG STAT 07/22/2024 3:33 PM EDT ARTL CATHJ/CANNULJ MNTR/TRANSFUSION SPX PRQ Routine 07/22/2024 2:59 PM EDT PERIPHERAL IV PLACEMENT Routine 07/22/2024 2:48 PM EDT INTUBATION Routine 07/22/2024 2:45 PM EDT FASCIA ADAN GRAFT INCISION & AREA EXPOSURE 07/22/2024 2:13 PM EDT Pituitary adenoma (HCC) NUNDSC ICRA EXC PITUITRY VEE TRNSNSL/SPHENOID 07/22/2024 2:13 PM EDT Pituitary adenoma (HCC) STRTCTC CPTR ASSTD PX CRANIAL INTRADURAL 07/22/2024 2:13 PM EDT Pituitary adenoma (HCC) NUNDSC ICRA EXC PITUITRY VEE TRNSNSL/SPHENOID 07/22/2024 2:13 PM EDT Pituitary adenoma (HCC) MRI SKULL BASE WO/W IVCON Routine 07/21/2024 6:31 PM EDT Pituitary adenoma (HCC) CT SINUS STEREO WO IVCON Routine 07/21/2024 5:04 PM EDT Pituitary adenoma (HCC) CONFIRM BLOOD TYPE Routine 07/21/2024 3: 45 PM EDT Pituitary adenoma (HCC) TYPE + SCREEN,30 DAY Routine 07/21/2024 3:38 PM EDT Pituitary adenoma (HCC) STAPHYLOCOCCUS AUREUS & MRSA SCREEN, PCR, NASAL Routine 07/21/2024 3:38 PM EDT Pituitary adenoma (HCC) CBC + DIFF Routine 07/21/2024 3:38 PM EDT Pituitary adenoma (HCC) BASIC METABOLIC PANEL Routine 07/21/2024 3:38 PM EDT Pituitary adenoma (HCC) ECG COMPLETE Routine 07/21/2024 3:08 PM EDT Pre-op evaluation BENITA WHAT TO EXPECT DURING YOUR HOSPITAL STAY 06/24/2024 ARTEMIO DIAG W YVON BILATERAL Routine 08/07/2023 1:35 PM EDT HIV 1/2 COMBO WITH REFLEX TO DIFFERENTIATION Routine 08/03/2022 2:01 PM EDT Screening for HIV (human immunodeficiency virus) Special screening examination for viral disease HEPATITIS C ANTIBODY IA WITH CONFIRMATION Routine 08/03/2022 2:01 PM EDT Special screening examination for viral disease PAP TEST Routine 06/19/2022 3:39 PM EDT History of abnormal cervical Pap smear from Last 3 Months or Most Recently Relevant to Health Maintenance Results * PROLACTIN (07/23/2024 5:03 AM EDT) Prolactin 5.3 4.4 - 33.8 ng/mL 07/23/2024 6:49 AM EDT [facility] Comment:Prolactin test is pe rformed using the [employer] Electrochemiluminescence Immunoassay method. Results obtained with different methods or kits cannot be used interchangeably. Blood BLOOD SPECIMEN / Unknown Venipuncture / Unknown 07/23/2024 5:03 AM EDT 07/23/2024 5:13 AM EDT us Chito Sellers MD LABORATORY Final Result Performing Organization Address [facility] de Phone Number [facility] [address] [place] [address], [place] * (ABNORMAL) CORTISOL, SERUM (07/23/2024 5:03 AM EDT) Cortisol 20.9(H) 4.8 - 19.5 ug/dL 07/23/2024 6:49 AM EDT [facility] Comment: Provided reference range is from 6-10 AM sample collection time. Cortisol Reference Range: 6-10 AM = 4.8-19.5 ug/dL, 4-8 PM = 2.5-11.9 ug/dL Blood BLOOD SPECIMEN / Unknown Venipuncture / Unknown 07/23/2024 5:03 AM EDT 07/23/2024 5:13 AM EDT us Chito Sellers MD LABORATORY Final Result Performing Organization Address [facility] Co de Phone Number [facility] [address] [place] [address], [place] * (ABNORMAL) BASIC METABOLIC PANEL (07/23/2024 5:03 AM EDT) Only the most recent of3 resultswithin the time period is included. Glucose 153(H) 74 - 99 mg/dL 07/23/2024 6:35 AM EDT [facility] Comment: The [place] Diabetes Association (ADA) provides guidance for cutoff [...] Standards of Medical Care in Diabetes 2016, [place] Diabetes Association. Diabetes Care. 2016.39(Suppl 1). BUN 8 7 - 21 mg/dL 07/23/2024 6:35 AM [facility] Creatinine 0.85 0.58 - 0.96 mg/dL 07/23/2024 6:35 AM [facility] Sodium 141 136 - 144 mmol/L 07/23/2024 6:35 AM [facility] Potassium 3.7 3.7 - 5.1 mmol/L 07/23/2024 6:35 AM [facility] Chloride 108(H) 98 - 107 mmol/L 07/23/2024 6:35 AM [facility] CO2 21(L) 22 - 30 mmol/L 07/23/2024 6:35 AM [facility] Anion Gap 12 8 - 15 mmol/L 07/23/2024 6:35 AM [facility] Calcium, Total 8.3(L) 8.5 - 10.2 mg/dL 07/23/2024 6:35 AM [facility] Estimated Glomerular Filtration Rate 88 >=60 mL/min/1.7 3m 07/23/2024 6:35 AM [facility] Comment:Estimated Glomerular Filtration Rate [...] us Chito Sellers MD LABORATORY Final Result [facility] [address] [facility] [address] [place] [address], [place] * XR SHOULDER LIMITED 2V AP/TRUE AP LEFT (07/22/2024 8:17 PM EDT) Anatomical Region Laterality Modality Shoulder Radiographic Guera ging 07/22/2024 8:17 PM EDT Impressions 07/22/2024 8:33 PM EDT IMPRESSION: No acute fracture or dislocation. Java Developer Analyst: SASHA Transcribe Date/Time: Jul 22 2024 8:19P Dictated [...] No other significant abnormality. Procedure Note Provider, [facility] [place] - 07/22/2024 * * *Final Report* * [...] IMPRESSION IMPRESSION: No acute fracture or dislocation. Java Developer Analyst: PSCB Transcribe Date/Time: Jul 22 2024 8:19P Dictated by : LAMBERTO ELLIOTT MD This examination was interpreted and the report reviewed and electronically signed by: LAMBERTO ELLIOTT MD on Jul 22 2024 8:31PM EST us Chito Sellers MD RAD-PAMA Final Result * (ABNORMAL) ARTERIAL BLOOD GASES WITH IONIZED MAGNESIUM (07/22/2024 6:41 PM EDT) Only the most recent of2 resultswithin the time period is included. pH, Arterial 7.35 7.35 - 7.45 07/22/2024 6:52 PM EDT [facility] pH, Temp Corrected, Arterial 7.35 7.35 - 7.45 07/22/2024 6:52 PM EDT [facility] pCO2, Arterial 43 36 - 46 mm Hg 07/22/2024 6:52 PM EDT [facility] pCO2, Temp Corrected, Arterial 43 36 - 46 mmHg 07/22/2024 6:52 PM EDT [facility] pO2, Arterial 191(H) 85 - 95 mm Hg 07/22/2024 6:52 PM EDT [facility] pO2, Temp Corrected, Arterial 191(H) 85 - 95 mmHg 07/22/2024 6:52 PM EDT [facility] Bicarbonate, Arterial 23 22 - 26 mmol/L 07/22/2024 6:52 PM EDT [facility] O2 Saturation, Arterial 99(H) 95 - 98 % 07/22/2024 6:52 PM T [facility] Base Deficit, Arterial -2 -2 - 0 mmol/L 07/22/2024 6:52 PM T [facility] Oxyhemoglobin, Arterial 97 95 - 98 % 07/22/2024 6:52 PM T [facility] Carboxyhemoglo bin, Arterial 1.8 0.0 - 2.0 % 07/22/2024 6:52 PM T [facility] Comment:Carboxyhemoglobin Re ference Range for Smokers: 2.0-8.0% Methemoglobin, Arterial 0.9 0.0 - 1.5 % 07/22/2024 6:52 PM [facility] Sodium, Whole Blood 139 136 - 144 mmol/L 07/22/2024 6:52 PM [facility] Potassium, Whole Blood 3.7 3.5 - 5.0 mmol/L 07/22/2024 6:52 PM T [facility] Calcium Ionized, Whole Blood 1.05(L) 1.08 - 1.30 mmol/L 07/22/2024 6:52 PM [facility] Calcium Ionized, pH corrected 1.02(L) 1.08 - 1.30 mmol/L 07/22/2024 6:52 PM [facility] Glucose, Whole Blood 110(H) 60 - 105 mg/dL 07/22/2024 6:52 PM [facility] Lactate 1.0 0.5 - 2.2 mmol/L 07/22/2024 6:52 PM [facility] Ionized Magnesium 0.66(H) 0.45 - 0.60 mmol/L 07/22/2024 6:52 PM [facility] Hemoglobin, Whole Blood 11.4(L) 11.5 - 15.5 g/dL 07/22/2024 6:52 PM [facility] Hematocrit, Whole Blood 35.2(L) 36.0 - 46.0 % 07/22/2024 6:52 PM EDT [facility] Blood, Arterial BLOOD SPECIMEN / Unknown 07/22/2024 6:41 PM EDT 07/22/2024 6:47 PM EDT us Gabriela Petersen REFERENCE INVESTIGATOR.CORE INSPECTOR BLOOD GASES Fin al Result [facility] [address] [place] [address], * SURGICAL PATHOLOGY (07/22/2024 5:55 PM EDT) Case Report Surgical Pathology Report Case: [id number] Authorizing Provider: Chito Sellers MD Collected: 07/22/2024 05:55 PM Ordering Location: Admitting Received: 07/22/2024 06:09 PM Pathologist: Carlos Kennedy MD Specimen: Soft Tissue, Mass, Resection, sellar mass 07/24/2024 3:58 PM EDT [facility] FINAL DIAGNOSIS A. [place] region, biopsy: - Pituitary neuroendocrine tumor (pituitary adenoma). RAP/bs 07/24/2024 07/24/2024 3:58 PM EDT [facility] at 1558 EDT Diagnosis Comment An addendum will be issued following immunostaining of the tumor with antibodies to pituitary hormones and Ki-67. 07/24/2024 3:58 PM EDT [facility] Gross Description A. Soft Tissue, Mass, Resection Received in formalin labeled sellar mass are multiple hodges-pink, irregularly-shaped soft tissue fragments aggregating to 1.2 x 0.3 x 0.3 cm. Entirely submitted in one cassette. HMZ 07/23/24 10:01 AM Gross examination performed at [facility], [address] [place] [address], [place] [address] 07/24/2024 3:58 PM EDT [facility] Clinical History Pre-op diagnosis: Pituitary adenoma (HCC) [D35.2] 07/24/2024 3:58 PM EDT [facility] Performing Lab Diagnostic interpretation performed at: [facility], [address] [facility] [place] [address] CLIA# [id number] Filter Tank Operator: Adrian Treadwell MD 07/24/2024 3:58 PM EDT [facility] Disclaimer Laboratory Developed Test (LDT) Disclaimer: Performance characteristics of immunohistochemica l, immunofluorescent, and chromogenic in-situ hybridization tests have been determined by the performing laboratory within [facility]'s [facility] Pathology and Laboratory Medicine Department ([facility], [facility], [facility], [facility], [facility], [facility], or [facility]) in a manner consistent with CLIA requirements. One or more of these tests may not have been cleared or approved by the FDA. [facility] is regulated under CLIA as qualified to perform high-complexity testing. These tests are used for clinical purposes. These should not be regarded as investigational or for research. Positive and negative controls stain appropriately. 07/24/2024 3:58 PM EDT [facility] Tissue RADICAL RESECTION OF SOFT TISSUE / Unknown 07/22/2024 5:55 PM EDT 07/22/2024 6:09 PM EDT Comment:Pre-op diagnosis: Pituitary adenoma (HCC) [D35.2] us Chito Sellers MD SURGICAL PATHOLOGY Final Res ult [facility] [place] [address], [place] * (ABNORMAL) ARTERIAL BLOOD GASES (07/22/2024 4:33 PM EDT) pH, Arterial 7.35 7.35 - 7.45 07/22/2024 4:51 PM EDT [facility] pH, Temp Corrected, Arterial 7.35 7.35 - 7.45 07/22/2024 4:51 PM EDT [facility] pCO2, Arterial 44 36 - 46 mm Hg 07/22/2024 4:51 PM EDT [facility] pCO2, Temp Corrected, Arterial 44 36 - 46 mmHg 07/22/2024 4:51 PM [facility] pO2, Arterial 202(H) 85 - 95 mm Hg 07/22/2024 4:51 PM [facility] pO2, Temp Corrected, Arterial 202(H) 85 - 95 mmHg 07/22/2024 4:51 PM [facility] Bicarbonate, Arterial 24 22 - 26 mmol/L 07/22/2024 4:51 PM [facility] O2 Saturation, Arterial 99(H) 95 - 98 % 07/22/2024 4:51 PM [facility] Base Deficit, Arterial -1 -2 - 0 mmol/L 07/22/2024 4:51 PM [facility] Oxyhemoglobin, Arterial 96 95 - 98 % 07/22/2024 4:51 PM [facility] Carboxyhemoglo bin, Arterial 2.0 0.0 - 2.0 % 07/22/2024 4:51 PM [facility] Comment:Carboxyhemoglobin Re ference Range for Smokers: 2.0-8.0% Methemoglobin, Arterial 1.1 0.0 - 1.5 % 07/22/2024 4:51 PM [facility] Sodium, Whole Blood 139 136 - 144 mmol/L 07/22/2024 4:51 PM [facility] Potassium, Whole Blood 3.4(L) 3.5 - 5.0 mmol/L 07/22/2024 4:51 PM [facility] Calcium Ionized, Whole Blood 1.07(L) 1.08 - 1.30 mmol/L 07/22/2024 4:51 PM [facility] Calcium Ionized, pH corrected 1.05(L) 1.08 - 1.30 mmol/L 07/22/2024 4:51 PM [facility] Glucose, Whole Blood 119(H) 60 - 105 mg/dL 07/22/2024 4:51 PM [facility] Lactate 1.1 0.5 - 2.2 mmol/L 07/22/2024 4:51 PM [facility] Hemoglobin, Whole Blood 11.8 11.5 - 15.5 g/dL 07/22/2024 4:51 PM EDT [facility] Hematocrit, Whole Blood 36.3 36.0 - 46.0 % 07/22/2024 4:51 PM EDT [facility] Blood, Arterial BLOOD SPECIMEN / Unknown 07/22/2024 4:33 PM EDT 07/22/2024 4:44 PM EDT us Jesse Camejo MD BLOOD GASES Final Result [facility] [address] [facility] [place] [address], [place] * ARTL CATHJ/CANNULJ MNTR/TRANSFUSION SPX PRQ (07/22/2024 [...] monitoring Staffing Anesthesiologist: Gale Li MD Resident: Dimitry Morgan MD Performed [...] ult * PIV (07/22/2024 2:48 PM EDT) Narrative Dimitry Morgan MD - 07/22/2024 2:48 PM EDT Dimitry Morgan MD 07/22/2024 3:48 PM PIV General Information Procedure Start Time/Medication Administration: 07/22/2024 2:48 PM Procedure End Time: 07/22/2024 2:48 PM Patient Location: OR Staffing Anesthesiologist: Glae Li MD Resident: Dimitry Morgan MD Performed [...] band Staffing Anesthesiologist: Gale Li MD Resident: Dimitry Morgan MD Performed by: resident and other anesthesia staff Indications and Patient Condition Indications for airway management: anesthesia Preoxygenated: yes anesthesia circuit Method: sleep Cricoid Pressure: No Manual In-Line Stabilization: No Difficult Mask: No Final Airway Details Final airway type: endotracheal airway Final Endotracheal Airway: ETT Cuffed: yes Successful intubation technique: video laryngoscopy Devices used: Xiaoi Robert Endotracheal tube insertion site: oral Blade: Isidro [...] no trauma to lips or oral structures us Jesse Camejo MD ANESTHESIA ORDERABLES Final Res ult * MRI SKULL BASE WO/W IVCON (07/21/2024 6:31 PM EDT) Anatomical Region Laterality Modality Skull Magnetic Resonan ce 07/21/2024 6:31 PM EDT Impressions 07/22/2024 8:15 AM EDT IMPRESSION: Preoperative examination. Stable likely adenoma protruding into the left sphenoid sinus. Java Developer Analyst: PSCB Transcribe Date/Time: Jul 22 2024 8:07A [...] base. Unremarkable extracranial structures. Procedure Note Provider, [facility] [place] - 07/22/2024 * * *Final Report* * [...] adenoma protruding into the left sphenoid sinus. Java Developer Analyst: PSCB Transcribe Date/Time: Jul 22 2024 8:07A Dictated by : MAREN BASHIR MD This examination was interpreted and the report reviewed and electronically signed by: MAREN BASHIR MD on Jul 22 2024 8:13AM EST us Chito Sellers MD MRI-PAMA Final Result * CT SINUS STEREO WO IVCON (07/21/2024 5:04 PM EDT) Anatomical Region Laterality Modality Head Computed Tomogra phy 07/21/2024 5:04 PM EDT Impressions 07/21/2024 7:58 PM EDT IMPRESSION: No significant inflammatory sinus disease at this time. Erosive changes along the dorsum sellae and medial aspect of the distal left carotid canal from known pituitary adenoma as described. Java Developer Analyst: PSCB Transcribe Date/Time: Jul 21 2024 7:46P Dictated by : ANTHONY MUSA MD This examination was interpreted and the report reviewed and electronically signed by: ANTHONY MUSA MD on Jul 21 2024 7:56PM EST Narrative 07/21/2024 7:58 PM EDT * * *Final Report* * * DATE OF EXAM: Jul 21 2024 5:04PM [facility] [id number] - CT SINUS STEREO WO IVCON [...] None Sinus Chambers: Sinuses are clear. LEFT Martelle Imperial Score: 0 RIGHT Martelle Juliano Score: 0 TOTAL Martelle Imperial Score: 0 Nasal Cavities: Visualized nasal cavities [...] images: No significant findings. Procedure Note Provider, [facility] [place] - 07/21/2024 * * *Final Report* * * DATE OF EXAM: Jul 21 2024 5:04PM [facility] [id number] - CT SINUS STEREO WO IVCON [...] None Sinus Chambers: Sinuses are clear. LEFT Martelle Juliano Score: 0 RIGHT Max Juliano Score: 0 TOTAL Martelle Imperial Score: 0 Nasal Cavities: Visualized nasal cavities [...] canal from known pituitary adenoma as described. Java Developer Analyst: [facility] Transcribe Date/Time: Jul 21 2024 7:46P Dictated by : ANTHONY MUSA MD This examination was interpreted and the report reviewed and electronically signed by: ANTHONY MUSA MD on Jul 21 2024 7:56PM EST Chito Sellers MD CT-PAMA Final Result * CONFIRM BLOOD TYPE (07/21/2024 3:45 PM EDT) ABO A 07/21/2024 7:31 PM EDT CC MAIN BLOOD BANK Rh(D) Positive 07/21/2024 7:31 PM EDT MAIN BLOOD BANK Blood BLOOD SPECIMEN / Unknown Venipuncture / Unknown 07/21/2024 3:45 PM EDT 07/21/2024 3:45 PM EDT us Chito Sellers MD BLOOD BANK Final Result [facility] [address] [facility] [address] [address], * STAPHYLOCOCCUS AUREUS & MRSA SCREEN, PCR, NASAL (07/21/2024 3:38 PM EDT) Staphylococcus aureus DNA Not Detected Not Detected CEPHEID GENEXPERT COVID19 07/21/2024 9:27 PM EDT [facility] Swab POSTERIOR NARES / Unknown Non Blood / Unknown 07/21/2024 3:38 PM EDT 07/21/2024 3:38 PM EDT us Chito Sellers MD LABORATORY Final Result Performing Organization Address City/[facility]/ZIP Co de Phone Number [facility] [address] [id number], [place] * TYPE AND SCREEN,30 DAY (07/21/2024 3:38 PM EDT) [facility] ABO A 07/21/2024 9:06 PM EDT CC MAIN BLOOD BANK Rh(D) Positive 07/21/2024 9:06 PM EDT CC MAIN BLOOD BANK Antibody Screen Negative 07/21/2024 9:06 PM EDT MAIN BLOOD BANK Blood BLOOD SPECIMEN / Unknown Venipuncture / Unknown 07/21/2024 3:38 PM EDT 07/21/2024 3:38 PM EDT us Chito Sellers MD BLOOD BANK Final Result Performing Organization Address [facility] de Phone Number CC MAIN BLOOD BANK [address] [id number], [place] * (ABNORMAL) COMPLETE BLOOD COUNT AND DIFFERENTIAL (07/21/2024 3:38 PM EDT) [facility] WBC 7.91 3.70 - 11.00 k/uL 07/21/2024 5:44 PM EDT [facility] RBC 4.31 3.90 - 5.20 m/uL 07/21/2024 5:44 PM EDT [facility] Hemoglobin 13.1 11.5 - 15.5 g/dL 07/21/2024 5:44 PM EDT [facility] Hematocrit 38.5 36.0 - 46.0 % 07/21/2024 5:44 PM EDT [facility] MCV 89.3 80.0 - 100.0 fL 07/21/2024 5:44 PM EDT [facility] MCH 30.4 26.0 - 34.0 pg 07/21/2024 5:44 PM EDT [facility] MCHC 34.0 30.5 - 36.0 g/dL 07/21/2024 5:44 PM EDT [facility] RDW-CV 12.7 11.5 - 15.0 % 07/21/2024 5:44 PM EDT [facility] Platelet Count 404(H) 150 - 400 k/uL 07/21/2024 5:44 PM EDT [facility] MPV 9.2 9.0 - 12.7 fL 07/21/2024 5:44 PM EDT [facility] Neutrophils % 68.8 % 07/21/2024 5:44 PM EDT [facility] Abs Neut 5.44 1.45 - 7.50 k/uL 07/21/2024 5:44 PM EDT [facility] Lymphocytes % 21.1 % 07/21/2024 5:44 PM EDT [facility] Abs Lymph 1.67 1.00 - 4.00 k/uL 07/21/2024 5:44 PM EDT [facility] Monocytes % 6.7 % 07/21/2024 5:44 PM EDT [facility] Abs Stanton 0.53 <0.87 k/uL 07/21/2024 5:44 PM EDT [facility] Eosinophils % 2.9 % 07/21/2024 5:44 PM EDT [facility] Abs Eosin 0.23 <0.46 k/uL 07/21/2024 5:44 PM EDT [facility] Basophils % 0.4 % 07/21/2024 5:44 PM EDT [facility] Abs Baso 0.03 <0.11 k/uL 07/21/2024 5:44 PM EDT [facility] Immature Granulocytes % 0.1 % 07/21/2024 5:44 PM EDT [facility] Abs Immature Gran <0.03 <0.10 k/uL 025 5:44 PM EDT [facility] NRBC 0.0 /100 WBC 07/21/2024 5:44 PM EDT [facility] Absolute nRBC <0.01 <0.01 k/uL 07/21/2024 5:44 PM EDT [facility] Diff Type Auto 07/21/2024 5:44 PM EDT [facility] Blood BLOOD SPECIMEN / Unknown Venipuncture / Unknown 07/21/2024 3:38 PM EDT 07/21/2024 3:38 PM EDT us Chito Sellers MD LABORATORY Final Result [facility] [address] [address], [place] * BENITA WHAT TO EXPECT DURING YOUR HOSPITAL STAY (06/24/2024) 06/24/2024 Narrative BENITA - 07/20/2024 Provider ROMELIA your patient CHRISTY ERNST started their Benita on 07-20-2024 and completed it on 07-20-2024 Benita program: WELCOME SAFETY PATIENT VIDEO us Chito Sellers MD BENITA Final Result Performing Organization Address City/[facility]/ZIP Co de Phone Number BENITA * ARTEMIO DIAG W VYON BILATERAL (08/07/2023 1:35 PM EDT) Anatomical Region Laterality Modality Breast Bilateral Mammography 08/07/2023 1:35 PM EDT Impressions 08/07/2023 3:11 PM EDT IMPRESSION: INCOMPLETE: NEEDS ADDITIONAL IMAGING EVALUATION The [...] exams dated: 03/13/2023 ultrasound, 03/13/2023 mammogram - [facility], and 09/14/2022 mammogram - [facility]. Color flow and real-time ultrasound of [...] months is recommended to demonstrate stability. Adelina christianson/porfirio:08/07/2023 15:11:28 Multiple national specialty organizations have released breast cancer screening guidelines for women at average risk for developing breast cancer - guidelines that are based on both evidence and opinion, yet differ on when to start and how often to screen for breast cancer. With representation from Breast Imaging, Internal Medicine, Women's Health, Family Medicine, and Medical/Surgical Oncology, the [facility] has carefully reviewed the data and reached [...] their providers when to stop screening mammograms. Aluminum Molding Machine Operator(s): RT Gabriela(R)(M), [facility]; [facility] OVERALL STUDY BIRADS: 3 Probably benign finding - short term interval follow-up recommended Java Developer Analyst: Porfirio Transcribe Date/Time: Aug 07 2023 1:35P Dictated by : ADELINA HILL MD This examination was interpreted and the report reviewed and electronically signed by: ADELINA HILL MD on Aug 07 2023 3:11PM EST Narrative 08/07/2023 3:11 PM EDT * * *Final Report* * * DATE OF EXAM: Aug 07 2023 1:35PM [facility] 0627 - ARTEMIO DIAG W YVON DECLAN / PROCEDURE REASON: Abnormal mammogram * * * * Physician Interpretation * * * * RESULT: #[id number] - ARTEMIO DIAG W YVON DECLAN #[id number] - ARTEMIO BREAST LTD RT BILATERAL DIGITAL DIAGNOSTIC MAMMOGRAM [...] exams dated: 03/13/2023 ultrasound, 03/13/2023 mammogram - [facility], and 09/14/2022 mammogram - [facility]. There are scattered areas of fibroglandular [...] other findings are seen in either breast. Procedure Note Provider, [facility] [place] - 08/07/2023 * * *Final Report* * * DATE OF EXAM: Aug 07 2023 1:35PM [facility] 0627 - ARTEMIO DIAG W YVON DECLAN / PROCEDURE REASON: Abnormal mammogram * * * * Physician Interpretation * * * * RESULT: #[id number] - [facility] SILVIA SANZ DECLAN #[id number] - [facility] US BREAST LTD RT BILATERAL [...] exams dated: 03/13/2023 ultrasound, 03/13/2023 mamm[facility] - [facility], [facility]. There are scattered areas of fibroglandular [...] other findings are seen in either breast. IMPRESSION IMPRESSION: INCOMPLETE: NEEDS ADDITIONAL IMAGING EVALUATION The [...] exams dated: 03/13/2023 ultrasound, 03/13/2023 mammogram - [facility], and 09/14/2022 mammogram - [facility]. Color flow and real-time ultrasound of [...] mammogram in 6 months is recommended to demonstratestability. Adelina christianson/porfirio:08/07/2023 15:11:28 Multiple national specialty organizations have released breast cancer screening guidelines for women at average risk for developing breast cancer - guidelines that are based on both evidence and opinion, yet differ on when to start and how often to screen for breast cancer. With representation from Breast Imaging, Internal Medicine, Women's Health, Family Medicine, and Medical/Surgical Oncology, the [facility] has carefully reviewed the data and reached [...] their providers when to stop screening mammograms. Aluminum Molding Machine Operator(s): Donna Gonzalez RT(R)(M), [facility]; [facility] OVERALL STUDY BIRADS: 3 Probably benign finding - short term interval follow-up recommended Java Developer Analyst: Porfirio Transcribe Date/Time: Aug 07 2023 1:35P Dictated by : ADELINA HILL MD This examination was interpreted and the report reviewed and electronically signed by: ADELINA HILL MD on Aug 07 2023 3:11PM EST us Jessie Ortega APRN.CORRECTIVE THERAPY AIDE ARTEMIO-PAMA Final Result * HIV 1 2 COMBO(AG/AB),WITH REFLEX TO DIFFERENTIATION (08/03/2022 2:01 PM EDT) HIV 12 Combo (Ag/Ab) Nonreactive Nonreactive 08/03/2022 8:12 PM EDT [facility] HIV-1/2 AB (Confirmatory) 08/03/2022 8:12 PM EDT [facility] Comment:Test not indicated. HIV Interpretation 08/03/2022 8:12 PM EDT [facility] Comment: No evidence of HIV-1 or HIV-2 infection. Should recent infection be suspected, repeat testing may be considered 2-3 weeks after this draw. [place] Rev. Code 3701.243(E): This information has been disclosed to you from confidential records protected from disclosure by state law. You shall make no further disclosure of this information without the specific, written, and informed release of the individual to whom it pertains or as otherwise permitted by state law. A general authorization for the release of medical or other information is not sufficient for the purpose of the release of HIV test results or diagnoses. Blood BLOOD SPECIMEN / Unknown Venipuncture / Unknown 08/03/2022 2:01 PM EDT 08/03/2022 2:01 PM EDT Johnny Reardon DO LABORATORY Final Result [facility] [address] [place] [address], * HEP C AB IA W/CONF SCRN (08/03/2022 2:01 PM EDT) Hep C Antibody IA Negative Negative 08/03/2022 8:04 PM EDT [facility] Comment:The result suggests no evidence of active infection with Hepatitis C virus. Should recent infection be suspected, repeat testing may be considered 4-6 weeks after this draw. Blood BLOOD SPECIMEN / Unknown Venipuncture / Unknown 08/03/2022 2:01 PM EDT 08/03/2022 2:01 PM EDT us Johnny Reardon DO LABORATORY Final Result [facility] [address] [facility] [address] [id number], [place] * PAP TEST (06/19/2022 3:39 PM EDT) Case Report Gynecologic Cytology Report Case: [id number] Authorizing Provider: Kimberli Anderson PA-C Collected: 06/19/2022 03:39 PM Ordering Location: OB/Gynecology Received: 06/19/2022 04:56 PM First Screen: MARTINE[facility] Specimen: Pap Test, ThinPrep, Cervix 06/27/2022 11:10 AM EDT [facility] FINAL DIAGNOSIS A - Cervix Satisfactory for interpretation, No endocervical component Negative for Intraepithelial lesion or malignancy. 06/27/2022 11:10 AM EDT [facility] at 1110 EDT LMP 05/30/2022 06/27/2022 11:10 AM EDT [facility] Pap Disclaimer The Pap Smear is a screening test for cervical cancer. False negative results occur with all screening tests, emphasizing the need for rescreening at recommended intervals, and clinical correlation. 06/27/2022 11:10 AM EDT [facility] Performing Lab Technical component, paper guillotine operator screening performed at [facility], [address] [place] [address] CLIA# [id number] Diagnostic interpretation performed at [facility], [address] [place], [place] [address] CLIA# [id number] Filter Tank Operator: Adrian Treadwell M.D. 06/27/2022 11:10 AM EDT [facility] Clinical History Routine Exam Previous LEEP 06/27/2022 11:10 AM EDT [facility] Comment:2003 HPV Reflex Auto HPV 06/27/2022 11:10 AM EDT [facility] Cytology Interpretation Negative for Intraepithelial lesion or malignancy. 06/27/2022 11:10 AM EDT [facility] at 1110 EDT Sterile Fluid/Body Fluid CERVICAL / Unknown Non Blood / Unknown 06/19/2022 3:39 PM EDT 06/19/2022 4:56 PM EDT us Kimberli Anderson PA-C CYTOLOGY Final Result [facility] [address] [facility] [address] [place] [address], [place] from Last 3 Months or Most Recently Relevant to Health Maintenance Insurance [facility] MEDICAID [place] Care Teams Cuff Stitcher Relationship Specialty Start Date End Date Johnny Reardon DO [address] [place] [address] PCP - General Internal Medicine 07/27/22 Marie Mancuso PA-C [address] [place] [address] Sterilizer Machine Operator Internal Medicine 02/09/24 Gail Escudero MD [address] [place] [address] NI Referring Team Endocrinology 05/12/24
--- OUTSIDE RECORDS SUMMARY | 2024-07-26 13:07 | XMS_ITS | Encounter Summary ---
Author Organization [facility] Address [address] [place] [address] Care Team Providers Care Indigo Mixer Name Role Phone Johnny Reardon DO Primary Care Provider Mayela Faust APRN.SALMON GILLNET VESSEL OPERATOR Unavailable Marie Mancuso PA-C Unavailable [phone] Mai Amador PA-C Unavailable [phone] Gail Escudero MD Unavailable [phone] Source Comments In the event this information is protected by the Federal Confidentiality of Alcohol and Drug AbusePatient Records regulations: The Federal rules restrict any use of the information to criminally investigate or prosecute any alcohol or drug abuse patient.[facility] Encounter Details Date Type Department Care Team (Late st Contact Info) Description 05/25/2021 Patient Msg Endocrinology [address] [place], [place] [phone] Provider, [facility] Reminder Social History Tobacco [...] N ot on file 02/08/2020 Data from: https://www.neighborhoodatlas.medicine.[facility]/. Last address used for calculation Not on [...] 1:00 PM EDT Office Visit Otolaryngology [address] [id number] Rojelio Courtney MD [address] [place] [address] post op 09/09/2024 11:20 AM EDT [facility] [address] [place] [address] Chito Sellers MD [address] [place], [place] [phone] Post-Op Scheduling Request 09/16/2024 2:30 PM EDT [facility] Endocrinology [address] [place] [address] Gail Escudero MD [address] [place] [address] Post-Op Scheduling Request documented as of this encounter Visit Diagnoses Not on filedocumented in this encounter Care Teams Indigo Mixer Relationship Specialty Start Date End Date Johnny Reardon DO [address] [place] [address] PCP - General Internal Medicine 07/27/22 Mayela Faust APRN.SALMON GILLNET VESSEL OPERATOR [facility] [place] [address] [facility] 02/09/24 03/05/24 Marie Mancuso PA-C [address] [place] [address] [facility] 02/09/24 Mai Amador PA-C [address] [place] [address] [facility] 02/09/24 03/05/24 Gail Escudero MD [address] [place] [address] NI Referring Team Endocrinology 05/12/24 documented as of this encounter
--- OUTSIDE RECORDS SUMMARY | 2024-07-26 13:07 | XMS_ITS | Encounter Summary ---
Author Organization [facility] Address [facility] [place] [address] Care Team Providers Care Keypunch Operators Supervisor Name Role Phone Johnny Reardon DO Primary Care Provider Mayela Faust APRN.CREAM BEATER Unavailable Marie Mancuso PA-C Unavailable [phone] Mai Amador PA-C Unavailable [phone] Gail Escudero MD Unavailable [phone] Source Comments In the event this information is protected by the Federal Confidentiality of Alcohol and Drug AbusePatient Records regulations: The Federal rules restrict any use of the information to criminally investigate or prosecute any alcohol or drug abuse patient.[facility] Encounter Details Date Type Department Care Team (Late st Contact Info) Description 10/08/2021 Patient Msg Endocrinology [address] [place] [address] Gail Ecsudero MD [address] [place] [address] Prolactin follow up Social History Tobacco Use Types Packs/Day Years [...] N ot on file 02/08/2020 Data from: https://www.neighborhoodatlas.medicine.[facility].edu/. Last address used for calculation Not on [...] 1:00 PM EDT Office Visit Otolaryngology [address] [id number] Rojelio Courtney MD [address] [phone] post op 09/09/2024 11:20 AM EDT [facility] [address] [phone] Chito Slelers MD [address] [place] [address] Post-Op Scheduling Request 09/16/2024 2:30 PM EDT [facility] Endocrinology [address] [phone] Gail Escudero MD [address] [place] [address] Post-Op Scheduling Request documented as of this encounter Visit Diagnoses Not on filedocumented in this encounter Care Teams Keypunch Operators Supervisor Relationship Specialty Start Date End Date Johnny Reardon DO [address] [place] [phone] PCP - General Internal Medicine 07/27/22 Mayela Faust APRN.CREAM BEATER [address] [place] [address] Tugger Operator Family Medicine 02/09/24 03/05/24 Marie Mancuso PA-C [address] [place], [place] [phone] Tugger Operator Internal Medicine 02/09/24 Mai Amador PA-C [address] [place] [address] Tugger Operator Internal Medicine 02/09/24 03/05/24 Gail Escudero MD [address] [place], [place] [phone] NI Referring Team Endocrinology 05/12/24 documented as of this encounter
--- OUTSIDE RECORDS SUMMARY | 2024-07-26 13:07 | XMS_ITS | Encounter Summary ---
Author Organization [facility] Address [facility] [place] [address] Care Team Providers Care Technical Producer Name Role Phone Johnny Reardon DO Primary Care Provider Mayela Faust APRN.DIRECTOR PROFESSIONAL SERVICES Unavailable Marie Mancuso PA-C Unavailable [phone] Mai Amador PA-C Unavailable [phone] Gail Escudero MD Unavailable [phone] Source Comments In the event this information is protected by the Federal Confidentiality of Alcohol and Drug AbusePatient Records regulations: The Federal rules restrict any use of the information to criminally investigate or prosecute any alcohol or drug abuse patient.[facility] Encounter Details Date Type Department Care Team (Late st Contact Info) Description 07/20/2022 Get Medical Advice Endocrinology [address] [place] [address] Gail Escudero MD [address] [place] [address] Next appointment Social History Tobacco Use Types Packs/Day Years Used Date Smoking Tobacco: Former Cigarettes Smokeless Tobacco: Never Alcohol Use Standard [...] Never 06/07/2022 How often do you attend faith or latter day serv ices? Never 06/07/2022 Do you belong to any clubs o r organizations such as faith groups, unions, fraternal or athletic groups, or [...] PHQ-2 Answer Date Recorded PHQ-2 score 3 06/07/2022 [facility] [place] of Occupat ional Health - Occupational Stress [...] place to sleep or slept in a group home (including now)? No 06/07/2022 Area Deprivation Index Answer Date Kana rded National Score (1-100), lower number is lower ri sk 70 06/07/2022 State Score (1-10), lower number is lower risk N ot on file 06/07/2022 Data from: https://www.neighborhoodatlas.medicine.[facility].edu/. Last address used for calculation [address] [place] [address] 06/07/2022 Comments No Sex and Gender Information Value [...] 1:00 PM EDT Office Visit Otolaryngology [address] [address] Rojelio Courtney MD [address] [place] [address] post op 09/09/2024 11:20 AM EDT [facility] [address] [place] [address] Chito Sellers MD [address] [place] [address] Post-Op Scheduling Request 09/16/2024 2:30 PM EDT [facility] [address] [place] [address] Gail Escudero MD [address] [place], [place] [phone] Post-Op Scheduling Request documented as of this encounter Visit Diagnoses Not on filedocumented in this encounter Care Teams Technical Producer Relationship Specialty Start Date End Date Johnny Reardon DO [address] [facility] [place] [address] PCP - General Internal Medicine 07/27/22 Mayela Faust APRN.DIRECTOR PROFESSIONAL SERVICES [facility] [place] [address] Hand Cutter Apprentice Family Medicine 02/09/24 03/05/24 Marie Mancuso PA-C [facility] [place], [place] [phone] Hand Cutter Apprentice Internal Medicine 02/09/24 Mai Amador PA-C [facility] [place], [place] [phone] Hand Cutter Apprentice Internal Medicine 02/09/24 03/05/24 Gail Escudero MD [address] [place], [place] [phone] NI Referring Team Endocrinology 05/12/24 documented as of this encounter
--- OUTSIDE RECORDS SUMMARY | 2024-07-26 13:07 | XMS_ITS | Encounter Summary ---
Author Organization [facility] Address [address] [place] [address] Care Team Providers Care Fiberglass Quality Technician Name Role Phone Johnny Reardon DO Primary Care Provider Mayela Faust APRN.CNP Unavailable Marie Mancuso PA-C Unavailable [phone] Mai Amador PA-C Unavailable [phone] Gail Escudero MD Unavailable [phone] Source Comments In the event this information is protected by the Federal Confidentiality of Alcohol and Drug AbusePatient Records regulations: The Federal rules restrict any use of the information to criminally investigate or prosecute any alcohol or drug abuse patient.[facility] Encounter Details Date Type Department Care Team (Late st Contact Info) Description 07/05/2022 Transcribe Orders OB/Gynecology [address] [place] [address] Kimberli Anderson PA-C [address] [place] [address] Social History Tobacco Use Types Packs/Day Years [...] Never 06/07/2022 How often do you attend oriental orthodox or zoroastrianism serv ices? Never 06/07/2022 Do you belong to any clubs o r organizations such as oriental orthodox groups, unions, fraternal or athletic groups, or [...] Answer Date Recorded PHQ-2 score 3 06/07/2022 [facility] of Occupat ional Health - Occupational Stress [...] N ot on file 06/07/2022 Data from: https://www.neighborhoodatlas.medicine.[facility].edu/. Last address used for calculation [address] [place] [address] 06/07/2022 Comments No Sex and Gender Information [...] 1:00 PM EDT Office Visit Otolaryngology [address] [address] Rojelio Courtney MD [address] [place] [address] post op 09/09/2024 11:20 AM EDT [facility] [address] [place] [address] Chito Sellers MD [address]00 [place] [address] Post-Op Scheduling Request 09/16/2024 2:30 PM EDT [facility] Endocrinology [address] [place] [address] Gail Escudero MD [address] [place], [place] [id number] Post-Op Scheduling Request documented as of this encounter Visit Diagnoses Not on filedocumented in this encounter Care Teams Fiberglass Quality Technician Relationship Specialty Start Date End Date Johnny Reardon DO [facility] [facility] [place] [address] PCP - General Internal Medicine 07/27/22 Mayela Faust APRN.BURNER TENDER [facility]2 [place] [address] Shift Production Associate Family Medicine 02/09/24 03/05/24 Marie Mancuso PA-C [facility] [place] [address] Shift Production Associate Internal Medicine 02/09/24 Mai Amador PA-C [facility]2 [address] [place], [place] [id number] [facility] Internal Medicine 02/09/24 03/05/24 Gail Escudero MD [address] [place], [place] 42484[address] NI Referring Team Endocrinology 05/12/24 documented as of this encounter
--- OUTSIDE RECORDS SUMMARY | 2024-07-26 13:08 | XMS_ITS | Encounter Summary ---
Author Organization [facility] Address [address] [place] [address] Care Team Providers Care Rabbit Fancier Name Role Phone Johnny Reardon DO Primary Care Provider Marie Mancuso PA-C Unavailable [phone] Gail Escudero MD Unavailable [phone] Source Comments In the event this information is protected by the Federal Confidentiality of Alcohol and Drug AbusePatient Records regulations: The Federal rules restrict any use of the information to criminally investigate or prosecute any alcohol or drug abuse patient.[facility] Encounter Details Date Type Department Care Team (Late st Contact Info) Description 05/01/2024 [facility] [place] [address] [id number] Provider, Ccf Scheduling Needed Social History Tobacco Use Types Packs/Day Years [...] Never 06/07/2022 How often do you attend holiness or advent serv ices? Never 06/07/2022 Do you belong to any clubs o r organizations such as holiness groups, unions, fraternal or athletic groups, or [...] Answer Date Recorded PHQ-2 score 3 03/10/2024 [facility] of Occupat ional Health - Occupational [...] place to sleep or slept in a mcc (including now)? No 06/07/2022 Area Deprivation Index Answer Date Kana rded National Score (1-100), lower number is lower ri sk 79 07/26/2022 State Score (1-10), lower number is lower risk 7 07/26/2022 Data from: https://www.neighborhoodatlas.medicine.[facility].edu/. Last address used for calculation [address] [place] [address] 07/26/2022 Comments No Sex and Gender Information [...] 1:00 PM EDT Office Visit Otolaryngology [address] [address] [id number] Rojelio Courtney MD [address] [id number] post op 09/09/2024 11:20 AM EDT [facility] [address] [address] [phone] Chito Sellers MD [address] [id number] Post-Op Scheduling Request 09/16/2024 2:30 PM EDT [facility] Endocrinology [address] [place] [address] Gail Escudero MD [address] [place] [address] Post-Op Scheduling Request documented as of this encounter Visit Diagnoses Not on filedocumented in this encounter Care Teams Rabbit Fancier Relationship Specialty Start Date End Date Johnny Reardon DO [address] [place] [phone] PCP - General Internal Medicine 07/27/22 Marie Mancuso PA-C [address] [place] [address] Chief Procurement Officer Internal Medicine 02/09/24 Gail Escudero MD [address] [place] [address] NI Referring Team Endocrinology 05/12/24 documented as of this encounter
--- OUTSIDE RECORDS SUMMARY | 2024-07-26 13:08 | XMS_ITS | Encounter Summary ---
Author Organization [facility] Address [address] [place] [address] Care Team Providers Care Process Specialist Name Role Phone Johnny Reardon DO Primary Care Provider Marie Mancuso PA-C Unavailable [phone] Gail Escudero MD Unavailable Source Comments In the event this information is protected by the Federal Confidentiality of Alcohol and Drug AbusePatient Records regulations: The Federal rules restrict any use of the information to criminally investigate or prosecute any alcohol or drug abuse patient.[facility] Encounter Details Date Type Department Care Team (Late st Contact Info) Description 06/23/2024 Patient Msg [facility] [place] [address] [place] [address] Provider, Ccf PRE-OP appt are scheduled and PLEASE read all instructions. Social History Tobacco Use Types Packs/Day Years [...] Never 06/07/2022 How often do you attend nondenominational or quaker serv ices? Never 06/07/2022 Do you belong to any clubs o r organizations such as nondenominational groups, unions, fraternal or athletic groups, or [...] place to sleep or slept in a mcfp (including now)? No 06/07/2022 Area Deprivation Index Answer Date Kana rded National Score (1-100), lower number is lower ri sk 79 07/26/2022 State Score (1-10), lower number is lower risk 7 07/26/2022 Data from: https://www.neighborhoodatlas.medicine.[facility].edu/. Last address used for calculation [address] [place] [address] 07/26/2022 Comments No Sex and Gender Information [...] 1:00 PM EDT Office Visit Otolaryngology [address] [phone] Rojelio Courtney MD 2934 [place] [address] post op 09/09/2024 11:20 AM EDT [facility] [address] [place] [phone] Chito Sellers MD [address] [place] [phone] Post-Op Scheduling Request 09/16/2024 2:30 PM EDT [facility] Endocrinology [address] [place] [address] Gail Escudero MD [address] [place] [address] Post-Op Scheduling Request documented as of this encounter Visit Diagnoses Not on filedocumented in this encounter Care Teams Process Specialist Relationship Specialty Start Date End Date Johnny Reardon DO [address] [place] [phone] PCP - General Internal Medicine 07/27/22 Marie Mancuso PA-C [address] [place] [address] Consultant Electronics Internal Medicine 02/09/24 Gail Escudero MD [address] [place] [address] NI Referring Team Endocrinology 05/12/24 documented as of this encounter
--- OUTSIDE RECORDS SUMMARY | 2024-07-26 13:08 | XMS_ITS | Encounter Summary ---
Author Organization [facility] Address [facility] [place] [address] Care Team Providers Care Set Up Mold Technician Name Role Phone Johnny Reardon DO Primary Care Provider Mayela Faust APRN.GLASSWARE ENGRAVER Unavailable Marie Mancuso PA-C Unavailable [phone] Mai Amador PA-C Unavailable [phone] Gail Escudero MD Unavailable [phone] Source Comments In the event this information is protected by the Federal Confidentiality of Alcohol and Drug AbusePatient Records regulations: The Federal rules restrict any use of the information to criminally investigate or prosecute any alcohol or drug abuse patient.[facility] Encounter Details Date Type Department Care Team (Late st Contact Info) Description 06/26/2021 Get Medical Advice Endocrinology [address] [place] [address] Gail Escudero MD [address] [place] [address] Cabergoline Increase Social History Tobacco Use Types Packs/Day Years [...] N ot on file 02/08/2020 Data from: https://www.neighborhoodatlas.[facility]/. Last address used for calculation Not on file 02/08/2020 Comments No Sex and Gender Information Value Date Recorded Sex Assigned at Female 09/09/2019 3:52 PM EDT Legal Sex Female 8:28 AM EST Gender Identity Female 09/09/2019 3:52 PM EDT Sexual Orientation Straight 09/09/2019 3: 52 PM EDT COVID-19 Exposure Response Date Recorded In the last 10 days, have yo u been in contact with someone who was confirmed or suspected to have Coronavirus/COVID-19? Unable to assess 05/29/2021 12:37 PM EDT documented as of this encounter Plan of Treatment Upcoming Encounters Date Type Department Care Team (Latest Contact Info) Description 08/05/2024 1:00 PM EDT Office Visit Otolaryngology [address] [phone] Rojelio Courtney MD [address] [phone] post op 09/09/2024 11:20 AM EDT [facility] [address] [phone] Chito Sellers MD [address] [place] [address] Post-Op Scheduling Request 09/16/2024 2:30 PM EDT [facility] Endocrinology [address] [phone] Gail Escudero MD [address] [place] [address] Post-Op Scheduling Request documented as of this encounter Visit Diagnoses Not on filedocumented in this encounter Care Teams Set Up Mold Technician Relationship Specialty Start Date End Date Johnny Reardon DO [address] [facility] [place] [place] [address] PCP - General Internal Medicine 07/27/22 Mayela Faust APRN.GLASSWARE ENGRAVER [address] [place] [address] Paper Cone Machine Tender Family Medicine 02/09/24 03/05/24 Marie Mancuso PA-C [address] [place] [address] Paper Cone Machine Tender Internal Medicine 02/09/24 Mai Amador PA-C [address] [facility] [address] [facility] [place] [phone] Paper Cone Machine Tender Internal Medicine 02/09/24 03/05/24 Gail Escudero MD [address] [place] [address] NI Referring Team Endocrinology 05/12/24 documented as of this encounter
--- OUTSIDE RECORDS SUMMARY | 2024-07-26 13:08 | XMS_ITS | Encounter Summary ---
Author Organization [facility] Address [address] [place] [address] Care Team Providers Care Tamale Maker Name Role Phone Johnny Reardon DO Primary Care Provider Marie Mancuso PA-C Unavailable Gail Escudero MD Unavailable [phone] Source Comments In the event this information is protected by the Federal Confidentiality of Alcohol and Drug AbusePatient Records regulations: The Federal rules restrict any use of the information to criminally investigate or prosecute any alcohol or drug abuse patient.[facility] Encounter Details Date Type Department Care Team (Late st Contact Info) Description 06/10/2024 Patient Msg [facility] [address] [place] [address] Provider, Ccf Visit Follow Up Social History Tobacco Use Types Packs/Day Years [...] Never 06/07/2022 How often do you attend congregational or zoroastrian serv ices? Never 06/07/2022 Do you belong to any clubs o r organizations such as congregational groups, unions, fraternal or athletic groups, or [...] Answer Date Recorded PHQ-2 score 3 03/10/2024 [facility] - Occupational Stress Questionnaire Answer Date [...] is lower risk 7 07/26/2022 Data from: https://www.neighborhoodatlas.medicine.[facility].edu/. Last address used for calculation [address] [place] [address] 07/26/2022 Comments No Sex and Gender Information [...] 1:00 PM EDT Office Visit Otolaryngology [address] 0580506 Rjoelio Courtney MD [address] [id number] post op 09/09/2024 11:20 AM EDT [facility] [address] [place] [address] [phone] Chito Sellers MD [address] [id number] Post-Op Scheduling Request 09/16/2024 2:30 PM EDT [facility] Endocrinology [address] [place] [address] Gail Escudero MD [address] [place] [address] Post-Op Scheduling Request documented as of this encounter Visit Diagnoses Not on filedocumented in this encounter Care Teams Tamale Maker Relationship Specialty Start Date End Date Johnny Reardon DO [address] [place] [address] PCP - General Internal Medicine 07/27/22 Marie Mancuso PA-C [address] [place] [address] Forensic Photographer Internal Medicine 02/09/24 Gail Escudero MD [address] [place] [address] NI Referring Team Endocrinology 05/12/24 documented as of this encounter
--- OUTSIDE RECORDS SUMMARY | 2024-07-26 13:08 | XMS_ITS | Encounter Summary ---
Author Organization [facility] Address [address] [place] [address] Care Team Providers Care Certified Emergency Vehicle Technician Name Role Phone Johnny Reardon DO Primary Care Provider Marie Mancuso PA-C Unavailable [phone] Gail Escudero MD Unavailable [phone] Source Comments In the event this information is protected by the Federal Confidentiality of Alcohol and Drug AbusePatient Records regulations: The Federal rules restrict any use of the information to criminally investigate or prosecute any alcohol or drug abuse patient.[facility] Encounter Details Date Type Department Care Team (Late st Contact Info) Description 06/23/2024 Patient Msg [facility] [address] [place] [address] Provider, Ccf Post op Social History Tobacco Use Types Packs/Day Years [...] Never 06/07/2022 How often do you attend mandaen or presybeterian serv ices? Never 06/07/2022 Do you belong to any clubs o r organizations such as mandaen groups, unions, fraternal or athletic groups, or [...] Answer Date Recorded PHQ-2 score 3 03/10/2024 [facility] - Occupational Stress Questionnaire Answer Date [...] is lower risk 7 07/26/2022 Data from: https://www.neighborhoodatlas.medicine.[facility].edu/. Last address used for calculation [address] [place] [address] 07/26/2022 Comments No Sex and Gender Information [...] 1:00 PM EDT Office Visit Otolaryngology [address] [phone] Rojelio Courtney MD [address] [phone] post op 09/09/2024 11:20 AM EDT [facility] [address] [address] [phone] Chito Sellers MD [address] [phone] Post-Op Scheduling Request 09/16/2024 2:30 PM EDT [facility] Endocrinology [address] [place] [address] Gail Escudero MD 4663 [place] [address] Post-Op Scheduling Request documented as of this encounter Visit Diagnoses Not on filedocumented in this encounter Care Teams Certified Emergency Vehicle Technician Relationship Specialty Start Date End Date Johnny Reardon DO [address] [place] [phone] PCP - General Internal Medicine 07/27/22 Marie Mancuso PA-C [address] [place] [address] Oil Dispatcher Internal Medicine 02/09/24 Gail Escudero MD [address] [place] [address] NI Referring Team Endocrinology 05/12/24 documented as of this encounter
--- OUTSIDE RECORDS SUMMARY | 2024-07-26 13:08 | XMS_ITS | Encounter Summary ---
Author Organization [facility] Address [address] [place] [address] Care Team Providers Care Outside Plant Field Engineer Name Role Phone Johnny Reardon DO Primary Care Provider Marie Mancuso PA-C Unavailable [phone] Gail Escudero MD Unavailable [phone] Source Comments In the event this information is protected by the Federal Confidentiality of Alcohol and Drug AbusePatient Records regulations: The Federal rules restrict any use of the information to criminally investigate or prosecute any alcohol or drug abuse patient.[facility] Encounter Details Date Type Department Care Team (Latest Contact Info) Description 07/22/2024 Travel Social History Tobacco Use Types Packs/Day [...] Never 06/07/2022 How often do you attend presybeterian or quaker serv ices? Never 06/07/2022 Do you belong to any clubs o r organizations such as presybeterian groups, unions, fraternal or athletic groups, or [...] Answer Date Recorded PHQ-2 score 3 03/10/2024 [facility] of Occupat ional Health - Occupational Stress [...] is lower risk 7 07/26/2022 Data from: https://www.neighborhoodatlas.medicine.[facility].edu/. Last address used for calculation [address] [place] [address] 07/26/2022 Comments No Sex and Gender Information [...] 1:00 PM EDT Office Visit Otolaryngology [address] [id number] Rojelio Courtney MD [address] [id number] post op 09/09/2024 11:20 AM EDT [facility] [address] [phone] Chito Sellers MD [address]18 [place] [address] Post-Op Scheduling Request 09/16/2024 2:30 PM EDT [facility] Endocrinology [address] [place] [address] Gail Escudero MD [address] [place] [address] Post-Op Scheduling Request documented as of this encounter Visit Diagnoses Not on filedocumented in this encounter Care Teams Outside Plant Field Engineer Relationship Specialty Start Date End Date Johnny Reardon DO [address] [place] [address] PCP - General Internal Medicine 07/27/22 Marie Mancuso PA-C [address] [place] [address] Edger Liner Internal Medicine 02/09/24 Gail Escudero MD [address] [place], [place] 8173395 NI Referring Team Endocrinology 05/12/24 documented as of this encounter
--- OUTSIDE RECORDS SUMMARY | 2024-07-26 13:08 | XMS_ITS | Encounter Summary ---
Author Organization [facility] Address [address] [place] [address] Care Team Providers Care Professional Healthcare Representative Name Role Phone Johnny Reardon DO Primary Care Provider Marie Mancuso PA-C Unavailable [phone] Gail Escudero MD Unavailable [phone] Source Comments In the event this information is protected by the Federal Confidentiality of Alcohol and Drug AbusePatient Records regulations: The Federal rules restrict any use of the information to criminally investigate or prosecute any alcohol or drug abuse patient.[facility] Encounter Details Date Type Department Care Team (Late st Contact Info) Description 03/25/2024 Patient [facility] HB[facility] [address] [place] [address] Jerica Conti RPh At your next appointment, choose [facility]. Social History Tobacco Use Types Packs/Day Years [...] How often do you attend mormonism or hoahaoism serv ices? Never 06/07/2022 Do you belong [...] Answer Date Recorded PHQ-2 score 3 03/10/2024 [facility] of Occupat ional Health - [...] risk 7 07/26/2022 Data from: https://www.neighborhoodatlas.medicine.[facility].edu/. Last address used for calculation [address] [place] [address] 07/26/2022 Comments No Sex and Gender Information [...] 1:00 PM EDT Office Visit Otolaryngology [address] [phone] Rojelio Courtney MD [address]15 [place] [address] post op 09/09/2024 11:20 AM EDT [facility] [address] [place] [phone] Chito Sellers MD [address] [facility] [place] [phone] Post-Op Scheduling Request 09/16/2024 2:30 PM EDT [facility] Endocrinology [address] [place] [address] Gail Escudero MD [address] [place] [address] Post-Op Scheduling Request documented as of this encounter Visit Diagnoses Not on filedocumented in this encounter Care Teams Professional Healthcare Representative Relationship Specialty Start Date End Date Johnny Reardon DO [address] [place] [address] PCP - General Internal Medicine 07/27/22 Marie Mancuso PA-C [address] [place] [address] Separations Scientist Internal Medicine 02/09/24 Gail Escudero MD [address] [place] [address] NI Referring Team Endocrinology 05/12/24 documented as of this encounter
--- OUTSIDE RECORDS SUMMARY | 2024-07-26 13:08 | XMS_ITS | Clinical Summary ---
Author Organization [facility] Address [id number] [address] [place] [address] Care Team Providers Care Cloth Shrinking Machine Operator Helper Name Role Phone Unavailable Primary Care Provider Unavailabl e Allergies No known active allergies Medications cabergoline (DOSTINEX) 0.5 mg tablet Take 0.5 mg by mouth once a week. Twice weekly 03/14/2016 Active levothyroxine (SYNTHROID, LEVOTHROID) 50 MCG tablet Take 50 mcg by mouth daily. 03/12/2016 Active albuterol (PROVENTIL HFA;VENTOLIN HFA) 90 mcg/actuation inhaler Inhale 2 puffs every 6 (six) hours as needed for wheezing. Active Active Problems Problem Noted Date Diagnosed Date Abdominal gas pain 09/19/2016 Symptoms consistent with irritable bowel syndrom e 09/19/2016 Paranoid schizophrenia, chronometer tester cem condition with acute exacerbation 09/19/2016 Social History Tobacco Use Types Packs/Day Years Used Date Smoking Tobacco: Every Day Smokeless Tobacco: Never Alcohol Use Standard Drinks/Week Comments No 0 (1 standard drink = 0.6 oz pur e alcohol) Childcare Answer Date Recorded Childcare Unknown 08/11/2018 Employment Answer Date Recorded Employment Unknown 08/11/2018 Purpose - Life Answer Date Recorded Purpose and direction in life Unknown Comments Unknown Sex and Gender Information Value Date Recorded Sex Assigned at Not on file Legal Sex Female 1:39 PM EDT Gender Identity Not on file Sexual Orientation Not on file Last Filed Vital Signs Vital Sign Reading Time Taken Comments Blood Pressure 110/80 09/17/2016 10:28 AM EDT Pulse 89 09/17/2016 10:28 AM EDT Temperature - - Respiratory Rate 18 09/17/2016 10:28 AM EDT Oxygen Saturation 98% 09/17/2016 10:28 AM EDT Inhaled Oxygen Concentration - - Weight 105.7 kg (233 lb) 09/17/2016 10:28 AM EDT Height 158.8 cm (5' 2.5 ) 09/17/2016 10:28 AM ED T Body Mass Index 41.94 09/17/2016 10:28 AM EDT Plan of Treatment Health Maintenance Due Date Last Done Comments Depression Screening 1994 Tobacco Screening 1994 Adult BMI Screening 2000 DTaP,Tdap and Td Vaccines (1 - Tdap) 2001 Pap Smear 07/20/2003 Influenza Vaccine 11/02/2024 Medical Devices Not on file Insurance MEDICAID
--- OUTSIDE RECORDS SUMMARY | 2024-07-26 13:08 | XMS_ITS | Encounter Summary ---
Author Organization [facility] Address [address] [place] [address] Care Team Providers Care Welder Tack Name Role Phone Johnny Reardon DO Primary Care Provider Mayela Faust APRN.STRIP MINE SUPERVISOR Unavailable Marie Mancuso PA-C Unavailable Mai Amador PA-C Unavailable [phone] Gail Escudero MD Unavailable [phone] Source Comments In the event this information is protected by the Federal Confidentiality of Alcohol and Drug AbusePatient Records regulations: The Federal rules restrict any use of the information to criminally investigate or prosecute any alcohol or drug abuse patient.[facility] Encounter Details Date Type Department Care Team (Late st Contact Info) Description 06/06/2023 Patient Msg Dermatology [place] [address] [place] [id number] Provider, Ccf Annual Appointment Due Social History Tobacco Use Types Packs/Day Years [...] Never 06/07/2022 How often do you attend shinto or mormon serv ices? Never 06/07/2022 Do you belong to any clubs o r organizations such as shinto groups, unions, fraternal or athletic groups, or [...] Answer Date Recorded PHQ-2 score 3 06/07/2022 [facility] of Occupat ional Health - Occupational Stress [...] place to sleep or slept in a prison (including now)? No 06/07/2022 Area Deprivation Index Answer Date Kana rded National Score (1-100), lower number is lower ri sk 79 07/26/2022 State Score (1-10), lower number is lower risk 7 07/26/2022 Data from: https://www.neighborhoodatlas.medicine.[facility].edu/. Last address used for calculation [address] [place] [address] 07/26/2022 Comments No Sex and Gender Information [...] 1:00 PM EDT Office Visit Otolaryngology [address] [address] Rojelio Courtney MD [address] [place], [place] [phone] post op 09/09/2024 11:20 AM EDT [facility] Brain Tumor Center [address] [facility] [place] [address] Chito Sellers MD 9500 [place] [address] Post-Op Scheduling Request 09/16/2024 2:30 PM EDT [facility] Endocrinology [address] [place] [address] Gail Escudero MD [address] [place], [place] [phone] Post-Op Scheduling Request documented as of this encounter Visit Diagnoses Not on filedocumented in this encounter Care Teams Welder Tack Relationship Specialty Start Date End Date Johnny Reardon DO [address] [facility] [place] [address] PCP - General Internal Medicine 07/27/22 Mayela Faust, SOLUTIONS DEVELOPMENT ANALYST.STRIP MINE SUPERVISOR [address] [place] [address] Well Service Derrick Worker Family Medicine 02/09/24 03/05/24 Marie Mancuso PA-C [address] [facility] [place] [address] Well Service Derrick Worker Internal Medicine 02/09/24 Mai Amador PA-C [address] [facility] [place] [address] Well Service Derrick Worker Internal Medicine 02/09/24 03/05/24 Gail Escudero MD [address] [place], [place] 9[address]64[address] NI Referring Team Endocrinology 05/12/24 documented as of this encounter
--- OUTSIDE RECORDS SUMMARY | 2024-07-26 13:08 | XMS_ITS | Encounter Summary ---
Author Organization [facility] Address [address] [place] [address] Care Team Providers Care State Director Name Role Phone Johnny Reardon DO Primary Care Provider Mayela Faust APRN.HEALTHCARE NETWORK PRICING CONSULTANT Unavailable [phone] Marie Mancuso PA-C Unavailable [phone] Mai Amador PA-C Unavailable [phone] Gail Escudero MD Unavailable [phone] Source Comments In the event this information is protected by the Federal Confidentiality of Alcohol and Drug AbusePatient Records regulations: The Federal rules restrict any use of the information to criminally investigate or prosecute any alcohol or drug abuse patient.[facility] Encounter Details Date Type Department Care Team (Late st Contact Info) Description 06/13/2020 Patient Msg Internal Medicine [address] [place] [address] Provider, Ccf Schedule Appointments Social History Tobacco Use Types Packs/Day Years [...] N ot on file 02/08/2020 Data from: https://www.neighborhoodatlas.[facility].edu/. Last address used for calculation Not [...] have Coronavirus / COVID-19? No / Unsure 05/17/2020 1:57 PM EDT documented as of this encounter Plan of Treatment Upcoming Encounters Date Type Department Care Team (Latest Contact Info) Description 08/05/2024 1:00 PM EDT Office Visit Otolaryngology [address] [id number] Rojelio Courtney MD [address] [id number] post op 09/09/2024 11:20 AM EDT [facility] Brain Tumor Center [address] [address] [id number] Chito Sellers MD [address] [place] [phone] Post-Op Scheduling Request 09/16/2024 2:[address] [facility] Endocrinology [address] [id number] Gail Escudero MD [address] [id number] Post-Op Scheduling Request documented as of this encounter Visit Diagnoses Not on filedocumented in this encounter Care Teams State Director Relationship Specialty Start Date End Date Johnny Reardon DO [address] [place] [address] PCP - General Internal Medicine 07/27/22 Mayela Faust APRN.HEALTHCARE NETWORK PRICING CONSULTANT [address] [place] [address] Biofuels Manager Family Medicine 02/09/24 03/05/24 Marie Mancuso PA-C [address] [place] [address] [facility] Internal Medicine 02/09/24 Mai Amador PA-C [address] [place] [address] [facility] Internal Medicine 02/09/24 03/05/24 Gail Escudero MD [address] [facility] [place] [address] NI Referring Team Endocrinology 05/12/24 documented as of this encounter
--- OUTSIDE RECORDS SUMMARY | 2024-07-26 13:08 | XMS_ITS | Encounter Summary ---
Author Organization [facility] Address [facility] [place] [address] Care Team Providers Care Vice President Of Brand Management Name Role Phone Johnny Reardon DO Primary Care Provider Mayela Faust APRN.PAYROLL ASSOCIATE Unavailable [phone] Marie Mancuso PA-C Unavailable [phone] Mai Amador PA-C Unavailable [phone] Gail Escudero MD Unavailable [phone] Source Comments In the event this information is protected by the Federal Confidentiality of Alcohol and Drug AbusePatient Records regulations: The Federal rules restrict any use of the information to criminally investigate or prosecute any alcohol or drug abuse patient.[facility] Encounter Details Date Type Department Care Team (Late st Contact Info) Description 06/10/2023 Patient Msg Endocrinology [address] [place] [address] Gail Escudero MD [address] [place] [address] Results - ECHO Social History Tobacco Use Types Packs/Day Years [...] Never 06/07/2022 How often do you attend confucianist or druze serv ices? Never 06/07/2022 Do you belong to any clubs o r organizations such as confucianist groups, unions, fraternal or athletic groups, or [...] Answer Date Recorded PHQ-2 score 3 06/07/2022 [facility] of Occupat ional Health - Occupational Stress [...] place to sleep or slept in a longterm (including now)? No 06/07/2022 Area Deprivation Index Answer Date Kana rded National Score (1-100), lower number is lower ri sk 79 07/26/2022 State Score (1-10), lower number is lower risk 7 07/26/2022 Data from: https://www.neighborhoodatlas.medicine.[facility].edu/. Last address used for calculation [address] [place] [address] 07/26/2022 Comments No Sex and Gender Information [...] 1:00 PM EDT Office Visit Otolaryngology [address] [address] Rojelio Courtney MD [address] [place] [address] post op 09/09/2024 11:20 AM EDT [facility] Brain Tumor Center [address] [place] [address] Chito Sellers MD [address] [place] [address] Post-Op Scheduling Request 09/16/2024 2:30 PM EDT [facility] Endocrinology [address] [place] [address] Gail Escudero MD [address] [place], [place] [phone] Post-Op Scheduling Request documented as of this encounter Visit Diagnoses Not on filedocumented in this encounter Care Teams Vice President Of Brand Management Relationship Specialty Start Date End Date Johnny Reardon DO [facility] [facility] [address] PCP - General Internal Medicine 07/27/22 Mayela Faust APRN.PAYROLL ASSOCIATE [facility] [place] [address] Flat Screen Worker Family Medicine 02/09/24 03/05/24 Marie Mancuso PA-C [facility] [place] [address] Flat Screen Worker Internal Medicine 02/09/24 Mai Amador PA-C [facility] [place], [place] 0556[address] [facility] Internal Medicine 02/09/24 03/05/24 Gail Escudero MD [address] [place], [place] [phone] NI Referring Team Endocrinology 05/12/24 documented as of this encounter
--- OUTSIDE RECORDS SUMMARY | 2024-07-26 13:08 | XMS_ITS | Encounter Summary ---
Author Organization [facility] Address [facility] [place] [address] Care Team Providers Care Gas Welding Equipment Mechanic Name Role Phone Johnny Reardon DO Primary Care Provider Mayela Faust APRN.OPERATIONS ADMINISTRATIVE ASSISTANT Unavailable Marie Mancuso PA-C Unavailable [phone] Mai Amador PA-C Unavailable [phone] Gail Escudero MD Unavailable [phone] Source Comments In the event this information is protected by the Federal Confidentiality of Alcohol and Drug AbusePatient Records regulations: The Federal rules restrict any use of the information to criminally investigate or prosecute any alcohol or drug abuse patient.[facility] Encounter Details Date Type Department Care Team (Late st Contact Info) Description 02/03/2020 Patient Msg Endocrinology [address] [place] [phone] Gail Escduero MD [address] [place] [address] Endocrine follow up orders Social History Tobacco Use Types Packs/Day Years Used Date Smoking Tobacco: Every Day Cigarettes Smokeless Tobacco: Never Alcohol Use Standard Drinks/Week Comments Not Asked 0 (1 standard drink = 0.6 oz pur e alcohol) Comments No Sex and Gender Information Value [...] have Coronavirus / COVID-19? No / Unsure 01/15/2020 1:46 PM EST documented as of this encounter Plan of Treatment Upcoming Encounters Date Type Department Care Team (Latest Contact Info) Description 08/05/2024 1:00 PM EDT Office Visit Otolaryngology [address] [id number] Rojelio Courtney MD [address] [id number] post op 09/09/2024 11:20 AM EDT [facility] Brain Tumor Center [address] [phone] Chito Sellers MD [address] [id number] Post-Op Scheduling Request 09/16/2024 2:30 PM EDT [facility] Endocrinology [address] [place] [address] Gail Escudero MD [address] [place] [address] Post-Op Scheduling Request documented as of this encounter Visit Diagnoses Not on filedocumented in this encounter Care Teams Gas Welding Equipment Mechanic Relationship Specialty Start Date End Date Johnny Reardon DO [address] [place] [address] PCP - General Internal Medicine 07/27/22 Mayela Faust APRN.OPERATIONS ADMINISTRATIVE ASSISTANT [facility] [place] [address] Rabbet Operator Family Medicine 02/09/24 03/05/24 Marie Mancuso PA-C [facility] [place] [address] Rabbet Operator Internal Medicine 02/09/24 Mai Amador PA-C [facility] [place] [address] Rabbet Operator Internal Medicine 02/09/24 03/05/24 Gail Escudero MD [address] [place] [address] NI Referring Team Endocrinology 05/12/24 documented as of this encounter
--- OUTSIDE RECORDS SUMMARY | 2024-07-26 13:08 | XMS_ITS | Encounter Summary ---
Author Organization [facility] Address [address] [place] [address] Care Team Providers Care Loom Fixer Supervisor Name Role Phone Johnny Reardon DO Primary Care Provider Marie Mancuso PA-C Unavailable [phone] Gail Escudero MD Unavailable [phone] Source Comments In the event this information is protected by the Federal Confidentiality of Alcohol and Drug AbusePatient Records regulations: The Federal rules restrict any use of the information to criminally investigate or prosecute any alcohol or drug abuse patient.[facility] Encounter Details Date Type Department Care Team (Late st Contact Info) Description 04/02/2024 Patient [facility] Brain Tumor Center [address] [place] [address] Provider, Ccf Neurosurgery Social History Tobacco Use Types Packs/Day Years [...] Never 06/07/2022 How often do you attend zoroastrian or mu-ism serv ices? Never 06/07/2022 Do you belong to any clubs o r organizations such as zoroastrian groups, unions, fraternal or athletic groups, or [...] 03/10/2024 [facility] of Occupat ional Health - Occupational [...] risk 7 07/26/2022 Data from: https://www.neighborhoodatlas.medicine.[facility].edu/. Last address used for calculation [address] [place] [address] 07/26/2022 Comments No Sex and Gender Information [...] 1:00 PM EDT Office Visit Otolaryngology [address] [phone] Rojelio Courtney MD [address] [phone] post op 09/09/2024 11:20 AM EDT [facility] Brain Tumor Center [address] [address] [phone] Chito Sellers MD [address] 2015808 Post-Op Scheduling Request 09/16/2024 2:30 PM EDT [facility] Endocrinology [address] [place] [address] Gail Escudero MD [address] [place] [address] Post-Op Scheduling Request documented as of this encounter Visit Diagnoses Not on filedocumented in this encounter Care Teams Loom Fixer Supervisor Relationship Specialty Start Date End Date Johnny Reardon DO [address] [place] [address] PCP - General Internal Medicine 07/27/22 Marie Mancuso PA-C [address] [place] [address] Lead Coater Internal Medicine 02/09/24 Gail Escudero MD [address] [place] [address] NI Referring Team Endocrinology 05/12/24 documented as of this encounter
--- OUTSIDE RECORDS SUMMARY | 2024-07-26 13:08 | XMS_ITS | Encounter Summary ---
Author Organization [facility] Address [facility] [place] [address] Care Team Providers Care Broadcast Director Operations Name Role Phone Johnny Reardon DO Primary Care Provider Mayela Faust APRN.STOCK SHEETS CLEANER INSPECTOR Unavailable [phone] Marie Mancuso PA-C Unavailable [phone] Mai Amador PA-C Unavailable [phone] Gail Escudero MD Unavailable [phone] Source Comments In the event this information is protected by the Federal Confidentiality of Alcohol and Drug AbusePatient Records regulations: The Federal rules restrict any use of the information to criminally investigate or prosecute any alcohol or drug abuse patient.[facility] Encounter Details Date Type Department Care Team (Late st Contact Info) Description 07/04/2021 Patient Msg Endocrinology [address] [place] [address] Gail Escudero MD [address] [place] [address] Reminder to repeat prolactin levels Social History Tobacco Use Types Packs/Day Years [...] N ot on file 02/08/2020 Data from: https://www.neighborhoodatlas.[facility]/. Last address used for calculation Not on [...] 1:00 PM EDT Office Visit Otolaryngology [address] 1445206 Rojelio Courtney MD [address] [phone] post op 09/09/2024 11:20 AM EDT [facility] Brain Tumor Center [address] [phone] Chito Sellers MD [address]90 [place] [address] Post-Op Scheduling Request 09/16/2024 2:30 PM EDT [facility] Endocrinology [address] [place] [address] Gail Escudero MD [address] [place] [address] Post-Op Scheduling Request documented as of this encounter Visit Diagnoses Not on filedocumented in this encounter Care Teams Broadcast Director Operations Relationship Specialty Start Date End Date Johnny Reardon DO [address] [place] [address] PCP - General Internal Medicine 07/27/22 Mayela Faust APRN.STOCK SHEETS CLEANER INSPECTOR [address] [place] [address] Grain Origination Specialist Family Medicine 02/09/24 03/05/24 Marie Mancuso PA-C [facility] [place] [address] Grain Origination Specialist Internal Medicine 02/09/24 Mai Amador PA-C [address] [place], [place] 8988053 Grain Origination Specialist Internal Medicine 02/09/24 03/05/24 Gail Escudero MD [address] [place], [place] 66960[address] NI Referring Team Endocrinology 05/12/24 documented as of this encounter
--- OUTSIDE RECORDS SUMMARY | 2024-07-26 13:08 | XMS_ITS | Encounter Summary ---
Author Organization [facility] Address [address] [place] [address] Care Team Providers Care Owner [employer] Name Role Phone Johnny Reardon DO Primary Care Provider Mayela Faust APRN.AWS SOLUTION ARCHITECT Unavailable [phone] Marie Mancuso PA-C Unavailable [phone] Mai Amador PA-C Unavailable [phone] Gail Escudero MD Unavailable [phone] Source Comments In the event this information is protected by the Federal Confidentiality of Alcohol and Drug AbusePatient Records regulations: The Federal rules restrict any use of the information to criminally investigate or prosecute any alcohol or drug abuse patient.[facility] Encounter Details Date Type Department Care Team (Late st Contact Info) Description 05/05/2020 Patient Msg Family Medicine [place] [address] [place], [place] [phone] Provider, Ccf Appointment Social History Tobacco Use Types Packs/Day [...] N ot on file 02/08/2020 Data from: https://www.neighborhoodatlas.[facility].edu/. Last address used for calculation Not [...] or suspected to have Coronavirus / COVID-19? Unable to assess 04/15/2020 1:24 PM EST documented as of this encounter Plan of Treatment Upcoming Encounters Date Type Department Care Team (Latest Contact Info) Description 08/05/2024 1:00 PM EDT Office Visit Otolaryngology [address] 1079106 Rojelio Courtney MD [address] [phone] post op 09/09/2024 11:20 AM EDT [facility] Brain Tumor Center [address] [phone] Chito Sellers MD [address] [id number] Post-Op Scheduling Request 09/16/2024 2:30 PM EDT [facility] Endocrinology [address] [address] [phone] Gail Escudero MD [address] [phone] Post-Op Scheduling Request documented as of this encounter Visit Diagnoses Not on filedocumented in this encounter Care Teams Owner [employer] Relationship Specialty Start Date End Date Johnny Reardon DO [address] [place] [address] PCP - General Internal Medicine 07/27/22 Mayela Faust APRN.AWS SOLUTION ARCHITECT [address] [place] [address] Records Management Clerk Family Medicine 02/09/24 03/05/24 Marie Mancuso PA-C [address] [place] [address] Records Management Clerk Internal Medicine 02/09/24 Mai Amador PA-C [address] [place] [address] [facility] Internal Medicine 02/09/24 03/05/24 Gail Escudero MD [address] [place] [address] NI Referring Team Endocrinology 05/12/24 documented as of this encounter
--- OUTSIDE RECORDS SUMMARY | 2024-07-26 13:08 | XMS_ITS | Encounter Summary ---
Author Organization [facility] Address [facility] [place] [address] Care Team Providers Care Microfilming Document Preparer Name Role Phone Johnny Reardon DO Primary Care Provider Marie Mancuso PA-C Unavailable [phone] Gail Escudero MD Unavailable [phone] Source Comments In the event this information is protected by the Federal Confidentiality of Alcohol and Drug AbusePatient Records regulations: The Federal rules restrict any use of the information to criminally investigate or prosecute any alcohol or drug abuse patient.[facility] Encounter Details Date Type Department Care Team (Late st Contact Info) Description 04/28/2024 Get Medical Advice Endocrinology [address] [place] [address] Gail Escudero MD [address] [place] [address] Medication update Social History Tobacco Use Types Packs/Day Years [...] Never 06/07/2022 How often do you attend catholic or adventist serv ices? Never 06/07/2022 Do you belong to any clubs o r organizations such as catholic groups, unions, fraternal or athletic groups, [...] Answer Date Recorded PHQ-2 score 3 03/10/2024 [facility] of Occupat ional Health - Occupational [...] place to sleep or slept in a detention (including now)? No 06/07/2022 Area Deprivation Index Answer Date Kana rded National Score (1-100), lower number is lower ri sk 79 07/26/2022 State Score (1-10), lower number is lower risk 7 07/26/2022 Data from: https://www.neighborhoodatlas.medicine.[facility].edu/. Last address used for calculation [address] [place] [address] 07/26/2022 Comments No Sex and Gender Information [...] PM EDT Office Visit Otolaryngology [address] [place] [place] [address] Rojelio Courtney MD [address]00 [place], [place] [phone] post op 09/09/2024 11:20 AM EDT [facility] Brain Tumor [place] [address] [place] [address] Chito Sellers MD 9500 [place] [address] Post-Op Scheduling Request 09/16/2024 2:30 PM EDT [facility] Endocrinology [address] [place] [address] Gail Escudero MD [address] [place], [place] [phone] Post-Op Scheduling Request documented as of this encounter Visit Diagnoses Not on filedocumented in this encounter Care Teams Microfilming Document Preparer Relationship Specialty Start Date End Date Johnny Reardon DO [address] [place] [address] PCP - General Internal Medicine 07/27/22 Marie Mancuso PA-C [address] [place] [address] Origination Specialist Internal Medicine 02/09/24 Gail Escudero MD [address] [place] [address] NI Referring Team Endocrinology 05/12/24 documented as of this encounter
--- OUTSIDE RECORDS SUMMARY | 2024-07-26 13:08 | XMS_ITS | Clinical Summary ---
Author Organization [facility] Healthcare Address [address] [place] [address] Care Team Providers Care Proof Machine Operator Supervisor Name Role Phone GriseldaBrendon ferrer Primary Care Provider [phone] Allergies No known active allergies Medications esomeprazole (NexIUM) [address] capsuleIndicatio ns:Gastroesophag eal reflux disease without esophagitis TAKE 1 CAPSULE EVERY DAY 90 capsule 1 3 Active acyclovir (Zovirax) 400 MG tablet TAKE 1 TABLET EVERY 12 HOURS. LAST REFILL UNTIL OFFICE VISIT 4 Active buPROPion SR (Wellbutrin SR) 150 MG 12 hr tablet TAKE 1 TABLET TWICE DAILY for 90 Active cabergoline (Dostinex) 0.5 MG tablet TAKE 2 TABLETS SIX DAYS OF THE WEEK AND 1 TABLET ONE DAY OF THE WEEK. 3 Active levothyroxine (Synthroid, Levoxyl) 50 MCG tablet Take 50 mcg by mouth in the morning. 3 Active QUEtiapine (SEROquel) 100 MG tablet 4 Active QUEtiapine (SEROquel) 50 MG tablet 4 Active clindamycin (Cleocin-T) 1 % lotionIndication s:Folliculitis Apply topically 2 (two) times a day 60 mL 3 4 11/19/19 25 Active neomycin-bacitra jean-polymyxin (Neosporin) 5-400-5000 ointmentIndicati ons:Folliculitis Apply topically 3 (three) times a day 28 g 3 4 Active Family History Relation Name Status Comments Father Alive Mother Alive Social History Tobacco Use Types Packs/Day Years Used Date Smoking Tobacco: Never Smokeless Tobacco: Never Tobacco Cessation:Counseling Given: Not Answered Alcohol Use Standard Drinks/Week Comments Yes 0 (1 standard drink = 0.6 oz pur e alcohol) AUDIT-C Answer Date Recorded Q1: How often do you have a drink containing alc ohol? Monthly or less 11/19/2023 Q2: How many drinks containi ng alcohol do you have on a typical day when you are drinking? 1 or 2 11/19/2023 Q3: How often do you have si x or more drinks on one occasion? Less than monthly 11/19/2023 Comments No Sex and Gender Information Value Date Recorded Sex Assigned at Not on file Legal Sex Female 8:05 PM EDT Gender Identity Not on file Sexual Orientation Not on file Last Filed Vital Signs Vital Sign Reading Time Taken Comments Blood Pressure 122/88 11/19/2023 3:32 PM EDT Pulse - - Temperature - - Respiratory Rate - - Oxygen Saturation - - Inhaled Oxygen Concentration - - Weight 108 kg (237 lb) 11/19/2023 3:32 PM EDT Height 157.5 cm (5' 2 ) 05/27/2022 12:00 PM EDT Body Mass Index 43.35 05/27/2022 12:00 PM EDT Plan of Treatment Health Maintenance Due Date Last Done Comments Mammogram 08/06/2024 08/07/2023, 03/04, 09/14/2022 Influenza Vaccine (Season Ended) 2024 Pap Smear 06/19/2025 06/19/2022, 06/19/2022 Cervical Cancer Screening 11/18/2028 HPV/Cotest 11/18/2028 11/19/2023, 06/02, 06/21/2021, Additional history exists Procedures Procedure Name Priority Date/Time Associated Diagnosis Comments IGP, APT HPV,RFX 16/18,45 Routine 11/19/2023 4:55 PM EDT from Last 3 Months or Most Recently Relevant to Health Maintenance Results * (ABNORMAL) IGP, APT HPV,RFX 16/18,45 (11/19/2023 4:55 PM EDT) Diagnosis: Comment [facility] Comment:NEGATIVE FOR INTRAEP ITHELIAL LESION OR MALIGNANCY. Specimen Adequacy: Comment [facility] Comment:Satisfactory for tom luation. No endocervical component is identified. Clinician Provided ICD10: Comment [facility] Comment: Z12.4 Z01.419 Performed By: Comment [facility] Comment:Avi Brower totechnologist (ASCP) Cyto Comments . [facility] Note: Comment [facility] Comment: The Pap smear is a screening test designed to aid in the detection of premalignant and malignant conditions of the uterine cervix. It is not a diagnostic procedure and should not be used as the sole means of detecting cervical cancer. Both false-positive and false-negative reports do occur. Test Methodology: Comment [facility] Comment: This liquid based ThinPrep(R) pap test was screened with the use of an image guided system. HPV Aptima Positive(A ) Negative [facility] Comment: This nucleic acid amplification test detects fourteen high-risk HPV types (16,18,31,33,35,39,45,51,52,56,58,59,66,68) without differentiation. 11/19/2023 4:55 PM EDT 11/19/2023 Narrative [facility] - 11/27/2023 8:07 PM EDT Performed at: 01 - [address] [id number] Barrel Driller: Erica Sargent MD, Phone: [phone] Performed at: 02 - [address] [id number] Barrel Driller: Erica Sargent MD, Phone: [phone] Specimen Comment: No. of containers..01 ThinPrep Vial us Chun Markham MD LAB BLOOD ORDERABLES Final Res ult [facility] from Last 3 Months or Most Recently Relevant to Health Maintenance Insurance MEDICAID [place] MEDICARE Care Teams Proof Machine Operator Supervisor Relationship Specialty Start Date End Date Brendon Bird DO [address] [place] [address] PCP - General Family Medicine 07/10/22
--- OUTSIDE RECORDS SUMMARY | 2024-07-26 13:08 | XMS_ITS | Encounter Summary ---
Author Organization [facility] Address [facility] [place] [address] Care Team Providers Care Province Archivist Name Role Phone Johnny Reardon DO Primary Care Provider Marie Mancuso PA-C Unavailable Gail Escudero MD Unavailable [phone] Source Comments In the event this information is protected by the Federal Confidentiality of Alcohol and Drug AbusePatient Records regulations: The Federal rules restrict any use of the information to criminally investigate or prosecute any alcohol or drug abuse patient.[facility] Reason for Referral * Consult, Test, Treat (Routine) - Authorized Specialty Diagnoses / Procedures Referred By Contac t Referred To Contact Diagnoses Pituitary adenoma (HCC) Procedures REFER TO [facility] - PREOPERATIVE OPTIMIZATION OFFICE/OUTPATIENT [facility] 60 MINUTES Chito Sellers MD [address] [place] [address] Phone: tel: fax: Referral ID Status Reason Start Date Expiration Date Visits Requested Visits Authorized [id number] Authorized PCP Requested Referral 06/23/2024 06/23/2025 1 1 * MRI/CT (Routine) - Closed Specialty Diagnoses / Procedures Referred By Contac t Referred To Contact MR IMAGING Diagnoses Pituitary adenoma (HCC) Procedures MRI SKULL BASE WO/W IVCON MRI BRAIN BRAIN STEM W/O W/CONTRAST MATERIAL Chito Sellers MD [address] [place] [address] Phone: tel: fax: MR IMAG[place] [address] Referral ID Status Reason Start Date Expiration Date V isits Requested Visits Authorized [id number] Closed Auto-Generat ed Referral Patient Cleared - Admin/Chairm an/Director advise to proceed or did not respond 07/17/2024 08/16/2024 1 1 Encounter Details Date Type Department Care Team (Late st Contact Info) Description 06/23/2024 Cure Form [facility] [address] [id number] Chito Sellers MD [address] [place] [address] Pituitary adenoma (HCC) (Primary Dx); Other postprocedural endocrine and metabolic complications and disorders; Other specified disorders of nose and nasal sinuses Social History Tobacco Use Types Packs/Day Years [...] Never 06/07/2022 How often do you attend rastafarian or gnosticism serv ices? Never 06/07/2022 Do you belong to any clubs o r organizations such as rastafarian groups, unions, fraternal or athletic groups, or [...] Answer Date Recorded PHQ-2 score 3 03/10/2024 [facility] - Occupational Stress [...] place to sleep or slept in a long term (including now)? No 06/07/2022 Area Deprivation Index Answer Date Kana rded National Score (1-100), lower number is lower ri sk 79 07/26/2022 State Score (1-10), lower number is lower risk 7 07/26/2022 Data from: https://www.neighborhoodatlas.medicine.[facility].edu/. Last address used for calculation [address] [place] [address] 07/26/2022 Comments No Sex and Gender Information [...] 1:00 PM EDT Office Visit Otolaryngology [address] [id number] Maren Courtney MD [address] [phone] post op 09/09/2024 11:20 AM EDT [facility] [address] [id number] Chito Sellers MD [address] [phone] Post-Op Scheduling Request 09/16/2024 2:30 PM EDT [facility] Endocrinology [address] [place] [address] Gail Escudero MD [address] [phone] Post-Op Scheduling Request Scheduled Orders Name Type Priority Associated Diagnoses Orde r Schedule REFER FOR ADMIT INTERVIEW Procedures Routine Pituitary adenoma (HCC) Ordered: 06/23/2024 documented as of this encounter Results * MRI SKULL BASE WO/W IVCON (07/21/2024 6:31 PM EDT) Anatomical Region Laterality Modality Skull Magnetic Resonan ce 07/21/2024 6:31 PM EDT Impressions 07/22/2024 8:15 AM EDT IMPRESSION: Preoperative examination. Stable likely adenoma protruding into the left sphenoid sinus. Merchandise Flow Manager: PSCB Transcribe Date/Time: Jul 22 2024 8:07A [...] base. Unremarkable extracranial structures. Procedure Note Provider, [facility] - 07/22/2024 * * *Final Report* * [...] adenoma protruding into the left sphenoid sinus. Merchandise Flow Manager: PSCB Transcribe Date/Time: Jul 22 2024 8:07A [...] canal from known pituitary adenoma as described. Merchandise Flow Manager: SASHA Transcribe Date/Time: Jul 21 2024 7:46P Dictated by : ANTHONY MUSA MD This examination was interpreted and the report reviewed and electronically signed by: ANTHONY MUSA MD on Jul 21 2024 7:56PM EST Narrative 07/21/2024 7:58 PM EDT * * *Final Report* * * DATE OF EXAM: Jul 21 2024 5:04PM [facility] - CT SINUS STEREO WO IVCON [...] clear. LEFT Max Juliano Score: 0 RIGHT Max Juliano Score: 0 TOTAL Slater Adair Score: 0 Nasal Cavities: Visualized nasal cavities [...] images: No significant findings. Procedure Note Provider, [facility] - 07/21/2024 * * *Final Report* * * DATE OF EXAM: Jul 21 2024 5:04PM [facility] [place]75 - CT SINUS STEREO WO IVCON [...] None Sinus Chambers: Sinuses are clear. LEFT Slater Adair Score: 0 RIGHT Slater Juliano Score: 0 TOTAL Max Juliano Score: 0 Nasal Cavities: Visualized nasal cavities [...] canal from known pituitary adenoma as described. Merchandise Flow Manager: [facility] Transcribe Date/Time: Jul 21 2024 7:46P Dictated by : ANTHONY MUSA MD This examination was interpreted and the report reviewed and electronically signed by: ANTHONY MUSA MD on Jul 21 2024 7:56PM EST us Chito Sellers MD [facility] Final Result * CONFIRM BLOOD TYPE (07/21/2024 3:45 PM EDT) ABO A 07/21/2024 7:31 PM EDT [facility] Rh(D) Positive 07/21/2024 7:31 PM EDT [facility] Blood BLOOD SPECIMEN / Unknown Venipuncture / Unknown 07/21/2024 3:45 PM EDT 07/21/2024 3:45 PM EDT us Chito Sellers MD BLOOD BANK Final Result [facility] [address] [facility] [address] [address], * STAPHYLOCOCCUS AUREUS & MRSA SCREEN, PCR, NASAL (07/21/2024 3:38 PM EDT) [facility] Staphylococcus aureus DNA Not Detected Not Detected CEPHEID GENEXPERT COVID19 07/21/2024 9:27 PM EDT [facility] Swab POSTERIOR NARES / Unknown Non Blood / Unknown 07/21/2024 3:38 PM EDT 07/21/2024 3:38 PM EDT us Chito Sellers MD LABORATORY Final Result Performing Organization Address City/[facility]/ZIP Co de Phone Number [facility] [address] [id number], [place] * TYPE AND SCREEN,30 DAY (07/21/2024 3:38 PM EDT) [facility] ABO A 07/21/2024 9:06 PM EDT [facility] Rh(D) Positive 07/21/2024 9:06 PM EDT [facility] Antibody Screen Negative 07/21/2024 9:06 PM EDT MAIN BLOOD BANK Blood BLOOD SPECIMEN / Unknown Venipuncture / Unknown 07/21/2024 3:38 PM EDT 07/21/2024 3:38 PM EDT us Chito Sellers MD BLOOD BANK Final Result Performing Organization Address [facility] Co de Phone Number MAIN BLOOD BANK [address] [phone], [place] * (ABNORMAL) COMPLETE BLOOD COUNT AND DIFFERENTIAL (07/21/2024 3:38 PM EDT) [facility] WBC 7.91 3.70 - 11.00 k/uL 07/21/2024 5:44 PM EDT [facility] RBC 4.31 3.90 - 5.20 m/uL 07/21/2024 5:44 PM EDT [facility] Hemoglobin 13.1 11.5 - 15.5 g/dL 07/21/2024 5:44 PM EDT [facility] Hematocrit 38.5 36.0 - 46.0 % 07/21/2024 5:44 PM EDT [facility] MCV 89.3 80.0 - 100.0 fL 07/21/2024 5:44 PM EDT [facility] MCH 30.4 26.0 - 34.0 pg 07/21/2024 5:44 PM EDT [facility] MCHC 34.0 30.5 - 36.0 g/dL 07/21/2024 5:44 PM EDT [facility] RDW-CV 12.7 11.5 - 15.0 % 07/21/2024 5:44 PM EDT [facility] Platelet Count 404(H) 150 - 400 k/uL 07/21/2024 5:44 PM EDT [facility] MPV 9.2 9.0 - 12.7 fL 07/21/2024 5:44 PM EDT [facility] Neutrophils % 68.8 % 07/21/2024 5:44 PM EDT [facility] Abs Neut 5.44 1.45 - 7.50 k/uL 07/21/2024 5:44 PM EDT [facility] Lymphocytes % 21.1 % 07/21/2024 5:44 PM EDT [facility] Abs Lymph 1.67 1.00 - 4.00 k/uL 07/21/2024 5:44 PM EDT [facility] Monocytes % 6.7 % 07/21/2024 5:44 PM EDT [facility] Abs [place] 0.53 <0.87 k/uL 07/21/2024 5:44 PM EDT [facility] Eosinophils % 2.9 % 07/21/2024 5:44 PM EDT [facility] Abs Eosin 0.23 <0.46 k/uL 07/21/2024 5:44 PM EDT [facility] Basophils % 0.4 % 07/21/2024 5:44 PM EDT [facility] Abs Baso 0.03 <0.11 k/uL 07/21/2024 5:44 PM EDT [facility] Immature Granulocytes % 0.1 % 07/21/2024 5:44 PM EDT [facility] Abs Immature Gran <0.03 <0.10 k/uL 025 5:44 PM EDT [facility] NRBC 0.0 /100 WBC 07/21/2024 5:44 PM EDT [facility] Absolute nRBC <0.01 <0.01 k/uL 07/21/2024 5:44 PM EDT [facility] Diff Type Auto 07/21/2024 5:44 PM EDT [facility] Blood BLOOD SPECIMEN / Unknown Venipuncture / Unknown 07/21/2024 3:38 PM EDT 07/21/2024 3:38 PM EDT us Chito Sellers MD LABORATORY Final Result [facility] [address] [place] [address], * BASIC METABOLIC PANEL (07/21/2024 3:38 PM EDT) [facility] Glucose 97 74 - 99 mg/dL 07/22/2024 9:30 AM EDT [facility] Comment: The [place] Diabetes Association (ADA) provides guidance for cutoff [...] Standards of Medical Care in Diabetes 2016, [place] Diabetes Association. Diabetes Care. 2016.39(Suppl 1). BUN 7 7 - 21 mg/dL 07/22/2024 9:30 AM EDT [facility] Creatinine 0.78 0.58 - 0.96 mg/dL 07/22/2024 9:30 AM EDT [facility] Sodium 137 136 - 144 mmol/L 07/22/2024 9:30 AM EDT [facility] Potassium 3.9 3.7 - 5.1 mmol/L 07/22/2024 9:30 AM EDT [facility] Chloride 103 98 - 107 mmol/L 07/22/2024 9:30 AM EDT [facility] CO2 24 22 - 30 mmol/L 07/22/2024 9:30 AM EDT [facility] Anion Gap 10 8 - 15 mmol/L 07/22/2024 9:30 AM EDT [facility] Calcium, Total 9.0 8.5 - 10.2 mg/dL 07/22/2024 9:30 AM EDT [facility] Estimated Glomerular Filtration Rate 97 >=60 mL/min/1.7 3m 07/22/2024 9:30 AM EDT [facility] Comment:Estimated Glomerular Filtration Rate (eGFR) is [...] us Chito Sellers MD LABORATORY Final Result [facility] [address] [place] [address], documented in this encounter Visit Diagnoses Diagnosis Pituitary adenoma (HCC)- Primary Benign neoplasm of pituitary gland and craniopharyngeal duct (pouch) Other postprocedural endocrine and metabolic complications and disorders Other specified disorders of nose and nasal sinuses Pituitary adenoma (HCC) Benign neoplasm of pituitary gland and craniopharyngeal duct (pouch) Pituitary adenoma (HCC) Benign neoplasm of pituitary gland and craniopharyngeal duct (pouch) documented in this encounter Care Teams Province Archivist Relationship Specialty Start Date End Date Johnny Reardon DO [address] [place] [address] PCP - General Internal Medicine 07/27/22 Marie Mancuso PA-C [address] [facility] [place] [place] [address] Fiberglass Model Maker Internal Medicine 02/09/24 Gail Escudero MD [address] [place] [address] NI Referring Team Endocrinology 05/12/24 documented as of this encounter
--- OUTSIDE RECORDS SUMMARY | 2024-07-26 13:08 | XMS_ITS | Encounter Summary ---
Author Organization [facility] Address [address] [place] [address] Care Team Providers Care Family Nurse Practitioner Name Role Phone Johnny Reardon DO Primary Care Provider Marie Mancuso PA-C Unavailable [phone] Gail Escudero MD Unavailable [phone] Source Comments In the event this information is protected by the Federal Confidentiality of Alcohol and Drug AbusePatient Records regulations: The Federal rules restrict any use of the information to criminally investigate or prosecute any alcohol or drug abuse patient.[facility] Encounter Details Date Type Department Care Team (Late st Contact Info) Description 05/13/2024 Patient Msg [facility] [address] [place] [address] Chito Sellers MD [address] [place] [address] Appointment Request Social History Tobacco Use Types Packs/Day Years [...] Never 06/07/2022 How often do you attend mosque or caodaism serv ices? Never 06/07/2022 Do you belong to any clubs o r organizations such as mosque groups, unions, fraternal or athletic groups, or [...] PHQ-2 score 3 03/10/2024 [facility] - Occupational Stress Questionnaire Answer Date [...] place to sleep or slept in a long-term (including now)? No 06/07/2022 Area Deprivation Index Answer Date Kana rded National Score (1-100), lower number is lower ri sk 79 07/26/2022 State Score (1-10), lower number is lower risk 7 07/26/2022 Data from: https://www.neighborhoodatlas.medicine.[facility].edu/. Last address used for calculation [address] [place] [address] 07/26/2022 Comments No Sex and Gender Information [...] PM EDT Office Visit Otolaryngology [address] [address] Rojelio Courtney MD [address] [place] [address] post op 09/09/2024 11:20 AM EDT [facility] [address] [place] [address] Chito Sellers MD [address] [place] [address] Post-Op Scheduling Request 09/16/2024 2:30 PM EDT [facility] [address] [place] [address] Gail Escudero MD [address] [place], [place] [phone] Post-Op Scheduling Request documented as of this encounter Visit Diagnoses Not on filedocumented in this encounter Care Teams Family Nurse Practitioner Relationship Specialty Start Date End Date Johnny Reardon DO [address] [place] [address] PCP - General Internal Medicine 07/27/22 Marie Mancuso PA-C [address] [place] [address] Manager Urology Internal Medicine 02/09/24 Gail Escudero MD [address] [place] [address] NI Referring Team Endocrinology 05/12/24 documented as of this encounter
--- OUTSIDE RECORDS SUMMARY | 2024-07-26 13:08 | XMS_ITS | Encounter Summary ---
Author Organization [facility] Address [facility] [place] [address] Care Team Providers Care Aged Or Disabled Care Worker Name Role Phone Johnny Reardon DO Primary Care Provider Mayela Faust APRN.CONVEYOR TENDER [employer] Unavailable [phone] Marie Mancuso PA-C Unavailable [phone] Mai Amador PA-C Unavailable [phone] Gail Escudero MD Unavailable [phone] Source Comments In the event this information is protected by the Federal Confidentiality of Alcohol and Drug AbusePatient Records regulations: The Federal rules restrict any use of the information to criminally investigate or prosecute any alcohol or drug abuse patient.[facility] Encounter Details Date Type Department Care Team (Late st Contact Info) Description 02/09/2020 Get Medical Advice Endocrinology [address] [place] [address] Gail Escudero MD [address] [place] [address] RE: Non-Urgent Medical Question Social History Tobacco Use Types Packs/Day Years [...] N ot on file 02/08/2020 Data from: https://www.neighborhoodatlas.[facility]/. Last address used for [...] 1:00 PM EDT Office Visit Otolaryngology [address] [phone] Rojelio Courtney MD [address] [phone] post op 09/09/2024 11:20 AM EDT [facility] [address] [phone] Chito Sellers MD [address] [phone] Post-Op Scheduling Request 09/16/2024 2:30 PM EDT [facility] Endocrinology [address] [phone] Gail Escudero MD [address] [place] [address] Post-Op Scheduling Request documented as of this encounter Visit Diagnoses Not on filedocumented in this encounter Care Teams Aged Or Disabled Care Worker Relationship Specialty Start Date End Date Johnny Reardon DO [address] [facility] [place] [address] PCP - General Internal Medicine 07/27/22 Mayela Faust APRN.CONVEYOR TENDER [employer] [address] [place] [address] Oracle Iam Consultant Family Medicine 02/09/24 03/05/24 Marie Mancuso PA-C [address] [place] [address] [employer] Consultant Internal Medicine 02/09/24 Mai Amador PA-C [address] [place] [address] [employer]am Consultant Internal Medicine 02/09/24 03/05/24 Gail Escudero MD [address] [place], [place] [phone] NI Referring Team Endocrinology 05/12/24 documented as of this encounter
--- OUTSIDE RECORDS SUMMARY | 2024-07-26 13:08 | XMS_ITS | Encounter Summary ---
Author Organization [facility] Address [facility] [place] [address] Care Team Providers Care [place] Seamer Name Role Phone Johnny Reardon DO Primary Care Provider Mayela Faust APRN.MANUFACTURER AGENT Unavailable Marie Mancuso PA-C Unavailable [phone] Mai Amador PA-C Unavailable [phone] Gail Escudero MD Unavailable [phone] Source Comments In the event this information is protected by the Federal Confidentiality of Alcohol and Drug AbusePatient Records regulations: The Federal rules restrict any use of the information to criminally investigate or prosecute any alcohol or drug abuse patient.[facility] Encounter Details Date Type Department Care Team (Late st Contact Info) Description 04/13/2020 Get Medical Advice Endocrinology [address] [place] [address] Gail Escudero MD [address] [place] [address] RE: Medication Question (Not Renewal) Social History Tobacco Use Types Packs/Day Years [...] N ot on file 02/08/2020 Data from: https://www.neighborhoodatlas.[facility]/. Last address used for calculation Not [...] 1:00 PM EDT Office Visit Otolaryngology [address] [id number] Rojelio Courtney MD [address] [id number] post op 09/09/2024 11:20 AM EDT [facility] [address] [id number] Chito Sellers MD [address] [place] [address] Post-Op Scheduling Request 09/16/2024 2:30 PM EDT [facility] Endocrinology [address] [id number] Gail Escudero MD [address] [place] [address] Post-Op Scheduling Request documented as of this encounter Visit Diagnoses Not on filedocumented in this encounter Care Teams [place] Seamer Relationship Specialty Start Date End Date Johnny Reardon DO [address] [place] [address] PCP - General Internal Medicine 07/27/22 Mayela Faust APRN.MANUFACTURER AGENT [address] [place] [address] Stage Technician Family Medicine 02/09/24 03/05/24 Marie Mancuso PA-C [address] [place], [place] [id number] Stage Technician Internal Medicine 02/09/24 Mai Amador PA-C [address] [facility] [place] [address] Stage Technician Internal Medicine 02/09/24 03/05/24 Gail Escudero MD [address] [place] [address] NI Referring Team Endocrinology 05/12/24 documented as of this encounter
--- OUTSIDE RECORDS SUMMARY | 2024-07-26 13:08 | XMS_ITS | Encounter Summary ---
Author Organization [facility] Address [address] [place] [address] Care Team Providers Care Library Director Name Role Phone Johnny Reardon DO Primary Care Provider Mayela Faust APRN.REPAIRER HELPER Unavailable [phone] Marie Mancuso PA-C Unavailable [phone] Mai Amador PA-C Unavailable [phone] Gail Escudero MD Unavailable [phone] Source Comments In the event this information is protected by the Federal Confidentiality of Alcohol and Drug AbusePatient Records regulations: The Federal rules restrict any use of the information to criminally investigate or prosecute any alcohol or drug abuse patient.[facility] Encounter Details Date Type Department Care Team (Late st Contact Info) Description 03/24/2020 Patient Msg Endocrinology [address] [place], [place] [phone] Provider, Ccf Lab Reminder Social History Tobacco [...] N ot on file 02/08/2020 Data from: https://www.neighborhoodatlas.medicine.[facility]/. Last address used for calculation [...] EDT Office Visit Otolaryngology [address] [phone] Rojelio Courtney MD [address] [place] [address] post op 09/09/2024 11:20 AM EDT [facility] [address] [place] [address] Chito Sellers MD [address] [place], [place] 0681995 Post-Op Scheduling Request 09/16/2024 2:30 PM EDT [facility] Endocrinology [address] [place] [address] Gail Escudero MD [address] [place] [address] Post-Op Scheduling Request documented as of this encounter Visit Diagnoses Not on filedocumented in this encounter Care Teams Library Director Relationship Specialty Start Date End Date Johnny Reardon DO [address] [place] [address] PCP - General Internal Medicine 07/27/22 Mayela Faust APRN.REPAIRER HELPER [facility] [place] [address] Flat Surfacer Jewel Family Medicine 02/09/24 03/05/24 Marie Mancuso PA-C [address] [place] [address] Flat Surfacer Jewel Internal Medicine 02/09/24 Mai Amador PA-C [address] [place] [address] Flat Surfacer Jewel Internal Medicine 02/09/24 03/05/24 Gail Escudero MD [address] [place] [address] NI Referring Team Endocrinology 05/12/24 documented as of this encounter
--- OUTSIDE RECORDS SUMMARY | 2024-07-26 13:09 | XMS_ITS | Encounter Summary ---
Author Organization [facility] Address [facility] [place] [address] Care Team Providers Care Senior Sales Consultant Name Role Phone Johnny Reardon DO Primary Care Provider Mayela Faust APRN.SOFTWARE ENGINEER DEVELOPER Unavailable [phone] Marie Mancuso PA-C Unavailable [phone] Mai Amador PA-C Unavailable [phone] Gail Escudero MD Unavailable [phone] Source Comments In the event this information is protected by the Federal Confidentiality of Alcohol and Drug AbusePatient Records regulations: The Federal rules restrict any use of the information to criminally investigate or prosecute any alcohol or drug abuse patient.[facility] Encounter Details Date Type Department Care Team (Late st Contact Info) Description 03/25/2023 Patient Msg Endocrinology [address] [place] [address] Gail Escudero MD [address] [place] [address] Request an Appointment Social History Tobacco Use Types Packs/Day [...] How often do you attend mandaen or church serv ices? Never 06/07/2022 Do you belong [...] Answer Date Recorded PHQ-2 score 3 06/07/2022 [facility] [place] of Occupat ional Health - Occupational Stress [...] is lower risk 7 07/26/2022 Data from: https://www.neighborhoodatlas.medicine.[facility].edu/. Last address used for calculation [address] [place] [address] 07/26/2022 Comments No Sex and Gender Information [...] 1:00 PM EDT Office Visit Otolaryngology [address] [address] Rojelio Courtney MD [address] [place] [address] post op 09/09/2024 11:[address] [facility] [address] [place] [address] Chito Sellers MD [address] [place] [address] Post-Op Scheduling Request 09/16/2024 2:30 PM EDT [facility] Endocrinology [address] [place] [address] Gail Escudero MD [address] [place], [place] 8941295 Post-Op Scheduling Request documented as of this encounter Visit Diagnoses Not on filedocumented in this encounter Care Teams Senior Sales Consultant Relationship Specialty Start Date End Date Johnny Reardon DO [facility] [facility] [place] [address] PCP - General Internal Medicine 07/27/22 Mayela Faust APRN.SOFTWARE ENGINEER DEVELOPER [facility] [place] [address] Agriculture Sales Account Manager Family Medicine 02/09/24 03/05/24 Marie Mancuso PA-C [facility] [place] [address] Agriculture Sales Account Manager Internal Medicine 02/09/24 Mai Amador PA-C [facility] [place], [place] 6736[address] [facility] Internal Medicine 02/09/24 03/05/24 Gail Escudero MD [address] [place], [place] 7881795 NI Referring Team Endocrinology 05/12/24 documented as of this encounter
--- OUTSIDE RECORDS SUMMARY | 2024-07-26 13:09 | XMS_ITS | Encounter Summary ---
Author Organization [facility] Address [address] [place] [address] Care Team Providers Care Senior Sales Operations Manager Name Role Phone Johnny Reardon DO Primary Care Provider Mayela Faust APRN.METAL PICKLING EQUIPMENT OPERATOR Unavailable Marie Mancuso PA-C Unavailable [phone] Mai Amador PA-C Unavailable [phone] Gail Escudero MD Unavailable [phone] Source Comments In the event this information is protected by the Federal Confidentiality of Alcohol and Drug AbusePatient Records regulations: The Federal rules restrict any use of the information to criminally investigate or prosecute any alcohol or drug abuse patient.[facility] Encounter Details Date Type Department Care Team (Late st Contact Info) Description 03/13/2023 Radiology [facility] Radiology Mammography [address] [facility] [place], [place] [phone] [facility] Social History Tobacco Use Types Packs/Day Years [...] Never 06/07/2022 How often do you attend jain or adventism serv ices? Never 06/07/2022 Do you belong to any clubs o r organizations such as jain groups, unions, fraternal or athletic groups, or [...] Answer Date Recorded PHQ-2 score 3 06/07/2022 [facility] - Occupational Stress Questionnaire Answer Date Recorded [...] is lower risk 7 07/26/2022 Data from: https://www.neighborhoodatlas.medicine.[facility].edu/. Last address used for calculation [address] [place] [address] 07/26/2022 Comments No Sex and Gender Information Value Date Recorded Sex Assigned at Female 09/09/2019 3:52 PM EDT Legal Sex Female 8:28 AM EST Gender Identity Female 09/09/2019 3:52 PM EDT Sexual Orientation Straight 09/09/2019 3: 52 PM EDT documented as of this encounter Progress Notes * Mónica Mckeon, TONA - 03/13/2023 2:51 PM EST Radiology Service Progress Note PATIENT NAME: Danii Ernst DATE OF SERVICE: March 13, 2023 TIME: 2:51 PM PATIENT IDENTITY VERIFICATION COMPLETED USING TWO [...] PATIENT RELEVANT IMPLANT DATA REVIEWED: Not Applicable RADIOLOGY DEPARTMENT: Ultrasound PERIPHERAL IV DATA: Not applicable SIGNED BY: Mónica Mckeon RDMS March 13, 2023 2:51 PM documented in this encounter Plan of Treatment Upcoming Encounters Date Type Department Care Team (Latest Contact Info) Description 08/05/2024 1:00 PM EDT Office Visit Otolaryngology [address] [address] Rojelio Courtney MD [address] [place] [address] post op 09/09/2024 11:20 AM EDT [facility] [address] [place] [address] Chito Sellers MD [address] [place] [address] Post-Op Scheduling Request 09/16/2024 2:30 PM EDT [facility] Endocrinology [address] [place] [address] Gail Escudero MD [address] [place] [address] Post-Op Scheduling Request documented as of this encounter Visit Diagnoses Not on filedocumented in this encounter Care Teams Senior Sales Operations Manager Relationship Specialty Start Date End Date Johnny Reardon DO [address] [place] [address] PCP - General Internal Medicine 07/27/22 Mayela Faust APRN.METAL PICKLING EQUIPMENT OPERATOR [address] [place] [address] Electrical Software Engineer Family Medicine 02/09/24 03/05/24 Marie Mancuso PA-C [address] [place] [address] [facility] Internal Medicine 02/09/24 Mai Amador PA-C [address] [place] [address] [facility] Internal Medicine 02/09/24 03/05/24 Gail Escudero MD [address] [place] [address] NI Referring Team Endocrinology 05/12/24 documented as of this encounter
--- OUTSIDE RECORDS SUMMARY | 2024-07-26 13:09 | XMS_ITS | Encounter Summary ---
Author Organization [facility] Address [address] [place] [address] Care Team Providers Care Fire Hazard Inspector Name Role Phone Johnny Reardon DO Primary Care Provider Mayela Faust APRN.MASTER POLICE DETECTIVE Unavailable Marie Mancuso PA-C Unavailable [phone] Mai Amador PA-C Unavailable [phone] Gail Escudero MD Unavailable [phone] Source Comments In the event this information is protected by the Federal Confidentiality of Alcohol and Drug AbusePatient Records regulations: The Federal rules restrict any use of the information to criminally investigate or prosecute any alcohol or drug abuse patient.[facility] Encounter Details Date Type Department Care Team (Late st Contact Info) Description 11/19/2022 [place] [address] Provider, Ccf Questionnaire Submission Social History Tobacco Use Types Packs/Day Years [...] Never 06/07/2022 How often do you attend mu-ism or jainism serv ices? Never 06/07/2022 Do you belong to any clubs o r organizations such as mu-ism groups, unions, fraternal or athletic groups, or [...] Answer Date Recorded PHQ-2 score 3 06/07/2022 [facility] - Occupational Stress Questionnaire Answer Date [...] is lower risk 7 07/26/2022 Data from: https://www.neighborhoodatlas.medicine.[facility].edu/. Last address used for calculation [address] [place] [address] 07/26/2022 Comments No Sex and Gender Information [...] 1:00 PM EDT Office Visit Otolaryngology [address] [address] Rojelio Courtney MD [address] [place] [address] post op 09/09/2024 11:20 AM EDT [facility] [address] [place] [address] Chito Sellers MD [address] [place] [address] Post-Op Scheduling Request 09/16/2024 2:30 PM EDT [facility] Endocrinology [address] [place] [address] Gail Escudero MD [address] [place], [place] [phone] Post-Op Scheduling Request documented as of this encounter Visit Diagnoses Not on filedocumented in this encounter Care Teams Fire Hazard Inspector Relationship Specialty Start Date End Date Johnny Reardon DO [address] [place] [address] PCP - General Internal Medicine 07/27/22 Mayela Faust, FULFILLMENT MAIL CLERK.MASTER POLICE DETECTIVE [address] [place] [address] Rabbit Breeder Family Medicine 02/09/24 03/05/24 Marie Mancuso PA-C [address] [place] [address] Rabbit Breeder Internal Medicine 02/09/24 Mai Amador PA-C [address] [place] [address] Rabbit Breeder Internal Medicine 02/09/24 03/05/24 Gail Escudero MD [address] [place], [place] [address] NI Referring Team Endocrinology 05/12/24 documented as of this encounter
--- OUTSIDE RECORDS SUMMARY | 2024-07-26 13:09 | XMS_ITS | Encounter Summary ---
Author Organization [facility] Address [address] [place] [address] Care Team Providers Care Line Clearance Foreman Name Role Phone Johnny Reardon DO Primary Care Provider Mayela Faust APRN.SHIPPING AND RECEIVING SUPERVISOR Unavailable Marie Mancuso PA-C Unavailable [phone] Mai Amador PA-C Unavailable [phone] Gail Escudero MD Unavailable [phone] Source Comments In the event this information is protected by the Federal Confidentiality of Alcohol and Drug AbusePatient Records regulations: The Federal rules restrict any use of the information to criminally investigate or prosecute any alcohol or drug abuse patient.[facility] Encounter Details Date Type Department Care Team (Late st Contact Info) Description 08/06/2022 Patient Msg Internal Medicine [place] [address] [place], [place] [phone] Johnny Reardon DO [address] [place] [address] labs Social History Tobacco Use Types Packs/Day Years [...] Never 06/07/2022 How often do you attend confucianism or denominational serv ices? Never 06/07/2022 Do you belong to any clubs o r organizations such as confucianism groups, unions, fraternal or athletic groups, or [...] Answer Date Recorded PHQ-2 score 3 06/07/2022 [facility] of Occupat ional Health - Occupational [...] is lower risk 7 07/26/2022 Data from: https://www.neighborhoodatlas.medicine.[facility].edu/. Last address used for calculation [address] [place] [address] 07/26/2022 Comments No Sex and Gender Information [...] 1:00 PM EDT Office Visit Otolaryngology [address] [address] Rojleio Courtney MD [address] [place] [address] post op 09/09/2024 11:20 AM EDT [facility] [address] [place] [address] Chito Sellers MD [address] [place] [address] Post-Op Scheduling Request 09/16/2024 2:30 PM EDT [facility] Endocrinology [address] [place] [address] Gail Escudero MD [address] [place], [place] [phone] Post-Op Scheduling Request documented as of this encounter Visit Diagnoses Not on filedocumented in this encounter Care Teams Line Clearance Foreman Relationship Specialty Start Date End Date Johnny Reardon DO [address] [facility] [place] [place] [address] PCP - General Internal Medicine 07/27/22 Mayela Faust APRN.SHIPPING AND RECEIVING SUPERVISOR [facility] [place] [address] Frame Tender Family Medicine 02/09/24 03/05/24 Marie Mancuso PA-C [facility] [place], [place] [address] Frame Tender Internal Medicine 02/09/24 Mai Amador PA-C [facility] [place], [place] [address] Frame Tender Internal Medicine 02/09/24 03/05/24 Gail Escudero MD [address] [place], [place] 8[address]1395 NI Referring Team Endocrinology 05/12/24 documented as of this encounter
--- OUTSIDE RECORDS SUMMARY | 2024-07-26 13:09 | XMS_ITS | Encounter Summary ---
Author Organization [facility] Address [address] [place] [address] Care Team Providers Care Computer Repair Engineer Name Role Phone Johnny Reardon DO Primary Care Provider Mayela Faust APRN.WEB MANAGER Unavailable [phone] Marie Mancuso PA-C Unavailable [phone] Mai Amador PA-C Unavailable [phone] Gail Escudero MD Unavailable [phone] Source Comments In the event this information is protected by the Federal Confidentiality of Alcohol and Drug AbusePatient Records regulations: The Federal rules restrict any use of the information to criminally investigate or prosecute any alcohol or drug abuse patient.[facility] Encounter Details Date Type Department Care Team (Late st Contact Info) Description 06/25/2023 Patient Msg Dermatology [place] [address] [place] [address] Provider, Ccf Annual Appointment Due Social History [...] Never 06/07/2022 How often do you attend pentecostalism or yarsanism serv ices? Never 06/07/2022 Do you belong to any clubs o r organizations such as pentecostalism groups, unions, fraternal or athletic groups, or [...] Answer Date Recorded PHQ-2 score 3 06/07/2022 [facility] of Occupat ional Health - [...] community hospital.edu/. Last address used for calculation [address] [place] [address] 07/26/2022 Comments No Sex and Gender Information [...] 1:00 PM EDT Office Visit Otolaryngology [address] [address] Rojelio Courtney MD [address] [place], [place] [address] post op 09/09/2024 11:20 AM EDT [facility] [address] [facility] [place] [address] Chito Sellers MD [address] [place] [address] Post-Op Scheduling Request 09/16/2024 2:30 PM EDT [facility] Endocrinology [address] [place] [address] Gail Escudero MD [address] [place], [place] [phone] Post-Op Scheduling Request documented as of this encounter Visit Diagnoses Not on filedocumented in this encounter Care Teams Computer Repair Engineer Relationship Specialty Start Date End Date Johnny Reardon DO [address] [facility] [place] [address] PCP - General Internal Medicine 07/27/22 Mayela Faust, REGIONAL SALES ASSOCIATE.WEB MANAGER [address] [place] [address] Edge Bander Hand Family Medicine 02/09/24 03/05/24 Marie Mancuso PA-C [address] [facility] [place] [address] [facility]ander [facility] Internal Medicine 02/09/24 Mai Amador PA-C [address] [facility] [address] [facility]ander Hand Internal Medicine 02/09/24 03/05/24 Gail Escudero MD [address] [place], [place] [phone] NI Referring Team Endocrinology 05/12/24 documented as of this encounter
--- OUTSIDE RECORDS SUMMARY | 2024-07-26 13:09 | XMS_ITS | Encounter Summary ---
Author Organization [facility] Address [facility] [place] [address] Care Team Providers Care Hand Folder Name Role Phone Johnny Reardon DO Primary Care Provider Mayela Faust APRN.OPERATIONS AND MAINTENANCE SPECIALIST Unavailable [phone] Marie Mancuso PA-C Unavailable [phone] Mai Amador PA-C Unavailable [phone] Gail Escudero MD Unavailable [phone] Source Comments In the event this information is protected by the Federal Confidentiality of Alcohol and Drug AbusePatient Records regulations: The Federal rules restrict any use of the information to criminally investigate or prosecute any alcohol or drug abuse patient.[facility] Encounter Details Date Type Department Care Team (Late st Contact Info) Description 09/26/2022 Get Medical Advice Endocrinology [address] [place] [address] Gail Escudero MD [address] [place] [address] Follow up Social History Tobacco Use Types Packs/Day [...] How often do you attend druze or tenriism serv ices? Never 06/07/2022 Do [...] Answer Date Recorded PHQ-2 score 3 06/07/2022 [facility] [place] of Occupat ional Health - Occupational Stress [...] place to sleep or slept in a [place] health care facility (including now)? No 06/07/2022 Area Deprivation Index Answer Date Kana rded National Score (1-100), lower number is lower ri sk 79 07/26/2022 State Score (1-10), lower number is lower risk 7 07/26/2022 Data from: https://www.neighborhoodatlas.medicine.[facility].edu/. Last address used for calculation [address] [place] [address] 07/26/2022 Comments No Sex and Gender Information [...] 1:00 PM EDT Office Visit Otolaryngology [address] [address] Rojelio Courtney MD [address] [place] [address] post op 09/09/2024 11:[address] [facility] [address] [place] [address] Chito Sellers MD [address] [place] [address] Post-Op Scheduling Request 09/16/2024 2:30 PM EDT [facility] Endocrinology [address] [place] [address] Gail Escudero MD [address] [place], [place] [phone] Post-Op Scheduling Request documented as of this encounter Visit Diagnoses Not on filedocumented in this encounter Care Teams Hand Folder Relationship Specialty Start Date End Date Johnny Reardon DO [facility] [facility] [place] [address] PCP - General Internal Medicine 07/27/22 Mayela Faust APRN.OPERATIONS AND MAINTENANCE SPECIALIST [facility]2 [place] [address] Forge Shop Machine Repairer Family Medicine 02/09/24 03/05/24 Marie Mancuso PA-C [facility]2 [place] [address] Forge Shop Machine Repairer Internal Medicine 02/09/24 Mai Amador PA-C [facility] [place], [place] [phone] [facility] Internal Medicine 02/09/24 03/05/24 Gail Escduero MD [address] [place], [place] [phone] TIM Referring Team Endocrinology 05/12/24 documented as of this encounter
--- OUTSIDE RECORDS SUMMARY | 2024-07-26 13:09 | XMS_ITS | Encounter Summary ---
Author Organization [facility] Address [address] [place] [address] Care Team Providers Care Room Inspector Name Role Phone Johnny Reardon DO Primary Care Provider Mayela Faust APRN.CLIENT EXPERIENCE CONSULTANT Unavailable Marie Mancuso PA-C Unavailable [phone] Mai Amador PA-C Unavailable [phone] Gail Escudero MD Unavailable [phone] Source Comments In the event this information is protected by the Federal Confidentiality of Alcohol and Drug AbusePatient Records regulations: The Federal rules restrict any use of the information to criminally investigate or prosecute any alcohol or drug abuse patient.[facility] Encounter Details Date Type Department Care Team (Late st Contact Info) Description 12/29/2019 Patient Msg Endocrinology [address] [place], [place] [id number] Provider, Ccf Weight mgmt program Social History Tobacco Use Types Packs/Day Years Used Date Smoking Tobacco: Every Day Cigarettes Alcohol Use Standard Drinks/Week Comments Not Asked [...] have Coronavirus / COVID-19? No / Unsure 12/29/2019 8:44 AM EDT documented as of this encounter Plan of Treatment Upcoming Encounters Date Type Department Care Team (Latest Contact Info) Description 08/05/2024 1:00 PM EDT Office Visit Otolaryngology [address] [address] Rojelio Courtney MD [address]00 [place] [address] post op 09/09/2024 11:20 AM EDT [facility] [address] [place] [address] Chito Sellers MD [address] [place] [address] Post-Op Scheduling Request 09/16/2024 2:30 PM EDT [facility] Endocrinology [address] [place] [address] Gail Escudero MD [address] [place] [address] Post-Op Scheduling Request documented as of this encounter Visit Diagnoses Not on filedocumented in this encounter Care Teams Room Inspector Relationship Specialty Start Date End Date Johnny Reardon DO [address] [place] [address] PCP - General Internal Medicine 07/27/22 Mayela Faust APRN.CLIENT EXPERIENCE CONSULTANT [address] [place] [address] [facility] Family Medicine 02/09/24 03/05/24 Marie Mancuso PA-C [address] [place] [address] [facility] Internal Medicine 02/09/24 Mai Amador PA-C [address] [facility] [place] [address] [facility] Internal Medicine 02/09/24 03/05/24 Gail Escudero MD [address] [place] [address] NI Referring Team Endocrinology 05/12/24 documented as of this encounter
--- OUTSIDE RECORDS SUMMARY | 2024-07-26 13:09 | XMS_ITS | Encounter Summary ---
Author Organization [facility] Address [address] [place] [address] Care Team Providers Care Gear Inspector Name Role Phone Johnny Reardon DO Primary Care Provider Mayela Faust APRN.CLINICAL MANAGER HOME CARE Unavailable Marie Mancuso PA-C Unavailable [phone] Mai Amador PA-C Unavailable [phone] Gail Escudero MD Unavailable [phone] Source Comments In the event this information is protected by the Federal Confidentiality of Alcohol and Drug AbusePatient Records regulations: The Federal rules restrict any use of the information to criminally investigate or prosecute any alcohol or drug abuse patient.[facility] Encounter Details Date Type Department Care Team (Late st Contact Info) Description 12/22/2019 Patient Msg Endocrinology [address] [place], [place] [phone] Provider, Ccf Lab Reminder Social History Tobacco [...] 1:00 PM EDT Office Visit Otolaryngology [address] [address] Rojelio Courtney MD [address] [place] [address] post op 09/09/2024 11:20 AM EDT [facility] [address] [place] [address] Chito Sellers MD [address] [place] [address] Post-Op Scheduling Request 09/16/2024 2:30 PM EDT [facility] Endocrinology [address] [place] [address] Gail Escudero MD [address] [place] [address] Post-Op Scheduling Request documented as of this encounter Visit Diagnoses Not on filedocumented in this encounter Care Teams Gear Inspector Relationship Specialty Start Date End Date Johnny Reardon DO [address] [place] [id number] PCP - General Internal Medicine 07/27/22 Mayela Faust APRN.CLINICAL MANAGER HOME CARE [address] [place] [address] Client Service Associate Family Medicine 02/09/24 03/05/24 Marie Mancuso PA-C [address] [place] [address] Client Service Associate Internal Medicine 02/09/24 Mai Amador PA-C [address] [place] [address] [facility] Internal Medicine 02/09/24 03/05/24 Gail Escudero MD [address] [place] [address] NI Referring Team Endocrinology 05/12/24 documented as of this encounter
--- OUTSIDE RECORDS SUMMARY | 2024-07-26 13:09 | XMS_ITS | Encounter Summary ---
Author Organization [facility] Address [facility] [place] [address] Care Team Providers Care Skiver Heel Tap Name Role Phone Johnny Reardon DO Primary Care Provider Mayela Faust APRN.HYDRODYNAMICS TEACHER Unavailable Marie Mancuso PA-C Unavailable Mai Amador PA-C Unavailable [phone] Gail Escudero MD Unavailable Source Comments In the event this information is protected by the Federal Confidentiality of Alcohol and Drug AbusePatient Records regulations: The Federal rules restrict any use of the information to criminally investigate or prosecute any alcohol or drug abuse patient.[facility] Encounter Details Date Type Department Care Team (Late st Contact Info) Description 07/27/2022 Patient Msg Urology [address] [place], [place] [phone] Donna Ruffin MD [address] [place] [phone] No yeast infection Social History Tobacco Use Types Packs/Day Years [...] Never 06/07/2022 How often do you attend yarsani or taoist serv ices? Never 06/07/2022 Do you belong to any clubs o r organizations such as yarsani groups, unions, fraternal or athletic groups, or [...] Answer Date Recorded PHQ-2 score 3 06/07/2022 [facility] [place] of Occupat ional Health - Occupational Stress [...] is lower risk 7 07/26/2022 Data from: https://www.neighborhoodatlas.medicine.[facility].edu/. Last address used for calculation [address] [place] [address] 07/26/2022 Comments No Sex and Gender Information [...] 1:00 PM EDT Office Visit Otolaryngology [address] [address] Rojelio Courtney MD [address] [place] [address] post op 09/09/2024 11:20 AM EDT [facility] [address] [place] [address] Chito Sellers MD [address] [place] [address] Post-Op Scheduling Request 09/16/2024 2:30 PM EDT [facility] Endocrinology [address] [place] [address] Gail Escudero MD [address] [place], [place] [id number] Post-Op Scheduling Request documented as of this encounter Visit Diagnoses Not on filedocumented in this encounter Care Teams Skiver Heel Tap Relationship Specialty Start Date End Date Johnny Reardon DO [facility] [facility] [place] [facility] [place] [address] PCP - General Internal Medicine 07/27/22 Mayela Faust APRN.HYDRODYNAMICS TEACHER [facility] [place] [address] [facility] Family Medicine 02/09/24 03/05/24 Marie Mancuso PA-C [facility] [place] [address] [facility] Internal Medicine 02/09/24 Mai Amador PA-C [facility] [place], [place] [phone] [facility] Internal Medicine 02/09/24 03/05/24 Gail Escudero MD [address] [place], [place] [phone] TIM Referring Team Endocrinology 05/12/24 documented as of this encounter
--- OUTSIDE RECORDS SUMMARY | 2024-07-26 13:09 | XMS_ITS | Encounter Summary ---
Author Organization [facility] Address [address] [place] [address] Care Team Providers Care Hand Miter Operator Name Role Phone Johnny Reardon DO Primary Care Provider Mayela Faust APRN.PEELED POTATO INSPECTOR Unavailable Marie Mancuso PA-C Unavailable [phone] Mai Amador PA-C Unavailable [phone] Gail Escudero MD Unavailable [phone] Source Comments In the event this information is protected by the Federal Confidentiality of Alcohol and Drug AbusePatient Records regulations: The Federal rules restrict any use of the information to criminally investigate or prosecute any alcohol or drug abuse patient.[facility] Encounter Details Date Type Department Care Team (Late st Contact Info) Description 11/18/2023 Patient Msg Internal Medicine [place] [address] [place], [place] [phone] Provider, Ccf Reschedule Appointment on 12/10/2023 Social History Tobacco Use Types Packs/Day Years [...] Never 06/07/2022 How often do you attend jehovah's witness or latter day serv ices? Never 06/07/2022 Do you belong to any clubs o r organizations such as jehovah's witness groups, unions, fraternal or athletic groups, or [...] Answer Date Recorded PHQ-2 score 3 06/07/2022 [facility] of Occupat ional Health - Occupational [...] place to sleep or slept in a correction (including now)? No 06/07/2022 Area Deprivation Index Answer Date Kana rded National Score (1-100), lower number is lower ri sk 79 07/26/2022 State Score (1-10), lower number is lower risk 7 07/26/2022 Data from: https://www.neighborhoodatlas.medicine.[facility].edu/. Last address used for calculation [address] [place] [address] 07/26/2022 Comments No Sex and Gender Information [...] 1:00 PM EDT Office Visit Otolaryngology [address] [address] Rojelio Courtney MD [address] [place] [address] post op 09/09/2024 11:20 AM EDT [facility] Tumor Center [address] [place] [address] Chito Sellers MD [address]00 [place] [address] Post-Op Scheduling Request 09/16/2024 2:[address] [facility] Endocrinology [address] [place] [address] Gail Escudero MD [address] [place] [address] Post-Op Scheduling Request documented as of this encounter Visit Diagnoses Not on filedocumented in this encounter Care Teams Hand Miter Operator Relationship Specialty Start Date End Date Johnny Reardon DO [address] [place] [address] PCP - General Internal Medicine 07/27/22 Mayela Faust APRN.PEELED POTATO INSPECTOR [address] [facility] [place] [address] [facility] 02/09/24 03/05/24 Marie Mancuso PA-C [address] [place] [address] [facility] 02/09/24 Mai Amador PA-C [address] [facility] [place] [address] [facility] 02/09/24 03/05/24 Gail Escudero MD [address] [place], [place] [id number] NI Referring Team Endocrinology 05/12/24 documented as of this encounter
--- OUTSIDE RECORDS SUMMARY | 2024-07-26 13:09 | XMS_ITS | Encounter Summary ---
Author Organization [facility] Address [facility] [place] [address] Care Team Providers Care Child Welfare Manager Name Role Phone Johnny Reardon DO Primary Care Provider Mayela Fasut APRN.STAVE LOG RIPSAW OPERATOR Unavailable [phone] Marie Mancuso PA-C Unavailable [phone] Mai Amador PA-C Unavailable [phone] Gail Escudero MD Unavailable [phone] Source Comments In the event this information is protected by the Federal Confidentiality of Alcohol and Drug AbusePatient Records regulations: The Federal rules restrict any use of the information to criminally investigate or prosecute any alcohol or drug abuse patient.[facility] Encounter Details Date Type Department Care Team (Late st Contact Info) Description 03/18/2023 Get Medical Advice Endocrinology [address] [place] [address] Gail Escudero MD [address] [place] [address] Test results Social History Tobacco Use Types Packs/Day Years [...] Never 06/07/2022 How often do you attend latter-day or mormon serv ices? Never 06/07/2022 Do you belong to any clubs o r organizations such as latter-day groups, unions, fraternal or athletic groups, or [...] Answer Date Recorded PHQ-2 score 3 06/07/2022 [facility] of Occupat ional Health - Occupational Stress [...] is lower risk 7 07/26/2022 Data from: https://www.neighborhoodatlas.medicine.[facility].edu/. Last address used for calculation [address] [place] [address] 07/26/2022 Comments No Sex and Gender Information [...] 1:00 PM EDT Office Visit Otolaryngology [address] [address] Rojelio Courtney MD [address] [place] [address] post op 09/09/2024 11:20 AM EDT [facility] Brain Tumor Center [address] [place] [address] Chito Sellers MD [address]00 [place] [address] Post-Op Scheduling Request 09/16/2024 2:30 PM EDT [facility] Endocrinology [address] [place] [address] Gail Escudero MD [address] [place], [place] [phone] Post-Op Scheduling Request documented as of this encounter Visit Diagnoses Not on filedocumented in this encounter Care Teams Child Welfare Manager Relationship Specialty Start Date End Date Johnny Reardon DO [facility] [facility] [address] PCP - General Internal Medicine 07/27/22 Mayela Faust APRN.STAVE LOG RIPSAW OPERATOR [facility] [place] [address] Hot Header Operator Family Medicine 02/09/24 03/05/24 Marie Mancuso PA-C [facility] [place] [address] Hot Header Operator Internal Medicine 02/09/24 Mai Amador PA-C [facility] [place], [place] [address] [facility] Internal Medicine 02/09/24 03/05/24 Gail Escudero MD [address] [place], [place] [address] TIM Referring Team Endocrinology 05/12/24 documented as of this encounter
--- OUTSIDE RECORDS SUMMARY | 2024-07-26 13:09 | XMS_ITS | Encounter Summary ---
Author Organization [facility] Address [address] [place] [address] Care Team Providers Care Relay Mechanic Name Role Phone Johnny Reardon DO Primary Care Provider Mayela Faust APRN.CYBER INCIDENT ANALYST Unavailable Marie Mancuso PA-C Unavailable [phone] Mai Amador PA-C Unavailable [phone] Gail Escudero MD Unavailable [phone] Source Comments In the event this information is protected by the Federal Confidentiality of Alcohol and Drug AbusePatient Records regulations: The Federal rules restrict any use of the information to criminally investigate or prosecute any alcohol or drug abuse patient.[facility] Encounter Details Date Type Department Care Team (Late st Contact Info) Description 09/29/2019 Patient Msg Radiology [address] [place], [place] [phone] Provider, Ccf Scheduled Appointment Social History Tobacco Use Types Packs/Day [...] have Coronavirus / COVID-19? No / Unsure 09/29/2019 10:36 AM EDT documented as of this encounter Plan of Treatment Upcoming Encounters Date Type Department Care Team (Latest Contact Info) Description 08/05/2024 1:00 PM EDT Office Visit Otolaryngology [address] [address] Rojelio Courtney MD [address] [place] [address] post op 09/09/2024 11:20 AM EDT [facility] Tumor Center [address] [place] [address] Chito Sellers MD [address] [place] [address] Post-Op Scheduling Request 09/16/2024 2:30 PM EDT [facility] Endocrinology [address] [place] [address] Gail Escudero MD [address] [place] [address] Post-Op Scheduling Request documented as of this encounter Visit Diagnoses Not on filedocumented in this encounter Care Teams Relay Mechanic Relationship Specialty Start Date End Date Johnny Reardon DO [address] [place] [address] PCP - General Internal Medicine 07/27/22 Mayela Faust APRN.CYBER INCIDENT ANALYST [address] [place] [address] [facility] Family Medicine 02/09/24 03/05/24 Marie Mancuso PA-C [address] [place] [address] [facility] Internal Medicine 02/09/24 Mai Amador PA-C [address] [place] [address] [facility] Internal Medicine 02/09/24 03/05/24 Gail Escudero MD [address] [facility] [place] [address] NI Referring Team Endocrinology 05/12/24 documented as of this encounter
--- OUTSIDE RECORDS SUMMARY | 2024-07-26 13:09 | XMS_ITS | Encounter Summary ---
Author Organization [facility] Address [address] [place] [address] Care Team Providers Care Turkey Roll Maker Name Role Phone Johnny Reardon DO Primary Care Provider Mayela Faust APRN.MANAGER FITNESS Unavailable Marie Mancuso PA-C Unavailable [phone] Mai Amador PA-C Unavailable [phone] Gail Escudero MD Unavailable [phone] Source Comments In the event this information is protected by the Federal Confidentiality of Alcohol and Drug AbusePatient Records regulations: The Federal rules restrict any use of the information to criminally investigate or prosecute any alcohol or drug abuse patient.[facility] Encounter Details Date Type Department Care Team (Late st Contact Info) Description 04/18/2023 Patient [facility] HB-[address] [place] [address] Jerica Conti RPh At your next appointment, choose [facility] Social History Tobacco Use Types Packs/Day Years [...] Never 06/07/2022 How often do you attend sabianist or muslim serv ices? Never 06/07/2022 Do you belong to any clubs o r organizations such as sabianist groups, unions, fraternal or athletic groups, or [...] Answer Date Recorded PHQ-2 score 3 06/07/2022 [facility] of Occupat ional Health - Occupational [...] lower risk 7 07/26/2022 Data from: https://www.neighborhoodatlas.medicine.[facility].edu/. Last address used for calculation [address] [place] [address] 07/26/2022 Comments No Sex and Gender Information [...] PM EDT Office Visit Otolaryngology [address] [address] Rojelio Courtney MD [address] [place] [address] post op 09/09/2024 11:20 AM EDT [facility] Tumor Center [address] [place] [address] Chito Sellers MD [address] [place] [address] Post-Op Scheduling Request 09/16/2024 2:30 PM EDT [facility] Endocrinology [address] [place] [address] Gail Escudero MD [address] [place] [address] Post-Op Scheduling Request documented as of this encounter Visit Diagnoses Not on filedocumented in this encounter Care Teams Turkey Roll Maker Relationship Specialty Start Date End Date Johnny Reardon DO [address] [place] [address] PCP - General Internal Medicine 07/27/22 Mayela Faust, PAIN MANAGEMENT NURSE PRACTITIONER.MANAGER FITNESS [address] [place] [address] Marketing Database Analyst Family Medicine 02/09/24 03/05/24 Marie Mancuso PA-C [address] [place] [address] Marketing Database Analyst Internal Medicine 02/09/24 Mai Amador PA-C [address] [facility] [address] Marketing Database Analyst Internal Medicine 02/09/24 03/05/24 Gail Escudero MD [address] [place], [place] [phone] NI Referring Team Endocrinology 05/12/24 documented as of this encounter
[2024-07-26 13:18] VITALS: O2SAT 99
--- NOTE | 2024-07-26 13:19 | ED.GENADUL1 ---
HPI HPI - General Adult General Chief complaint: Upper Respiratory Infection Stated complaint: COUGHING OF BLOOD, WHEEZING-SURGERY AT [facility] Time Seen by Provider: 07/26/24 13:06 Source: patient Mode of arrival: walk-in History of Present Illness HPI narrative: 44-year-old female presents because she was coughing up some pink phlegm. She has not coughed up any large clots. 4 days ago she had pituitary surgery in [place] and had been intubated. After she got home the next day she started coughing up some pink and was concerned because of the color. No fever or chest pain. Her mother recently had pneumonia. She recently quit smoking. Related Data Home Medications ?Medication ?Instructions ?Recorded ?Confirmed acyclovir 400 mg tablet 400 mg PO Q12H 11/13/22 11/13/22 bupropion HCl 150 mg tablet,12 hr 150 mg PO Q12H 11/13/22 11/13/22 sustained-release cabergoline 0.5 mg tablet 1 mg PO DAILY 11/13/22 11/13/22 esomeprazole magnesium 40 mg 40 mg PO Q24H 11/13/22 11/13/22 capsule,delayed release levothyroxine 50 mcg tablet 50 mcg PO DAILY 11/13/22 11/13/22 Previous Rx's ?Medication ?Instructions ?Recorded ondansetron 4 mg disintegrating 4 mg PO Q8H PRN nausea and 05/17/24 tablet vomiting 24 hours #3 tabs ciprofloxacin HCl 500 mg tablet 500 mg PO Q12H #14 tabs 05/21/24 azithromycin 250 mg tablet See Rx Instructions PO .COMPLEX #6 07/26/24 (Zithromax Z-Rajendra) tabs Allergies Allergy/AdvReac Type Severity Reaction Status Date / Time No Known Drug Allergies Allergy Verified 05/17/24 14:02 Review of Systems ROS Narrative A ten point review of systems is negative except as noted above. PFSH PFSH Social History Smoking status: Current some day smoker Little interest or pleasure in doing things: not at all Feeling down, depressed, or hopeless: not at all Exam Narrative Exam Narrative: Nurses note and vital signs reviewed and patient is not hypoxic. General: The patient appears well and in no apparent distress. Patient is resting comfortably on cart. Skin: Warm, dry, no pallor noted. There is no rash noted. Head: Normocephalic, atraumatic Eye: Normal conjunctiva, no drainage Ears, Nose, Mouth, and Throat: oral mucosa is moist. Nares patent. Cardiovascular: Regular Rate and Rhythm Respiratory: Patient is in no distress, no accessory muscle use, lungs are clear to auscultation, no wheezing, rales or rhonchi. Breath sounds are equal bilateral Back: non-tender GI: Soft and nontender Musculoskeletal: The patient has no evidence of calf tenderness, no pitting edema, symmetrical pulses noted bilaterally Neurological: A&O, normal speech Psychiatric: Cooperative Constitutional Vital Signs, click to edit/add: Last Vital Signs Temp 97.7 F 07/26/24 13:07 Pulse 74 07/26/24 13:07 Resp 16 07/26/24 13:07 BP 161/85 H 07/26/24 13:07 Pulse Ox 99 07/26/24 13:18 O2 Del Method Room Air 07/26/24 13:18 Course Vital Signs Vital signs: Vital Signs Temperature 97.7 F 07/26/24 13:07 Pulse Rate 74 07/26/24 13:07 Respiratory Rate 16 07/26/24 13:07 Blood Pressure 161/85 H 07/26/24 13:07 Pulse Oximetry 95 07/26/24 13:07 Oxygen Delivery Method Room Air 07/26/24 13:07 Temperature 97.7 F 07/26/24 13:07 Pulse Rate 74 07/26/24 13:07 Respiratory Rate 16 07/26/24 13:07 Blood Pressure 161/85 H 07/26/24 13:07 Pulse Oximetry 99 07/26/24 13:18 Oxygen Delivery Method Room Air 07/26/24 13:18 Medical Decision Making MDM Narrative Medical decision making narrative: X ray my interpretation shows no acute findings. Should be placed on Zithromax and will follow-up with her doctor. Treatment diagnosis and follow-up were discussed with the patient. Differential Diagnosis Differential Diagnosis: Hemoptysis, pneumonia, lung mass Imaging Data Chest x-ray: My impression: No acute finding Discharge Plan Discharge Chief Complaint: Upper Respiratory Infection Clinical Impression: Hemoptysis Patient Disposition: Home, Self-Care Time of Disposition Decision: 14:06 Condition: Good Mode of Transportation: Private Vehicle Prescriptions / Home Meds: New azithromycin [Zithromax Z-Rajendra] 250 mg tablet See Rx Instructions .ROUTE .COMPLEX Qty: 6 0RF Rx Instructions: For 250 mg dose pack: take 500 mg today (day 1), then 250 mg for 4 days (days 2-5) No Action ondansetron 4 mg tablet,disintegrating 4 mg PO Q8H PRN (Reason: nausea and vomiting) 1 Days Qty: 3 0RF ciprofloxacin HCl 500 mg tablet 500 mg PO Q12H Qty: 14 0RF acyclovir 400 mg tablet 400 mg PO Q12H bupropion HCl 150 mg tablet sustained-release 12 hr 150 mg PO Q12H cabergoline 0.5 mg tablet 1 mg PO DAILY esomeprazole magnesium 40 mg capsule,delayed release(DR/EC) 40 mg PO Q24H levothyroxine 50 mcg tablet 50 mcg PO DAILY Print Language: Estonian Instructions: Coughing Up Blood (Hemoptysis) (ED) Referrals: Johnny Reardon DO [Primary Care Provider] - 1 week
== END 2024-07-26 14:11 | disposition home or self-care (01) ==
PROVIDERS: Emergency Provider Emergency Medicine; PCP Internal Medicine
DX: R04.2 Hemoptysis (principal); Z98.890 Other specified postprocedural states; Z87.891 Personal history of nicotine dependence
CPT/HCPCS: 71045; 99283